=== PATIENT | female | born 1930 | race Caucasian/White ===

== ENCOUNTER 2017-04-29 18:19 | Emergency (ER) | payer OTHER, MEDICARE ==
[2017-04-29 18:31] VITALS: BP 127/69; PULSE 77; TEMP 98.8; BMI 21.2
--- NOTE | 2017-04-29 19:18 | PDOC ---
Attending Attestation - Resident Resident Name: Trevin Green - ED Attending Attestation I have performed the following: I have examined & evaluated the patient, The case was reviewed & discussed with the resident, I agree w/resident's findings & plan, Exceptions are as noted - HPI HPI: 04/29/17 19:17 Laceration to hand, on eloquis - Physicial Exam PE: 04/29/17 19:17 Bleeding Controlled - Medical Decision Making 04/29/17 19:[address] Green Assessment and Plan
[2017-04-29] MEDS ORDERED: DIPHTH,PERTUSS(ACELL),TET 0.5 ML DISP.SYRIN IM ONE (19:48)
--- NOTE | 2017-04-29 19:48 | PDOC ---
History of Present Illness - General Chief Complaint: Laceration Stated Complaint: INJURY Time Seen by Provider: 04/29/17 19:11 - History of Present Illness Initial Comments: 04/29/17 20:38 The patient is an 86 year old female on eloquis who presents for evaluation following a left hand laceration. The patient reports cutting with a paring knife earlier this evening and cutting her left hand. She states that because she is on eloquis, she could not stop the bleeding and called EMS to present to the ED for evaluation. Hemostasis has been obtained here in the ED. The patient denies any lightheadedness, dizziness, chest pain, SOB, abdominal pain, or changes with urination or bowel movements. Past History - Past Medical History Allergies/Adverse Reactions: Allergies Allergy/AdvReac Type Severity Reaction Status Date / Time warfarin Allergy Mild dizzy Verified 04/29/17 19:20 Home Medications: Ambulatory Orders Apixaban [Eliquis] 2.5 mg PO Q2D 04/29/17 Ascorbic Acid [Vitamin C] 500 mg PO DAILY 04/29/17 Calcium 250Mg/Vit-D 125 Units [Oscal 250 mg+D -] 1 combo PO DAILY 04/29/17 Glucosamine Sulfate Dipot Chlr [Glucosamine] 1,000 mg PO 04/29/17 Metoprolol Succinate [Toprol Xl -] 25 mg PO DAILY 04/29/17 Multivitamin/Iron/Folic Acid [Centrum Adults Tablet] 04/29/17 Prednisone 3 mg PO DAILY 04/29/17 Simvastatin 20 mg PO DAILY 04/29/17 Ubidecarenone [Co Q-10] 10 mg PO 04/29/17 Cardiac Disorders: Yes (afib) HTN: Yes Hypercholesterolemia: Yes Other medical history: arthritis - Suicide/Smoking/Psychosocial Hx Smoking History: Former smoker Have you smoked in the past 12 months: No Information on smoking cessation initiated: No Hx Alcohol Use: No Drug/Substance Use Hx: No Substance Use Type: None Review of Systems - Review of Systems Comments:: 04/29/17 21:04 Constitutional: No fevers, chills, fatigue, malaise HEENT: No Rhinorrhea, nasal congestion, visual changes Cardiovascular: No chest pain, syncope, palpitations, lightheadedness Respiratory: No Cough, SOB, Hemoptysis, Gastrointestinal: No Abdominal pain, Nausea, Vomiting, Constipation, Diarrhea, Melena Genitourinary: No Dysuria, Frequency, Urgency, Hesitancy, Hematuria, Flank pain Musculoskeletal: No Myalgia, arthralgia Skin: No rashes, itching, bruising, pallor Neurologic: No Headache, Dizziness, Numbness, Weakness, or Tingling *Physical Exam - Vital Signs Last Vital Signs Temp Pulse Resp BP Pulse Ox 98.8 F 77 20 127/69 99 04/29/17 18:23 04/29/17 18:23 04/29/17 18:23 04/29/17 18:23 04/29/17 18:23 - Physical Exam Comments: 04/29/17 21:05 General Appearance: Nourished. No Apparent Distress HEENT: EOMI, PRISCILA. Respiratory/Chest: Lungs Clear, Normal Breath Sounds. No Crackles, Rales, Rhonchi, Wheezing Cardiovascular: Regular Rhythm, Regular Rate. No Murmur, Gallops, Rubs Gastrointestinal/Abdominal: Normal Bowel Sounds, Soft. No Guarding, Rebound, Tenderness Musculoskeletal: No CVA Tenderness Extremity: 1cm abrasion to the left hand in between the 1st and 2nd digits. Normal range of motion. Sensation to light touch and temperature intact. Normal Capillary Refill Integumentary: Normal Color, Dry, Warm Neurologic: C Fully Oriented, Alert, Normal Mood/Affect, Normal Response, Motor Strength 5/5. Medical Decision Making - Medical Decision Making 04/29/17 21:07 The patient is an 86 year old female on eloquis who presents for evaluation following a left hand laceration. Physical exam of the patient demonstrates an abrasion rather than a laceration that does not require suturing. The patient' s skin is also very thin and would not tolerate steri-stripping. We will apply bacitracin and a non stick dressing. We will update the patient's tetanus status as well. She does not require imaging at this time given her physical exam. We are comfortable discharging the patient home with pcp follow up. We discussed the plan with the patient who voiced understanding and is agreeable with the plan. *DC/Admit/Observation/Transfer Diagnosis at time of Disposition: Abrasion - Discharge Dispostion Disposition: HOME Condition at time of disposition: Improved Admit: No - Referrals Referrals: Bolivar Pritchard [Primary Care Provider] - - Patient Instructions Printed Discharge Instructions: DI for Abrasion Additional Instructions: Please return to the ER if you experience concerning or worsening symptoms including fevers, chills, pus drainage from the wound. Please follow up with your primary care provider if you have continued symptoms.
== END 2017-04-29 20:38 | disposition home or self-care (01) ==
LOC: JER 18:19
PROC: 3E0234Z Introduction of Serum, Toxoid and Vaccine into Muscle, Percutaneous Approach (ICD-10-PCS; principal; 2017-04-29)
DX: S60.512A Abrasion of left hand, initial encounter (principal); W26.0XXA Contact with knife, initial encounter; Y93.G1 Activity, food preparation and clean up; Y92.018 Other place in single-family (private) house as the place of occurrence of the external cause; I48.91 Unspecified atrial fibrillation; Z79.01 Long term (current) use of anticoagulants; I10 Essential (primary) hypertension; E78.00 Pure hypercholesterolemia, unspecified; M12.9 Arthropathy, unspecified
CPT/HCPCS: 90715; 99281-25

== ENCOUNTER → 2018-10-06 | Emergency (ER) | payer OTHER, MEDICARE | LOC: JER 21:24 ==

== ENCOUNTER 2018-10-07 15:06 | Inpatient (IN) | payer OTHER, MEDICARE ==
--- NOTE | 2018-10-07 16:17 | PDOC ---
Attending Attestation - HPI HPI: 10/07/18 17:11 The patient is an 88 year old female with a significant past medical history of AFib (on 81mg aspirin), HTN, who presents to the emergency department for evaluation s/p fall this morning with increased swelling to her lower extremities, as well as, a right elbow bruise and an open right LE wound. The patient states she is unsure why she fell. The patient denies preceding symptoms. She reports 4 falls since '. The patient states she had the RLE wound during her ED visit yesterday, however, as per the EHR the patient left before being evaluated. The patient states the wound is bleeding today and "more open". She states she sometimes does not take the full dose of her Lasix. She states she stopped eliquis some time ago because it made her feel sick. The patient denies chest pain, shortness of breath, headache and dizziness. The patient denies fever, chills, nausea, vomit, diarrhea and constipation. The patient denies dysuria, frequency, urgency and hematuria. <Isabelle Soler - Last Filed: 10/07/18 17:11> - Physicial Exam PE: 10/07/18 17:49 ADULT PHYSICAL EXAM Constitutional: Awake, alert, poor historian. No acute distress. Head: Normocephalic. Atraumatic Eyes: PERRL. EOMI. Conjunctivae are not pale. ENT: Mucous membranes are moist and intact. Posterior pharynx without exudates or erythema. Uvula midline. Neck: Supple. Full ROM. No lymphadenopathy. Cardiovascular: (+) Irregular rate. (+) Irregular rhythm. S1, S2 regular. Distal pulses are 2+ and symmetric. Pulmonary/Chest: (+) Diminished at the bases bilaterally. No wheezing, rales or rhonchi. Abdominal: (+) Ecchymosis to the chest and entire abdomen. Soft and non- distended. There is no tenderness. No rebound, guarding or rigidity. No organomegaly. No palpable masses. Good bowel sounds. Back: No CVA tenderness. Musculoskeletal: No cyanosis. No clubbing. No calf tenderness. Radial/pedal pulses are intact and 2+ bilaterally. (+) Right elbow has a hematoma, but radial pulses intact, strength is intact, NT. (+) 3+ pitting edema, right greater than left. (+) Skin: (+) Extremities have multiple areas of ecchymosis. (+) 2.5 inch wound from the subcutaneous right calf to the right mid calf laterally with serous drainage. Neurological: Alert. Cranial nerves II-XII are grossly intact. Strength is grossly symmetric. No sensory deficits. Psychiatric: Good eye contact. Normal interaction, affect and behavior. <Tiana Aguillon - Last Filed: 10/07/18 17:49> - Resident Resident Name: Maggie Alvarenga - ED Attending Attestation I have performed the following: I have examined & evaluated the patient, The case was reviewed & discussed with the resident, I agree w/resident's findings & plan, Exceptions are as noted - Medical Decision Making 10/07/18 16:16 I, Dr. Alma Delia Brown, DO, attest that this document has been prepared under my direction and personally reviewed by me in its entirety. I further attest, that it accurately reflects all work, treatment, procedures and medical decision -making performed by me. 10/07/18 18:14 a/p: 88yo female with mulitple falls since -wound to RLE- since last night, will allow for secondary healing, no sutures given delay in presentation -no active bleeding, serous drainage from wound -local wound care -worsening LE swelling despite lasix -bruising to abd and chest from falls- some unknown bruising- concern for coagulopathy vs low h/h -R elbow hematoma- xray -fell today- unsure how, but denies LOC -will obtain head ct, c spine, xray elbow, cxr -will monitor and reassess -suspect pt will need obs for freq falls, LE swelling, serous drainage from the wound -tetanus UTD 10/07/18 18:54 hemoglobin 6.2 will need transfusion 10/07/18 18:54 elevated bnp, will give iv lasix pt will need obs 10/07/18 19:45 R pleural effusion on ultrasound no acute intracranial findings, incidental finding of a meningioma 10/07/18 19:53 case discussed with Gabrielle lubin [facility] who accepts pt to service <Alma Delia Brown - Last Filed: 10/07/18 19:54> *DC/Admit/Observation/Transfer - Discharge Dispostion Decision to Admit order: Yes <Alma Delia Brown - Last Filed: 10/07/18 19:54> Diagnosis at time of Disposition: Symptomatic anemia, Falls frequently, Ecchymosis, Leg wound, right, Anasarca, Pleural effusion - Discharge Dispostion Condition at time of disposition: Guarded Heart Score/ECG Review - ECG Intrepretation Comment:: 10/07/18 18:16 afib at 91, nl axis, no acute st/t wave findings <Alma Delia Brown - Last Filed: 10/07/18 19:54> Attestations - Attestations 10/07/18 17:16 Documentation prepared by Isabelle Soler, acting as medical information specialist for Alma Delia Brown DO, <Isabelle Soler - Last Filed: 10/07/18 17:11>
[2018-10-07 17:42] LABS: HEMATOCRIT 18.8 % (32.4-45.2); MCHC 33.1 g/dl (32.0-36.0); MEAN CELL VOLUME 126.3 fl (80-96); MEAN PLT VOLUME 6.9 fl (7.5-11.1); PLATELET COUNT 377 K/MM3 (134-434); RBC 1.49 M/mm3 (3.60-5.2); RDW 17.1 % (11.6-15.6); WHITE BLOOD COUNT 7.9 K/mm3 (4.0-10.0)
[2018-10-07 17:44] LABS: MCH 41.8 pg (25.7-33.7)
[2018-10-07 17:45] LABS: HEMOGLOBIN 6.2 GM/dL (10.7-15.3)
[2018-10-07 17:54] LABS: BASO % 0.4 % (0-2.0); EOS % 0.1 % (0-4.5); HEMATOCRIT 18.2 % (32.4-45.2); MCHC 34.5 g/dl (32.0-36.0); MEAN PLT VOLUME 7.2 fl (7.5-11.1); MONO % 8.1 % (3.8-10.2); NEUT % 87.4 % (42.8-82.8); PLATELET COUNT 372 K/MM3 (134-434); RBC 1.46 M/mm3 (3.60-5.2); RDW 16.7 % (11.6-15.6); WHITE BLOOD COUNT 7.6 K/mm3 (4.0-10.0)
--- NOTE | 2018-10-07 17:56 | PDOC ---
History of Present Illness - General Chief Complaint: Edema Stated Complaint: Injury Time Seen by Provider: 10/07/18 15:23 History Source: Patient - History of Present Illness Initial Comments: 10/07/18 17:48 patient is a 88 y/o female with a history of afib and HLD who presents for leg swelling. Patient is a poor historian. Reports her legs have always been swollen but have been having a lot more liquidy discharge recently. She has also had multiple falls within the past couple of months, the most recent being yesterday and is not sure how she fell. she landed on her right elbow and cut her vicente. Her legs were dripping with blood so she came to the ED last night but left before being seen. She has not been on an elliquis or xarelto " for weeks" and is only currently on baby aspirin. She does not know why her legs are swollen. She does take furosemide 40 mg daily. She states she takes her medication every day. Patient has no other complaints. Past History - Past Medical History Allergies/Adverse Reactions: Allergies Allergy/AdvReac Type Severity Reaction Status Date / Time warfarin Allergy Mild dizzy Verified 10/07/18 15:11 Home Medications: Ambulatory Orders Apixaban [Eliquis] 2.5 mg PO Q2D 04/29/17 Ascorbic Acid [Vitamin C] 500 mg PO DAILY 04/29/17 Calcium 250Mg/Vit-D 125 Units [Oscal 250 mg+D -] 1 combo PO DAILY 04/29/17 Glucosamine Sulfate Dipot Chlr [Glucosamine] 1,000 mg PO DAILY 04/29/17 Metoprolol Succinate [Toprol Xl -] 25 mg PO DAILY 04/29/17 Multivitamin/Iron/Folic Acid [Centrum Adults Tablet] 1 tab PO DAILY 04/29/17 Prednisone 2 mg PO DAILY 04/29/17 Simvastatin 20 mg PO DAILY 04/29/17 Ubidecarenone [Co Q-10] 10 mg PO DAILY 04/29/17 Furosemide [Lasix] 1 tab PO DAILY 11/02/17 Cardiac Disorders: Yes (afib) COPD: No HTN: Yes Hypercholesterolemia: Yes - Surgical History Appendectomy: Yes (1949) - Suicide/Smoking/Psychosocial Hx Smoking History: Never smoked Have you smoked in the past 12 months: No If you are a former smoker, when did you quit?: 1950 Hx Alcohol Use: No Drug/Substance Use Hx: No Substance Use Type: None Review of Systems - Review of Systems Able to Perform ROS?: No *Physical Exam - Vital Signs Last Vital Signs Temp Pulse Resp BP Pulse Ox 97.5 F L 85 18 103/59 L 100 10/07/18 15:10 10/07/18 15:10 10/07/18 15:10 10/07/18 15:10 10/07/18 15:10 - Physical Exam Comments: 10/07/18 17:53 GENERAL: Awake and alert, no acute distress HEART: irregularly irregular, 3/6 systolyic murmur at upper sternal border LUNGS: CTAL B/L ABD: multiple eccyomosis diffusely, no tenderness to palpation MSK: 4x4 cm hematoma at R elbow, multiple eccyomosis over arms EXTREMITIES: very edematous legs, R > L 5 x3 rectangular skrap over R vicente, R leg profusely excreting fluid SKIN: diffuse eccymosis ED Treatment Course - LABORATORY CBC & Chemistry Diagram: 10/07/18 17:33 10/07/18 17:14 - ADDITIONAL ORDERS Additional order review: 10/07/18 17:14 RBC 1.49 L MCV 126.3 H MCHC 33.1 RDW 17.1 H MPV 6.9 L - RADIOLOGY Radiology Studies Ordered: Category Date Time Status ELBOW-RIGHT [RAD] Stat Radiology 10/07/18 15:52 Ordered Medical Decision Making - Medical Decision Making 10/07/18 17:56 Hgb 6.2, type and screen and 2 unit PRBC ordered, f/u CMP f/u imaging Xray of elbow, Head CT, and abd CT for fall and bruising, [place] 300's will admit once labs and imaging resulted type and screen sent admitted patient to service *DC/Admit/Observation/Transfer Diagnosis at time of Disposition: Symptomatic anemia, Falls frequently, Ecchymosis, Leg wound, right, Anasarca, Pleural effusion - Discharge Dispostion Condition at time of disposition: Guarded - Referrals - Patient Instructions - Post Discharge Activity
[2018-10-07 17:57] LABS: HEMOGLOBIN 6.3 GM/dL (10.7-15.3); MCH 43.1 pg (25.7-33.7)
[2018-10-07 18:19] LABS: ALBUMIN 3.7 g/dl (3.4-5.0); ALK PHOS 158 U/L (45-117); ANION GAP 10 MMOL/L (8-16); BILIRUBIN,TOTAL 1.2 mg/dL (0.2-1); BLOOD UREA NITROGEN 17 mg/dL (7-18); CHLORIDE 100 mmol/L (98-107); CO2 26 mmol/L (21-32); CREATININE 0.5 mg/dL (0.55-1.3); GLUCOSE,RANDOM 81 mg/dL (74-106); N-TERMINAL BNP 3413.1 pg/ml (5-450); POTASSIUM 4.2 mmol/L (3.5-5.1); SGOT/AST 21 U/L (15-37); SGPT/ALT 17 U/L (13-61); SODIUM 136 mmol/L (136-145); TOT PROT 5.5 g/dl (6.4-8.2)
[2018-10-07] MEDS ORDERED: FUROSEMIDE 40 MG/4 ML INJECTABLE VIAL IVPUSH ONE (18:53)
[2018-10-07] MEDS ORDERED: FUROSEMIDE 40 MG/4 ML INJECTABLE VIAL ONE (19:35)
[2018-10-07 19:47] LABS: INR 1.18 (0.83-1.09)
[2018-10-07 19:50] LABS: ACTIVATED PTT 33.6 SECONDS (25.2-36.5)
[2018-10-07] MEDS: FUROSEMIDE 40 MG/4 ML INJECTABLE VIAL IVPUSH SCH (20:38)
--- NOTE | 2018-10-07 20:45 | HP ---
CHIEF COMPLAINT: recurrent falls since with right lower extremity open wound with bleeding yesterday PCP:Dr. Pritchard Natural Gas Technician: Dr. Kt Ceballos HISTORY OF PRESENT ILLNESS: Mrs. Pacheco is an 88 year old female who presents from home with history of atrial fibrillation(currently on baby aspirin, previously as recorded on eliquis ) and arthritis who presents to the emergency room after a recurrent fall she had this morning. She reports her initial fall was on when she slipped on ice and she injured her right lower extremity and she developed an open wound. She was referred to Dr. Perry of Wound Care for evaluation of her open wound. She reported she has been on oral lasix as recommended by her Natural Gas Technician for bilateral lower extremity swelling. She reports she has had 2 other falls over the past month but she denied loss of consciousness, dizziness , shortness of breath, orthopnea or chest pain. She reports yesterday she noted to have bleeding from her right lower extremity open wound and she went to the ER but she was not seen by a physician because she did not want to wait any longer. Today she presents after a recurrent fall when she was walking to her bedroom. She denied dizziness or loss of consciousness and she reported she was unable to get off the floor by herself. She reports right lower extremity open wound had no active bleeding but noted to have pinkish tinged drainage. Upon evaluation int he ER she was found to have significant anemia with a hemoglobin 6.3 and hematocrit 18.2,MCV 125 ,MPV 7.2 and RBC 1.46. She was ordered a blood transfusion of 2 Units PRBC's. She was found to have an elevated BNP of 3413. Bilateral lower extremities have signs of fluid overload. Venous ultrasound showed no evidence of deep vein thrombosis. Abdominal ultrasound showed a right pleural effusion and inferior vena cava and hepatic vein appear distended. She was administered one dosage of IV lasix 40 mg once and she is diuresing. CT scan of head showed no evidence of hemorrhage and she was found to have a 1.0 X 0.7 X 0.7cm meningioma. She is being admitted to telemetry for a further medical/cardiac further evaluation for symptomatic anemia and fluid overload. Recent Travel: denies PAST MEDICAL HISTORY: atrial fibrillation arthritis PAST SURGICAL HISTORY: appendectomy Social History: Smoking:denies Alcohol:denies Drugs: denies Lives at home and independent, operates a motor vehicle Family History:noncontributory Allergies warfarin Allergy (Mild, Verified 10/07/18 15:11) dizzy HOME MEDICATIONS: Home Medications Medication Instructions Recorded Apixaban [Eliquis] 2.5 mg PO Q2D 04/29/17 Ascorbic Acid [Vitamin C] 500 mg PO DAILY 04/29/17 Calcium 250Mg/Vit-D 125 Units 1 combo PO DAILY 04/29/17 [Oscal 250 mg+D -] Glucosamine Sulfate Dipot Chlr 1,000 mg PO DAILY 04/29/17 [Glucosamine] Metoprolol Succinate [Toprol Xl -] 25 mg PO DAILY 04/29/17 Multivitamin/Iron/Folic Acid 1 tab PO DAILY 04/29/17 [Centrum Adults Tablet] Prednisone 2 mg PO DAILY 04/29/17 Simvastatin 20 mg PO DAILY 04/29/17 Ubidecarenone [Co Q-10] 10 mg PO DAILY 04/29/17 Furosemide [Lasix] 1 tab PO DAILY 11/02/17 REVIEW OF SYSTEMS CONSTITUTIONAL: Absent: fever, chills, diaphoresis, generalized weakness, malaise, loss of appetite, weight change,frequent falls HEENT: Absent: rhinorrhea, nasal congestion, throat pain, throat swelling, difficulty swallowing, mouth swelling, ear pain, eye pain, visual changes CARDIOVASCULAR: Absent: chest pain, syncope, palpitations, irregular heart rate, lightheadedness , peripheral edema RESPIRATORY: Absent: cough, shortness of breath, dyspnea with exertion, orthopnea, wheezing, stridor, hemoptysis GASTROINTESTINAL: Absent: abdominal pain, abdominal distension, nausea, vomiting, diarrhea, constipation, melena, hematochezia GENITOURINARY: Absent: dysuria, frequency, urgency, hesitancy, hematuria, flank pain, genital pain MUSCULOSKELETAL: Absent: myalgia, arthralgia, joint swelling, back pain, neck pain SKIN: Absent: rash, itching, pallor HEMATOLOGIC/IMMUNOLOGIC: Absent: easy bleeding, easy bruising, lymphadenopathy, frequent infections, bleeding from open RLE wound and generalized ecchymosis ENDOCRINE: Absent: unexplained weight gain, unexplained weight loss, heat intolerance, cold intolerance NEUROLOGIC: Absent: headache, focal weakness or paresthesias, dizziness, unsteady gait, seizure, mental status changes, bladder or bowel incontinence PSYCHIATRIC: Absent: anxiety, depression, suicidal or homicidal ideation, hallucinations. PHYSICAL EXAMINATION Vital Signs - 24 hr 10/07/18 15:10 Temperature 97.5 F L Pulse Rate 85 Respiratory 18 Rate Blood Pressure 103/59 L O2 Sat by Pulse 100 Oximetry (%) GENERAL: awake, alert, and fully oriented HEAD: normal no bruising no bleeding EYES: pupils equal, round and reactive to light EARS, NOSE, THROAT: ears normal nares patent NECK: normal range of motion LUNGS: breath sounds equal, clear to auscultation bilaterally no wheezes and no crackles no use of accessory muscle use HEART: irregular rate and rhythm +murmur ABDOMEN: soft, nontender, not distended MUSCULOSKELETAL: limited range of motion to lower extremities no bony deformities or tenderness UPPER EXTREMITIES: 2+ pulses, warm +upper extremity mild edema poor skin turgor LOWER EXTREMITIES: 2+ pulses +lower extremity edema RLE open wound with no erythema NEUROLOGICAL:normal speech no neuro focal deficits answers questions appropriately with no confusion PSYCHIATRIC: cooperative and anxious good eye contact SKIN: warm poor turgor open lower extremity wound generalized ecchymosis Laboratory Results - last 24 hr 10/07/18 10/07/18 10/07/18 17:14 17:14 17:33 WBC 7.9 7.6 RBC 1.49 L 1.46 L Hgb 6.2 L* 6.3 L* Hct 18.8 L 18.2 L MCV 126.3 H 125.0 H MCH 41.8 H 43.1 H MCHC 33.1 34.5 RDW 17.1 H 16.7 H Plt Count 377 372 MPV 6.9 L 7.2 L Absolute Neuts (auto) 6.7 Neutrophils % 87.4 H Lymphocytes % 4.0 L Monocytes % 8.1 Eosinophils % 0.1 Basophils % 0.4 Nucleated RBC % 0 PT with INR INR PTT (Actin FS) Sodium 136 Potassium 4.2 Chloride 100 Carbon Dioxide 26 Anion Gap 10 BUN 17 Creatinine 0.5 L Creat Clearance w eGFR 116.17 Random Glucose 81 Calcium 8.0 L Total Bilirubin 1.2 H AST 21 ALT 17 Alkaline Phosphatase 158 H Troponin I 0.02 B-Natriuretic Peptide 3413.1 H Total Protein 5.5 L Albumin 3.7 Anti-A Titer Blood Type Antibody Screen Crossmatch 10/07/18 10/07/18 10/07/18 18:15 19:00 19:00 WBC RBC Hgb Hct MCV MCH MCHC RDW Plt Count MPV Absolute Neuts (auto) Neutrophils % Lymphocytes % Monocytes % Eosinophils % Basophils % Nucleated RBC % PT with INR 14.00 H INR 1.18 H PTT (Actin FS) 33.6 Sodium Potassium Chloride Carbon Dioxide Anion Gap BUN Creatinine Creat Clearance w eGFR Random Glucose Calcium Total Bilirubin AST ALT Alkaline Phosphatase Troponin I B-Natriuretic Peptide Total Protein Albumin Anti-A Titer Cancelled Blood Type Cancelled A POSITIVE Antibody Screen Cancelled Crossmatch 10/07/18 19:12 WBC RBC Hgb Hct MCV MCH MCHC RDW Plt Count MPV Absolute Neuts (auto) Neutrophils % Lymphocytes % Monocytes % Eosinophils % Basophils % Nucleated RBC % PT with INR INR PTT (Actin FS) Sodium Potassium Chloride Carbon Dioxide Anion Gap BUN Creatinine Creat Clearance w eGFR Random Glucose Calcium Total Bilirubin AST ALT Alkaline Phosphatase Troponin I B-Natriuretic Peptide Total Protein Albumin Anti-A Titer Blood Type Antibody Screen Crossmatch See Detail ASSESSMENT/PLAN: 88 year old female who presents from home with history of atrial fibrillation( currently on baby aspirin, previously on eliquis as recorded) and arthritis after a recurrent fall with no loss of consciousness. She denied shortness of breath, dizziness, chest pain or syncopy. She was found to have significant anemia with a hemoglobin 6.3 ,hematocrit 18.2,RBC 1.46, MCV 125 and MPV 7.2. #1 Fall in setting Anemia She is receiving 2 Units PRBC's.Repeat CBC post blood transfusion.Monitor for signs of acute congestive heart failure. Check iron ,ferritin, TIBC studies. Check stool guaic. Hold asa. Murmur present in this setting, will check echocardiogram to exclude in setting of recurrent falls(denies LOC). Hematology-Dr. Levy consulted, on oral prednisone for unclear reason. #2 Fluid Overload BNP 3413. Bilateral lower extremities with signs of fluid overload. Abdominal US showed a right pleural effusion, IVC and hepatic veins distended. She received one dosage of IV lasix 40 mg once and she is diuresing. Continue with IV lasix 40 mg twice daily with close monitoring of renal studies , strict I&O's, daily weights and electrolytes. Cardiology- Dr. Ceballos consulted. #3 Atrial Fibrillation Rate controlled. Continue with metoprolol succinate. Hold baby asa in setting of anemia. No chcf anticoagulation in setting of recurrent falls and at high risk for bleeding. Patient with signs of fluid overload and on IV lasix. #4 Right Lower Extremity Open Wound Continue with wound care with wet to dry dressing q6hr. Wound Care consulted-Dr. Perry. #5 Meningioma(New Finding) CT scan of head showed no infarct/hemorrhage, a meningioma is noted. Neurology consulted- Dr. Holly. FEN Avoid IV fluids as receiving IV diuretics. DVT Prophylaxsis Avoid antiplatelet/anticoagulation in setting of anemia. SCD's Visit type - Emergency Visit Emergency Visit: Yes ED Registration Date: 10/07/18 Care time: The patient presented to the Emergency Department on the above date and was hospitalized for further evaluation of their emergent condition. - New Patient This patient is new to me today: Yes Date on this admission: 10/08/18 - Critical Care Critical Care patient: No
[2018-10-07 21:25] LABS: ANISOCYTOSIS 2+
[2018-10-08 07:46] VITALS: BMI 21.2
--- NOTE | 2018-10-08 09:40 | CONSULT ---
Consultation: HEMATOLOGY CONSULTATION CONSULT REQUEST: We have been asked to medically evaluate this patient for Anemia HISTORY OF PRESENT ILLNESS: This is a pleasant 88 year old female with a past medical history of atrial fibrillation on aspirin and osteoarthritis who presented to the emergency room for recurrent falls and bilateral lower extremity swelling. Patient reports that her falls began on 08/26/18 when she slipped on ice and developed a wound on her right lower extremity. States that the fall was mechanical in nature and denied lightheadedness, dizziness, or loss of consciousness. A couple of days ago, patient fell again in her home and noted trickling of blood down her right leg as well as yellowish fluid oozing from both legs, prompting her to come to the hospital. Currently patient feels well and only complains of pain in her legs. Denies chest pain, shortness of breath, nausea, vomiting, diarrhea, fevers , chills. Patient denies ever being told she had anemia. Smoking: former, quit 30 years ago, smoked for 4 years reportedly 1 pack a week Alcohol: social Drug Use: never Heme/Onc History: Bruises easily, no spontaneous bleeds, no cancer Family history: mother with arthritis, father with heart problems -patient has no brothers or sisters, no children Social History: Never (fiance passed before they years ago), never had children. Patient lives in a single family home with stairs. She was able to ambulate independently in her home and take the stairs. Reports getting a friend or neighbor to help whenever she needed aid. States she now has someone helping her. 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 REVIEW OF SYSTEMS: CONSTITUTIONAL: Absent: fever, chills, diaphoresis, generalized weakness, malaise, loss of appetite, weight change HEENT: Absent: rhinorrhea, nasal congestion, throat pain, throat swelling, difficulty swallowing, mouth swelling, ear pain, eye pain, visual changes CARDIOVASCULAR: peripheral edema Absent: chest pain, syncope, palpitations, irregular heart rate, lightheadedness , RESPIRATORY: Absent: cough, shortness of breath, dyspnea with exertion, orthopnea, wheezing, stridor, hemoptysis GASTROINTESTINAL: Absent: abdominal pain, abdominal distension, nausea, vomiting, diarrhea, constipation, melena, hematochezia GENITOURINARY: Absent: dysuria, frequency, urgency, hesitancy, hematuria, flank pain, genital pain MUSCULOSKELETAL: arthralgia Absent: myalgia, joint swelling, back pain, neck pain SKIN: Absent: rash, itching, pallor HEMATOLOGIC/IMMUNOLOGIC: easy bruising Absent: easy bleeding, lymphadenopathy, frequent infections ENDOCRINE: Absent: unexplained weight gain, unexplained weight loss, heat intolerance, cold intolerance NEUROLOGIC: Absent: headache, focal weakness or paresthesias, dizziness, unsteady gait, seizure, mental status changes, bladder or bowel incontinence PSYCHIATRIC: Absent: anxiety, depression, suicidal or homicidal ideation, hallucinations. PHYSICAL EXAMINATION Vital Signs - 24 hr 10/07/18 10/07/18 10/07/18 15:10 21:20 21:35 Temperature 97.5 F L 97.9 F 97.8 F Pulse Rate 85 Pulse Rate [ 88 86 Left] Respiratory 18 18 18 Rate Blood Pressure 103/59 L Blood Pressure 94/42 L 97/50 L [Left Arm] O2 Sat by Pulse 100 100 98 Oximetry (%) 10/07/18 10/08/18 10/08/18 22:05 00:45 01:00 Temperature 98.7 F 98.0 F 98.5 F Pulse Rate 93 H 87 95 H Pulse Rate [ Left] Respiratory 18 18 18 Rate Blood Pressure 98/61 102/56 L 127/63 Blood Pressure [Left Arm] O2 Sat by Pulse 97 Oximetry (%) 10/08/18 10/08/18 10/08/18 02:50 05:16 06:55 Temperature 98.0 F 98.1 F 98.1 F Pulse Rate 84 86 89 Pulse Rate [ Left] Respiratory 18 20 20 Rate Blood Pressure 95/55 L 106/50 L 109/67 Blood Pressure [Left Arm] O2 Sat by Pulse Oximetry (%) 10/08/18 07:20 Temperature 98.0 F Pulse Rate 86 Pulse Rate [ Left] Respiratory 20 Rate Blood Pressure 100/57 L Blood Pressure [Left Arm] O2 Sat by Pulse Oximetry (%) GENERAL: A&Ox3, no acute distress HEAD: No trauma EYES: PERRLA, EOMI ENT: moist mucus membranes, NECK: No lymphadenopathy palpated and no JVD LUNGS: CTA, no wheezes or rhales noted BREAST: normal exam, no masses or irregularities noted HEART: RRR, systolic murmur noted in the 2nd R intercostal space ABDOMEN: soft, nontender, nondistended, bowel sounds present, ecchymotic region noted in the epigastric region MUSCULOSKELETAL: digits laterally deviated with pronounced joints UPPER EXTREMITIES: 2+ pulses, Large ecchymosis noted on R elbow LOWER EXTREMITIES: 2+ pulses, warm, well-perfused, 2+ peripheral edema noted NEUROLOGICAL: CNII-XII intact, no focal deficits PSYCHIATRIC: Cooperative. Good eye contact. Appropriate mood and affect. SKIN: Warm, dry, normal turgor Laboratory Results - last 24 hr 10/07/18 10/07/18 10/07/18 17:14 17:14 17:33 WBC 7.9 7.6 RBC 1.49 L 1.46 L Hgb 6.2 L* 6.3 L* Hct 18.8 L 18.2 L MCV 126.3 H 125.0 H MCH 41.8 H 43.1 H MCHC 33.1 34.5 RDW 17.1 H 16.7 H Plt Count 377 372 MPV 6.9 L 7.2 L Absolute Neuts (auto) 6.7 Neutrophils % 87.4 H Lymphocytes % 4.0 L Monocytes % 8.1 Eosinophils % 0.1 Basophils % 0.4 Nucleated RBC % 0 Anisocytosis 2+ PT with INR INR PTT (Actin FS) Sodium 136 Potassium 4.2 Chloride 100 Carbon Dioxide 26 Anion Gap 10 BUN 17 Creatinine 0.5 L Creat Clearance w eGFR 116.17 Random Glucose 81 Calcium 8.0 L Total Bilirubin 1.2 H AST 21 ALT 17 Alkaline Phosphatase 158 H Troponin I 0.02 B-Natriuretic Peptide 3413.1 H Total Protein 5.5 L Albumin 3.7 Anti-A Titer Blood Type Antibody Screen Crossmatch 10/07/18 10/07/18 10/07/18 18:15 19:00 19:00 WBC RBC Hgb Hct MCV MCH MCHC RDW Plt Count MPV Absolute Neuts (auto) Neutrophils % Lymphocytes % Monocytes % Eosinophils % Basophils % Nucleated RBC % Anisocytosis PT with INR 14.00 H INR 1.18 H PTT (Actin FS) 33.6 Sodium Potassium Chloride Carbon Dioxide Anion Gap BUN Creatinine Creat Clearance w eGFR Random Glucose Calcium Total Bilirubin AST ALT Alkaline Phosphatase Troponin I B-Natriuretic Peptide Total Protein Albumin Anti-A Titer Cancelled Blood Type Cancelled A POSITIVE Antibody Screen Cancelled Crossmatch 10/07/18 19:12 WBC RBC Hgb Hct MCV MCH MCHC RDW Plt Count MPV Absolute Neuts (auto) Neutrophils % Lymphocytes % Monocytes % Eosinophils % Basophils % Nucleated RBC % Anisocytosis PT with INR INR PTT (Actin FS) Sodium Potassium Chloride Carbon Dioxide Anion Gap BUN Creatinine Creat Clearance w eGFR Random Glucose Calcium Total Bilirubin AST ALT Alkaline Phosphatase Troponin I B-Natriuretic Peptide Total Protein Albumin Anti-A Titer Blood Type A POSITIVE Antibody Screen Negative Crossmatch See Detail Active Medications Generic Name Dose Route Start Last Admin Trade Name Christine PRN Reason Stop Dose Admin Atorvastatin Calcium 10 mg 10/08/18 22:00 Lipitor - PO HS ALEXA Furosemide 40 mg 10/07/18 20:30 10/07/18 20:38 Lasix Injection - IVPUSH Not Given BIDLASIX ALEXA Metoprolol Succinate 25 mg 10/08/18 10:00 Toprol Xl - PO DAILY ALEXA Multivitamins/Minerals/Vitamin C 1 tab 10/08/18 10:00 Tab-A-Vit - PO DAILY ALEXA Prednisone 2 mg 10/08/18 10:00 Deltasone - PO DAILY [facility] ASSESSMENT/PLAN: This is a pleasant 88 year old female with a past medical history of atrial fibrillation on aspirin and osteoarthritis who presented to the emergency room for recurrent falls and bilateral lower extremity swelling. We were consulted to evaluate macrocytic anemia. #Macrocytic Anemia: s/p 2U PRBCs, not on medications that cause macrocytosis. Macrocytosis could be due to megaloblastic cause such as B12/folate deficiency, reticulocytosis from hemolytic anemia or bleeding episode that she experienced from her leg, less likely from alcohol use or increased erythropoiesis -after 2U PRBCs, hgb improved from 6 to 9 -INR normal -patient on ASA -followup iron studies, reticulocytes, LDH, haptoglobin, B12/folate, TSH -if laboratory tests do not elucidate cause of anemia, would look at smear -continue to transfuse to a Hemoglobin goal of 7 -continue to monitor with daily H&H -will order MDS panel (FISH/Flow/cytology) #Meningioma: found incidentally on head CT (seen in 2.5% of patients >70yo), asymptomatic. Can monitor. #Falls: appear mechanical in nature Dispo: We will continue to follow the patient. Thank you for this consultative opportunity. Domingo Morales, PGY2 Will discuss with Dr. Spence Visit type - Emergency Visit Emergency Visit: No - New Patient This patient is new to me today: No - Critical Care Critical Care patient: No
[2018-10-08 09:44] LABS: HEMATOCRIT 25.9 % (32.4-45.2); HEMOGLOBIN 9.1 GM/dL (10.7-15.3); MCH 37.7 pg (25.7-33.7); MEAN CELL VOLUME 107.8 fl (80-96); PLATELET COUNT 340 K/MM3 (134-434); WHITE BLOOD COUNT 6.3 K/mm3 (4.0-10.0)
[2018-10-08] MEDS: FUROSEMIDE 40 MG/4 ML INJECTABLE VIAL IVPUSH SCH ×2 (10:07→18:36)
[2018-10-08] MEDS: MULTIVITAMINS (DAILY MVI) TABLET (FP) PO SCH (10:08)
--- NOTE | 2018-10-08 10:33 | EKG ---
Test Reason : Blood Pressure : / mmHG Vent. Rate : 091 BPM Atrial Rate : 097 BPM P-R Int : 000 ms QRS Dur : 098 ms QT Int : 376 ms P-R-T Axes : 000 073 -23 degrees QTc Int : 462 ms ATRIAL FIBRILLATION INCOMPLETE RIGHT BUNDLE BRANCH BLOCK NONSPECIFIC T WAVE ABNORMALITY ABNORMAL ECG NO PREVIOUS ECGS AVAILABLE Confirmed by GENE LIN MD ([id number]) on 10/08/2018 10:33:11 AM Referred By: Confirmed By:GENE LIN MD
[2018-10-08 10:48] LABS: INR 1.25 (0.83-1.09); PROTHROMBIN TIME (PATIENT) 14.8 SEC (9.7-13.0)
[2018-10-08] MEDS: predniSONE 1 MG TABLET (FP) PO SCH (10:50)
[2018-10-08 10:51] LABS: ANION GAP 6 MMOL/L (8-16); BLOOD UREA NITROGEN 17 mg/dL (7-18); CHLORIDE 100 mmol/L (98-107); CO2 29 mmol/L (21-32); CREATININE 0.6 mg/dL (0.55-1.3); GLUCOSE,RANDOM 140 mg/dL (74-106); LDH 249 U/L (84-246); POTASSIUM 3.5 mmol/L (3.5-5.1); SODIUM 135 mmol/L (136-145)
--- NOTE | 2018-10-08 11:25 | PN ---
Progress Note, Physician Chief Complaint: Feels improved no new complaints History of Present Illness: 88 year old female who presents from home with history of atrial fibrillation( currently on baby aspirin, previously as recorded on eliquis) and arthritis who presents to the emergency room after a fall due to generalized weakness , lab shows sever anemia with a hemoglobin 6.3 and hematocrit 18.2,MCV 125 ,MPV 7.2 and RBC 1.46. recived 2 unit RBC transfusion with appropriate increase no h/ O Bleeding , imaging shows no occult bleeding - Current Medication List Current Medications: Active Medications Atorvastatin Calcium (Lipitor -) 10 mg PO HS ALEXA Furosemide (Lasix Injection -) 40 mg IVPUSH BIDLASIX [facility] Last Admin: 10/08/18 10:07 Dose: 40 mg Metoprolol Succinate (Toprol Xl -) 25 mg PO DAILY [facility] Multivitamins/Minerals/Vitamin C (Tab-A-Vit -) 1 tab PO DAILY [facility] Last Admin: 10/08/18 10:08 Dose: 1 tab Prednisone (Deltasone -) 2 mg PO DAILY [facility] Last Admin: 10/08/18 10:50 Dose: 2 mg - Objective Vital Signs: Vital Signs Temperature 98 F 10/08/18 09:00 Pulse Rate 88 10/08/18 09:00 Respiratory Rate 20 10/08/18 09:00 Blood Pressure 92/54 L 10/08/18 09:00 O2 Sat by Pulse Oximetry (%) 97 10/08/18 09:00 Elderly F not in distress HEENT: MM moist, + anemia, PERRLA NECK: No JVd No Bruit CHEST: CTA B/L CVS: S1S2 R SM in AA ABD: No distention, non tender Bs + EXT: B/L LE swelling Rt LE wound [employer]: AOX3 non focal Labs: CBC, BMP 10/08/18 09:30 10/08/18 09:30 INR, PTT INR 1.25 (0.83-1.09) H 10/08/18 10:15 Problem List - Problems (1) Severe anemia Assessment/Plan: Sever anemia, with MCV 126 Hb 6.2 normal platelet and WBC, will add on Vit B12 , Thiamine, Methylmalonic acid, Reticount LDH, Ferritin and Iron panel, hematology consult, patient has last blood test 6 months ago never diagnosed with anemia, denies any melena, GERD symptoms, CT doesn't show any occult hemorrhage no recent EGD or Colonoscopy , will call PMD to get more information , rpt H/H after trasfusion Code(s): D64.9 - ANEMIA, UNSPECIFIED (2) Falls frequently Assessment/Plan: PT evaluation F/U Neuro recommendation, Code(s): R29.6 - REPEATED FALLS (3) Afib Assessment/Plan: Rate controlled evaluated by cardiology will resum B Blockers Hold ASA for sever anemia Code(s): I48.91 - UNSPECIFIED ATRIAL FIBRILLATION (4) HTN (hypertension) Assessment/Plan: Cont Home dose of B Blockers Code(s): I10 - ESSENTIAL (PRIMARY) HYPERTENSION (5) Wound of lower extremity Assessment/Plan: Will F/U Wound care consult no indication of abx Code(s): S81.809A - UNSPECIFIED OPEN WOUND, UNSPECIFIED LOWER LEG, INIT ENCNTR Qualifiers: Laterality: right (6) Lower extremity edema Assessment/Plan: Cont Lasix 40 mg BID Code(s): R60.0 - LOCALIZED EDEMA
--- NOTE | 2018-10-08 11:44 | ECHO ---
Name: KOLTON SELF Exam:Adult Echocardiogram Study Date: 10/08/2018 10:53 AM Age: 88 yrs Reason For Study: [place] Height: 62 in Weight: 112 lb BSA: 1.5 m2 MMode/2D Measurements & Calculations IVSd: 0.83 cm Ao root diam: 2.8 cm LVIDd: 5.0 cm LA dimension: 4.2 cm LVIDs: 3.4 cm LVPWd: 1.0 cm LVPWs: 1.2 cm EDV(Teich): 119.7 ml ESV(Teich): 47.5 ml LVOT diam: 1.8 cm LAV (MOD-bp): 113.0 ml RV S Brandon: 17.3 cm/sec Doppler Measurements & Calculations MVA(VTI): 2.2 cm2 Ao V2 max: 391.5 cm/sec MV V2 max: 143.1 cm/sec Ao max P.3 mmHg MV max P.2 mmHg Ao V2 mean: 251.4 cm/sec MV V2 mean: 89.9 cm/sec Ao mean P.8 mmHg MV mean P.0 mmHg Ao V2 VTI: 67.1 cm MV V2 VTI: 19.3 cm KOSTAS(I,D): 0.62 cm2 AI P1/2t: 436.7 msec KOSTAS(V,D): 0.57 cm2 AI max brandon: 379.7 cm/sec LV V1 max P.8 mmHg AI max P.8 mmHg LV V1 mean P.8 mmHg AI dec slope: 254.6 cm/sec2 LV V1 max: 84.2 cm/sec LV V1 mean: 62.1 cm/sec LV V1 VTI: 15.7 cm MR max brandon: 525.2 cm/sec SV(LVOT): 41.7 ml MR max P.4 mmHg TR max brandon: 269.3 cm/sec PA V2 max: 108.6 cm/sec TR max P.4 mmHg PA max P.7 mmHg Med Peak E' Brandon: 6.5 cm/sec Lat Peak E' Brandon: 10.2 cm/sec Left Ventricle Left ventricular systolic function is normal. Ejection Fraction = 55-60%. Right Ventricle The right ventricle is normal in size and function. Atria The left atrium is mildly dilated. The right atrium is mildly dilated. Mitral Valve The mitral valve is normal in structure and function. No significant mitral valve stenosis. There is moderate mitral regurgitation. Tricuspid Valve The tricuspid valve is normal in structure and function. There is mild tricuspid regurgitation. Right ventricular systolic pressure is elevated at 30-40mmHg. Aortic Valve There is moderate to severe aortic valve thickening. Moderate to severe valvular aortic stenosis. Mil d aortic regurgitation. Pulmonic Valve The pulmonic valve is not well seen, but is grossly normal. There is no pulmonic valvular stenosis. Great Vessels The aortic root is normal size. Pericardium/Pleura There is no pericardial effusion. Interpretation Summary Left ventricular systolic function is normal. Ejection Fraction = 55-60%. The right ventricle is normal in size and function. The left atrium is mildly dilated. The right atrium is mildly dilated. There is moderate mitral regurgitation. There is mild tricuspid regurgitation. Right ventricular systolic pressure is elevated at 30-40mmHg. Moderate to severe valvular aortic stenosis. Mild aortic regurgitation. There is no pericardial effusion. MD Montano *[place] 10/08/2018 11:44 AM
--- NOTE | 2018-10-08 11:44 | CON.CARD ---
Cardiology Consult (text) - Consultation Consultation Note: cc: fall hpi: 88 f hx afib, htn, hld, le edema here s/p fall. Pt with several falls over past 1-2 mos. Prior fall led to le wound that has still not healed, following with vascular. Yesterday slipped at home and fell. No prodrome sxs, no loc. No cp sob palps dizzy pnd orthopnea. Chronic le edema, worse lately. Sees dr kline for cardio. pmh: per hpi psh: appendectomy social: no tob fam: no premature cad ros: per hpi; no nvd cough headache gib dysuria; all others normal meds: Home Medications Medication Instructions Recorded Apixaban [Eliquis] 2.5 mg PO Q2D 04/29/17 Ascorbic Acid [Vitamin C] 500 mg PO DAILY 04/29/17 Calcium 250Mg/Vit-D 125 Units 1 combo PO DAILY 04/29/17 [Oscal 250 mg+D -] Glucosamine Sulfate Dipot Chlr 1,000 mg PO DAILY 04/29/17 [Glucosamine] Metoprolol Succinate [Toprol Xl -] 25 mg PO DAILY 04/29/17 Multivitamin/Iron/Folic Acid 1 tab PO DAILY 04/29/17 [Centrum Adults Tablet] Prednisone 2 mg PO DAILY 04/29/17 Simvastatin 20 mg PO DAILY 04/29/17 Ubidecarenone [Co Q-10] 10 mg PO DAILY 04/29/17 Furosemide [Lasix] 1 tab PO DAILY 11/02/17 pe: Vital Signs Period Temp Pulse Resp BP Sys/Jay Pulse Ox Last 24 Hr 97.5 F-98.7 F 84-95 18-20 92-127/42-67 97-100 nad no jvd irreg s1s2 no r/g, +as murmur cta bl nl eff aaox3 1+ le edema bl, no c/c abd nt nd pos bs no jaundice diaphoresis pos dp pt Laboratory Last Values WBC 6.3 K/mm3 (4.0-10.0) 10/08/18 09:30 RBC 2.40 M/mm3 (3.60-5.2) L 10/08/18 09:30 Hgb 9.1 GM/dL (10.7-15.3) L 10/08/18 09:30 Hct 25.9 % (32.4-45.2) L D 10/08/18 09:30 MCV 107.8 fl (80-96) H D 10/08/18 09:30 MCH 37.7 pg (25.7-33.7) H D 10/08/18 09:30 MCHC 35.0 g/dl (32.0-36.0) 10/08/18 09:30 RDW 28.0 % (11.6-15.6) H 10/08/18 09:30 Plt Count 340 K/MM3 (134-434) 10/08/18 09:30 MPV 7.0 fl (7.5-11.1) L 10/08/18 09:30 Absolute Neuts (auto) 6.7 K/mm3 (1.5-8.0) 10/07/18 17:33 Neutrophils % 87.4 % (42.8-82.8) H 10/07/18 17:33 Lymphocytes % 4.0 % (8-40) L 10/07/18 17:33 Monocytes % 8.1 % (3.8-10.2) 10/07/18 17:33 Eosinophils % 0.1 % (0-4.5) 10/07/18 17:33 Basophils % 0.4 % (0-2.0) 10/07/18 17:33 Nucleated RBC % 0 % (0-0) 10/07/18 17:33 Anisocytosis 2+ 10/07/18 17:33 PT with INR 14.80 SEC (9.7-13.0) H 10/08/18 10:15 INR 1.25 (0.83-1.09) H 10/08/18 10:15 PTT (Actin FS) 33.6 SECONDS (25.2-36.5) 10/07/18 18:15 Sodium 135 mmol/L (136-145) L 10/08/18 09:30 Potassium 3.5 mmol/L (3.5-5.1) 10/08/18 09:30 Chloride 100 mmol/L (98-107) 10/08/18 09:30 Carbon Dioxide 29 mmol/L (21-32) 10/08/18 09:30 Anion Gap 6 MMOL/L (8-16) L 10/08/18 09:30 BUN 17 mg/dL (7-18) 10/08/18 09:30 Creatinine 0.6 mg/dL (0.55-1.3) 10/08/18 09:30 Creat Clearance w eGFR 94.13 (>60) 10/08/18 09:30 Random Glucose 140 mg/dL (74-106) H 10/08/18 09:30 Calcium 8.0 mg/dL (8.5-10.1) L 10/08/18 09:30 Ferritin 385.9 ng/ml (8-388) 10/08/18 09:30 Total Bilirubin 1.2 mg/dL (0.2-1) H 10/07/18 17:14 AST 21 U/L (15-37) 10/07/18 17:14 ALT 17 U/L (13-61) 10/07/18 17:14 Alkaline Phosphatase 158 U/L (45-117) H 10/07/18 17:14 LD Total 249 U/L (84-246) H 10/08/18 09:30 Troponin I 0.02 ng/ml (0.00-0.05) 10/07/18 17:14 B-Natriuretic Peptide 3413.1 pg/ml (5-450) H 10/07/18 17:14 Total Protein 5.5 g/dl (6.4-8.2) L 10/07/18 17:14 Albumin 3.7 g/dl (3.4-5.0) 10/07/18 17:14 Vitamin B12 499 pg/ml (193-986) 10/08/18 09:30 Serum Folate 19 ng/mL (3.1-17.5) H 10/08/18 09:30 TSH 1.10 uIU/ml (0.358-3.74) 10/08/18 09:30 Anti-A Titer Cancelled 10/07/18 19:00 Blood Type A POSITIVE 10/07/18 19:12 Antibody Screen Negative 10/07/18 19:12 Crossmatch See Detail 10/07/18 19:12 cxr: clear lungs ecg: rate controlled afib, no ischemic changes, nl qtc tele: rate controlled afib a/p: 88 f hx afib, htn, hld, le edema here s/p fall. fall: -mechanical fall, no suggestion of cardiac etiology afib: -rate controlled on bb -not on ac 2/2 frequent falls -has been on asa but now held due to severe anemia here requiring prbcs htn: -cont bb hld: -cont statin anemia: -hgb 6s here, s/p prbcs -heme consulted -hold home asa
[2018-10-08] MEDS: metoPROLOL SUCCINATE 25 MG TAB.SR.24H (FP) PO SCH (12:00)
[2018-10-08 12:57] LABS: HEMATOCRIT 28.8 % (32.4-45.2); MCH 37.1 pg (25.7-33.7); MCHC 34.6 g/dl (32.0-36.0); MEAN CELL VOLUME 107.3 fl (80-96); MEAN PLT VOLUME 7.1 fl (7.5-11.1); PLATELET COUNT 378 K/MM3 (134-434); RBC 2.69 M/mm3 (3.60-5.2); RDW 28.1 % (11.6-15.6); RETICULOCYTES 1.19 % (0.5-1.5)
[2018-10-08 15:53] LABS: EPI CELLS 0.7 /HPF (0-5); URINE APPEARANCE CLEAR; URINE BACTERIA 586.5 /hpf (NEGATIVE); URINE BILIRUBIN NEGATIVE (NEGATIVE); URINE CASTS 2 /hpf (0-8); URINE COLOR YELLOW; URINE GLUCOSE (UA) NEGATIVE (NEGATIVE); URINE KETONE NEGATIVE (NEGATIVE); URINE LEUK ESTERASE 1+ (NEGATIVE); URINE NITRITE NEGATIVE (NEGATIVE); URINE PROTEIN NEGATIVE (NEGATIVE); URINE RBC 3 /hpf (0-4); URINE UROBILINOGEN 0.2 mg/dL (0.2-1.0); URINE WBC 4 /hpf (0-5)
--- NOTE | 2018-10-08 19:44 | CONSULT ---
Consult - text type - Consultation Consultation Note: 88 f hx afib, htn, hld, le edema here s/p fall. Prior fall led to le wound that has still not healed, following with vascular. Yesterday slipped at home and fell. Chronic le edema, worse lately. pmh: per hpi psh: appendectomy social: no tob meds: Home Medications Medication Instructions Recorded Apixaban [Eliquis] 2.5 mg PO Q2D 04/29/17 Ascorbic Acid [Vitamin C] 500 mg PO DAILY 04/29/17 Calcium 250Mg/Vit-D 125 Units 1 combo PO DAILY 04/29/17 [Oscal 250 mg+D -] Glucosamine Sulfate Dipot Chlr 1,000 mg PO DAILY 04/29/17 [Glucosamine] Metoprolol Succinate [Toprol Xl -] 25 mg PO DAILY 04/29/17 Multivitamin/Iron/Folic Acid 1 tab PO DAILY 04/29/17 [Centrum Adults Tablet] Prednisone 2 mg PO DAILY 04/29/17 Simvastatin 20 mg PO DAILY 04/29/17 Ubidecarenone [Co Q-10] 10 mg PO DAILY 04/29/17 Furosemide [Lasix] 1 tab PO DAILY 11/02/17 pe: afvss nad no jvd irreg s1s2 no r/g, +as murmur cta bl nl eff aaox3 1+ le edema bl, no c/c labs/meds reviewed A/P 88 y/o patient with HTN, HLD, AFib,lower extremity edema, here s/p fall Noted to have severe macrocytic anemia-- normal B12/TSH/folate Nl WBC/platelets Low haptoglobin/macrocytosis/anemia/elevated ALKP ? macrocytosis related to passive congestion of liver from CHF r/o cold agglutinins/Theresa but LDH only mildly elevated On lasix
[2018-10-08] MEDS: ATORVASTATIN CA 10 MG TABLET (FP) PO SCH (22:34)
[2018-10-09 04:13] LABS: SERUM IRON SATURATION > 93 % (15-55); TOTAL IRON BINDING CAPACITY < 253 ug/dL (250-450); UIBC < 17 ug/dL (118-369)
[2018-10-09] MEDS: FUROSEMIDE 40 MG/4 ML INJECTABLE VIAL IVPUSH SCH (06:34)
[2018-10-09 08:36] LABS: BASO % 0.6 % (0-2.0); EOS % 0.7 % (0-4.5); HEMATOCRIT 23.8 % (32.4-45.2); HEMOGLOBIN 8.6 GM/dL (10.7-15.3); LYMPH % 9.6 % (8-40); MCH 38.9 pg (25.7-33.7); MEAN CELL VOLUME 108.1 fl (80-96); MEAN PLT VOLUME 7.5 fl (7.5-11.1); NEUT % 78.1 % (42.8-82.8); PLATELET COUNT 337 K/MM3 (134-434); RDW 27.6 % (11.6-15.6); WHITE BLOOD COUNT 5.5 K/mm3 (4.0-10.0)
[2018-10-09 09:05] LABS: ANION GAP 7 MMOL/L (8-16); BLOOD UREA NITROGEN 18 mg/dL (7-18); CALCIUM 7.4 mg/dL (8.5-10.1); CHLORIDE 98 mmol/L (98-107); CO2 29 mmol/L (21-32); CREATININE 0.4 mg/dL (0.55-1.3); GLUCOSE,RANDOM 81 mg/dL (74-106); POTASSIUM 3.1 mmol/L (3.5-5.1); SODIUM 135 mmol/L (136-145)
[2018-10-09] MEDS ORDERED: FUROSEMIDE 40 MG TABLET (FP) PO SCH (10:00)
[2018-10-09] MEDS: MULTIVITAMINS (DAILY MVI) TABLET (FP) PO SCH (10:17)
[2018-10-09] MEDS: predniSONE 1 MG TABLET (FP) PO SCH (10:17)
[2018-10-09] MEDS: CALCIUM 250MG/VIT-D 125 UNITS 1 COMBO TABLET PO SCH (10:17)
[2018-10-09] MEDS: ASCORBIC ACID 500 MG TABLET (FP) PO SCH (10:17)
[2018-10-09] MEDS: metoPROLOL SUCCINATE 25 MG TAB.SR.24H (FP) PO SCH ×2 (10:17→14:41)
[2018-10-09] MEDS ORDERED: PT OWN MED DRAWER 7, Y5N ONE (11:03)
--- NOTE | 2018-10-09 11:25 | PN ---
Progress Note, Physician - Current Medication List Current Medications: Active Medications Ascorbic Acid (Vitamin C -) 500 mg PO DAILY [facility] Last Admin: 10/09/18 10:17 Dose: 500 mg Atorvastatin Calcium (Lipitor -) 10 mg PO HS [facility] Last Admin: 10/08/18 22:34 Dose: 10 mg Calcium/Vitamin D (Oscal 250 Mg+D -) 1 tab PO DAILY [facility] Last Admin: 10/09/18 10:17 Dose: 1 tab Furosemide (Lasix Injection -) 40 mg IVPUSH BIDLASIX [facility] Last Admin: 10/09/18 06:34 Dose: 40 mg Metoprolol Succinate (Toprol Xl -) 25 mg PO DAILY [facility] Last Admin: 10/09/18 10:17 Dose: Not Given Multivitamins/Minerals/Vitamin C (Tab-A-Vit -) 1 tab PO DAILY [facility] Last Admin: 10/09/18 10:17 Dose: 1 tab Prednisone (Deltasone -) 2 mg PO DAILY [facility] Last Admin: 10/09/18 10:17 Dose: 2 mg - Objective Vital Signs: Vital Signs Temperature 99.1 F 10/09/18 05:57 Pulse Rate 92 H 10/09/18 10:23 Respiratory Rate 18 10/09/18 10:23 Blood Pressure 88/61 L 10/09/18 10:23 O2 Sat by Pulse Oximetry (%) 97 10/08/18 21:00 Constitutional: Yes: Well Nourished, No Distress, Calm Eyes: Yes: WNL, Conjunctiva Clear, EOM Intact HENT: Yes: WNL, Atraumatic, Normocephalic Neck: Yes: WNL, Supple, Trachea Midline Cardiovascular: Yes: WNL, Pulse Irregular, S1, S2 Respiratory: Yes: WNL, Regular, CTA Bilaterally Gastrointestinal: Yes: WNL, Normal Bowel Sounds, Soft Musculoskeletal: Yes: WNL Extremities: Yes: WNL Edema: No Edema: LLE: 1+, RLE: 1+ Peripheral Pulses WNL: No Integumentary: Yes: WNL Wound/Incision: Yes: Clean/Dry Neurological: Yes: WNL, Alert, Oriented ...Motor Strength: WNL Psychiatric: Yes: WNL, Alert, Oriented Labs: CBC, BMP 10/09/18 06:15 10/09/18 06:15 INR, PTT INR 1.25 (0.83-1.09) H 10/08/18 10:15 Assessment/Plan Severe anemia Sever anemia, with MCV 126 Hb 6.2 normal platelet and WBC, will add on Vit B12 , Thiamine, Methylmalonic acid, Reticount LDH, Ferritin and Iron panel, hematology consult, patient has last blood test 6 months ago never diagnosed with anemia, denies any melena, GERD symptoms, CT doesn't show any occult hemorrhage no recent EGD or Colonoscopy , will call PMD to get more information , rpt H/H after trasfusion 9.08/11 Falls frequently PT evaluation F/U Neuro recommendation, Afib Rate controlled evaluated by cardiology will resum B Blockers Hold ASA for sever anemia patient is not on AC due to high frequency of falls HTN (hypertension) -Cont Home dose of B Blockers Wound of lower extremity Will F/U Wound care consult no indication of abx Lower extremity edema - Cont furosemide 40 mg daily
--- NOTE | 2018-10-09 12:14 | PN ---
Progress Note (short form) - Note Progress Note: Vascular Surgery Pt seen and examined. WEll known from wound care clinic. Right vicente wound. 3x3cm. Open with some slough. Start santyl to wound daily with saline moist dressing. Arben Perry DO
--- NOTE | 2018-10-09 13:06 | PN ---
Progress Note (short form) - Note Progress Note: s: no cp sob palps dizzy o: Vital Signs Period Temp Pulse Resp BP Sys/Jay Pulse Ox Last 24 Hr 98.2 F-99.1 F 85-99 18-20 88-114/49-94 97 nad no jvd irreg s1s2 no r/g, +as murmur cta bl nl eff aaox3 1+ le edema bl, no c/c abd nt nd pos bs no jaundice diaphoresis Current Medications Generic Name Dose Route Start Last Admin Trade Name Christine PRN Reason Stop Dose Admin Ascorbic Acid 500 mg 10/09/18 10:00 10/09/18 10:17 Vitamin C - PO 500 mg DAILY ALEXA Administration Atorvastatin Calcium 10 mg 10/08/18 22:00 10/08/18 22:34 Lipitor - PO 10 mg HS ALEXA Administration Calcium/Vitamin D 1 tab 10/09/18 10:00 10/09/18 10:17 Oscal 250 Mg+D - PO 1 tab DAILY ALEXA Administration Collagenase 1 applic 10/09/18 12:15 Santyl - TP DAILY ALEXA Protocol Furosemide 40 mg 10/10/18 10:00 Lasix - PO DAILY ALEXA Metoprolol Succinate 25 mg 10/08/18 10:00 10/09/18 10:17 Toprol Xl - PO Not Given DAILY ALEXA Multivitamins/Minerals/Vitamin C 1 tab 10/08/18 10:00 10/09/18 10:17 Tab-A-Vit - PO 1 tab DAILY ALEXA Administration Prednisone 2 mg 10/08/18 10:00 10/09/18 10:17 Deltasone - PO 2 mg DAILY ALEXA Administration CBC, BMP 10/09/18 06:15 10/09/18 06:15 cxr: clear lungs ecg: rate controlled afib, no ischemic changes, nl qtc tele: rate controlled afib echo 09/2018: nl lv/rv, paolo, mod mr, mild tr, mild ar, mod-sev as, rvsp 30-40 a/p: 88 f hx afib, htn, hld, le edema here s/p fall. fall: -mechanical fall, no suggestion of cardiac etiology afib: -rate controlled on bb -not on ac 2/2 frequent falls -has been on asa but now held due to severe anemia here requiring prbcs htn: -cont bb hld: -cont statin anemia: -hgb 6s here, s/p prbcs -heme consulted -hold home asa le edema: -stable, cont po lasix as: -outpt f/u
[2018-10-09] MEDS: COLLAGENASE CLOSTRIDIUM HIST. 30 GRAMS TUBE TP SCH (14:25)
[2018-10-09] MEDS: ATORVASTATIN CA 10 MG TABLET (FP) PO SCH (21:04)
[2018-10-10 07:10] LABS: SERUM IRON SATURATION 35 % (15-55); TOTAL IRON BINDING CAPACITY 195 ug/dL (250-450); UIBC 127 ug/dL (118-369)
--- NOTE | 2018-10-10 07:49 | PN ---
Progress Note, Physician - Current Medication List Current Medications: Active Medications Ascorbic Acid (Vitamin C -) 500 mg PO DAILY [facility] Last Admin: 10/09/18 10:17 Dose: 500 mg Atorvastatin Calcium (Lipitor -) 10 mg PO HS [facility] Last Admin: 10/09/18 21:04 Dose: 10 mg Calcium/Vitamin D (Oscal 250 Mg+D -) 1 tab PO DAILY [facility] Last Admin: 10/09/18 10:17 Dose: 1 tab Collagenase (Santyl -) 1 applic TP DAILY [facility]; Protocol Last Admin: 10/09/18 14:25 Dose: 1 applic Furosemide (Lasix -) 40 mg PO DAILY [facility] Metoprolol Succinate (Toprol Xl -) 25 mg PO DAILY [facility] Last Admin: 10/09/18 14:41 Dose: 25 mg Multivitamins/Minerals/Vitamin C (Tab-A-Vit -) 1 tab PO DAILY [facility] Last Admin: 10/09/18 10:17 Dose: 1 tab Prednisone (Deltasone -) 2 mg PO DAILY [facility] Last Admin: 10/09/18 10:17 Dose: 2 mg - Objective Vital Signs: Vital Signs Temperature 99.0 F 10/10/18 02:00 Pulse Rate 90 10/10/18 02:00 Respiratory Rate 18 10/10/18 02:00 Blood Pressure 105/79 10/10/18 02:00 O2 Sat by Pulse Oximetry (%) 97 10/09/18 20:32 Constitutional: Yes: Well Nourished, No Distress, Calm Eyes: Yes: WNL, Conjunctiva Clear, EOM Intact HENT: Yes: WNL, Atraumatic, Normocephalic Neck: Yes: Supple, Trachea Midline Cardiovascular: Yes: WNL, Regular Rate and Rhythm Respiratory: Yes: WNL, Regular, CTA Bilaterally Gastrointestinal: Yes: WNL, Normal Bowel Sounds, Soft Musculoskeletal: Yes: WNL Extremities: Yes: WNL Edema: No Integumentary: Yes: WNL Wound/Incision: Yes: Clean/Dry Neurological: Yes: WNL, Alert, Oriented Psychiatric: Yes: WNL, Alert, Oriented Labs: INR, PTT INR 1.25 (0.83-1.09) H 10/08/18 10:15 Assessment/Plan Severe anemia - stable H/H Sever anemia, with MCV 126 Hb 6.2 normal platelet and WBC, will add on Vit B12 , Thiamine, Methylmalonic acid, Reticount LDH, Ferritin and Iron panel, hematology consult, patient has last blood test 6 months ago never diagnosed with anemia, denies any melena, GERD symptoms, CT doesn't show any occult hemorrhage no recent EGD or Colonoscopy , will call PMD to get more information , rpt H/H after trasfusion .08/11 Falls frequently PT evaluation F/U Neuro recommendation, Afib Rate controlled evaluated by cardiology will resum B Blockers Hold ASA for sever anemia patient is not on AC due to high frequency of falls HTN (hypertension) -Cont Home dose of B Blockers Wound of lower extremity Will F/U Wound care consult no indication of abx Lower extremity edema - Cont furosemide 40 mg daily
[2018-10-10 07:51] LABS: BASO % 0.4 % (0-2.0); EOS % 0.6 % (0-4.5); HEMATOCRIT 24.1 % (32.4-45.2); HEMOGLOBIN 8.4 GM/dL (10.7-15.3); LYMPH % 10.5 % (8-40); MCH 38.1 pg (25.7-33.7); MCHC 34.8 g/dl (32.0-36.0); MEAN CELL VOLUME 109.4 fl (80-96); MEAN PLT VOLUME 7.4 fl (7.5-11.1); NEUT % 78.5 % (42.8-82.8); PLATELET COUNT 337 K/MM3 (134-434); RDW 26.9 % (11.6-15.6); WHITE BLOOD COUNT 6.1 K/mm3 (4.0-10.0)
[2018-10-10 08:35] LABS: ALK PHOS 132 U/L (45-117); ANION GAP 7 MMOL/L (8-16); BILIRUBIN,TOTAL 1.4 mg/dL (0.2-1); BLOOD UREA NITROGEN 19 mg/dL (7-18); CALCIUM 7.4 mg/dL (8.5-10.1); CHLORIDE 99 mmol/L (98-107); CO2 31 mmol/L (21-32); CREATININE 0.5 mg/dL (0.55-1.3); GLUCOSE,RANDOM 79 mg/dL (74-106); POTASSIUM 3.3 mmol/L (3.5-5.1); SGOT/AST 19 U/L (15-37); SGPT/ALT 16 U/L (13-61); SODIUM 137 mmol/L (136-145)
[2018-10-10] MEDS: CALCIUM 250MG/VIT-D 125 UNITS 1 COMBO TABLET PO SCH (10:21)
[2018-10-10] MEDS: metoPROLOL SUCCINATE 25 MG TAB.SR.24H (FP) PO SCH (10:21)
[2018-10-10] MEDS: ASCORBIC ACID 500 MG TABLET (FP) PO SCH (10:21)
[2018-10-10] MEDS: MULTIVITAMINS (DAILY MVI) TABLET (FP) PO SCH (10:21)
[2018-10-10] MEDS: FUROSEMIDE 40 MG TABLET (FP) PO SCH (10:21)
[2018-10-10] MEDS: predniSONE 1 MG TABLET (FP) PO SCH (10:21)
[2018-10-10] MEDS: COLLAGENASE CLOSTRIDIUM HIST. 30 GRAMS TUBE TP SCH (10:22)
--- NOTE | 2018-10-10 14:26 | PN ---
Progress Note (short form) - Note Progress Note: s: no cp sob palps dizzy o: Vital Signs Period Temp Pulse Resp BP Sys/Jay Pulse Ox Last 24 Hr 97.8 F-99.6 F 80-92 16-20 89-115/50-79 97-97 nad no jvd irreg s1s2 no r/g, +as murmur cta bl nl eff aaox3 1+ le edema bl, no c/c abd nt nd pos bs no jaundice diaphoresis Current Medications Ascorbic Acid (Vitamin C -) 500 mg PO DAILY [facility] Last Admin: 10/10/18 10:21 Dose: 500 mg Atorvastatin Calcium (Lipitor -) 10 mg PO HS [facility] Last Admin: 10/09/18 21:04 Dose: 10 mg Calcium/Vitamin D (Oscal 250 Mg+D -) 1 tab PO DAILY [facility] Last Admin: 10/10/18 10:21 Dose: 1 tab Collagenase (Santyl -) 1 applic TP DAILY [facility]; Protocol Last Admin: 10/10/18 10:22 Dose: 1 applic Furosemide (Lasix -) 40 mg PO DAILY [facility] Last Admin: 10/10/18 10:21 Dose: 40 mg Metoprolol Succinate (Toprol Xl -) 25 mg PO DAILY [facility] Last Admin: 10/10/18 10:21 Dose: 25 mg Multivitamins/Minerals/Vitamin C (Tab-A-Vit -) 1 tab PO DAILY [facility] Last Admin: 10/10/18 10:21 Dose: 1 tab Prednisone (Deltasone -) 2 mg PO DAILY [facility] Last Admin: 10/10/18 10:21 Dose: 2 mg cxr: clear lungs ecg: rate controlled afib, no ischemic changes, nl qtc tele: rate controlled afib echo 09/2018: nl lv/rv, paolo, mod mr, mild tr, mild ar, mod-sev as, rvsp 30-40 a/p: 88 f hx afib, htn, hld, le edema here s/p fall. fall: -mechanical fall, no suggestion of cardiac etiology - dc tele afib: -rate controlled on bb -not on ac 2/2 frequent falls -has been on asa but now held due to severe anemia here requiring prbcs htn: -cont bb hld: -cont statin anemia: -hgb 6s here, s/p prbcs -heme consulted -hold home asa le edema: -stable, cont po lasix as: -outpt f/u
[2018-10-10] MEDS: ATORVASTATIN CA 10 MG TABLET (FP) PO SCH (21:27)
[2018-10-11 06:44] LABS: BASO % 0.8 % (0-2.0); EOS % 1.6 % (0-4.5); HEMATOCRIT 25.2 % (32.4-45.2); HEMOGLOBIN 8.7 GM/dL (10.7-15.3); LYMPH % 14.8 % (8-40); MCH 38.3 pg (25.7-33.7); MCHC 34.7 g/dl (32.0-36.0); MEAN CELL VOLUME 110.4 fl (80-96); MEAN PLT VOLUME 7.4 fl (7.5-11.1); MONO % 11.3 % (3.8-10.2); NEUT % 71.5 % (42.8-82.8); PLATELET COUNT 336 K/MM3 (134-434); RBC 2.28 M/mm3 (3.60-5.2); RDW 25.9 % (11.6-15.6); WHITE BLOOD COUNT 5.9 K/mm3 (4.0-10.0)
[2018-10-11 07:20] LABS: ALK PHOS 137 U/L (45-117); ANION GAP 7 MMOL/L (8-16); BILIRUBIN,TOTAL 1.2 mg/dL (0.2-1); BLOOD UREA NITROGEN 17 mg/dL (7-18); CALCIUM 7.5 mg/dL (8.5-10.1); CHLORIDE 98 mmol/L (98-107); CO2 31 mmol/L (21-32); CREATININE 0.5 mg/dL (0.55-1.3); GLUCOSE,RANDOM 80 mg/dL (74-106); POTASSIUM 3.2 mmol/L (3.5-5.1); SGOT/AST 23 U/L (15-37); SGPT/ALT 24 U/L (13-61); SODIUM 136 mmol/L (136-145)
--- NOTE | 2018-10-11 08:52 | PN ---
Physical Exam: SUBJECTIVE: Patient seen and examined 24 HR EVENTS -pt has remained stable, no complaints. -H/H this AM 8.7/25.2 -pt noted with right knee swelling. OBJECTIVE: Vital Signs Period Temp Pulse Resp BP Sys/Jay Pulse Ox Last 24 Hr 97.7 F-99.0 F 76-86 18-20 96-108/44-58 96-97 GENERAL: The patient is awake, alert, and fully oriented, in no acute distress. HEAD: Normal with no signs of trauma. thinning hair EYES: PERRL, sclera anicteric, conjunctiva clear. ENT: Ears normal, nares patent, oropharynx clear without exudates, moist mucous membranes. NECK: Trachea midline, full range of motion, supple. no JVD LUNGS: Breath sounds equal, clear to auscultation bilaterally, no wheezes, no crackles, no accessory muscle use. HEART: irreg RR, + harsh holosytolic murmur across precordium ABDOMEN: Soft, nontender, nondistended, normoactive bowel sounds, no guarding, no rebound, no hepatosplenomegaly, no masses. EXTREMITIES: 2+ DP pulses, venous stasis changes RLE NEUROLOGICAL: Normal speech, gait not observed. Memory intact PSYCH: Normal mood, normal affect. SKIN: Warm, dry, normal turgor, right hip ecchymosis Laboratory Results - last 24 hr 10/07/18 10/10/18 10/10/18 19:12 05:30 05:30 WBC 6.1 RBC 2.20 L Hgb 8.4 L Hct 24.1 L MCV 109.4 H MCH 38.1 H MCHC 34.8 RDW 26.9 H Plt Count 337 MPV 7.4 L Absolute Neuts (auto) 4.8 Neutrophils % 78.5 Lymphocytes % 10.5 Monocytes % 10.0 Eosinophils % 0.6 Basophils % 0.4 Nucleated RBC % 0 Sodium Potassium Chloride Carbon Dioxide Anion Gap BUN Creatinine Creat Clearance w eGFR Random Glucose Calcium Total Bilirubin AST ALT Alkaline Phosphatase Total Protein Albumin Blood Type A POSITIVE Antibody Screen Negative Direct Antiglob Test Negative Crossmatch See Detail 10/11/18 10/11/18 06:30 06:30 WBC 5.9 RBC 2.28 L Hgb 8.7 L Hct 25.2 L MCV 110.4 H MCH 38.3 H MCHC 34.7 RDW 25.9 H Plt Count 336 MPV 7.4 L Absolute Neuts (auto) 4.2 Neutrophils % 71.5 Lymphocytes % 14.8 D Monocytes % 11.3 H Eosinophils % 1.6 D Basophils % 0.8 Nucleated RBC % 0 Sodium 136 Potassium 3.2 L Chloride 98 Carbon Dioxide 31 Anion Gap 7 L BUN 17 Creatinine 0.5 L Creat Clearance w eGFR 116.17 Random Glucose 80 Calcium 7.5 L Total Bilirubin 1.2 H AST 23 ALT 24 Alkaline Phosphatase 137 H Total Protein 5.0 L Albumin 3.0 L Blood Type Antibody Screen Direct Antiglob Test Crossmatch Active Medications Generic Name Dose Route Start Last Admin Trade Name Freq PRN Reason Stop Dose Admin Ascorbic Acid 500 mg 10/09/18 10:00 10/10/18 10:21 Vitamin C - PO 500 mg DAILY A[facility]XA Administration Atorvastatin Calcium 10 mg 10/08/18 22:00 10/10/18 21:27 Lipitor - PO 10 mg HS ALEXA Administration Calcium/Vitamin D 1 tab 10/09/18 10:00 10/10/18 10:21 Oscal 250 Mg+D - PO 1 tab DAILY [facility] Administration Collagenase 1 applic 10/09/18 12:15 10/10/18 10:22 Santyl - TP 1 applic DAILY [facility]XA Administration Protocol Furosemide 40 mg 10/10/18 10:00 10/10/18 10:21 Lasix - PO 40 mg DAILY [facility] Administration Metoprolol Succinate 25 mg 10/08/18 10:00 10/10/18 10:21 Toprol Xl - PO 25 mg DAILY [facility] Administration Multivitamins/Minerals/Vitamin C 1 tab 10/08/18 10:00 10/10/18 10:21 Tab-A-Vit - PO 1 tab DAILY [facility] Administration Potassium Chloride 40 meq 10/11/18 10:00 Potassium Chloride Oral Liquid PO 10/11/18 23:00 BID ALEXA Prednisone 2 mg 10/08/18 10:00 10/10/18 10:21 Deltasone - PO 2 mg DAILY [facility] Administration ASSESSMENT/PLAN: 88 year old female who presents from home with history of atrial fibrillation(currently on baby aspirin, previously as recorded on eliquis ) and arthritis who presents to the emergency room after a recurrent fall she had this morning. She reports her initial fall was on when she slipped on ice and she injured her right lower extremity and she developed an open wound. She was referred to Dr. Perry of Wound Care for evaluation of her open wound. In ED, pt has incidental finding of low H/H hemoglobin 6.3 and hematocrit 18.2. She is now s/p 2units PRBC. Frequent Falls -pt may need [employer]ER to assist with ADLs upon discharge -PT evaluation Meningioma -F/U Neuro recommendation, Afib -patient is not on AC due to high frequency of falls -lopressor 12.5 bid Moderate-Severe -pt closely followed by Cards and undergoes serial echo HTN (hypertension) -BP controlled with Metoprolol anemia -hold home asa -heme following Wound of lower extremity -no indication for abx Lower extremity edema -Cont furosemide 40 mg daily Right knee swelling -ortho consult placed Problem List - Problems (1) Swelling of right knee joint Code(s): M25.461 - EFFUSION, RIGHT KNEE (2) HTN (hypertension) Code(s): I10 - ESSENTIAL (PRIMARY) HYPERTENSION (3) Lower extremity edema Code(s): R60.0 - LOCALIZED EDEMA (4) Symptomatic anemia Code(s): D64.9 - ANEMIA, UNSPECIFIED Visit type - Emergency Visit Emergency Visit: Yes ED Registration Date: 10/07/18 Care time: The patient presented to the Emergency Department on the above date and was hospitalized for further evaluation of their emergent condition. - New Patient This patient is new to me today: Yes Date on this admission: 10/11/18 - Critical Care Critical Care patient: No - Discharge Referral Referred to [facility] No
[2018-10-11] MEDS ORDERED: PT OWN MED DRAWER 7, Y5N ONE (10:09)
[2018-10-11] MEDS: MULTIVITAMINS (DAILY MVI) TABLET (FP) PO SCH (10:33)
[2018-10-11] MEDS: CALCIUM 250MG/VIT-D 125 UNITS 1 COMBO TABLET PO SCH (10:33)
[2018-10-11] MEDS: metoPROLOL SUCCINATE 25 MG TAB.SR.24H (FP) PO SCH (10:33)
[2018-10-11] MEDS: ASCORBIC ACID 500 MG TABLET (FP) PO SCH (10:33)
[2018-10-11] MEDS: FUROSEMIDE 40 MG TABLET (FP) PO SCH (10:33)
[2018-10-11 10:34] LABS: ANISOCYTOSIS 2+; MACROCYTOSIS 2+; OVALOCYTE 1+; PLATELET ESTIMATE NORMAL
[2018-10-11] MEDS: POTASSIUM CHLORIDE ORAL LIQUID 20 MEQ/15 ML PO SCH ×2 (10:34→21:55)
[2018-10-11] MEDS: predniSONE 1 MG TABLET (FP) PO SCH (10:34)
[2018-10-11] MEDS: COLLAGENASE CLOSTRIDIUM HIST. 30 GRAMS TUBE TP SCH (10:34)
--- NOTE | 2018-10-11 10:41 | PN ---
Progress Note, Physician Chief Complaint: fall History of Present Illness: 4 recent falls: first was slipped on ice next 3 were when rising from a chair--felt like she was aware she either tripped or slipped on 2 of those 3 (occurred when began walking after standing up). most recent episode she walked into her bedroom and had no idea what she tripped on. NEVER HAD LOC. denies feeling LH/dizzy or off balance. no cp or sob, though limited functional status/activity level at home leg swelling stable of late no cigs - Current Medication List Current Medications: Active Medications Ascorbic Acid (Vitamin C -) 500 mg PO DAILY [facility] Last Admin: 10/11/18 10:33 Dose: 500 mg Atorvastatin Calcium (Lipitor -) 10 mg PO HS [facility] Last Admin: 10/10/18 21:27 Dose: 10 mg Calcium/Vitamin D (Oscal 250 Mg+D -) 1 tab PO DAILY [facility] Last Admin: 10/11/18 10:33 Dose: 1 tab Collagenase (Santyl -) 1 applic TP DAILY [facility]; Protocol Last Admin: 10/11/18 10:34 Dose: 1 applic Furosemide (Lasix -) 40 mg PO DAILY [facility] Last Admin: 10/11/18 10:33 Dose: 40 mg Metoprolol Succinate (Toprol Xl -) 25 mg PO DAILY [facility] Last Admin: 10/11/18 10:33 Dose: 25 mg Multivitamins/Minerals/Vitamin C (Tab-A-Vit -) 1 tab PO DAILY [facility] Last Admin: 10/11/18 10:33 Dose: 1 tab Potassium Chloride (Potassium Chloride Oral Liquid) 40 meq PO BID [facility] Stop: 10/11/18 23:00 Last Admin: 10/11/18 10:34 Dose: 40 meq Prednisone (Deltasone -) 2 mg PO DAILY [facility] Last Admin: 10/11/18 10:34 Dose: 2 mg - Objective Vital Signs: Vital Signs Temperature 98 F 10/11/18 09:00 Pulse Rate 76 10/11/18 09:00 Respiratory Rate 20 10/11/18 09:00 Blood Pressure 102/54 L 10/11/18 09:00 O2 Sat by Pulse Oximetry (%) 96 10/11/18 09:00 Constitutional: Yes: No Distress, Calm Eyes: No: Sclera Icterus HENT: No: Nasal Congestion Cardiovascular: Yes: Regular Rate and Rhythm, Murmur (hi pitched KATHERINE 3/6 LUSB. no S2 split heard), S1, S2, Other (PMI non diplaced). No: JVD, Gallop Respiratory: Yes: CTA Bilaterally. No: Accessory Muscle Use, Rales, Wheezes Gastrointestinal: Yes: Normal Bowel Sounds, Soft. No: Tenderness Musculoskeletal: Yes: Other (No kyphosis) Extremities: No: Cold, Cyanosis Edema: No (SCDs) Integumentary: No: Jaundice Neurological: Yes: Alert, Oriented (x3) Psychiatric: No: Agitated Labs: CBC, BMP 10/11/18 06:30 10/11/18 06:30 INR, PTT INR 1.25 (0.83-1.09) H 10/08/18 10:15 Assessment/Plan cxr: clear lungs ecg: rate controlled afib, no ischemic changes, nl qtc Echo 05/2018: nl LV/EF. nl RV. ++biatrial dilation. probably moderate : gradients 38/22, KOSTAS 0.9 (normal SV index = 38 cc/m2). mod MR/TR Echo 10/08/2018: nl lv/rv, paolo, mod mr, mild tr, mild ar, mod-sev as (peak/mean 61/30, KOSTAS 0.6), rvsp 30-40 tele: AF, good HRs a/p: 88 f hx afib, htn, hld, le edema here s/p fall. fall: -mechanical fall, no suggestion of cardiac etiology -? sudden orthostatic hypotension though no sx's suggestive, though she is equivocal on the history--check orthostatics here -if orthostatics are abnormal, it is possibly anemia precipitated this. very unlikely that causing limited cardiac output enough to cause orthostatic hypotension in absence of sx's or findings of CHF -dc tele afib: -rate controlled on bb -not on ac 2/2 frequent falls, and pt preference (mult trials of even half dose of NOACs caused multiple nonspecific s.e.s) -has been on asa but now held due to severe anemia here requiring prbcs chronic venous insufficiency, tricuspid insufficiency, acute on chronic HFpEF, mod-severe : -on PO lasix, no edema/volume--continue -has LE wound being followed by vascular - felt to be likely moderate on serial studies, last 05/2018 with preserved S2 split on exam confirmatory of absence of severe . -gradients here signif higher than 05/30 study--suspect may have worsened as no S2 split is presently appreciated on exam. ? gradients up due to anemia-- though hgb on the morning the test was preformed was 9, up from 6 the day before. -pt has expressed strong preferences to avoid invasive testing or procedures. -remains without sx's but at low activity level -will re-evaluate with echo at valve center after discharge--if severe present, may need to consider TAVR if her functional status precludes accurate assessment for related sx's -await completion of anemia w/u to r/o malignancy which may impinge on TAVR considerations htn: -bp soft at times--orthostatics to be checked -change toprol 25 qd to lopressor 12.5 bid hld: -cont home statin anemia: -hgb 6s here, s/p prbcs -has seen heme as outpatient--kayla consulted here, workup sent -holding home asa -H/H currently stable
--- NOTE | 2018-10-11 12:34 | PN ---
Physical Exam: SUBJECTIVE: Patient seen and examined at bedside. OBJECTIVE: Vital Signs Period Temp Pulse Resp BP Sys/Jay Pulse Ox Last 24 Hr 97.7 F-99.0 F 76-86 20-20 96-108/44-58 96-96 GENERAL: A&Ox3, no acute distress HEAD: No trauma EYES: PERRLA, EOMI ENT: moist mucus membranes, NECK: No lymphadenopathy palpated and no JVD LUNGS: CTA, no wheezes or rhales noted BREAST: normal exam, no masses or irregularities noted HEART: RRR, systolic murmur noted in the 2nd R intercostal space ABDOMEN: soft, nontender, nondistended, bowel sounds present, ecchymotic region noted in the epigastric region MUSCULOSKELETAL: digits laterally deviated with pronounced joints UPPER EXTREMITIES: 2+ pulses, Large ecchymosis noted on R elbow LOWER EXTREMITIES: 2+ pulses, warm, well-perfused, 2+ peripheral edema noted NEUROLOGICAL: CNII-XII intact, no focal deficits PSYCHIATRIC: Cooperative. Good eye contact. Appropriate mood and affect. SKIN: Warm, dry, normal turgor Laboratory Results - last 24 hr 10/07/18 10/11/18 10/11/18 19:12 06:30 06:30 WBC 5.9 RBC 2.28 L Hgb 8.7 L Hct 25.2 L MCV 110.4 H MCH 38.3 H MCHC 34.7 RDW 25.9 H Plt Count 336 MPV 7.4 L Absolute Neuts (auto) 4.2 Neutrophils % 71.5 Lymphocytes % 14.8 D Monocytes % 11.3 H Eosinophils % 1.6 D Basophils % 0.8 Nucleated RBC % 0 Hypochromia 0 Platelet Estimate Normal Polychromasia 0 Poikilocytosis 1+ Anisocytosis 2+ Microcytosis 1+ Macrocytosis 2+ Ovalocytes 1+ Schistocytes 1+ Sodium 136 Potassium 3.2 L Chloride 98 Carbon Dioxide 31 Anion Gap 7 L BUN 17 Creatinine 0.5 L Creat Clearance w eGFR 116.17 Random Glucose 80 Calcium 7.5 L Total Bilirubin 1.2 H AST 23 ALT 24 Alkaline Phosphatase 137 H Total Protein 5.0 L Albumin 3.0 L Blood Type A POSITIVE Antibody Screen Negative Crossmatch See Detail Active Medications Generic Name Dose Route Start Last Admin Trade Name Freq PRN Reason Stop Dose Admin Ascorbic Acid 500 mg 10/09/18 10:00 10/11/18 10:33 Vitamin C - PO 500 mg DAILY [facility]XA Administration Atorvastatin Calcium 10 mg 10/08/18 22:00 10/10/18 21:27 Lipitor - PO 10 mg HS [facility]XA Administration Calcium/Vitamin D 1 tab 10/09/18 10:00 10/11/18 10:33 Oscal 250 Mg+D - PO 1 tab DAILY [facility] Administration Collagenase 1 applic 10/09/18 12:15 10/11/18 10:34 Santyl - TP 1 applic DAILY [facility] Administration Protocol Furosemide 40 mg 10/10/18 10:00 10/11/18 10:33 Lasix - PO 40 mg DAILY [facility] Administration Metoprolol Succinate 25 mg 10/08/18 10:00 10/11/18 10:33 Toprol Xl - PO 25 mg DAILY [facility] Administration Multivitamins/Minerals/Vitamin C 1 tab 10/08/18 10:00 10/11/18 10:33 Tab-A-Vit - PO 1 tab DAILY [facility] Administration Potassium Chloride 40 meq 10/11/18 10:00 10/11/18 10:34 Potassium Chloride Oral Liquid PO 10/11/18 23:00 40 meq BID ALEXA Administration Prednisone 2 mg 10/08/18 10:00 10/11/18 10:34 Deltasone - PO 2 mg DAILY [facility]XA Administration Laboratory Last Values WBC 5.9 K/mm3 (4.0-10.0) 10/11/18 06:30 RBC 2.28 M/mm3 (3.60-5.2) L 10/11/18 06:30 Hgb 8.7 GM/dL (10.7-15.3) L 10/11/18 06:30 Hct 25.2 % (32.4-45.2) L 10/11/18 06:30 MCV 110.4 fl (80-96) H 10/11/18 06:30 MCH 38.3 pg (25.7-33.7) H 10/11/18 06:30 MCHC 34.7 g/dl (32.0-36.0) 10/11/18 06:30 RDW 25.9 % (11.6-15.6) H 10/11/18 06:30 Plt Count 336 K/MM3 (134-434) 10/11/18 06:30 MPV 7.4 fl (7.5-11.1) L 10/11/18 06:30 Absolute Neuts (auto) 4.2 K/mm3 (1.5-8.0) 10/11/18 06:30 Neutrophils % 71.5 % (42.8-82.8) 10/11/18 06:30 Lymphocytes % 14.8 % (8-40) D 10/11/18 06:30 Monocytes % 11.3 % (3.8-10.2) H 10/11/18 06:30 Eosinophils % 1.6 % (0-4.5) D 10/11/18 06:30 Basophils % 0.8 % (0-2.0) 10/11/18 06:30 Nucleated RBC % 0 % (0-0) 10/11/18 06:30 Hypochromia 0 10/11/18 06:30 Platelet Estimate Normal 10/11/18 06:30 Polychromasia 0 10/11/18 06:30 Poikilocytosis 1+ 10/11/18 06:30 Anisocytosis 2+ 10/11/18 06:30 Microcytosis 1+ 10/11/18 06:30 Macrocytosis 2+ 10/11/18 06:30 Ovalocytes 1+ 10/11/18 06:30 Schistocytes 1+ 10/11/18 06:30 Retic Count 1.19 % (0.5-1.5) 10/08/18 12:30 Haptoglobin < 10 mg/dL (34-200) L 10/08/18 09:30 PT with INR 14.80 SEC (9.7-13.0) H 10/08/18 10:15 INR 1.25 (0.83-1.09) H 10/08/18 10:15 PTT (Actin FS) 33.6 SECONDS (25.2-36.5) 10/07/18 18:15 Sodium 136 mmol/L (136-145) 10/11/18 06:30 Potassium 3.2 mmol/L (3.5-5.1) L 10/11/18 06:30 Chloride 98 mmol/L (98-107) 10/11/18 06:30 Carbon Dioxide 31 mmol/L (21-32) 10/11/18 06:30 Anion Gap 7 MMOL/L (8-16) L 10/11/18 06:30 BUN 17 mg/dL (7-18) 10/11/18 06:30 Creatinine 0.5 mg/dL (0.55-1.3) L 10/11/18 06:30 Creat Clearance w eGFR 116.17 (>60) 10/11/18 06:30 Random Glucose 80 mg/dL (74-106) 10/11/18 06:30 Calcium 7.5 mg/dL (8.5-10.1) L 10/11/18 06:30 Iron 68 ug/dL (27-139) 10/09/18 06:15 TIBC 195 ug/dL (250-450) L 10/09/18 06:15 Iron Saturation 35 % (15-55) 10/09/18 06:15 Ferritin 434.0 ng/ml (8-388) H 10/08/18 12:30 Total Bilirubin 1.2 mg/dL (0.2-1) H 10/11/18 06:30 AST 23 U/L (15-37) 10/11/18 06:30 ALT 24 U/L (13-61) 10/11/18 06:30 Alkaline Phosphatase 137 U/L (45-117) H 10/11/18 06:30 LD Total 249 U/L (84-246) H 10/08/18 09:30 Troponin I 0.02 ng/ml (0.00-0.05) 10/07/18 17:14 B-Natriuretic Peptide 3413.1 pg/ml (5-450) H 10/07/18 17:14 Total Protein 5.0 g/dl (6.4-8.2) L 10/11/18 06:30 Albumin 3.0 g/dl (3.4-5.0) L 10/11/18 06:30 Vitamin B12 499 pg/ml (193-986) 10/08/18 09:30 Serum Folate 19 ng/mL (3.1-17.5) H 10/08/18 09:30 TSH 1.10 uIU/ml (0.358-3.74) 10/08/18 09:30 Urine Color Yellow 10/08/18 12:00 Urine Appearance Clear 10/08/18 12:00 Urine pH 7.0 (5.0-8.0) 10/08/18 12:00 Ur Specific [place] 1.006 (1.010-1.035) L 10/08/18 12:00 Urine Protein Negative (NEGATIVE) 10/08/18 12:00 Urine Glucose (UA) Negative (NEGATIVE) 10/08/18 12:00 Urine Ketones Negative (NEGATIVE) 10/08/18 12:00 Urine Blood Negative (NEGATIVE) 10/08/18 12:00 Urine Nitrite Negative (NEGATIVE) 10/08/18 12:00 Urine Bilirubin Negative (NEGATIVE) 10/08/18 12:00 Urine Urobilinogen 0.2 mg/dL (0.2-1.0) 10/08/18 12:00 Ur Leukocyte Esterase 1+ (NEGATIVE) H 10/08/18 12:00 Urine WBC (Auto) 4 /hpf (0-5) 10/08/18 12:00 Urine RBC (Auto) 3 /hpf (0-4) 10/08/18 12:00 Urine Casts (Auto) 2 /hpf (0-8) 10/08/18 12:00 U Epithel Cells (Auto) 0.7 /HPF (0-5) 10/08/18 12:00 Urine Bacteria (Auto) 586.5 /hpf (NEGATIVE) 10/08/18 12:00 Stool Occult Blood Negative (NEGATIVE) 10/08/18 14:45 Anti-A Titer Cancelled 10/07/18 19:00 Blood Type A POSITIVE 10/07/18 19:12 Antibody Screen Negative 10/07/18 19:12 Direct Antiglob Test Negative (NEGATIVE) 10/10/18 05:30 Crossmatch See Detail 10/07/18 19:12 ASSESSMENT/PLAN: This is a pleasant 88 year old female with a past medical history of atrial fibrillation on aspirin and osteoarthritis who presented to the emergency room for recurrent falls and bilateral lower extremity swelling. We were consulted to evaluate macrocytic anemia. #Macrocytic Anemia: not on medications that cause macrocytosis. Macrocytosis could be due to megaloblastic cause such as B12/folate deficiency, reticulocytosis from hemolytic anemia or bleeding episode that she experienced from her leg, less likely from alcohol use or increased erythropoiesis -INR normal -patient on ASA -ferritin high, TIBC low, picture of anemia of chronic disease -transfuse to a Hemoglobin goal of 7 -continue to monitor with daily H&H -will order MDS panel (FISH/Flow/cytology) #Meningioma: found incidentally on head CT (seen in 2.5% of patients >70yo), asymptomatic. Can monitor. #Falls: appear mechanical in nature Dispo: We will continue to follow the patient. Thank you for this consultative opportunity. Domingo Morales, PGY2 Will discuss with Dr. Spence Visit type - Emergency Visit Emergency Visit: No - New Patient This patient is new to me today: No - Critical Care Critical Care patient: No
[2018-10-11] MEDS: ATORVASTATIN CA 10 MG TABLET (FP) PO SCH (21:55)
[2018-10-12 06:09] LABS: METHYLMALONIC ACID- 172 nmol/L (0-378)
[2018-10-12 06:57] LABS: HEMATOCRIT 24.7 % (32.4-45.2); HEMOGLOBIN 8.6 GM/dL (10.7-15.3); MCH 38.8 pg (25.7-33.7); MEAN PLT VOLUME 7.5 fl (7.5-11.1); PLATELET COUNT 335 K/MM3 (134-434); RBC 2.23 M/mm3 (3.60-5.2); RDW 25.4 % (11.6-15.6); WHITE BLOOD COUNT 5.6 K/mm3 (4.0-10.0)
[2018-10-12 07:32] LABS: ALBUMIN 2.9 g/dl (3.4-5.0); ALK PHOS 134 U/L (45-117); ANION GAP 5 MMOL/L (8-16); BILIRUBIN,TOTAL 1.1 mg/dL (0.2-1); BLOOD UREA NITROGEN 20 mg/dL (7-18); CALCIUM 7.9 mg/dL (8.5-10.1); CHLORIDE 99 mmol/L (98-107); CO2 30 mmol/L (21-32); CREATININE 0.5 mg/dL (0.55-1.3); GLUCOSE,RANDOM 83 mg/dL (74-106); MAGNESIUM 2.1 mg/dL (1.8-2.4); POTASSIUM 4.3 mmol/L (3.5-5.1); SGOT/AST 43 U/L (15-37); SGPT/ALT 50 U/L (13-61); SODIUM 134 mmol/L (136-145); TOT PROT 5.1 g/dl (6.4-8.2)
[2018-10-12] MEDS ORDERED: PT OWN MED DRAWER 7, Y5N ONE (09:09)
[2018-10-12] MEDS ORDERED: METOPROLOL TARTRATE 25 MG TABLET (FP) PO SCH (10:00)
[2018-10-12] MEDS: predniSONE 1 MG TABLET (FP) PO SCH (10:15)
[2018-10-12] MEDS: CALCIUM 250MG/VIT-D 125 UNITS 1 COMBO TABLET PO SCH (10:15)
[2018-10-12] MEDS: ASCORBIC ACID 500 MG TABLET (FP) PO SCH (10:16)
[2018-10-12] MEDS: COLLAGENASE CLOSTRIDIUM HIST. 30 GRAMS TUBE TP SCH (10:16)
[2018-10-12] MEDS: MULTIVITAMINS (DAILY MVI) TABLET (FP) PO SCH (10:16)
[2018-10-12] MEDS: FUROSEMIDE 40 MG TABLET (FP) PO SCH (10:16)
--- NOTE | 2018-10-12 10:28 | DS ---
Physical Examination Vital Signs: Vital Signs Temperature 97.9 F 10/12/18 06:00 Pulse Rate 85 10/12/18 06:00 Respiratory Rate 20 10/12/18 06:00 Blood Pressure 100/55 L 10/12/18 06:00 O2 Sat by Pulse Oximetry (%) 95 10/11/18 21:00 Constitutional: Yes: No Distress, Calm Eyes: Yes: Conjunctiva Clear HENT: Yes: Atraumatic, Normocephalic Labs: CBC, BMP 10/12/18 05:30 10/12/18 05:30 Discharge Summary Reason For Visit: SECONDARY ANEMIA Current Active Problems Afib (Acute) Anasarca (Acute) Ecchymosis (Acute) Falls frequently (Acute) HTN (hypertension) (Acute) Leg wound, right (Acute) Lower extremity edema (Acute) Pleural effusion (Acute) Severe anemia (Acute) Swelling of right knee joint (Acute) Symptomatic anemia (Acute) Wound of lower extremity (Acute) Condition: Guarded - Instructions - Home Medications Comprehensive Discharge Medication List: Ambulatory Orders Apixaban [Eliquis] 2.5 mg PO Q2D 04/29/17 Ascorbic Acid [Vitamin C] 500 mg PO DAILY 04/29/17 Calcium 250Mg/Vit-D 125 Units [Oscal 250 mg+D -] 1 combo PO DAILY 04/29/17 Glucosamine Sulfate Dipot Chlr [Glucosamine] 1,000 mg PO DAILY 04/29/17 Metoprolol Succinate [Toprol Xl -] 25 mg PO DAILY 04/29/17 Multivitamin/Iron/Folic Acid [Centrum Adults Tablet] 1 tab PO DAILY 04/29/17 Prednisone 2 mg PO DAILY 04/29/17 Simvastatin 20 mg PO DAILY 04/29/17 Ubidecarenone [Co Q-10] 10 mg PO DAILY 04/29/17 Furosemide [Lasix] 1 tab PO DAILY 11/02/17 - Discharge Referral Referred to [facility] No
--- NOTE | 2018-10-12 11:51 | PN ---
Progress Note (short form) - Note Progress Note: s: no chest pain, dizziness, palps. Current Medications Ascorbic Acid (Vitamin C -) 500 mg PO DAILY [facility] Last Admin: 10/12/18 10:16 Dose: 500 mg Atorvastatin Calcium (Lipitor -) 10 mg PO HS [facility] Last Admin: 10/11/18 21:55 Dose: 10 mg Calcium/Vitamin D (Oscal 250 Mg+D -) 1 tab PO DAILY [facility] Last Admin: 10/12/18 10:15 Dose: 1 tab Collagenase (Santyl -) 1 applic TP DAILY [facility]; Protocol Last Admin: 10/12/18 10:16 Dose: 1 applic Furosemide (Lasix -) 40 mg PO DAILY [facility] Last Admin: 10/12/18 10:16 Dose: 40 mg Metoprolol Tartrate (Lopressor -) 12.5 mg PO BID [facility] Last Admin: 10/12/18 10:15 Dose: 12.5 mg Multivitamins/Minerals/Vitamin C (Tab-A-Vit -) 1 tab PO DAILY [facility] Last Admin: 10/12/18 10:16 Dose: 1 tab Prednisone (Deltasone -) 2 mg PO DAILY [facility] Last Admin: 10/12/18 10:15 Dose: 2 mg - Objective Vital Signs Period Temp Pulse Resp BP Sys/Jay Pulse Ox Last 24 Hr 97.8 F-99.2 F 74-87 20-20 87-100/49-55 95 Constitutional: Yes: No Distress, Calm Eyes: No: Sclera Icterus HENT: No: Nasal Congestion Cardiovascular: Yes: Regular Rate and Rhythm, Murmur (hi pitched KATHERINE 3/6 LUSB. no S2 split heard), S1, S2, Other (PMI non diplaced). No: JVD, Gallop Respiratory: Yes: CTA Bilaterally. No: Accessory Muscle Use, Rales, Wheezes Gastrointestinal: Yes: Normal Bowel Sounds, Soft. No: Tenderness Musculoskeletal: Yes: Other (No kyphosis) Extremities: No: Cold, Cyanosis Edema: No (SCDs) Integumentary: No: Jaundice Neurological: Yes: Alert, Oriented (x3) Psychiatric: No: Agitated Assessment/Plan cxr: clear lungs ecg: rate controlled afib, no ischemic changes, nl qtc Echo 05/2018: nl LV/EF. nl RV. ++biatrial dilation. probably moderate : gradients 38/22, KOSTAS 0.9 (normal SV index = 38 cc/m2). mod MR/TR Echo 10/08/2018: nl lv/rv, paolo, mod mr, mild tr, mild ar, mod-sev as (peak/mean 61/30, KOSTAS 0.6), rvsp 30-40 tele: AF, good HRs a/p: 88 f hx afib, htn, hld, le edema here s/p fall. fall: -mechanical fall, no suggestion of cardiac etiology -? sudden orthostatic hypotension though no sx's suggestive, though she is equivocal on the history--check orthostatics here -if orthostatics are abnormal, it is possibly anemia precipitated this. very unlikely that causing limited cardiac output enough to cause orthostatic hypotension in absence of sx's or findings of CHF -dc tele - orthostatics pending - low BPs yesterday, may have been overdiuresed. denies dizzines. received lasix 40 mg IV x 4 doses through Thursday. hold PO lasix, encouraged PO fluids. afib: -rate controlled on bb -not on ac 2/2 frequent falls, and pt preference (mult trials of even half dose of NOACs caused multiple nonspecific s.e.s) -has been on asa but now held due to severe anemia here requiring prbcs chronic venous insufficiency, tricuspid insufficiency, acute on chronic HFpEF, mod-severe : -on PO lasix, no edema/volume--continue -has LE wound being followed by vascular - felt to be likely moderate on serial studies, last 05/2018 with preserved S2 split on exam confirmatory of absence of severe . -gradients here signif higher than 05/30 study--suspect may have worsened as no S2 split is presently appreciated on exam. ? gradients up due to anemia-- though hgb on the morning the test was preformed was 9, up from 6 the day before. -pt has expressed strong preferences to avoid invasive testing or procedures. -remains without sx's but at low activity level -will re-evaluate with echo at valve center after discharge--if severe present, may need to consider TAVR if her functional status precludes accurate assessment for related sx's -await completion of anemia w/u to r/o malignancy which may impinge on TAVR considerations - d/w Dr. Spence htn: -bp soft at times--orthostatics to be checked -change toprol 25 qd to lopressor 12.5 bid hld: -cont home statin anemia: -hgb 6s here, s/p prbcs -has seen heme as outpatient--kayla consulted here, workup sent -holding home asa -H/H currently stable
--- NOTE | 2018-10-12 13:34 | PN ---
Physical Exam: SUBJECTIVE: Patient seen and examined at bedside. Denies any acute complaints. OBJECTIVE: Vital Signs Period Temp Pulse Resp BP Sys/Jay Pulse Ox Last 24 Hr 97.8 F-99.2 F 74-87 20-20 87-100/49-55 95 GENERAL: A&Ox3, no acute distress HEAD: No trauma EYES: PERRLA, EOMI ENT: moist mucus membranes NECK: No lymphadenopathy palpated and no JVD LUNGS: CTA, no wheezes or rhales noted BREAST: normal exam, no masses or irregularities noted HEART: RRR, systolic murmur noted in the 2nd R intercostal space ABDOMEN: soft, nontender, nondistended, bowel sounds present, ecchymotic region noted in the epigastric region MUSCULOSKELETAL: digits laterally deviated with pronounced joints UPPER EXTREMITIES: 2+ pulses, Large ecchymosis noted on R elbow LOWER EXTREMITIES: 2+ pulses, warm, well-perfused, 2+ peripheral edema noted NEUROLOGICAL: CNII-XII intact, no focal deficits PSYCHIATRIC: Cooperative. Good eye contact. Appropriate mood and affect. SKIN: Warm, dry, normal turgor Laboratory Results - last 24 hr 10/08/18 10/10/18 10/12/18 09:30 05:30 05:30 WBC 5.6 RBC 2.23 L Hgb 8.6 L Hct 24.7 L MCV 111.0 H MCH 38.8 H MCHC 35.0 RDW 25.4 H Plt Count 335 MPV 7.5 Sodium Potassium Chloride Carbon Dioxide Anion Gap BUN Creatinine Creat Clearance w eGFR Random Glucose Calcium Magnesium Total Bilirubin AST ALT Alkaline Phosphatase Total Protein Albumin Methylmalonic Acid 172 Cold Agglutinins Negative 10/12/18 05:30 WBC RBC Hgb Hct MCV MCH MCHC RDW Plt Count MPV Sodium 134 L Potassium 4.3 Chloride 99 Carbon Dioxide 30 Anion Gap 5 L BUN 20 H Creatinine 0.5 L Creat Clearance w eGFR 116.17 Random Glucose 83 Calcium 7.9 L Magnesium 2.1 Total Bilirubin 1.1 H AST 43 H ALT 50 Alkaline Phosphatase 134 H Total Protein 5.1 L Albumin 2.9 L Methylmalonic Acid Cold Agglutinins Active Medications Generic Name Dose Route Start Last Admin Trade Name Freq PRN Reason Stop Dose Admin Ascorbic Acid 500 mg 10/09/18 10:00 10/12/18 10:16 Vitamin C - PO 500 mg DAILY ALEXA Administration Atorvastatin Calcium 10 mg 10/08/18 22:00 10/11/18 21:55 Lipitor - PO 10 mg HS ALEXA Administration Calcium/Vitamin D 1 tab 10/09/18 10:00 10/12/18 10:15 Oscal 250 Mg+D - PO 1 tab DAILY ALEXA Administration Collagenase 1 applic 10/09/18 12:15 10/12/18 10:16 Santyl - TP 1 applic DAILY ALEXA Administration Protocol Metoprolol Tartrate 12.5 mg 10/12/18 10:00 10/12/18 10:15 Lopressor - PO 12.5 mg BID ALEXA Administration Multivitamins/Minerals/Vitamin C 1 tab 10/08/18 10:00 10/12/18 10:16 Tab-A-Vit - PO 1 tab DAILY ALEXA Administration Prednisone 2 mg 10/08/18 10:00 10/12/18 10:15 Deltasone - PO 2 mg DAILY ALEXA Administration ASSESSMENT/PLAN: This is a pleasant 88 year old female with a past medical history of atrial fibrillation on aspirin and osteoarthritis who presented to the emergency room for recurrent falls and bilateral lower extremity swelling. We were consulted to evaluate macrocytic anemia. #Macrocytic Anemia: not on medications that cause macrocytosis. Macrocytosis could be due to megaloblastic cause such as B12/folate deficiency, reticulocytosis from hemolytic anemia or bleeding episode that she experienced from her leg, less likely from alcohol use or increased erythropoiesis -INR normal -patient on ASA -ferritin high, TIBC low, picture of anemia of chronic disease -transfuse to a Hemoglobin goal of 7 -continue to monitor with daily H&H -follow MDS panel (FISH/Flow/cytology) #Meningioma: found incidentally on head CT (seen in 2.5% of patients >70 yo), asymptomatic. Can monitor. #Falls: appear mechanical in nature Dispo: We will continue to follow the patient. Thank you for this consultative opportunity. Domingo Morales, PGY2 Will discuss with Dr. Levy Visit type - Emergency Visit Emergency Visit: No - New Patient This patient is new to me today: No - Critical Care Critical Care patient: No
--- NOTE | 2018-10-12 13:56 | DS ---
Physical Examination Vital Signs: Vital Signs Temperature 97.9 F 10/12/18 06:00 Pulse Rate 85 10/12/18 06:00 Respiratory Rate 20 10/12/18 06:00 Blood Pressure 100/55 L 10/12/18 06:00 O2 Sat by Pulse Oximetry (%) 95 10/11/18 21:00 Findings/Remarks: Patient must follow up with Cardiology: Dr. Ceballos Address: [facility] [place] [address] Heme-Onc: BEBE DE LEON MD Medical Oncology (Primary Specialty) [address] [facility] [address] [place] [address] Please perform outpatient consultation with GI Dr. Maggie Spencer Address: [address] [place] [address] Constitutional: Yes: No Distress, Calm Eyes: Yes: Conjunctiva Clear, PERRL HENT: Yes: Atraumatic, Normocephalic Neck: Yes: Supple Cardiovascular: Yes: Pulse Irregular, Murmur (harsh holosytolic murmur) Respiratory: Yes: Regular, CTA Bilaterally Gastrointestinal: Yes: Normal Bowel Sounds, Soft ...Rectal Exam: Yes: Deferred Musculoskeletal: Yes: WNL Extremities: Yes: WNL Edema: No Peripheral Pulses WNL: Yes Peripheral Pulses: Left Radial: 2+, Right Radial: 2+ Integumentary: Yes: Venous Stasis Changes Neurological: Yes: Alert, Unsteady Gait, Weakness Psychiatric: Yes: Alert, Oriented Labs: CBC, BMP 10/12/18 05:30 10/12/18 05:30 Discharge Summary Reason For Visit: SECONDARY ANEMIA Current Active Problems Afib (Acute) Anasarca (Acute) Ecchymosis (Acute) Falls frequently (Acute) HTN (hypertension) (Acute) Leg wound, right (Acute) Lower extremity edema (Acute) Pleural effusion (Acute) Severe anemia (Acute) Swelling of right knee joint (Acute) Symptomatic anemia (Acute) Wound of lower extremity (Acute) Procedures: Principal: X-ray Right elbow 10/07/2018. 2 limited views reveal no sign of a gross fracture. There is swelling. The study is quite limited. If symptoms persist, further imaging may be of help. Reported By: Domingo Wall MD. CXR 10/07/2018. Chest: Fall. Pain. Cough. Single AP view of the chest reveals a large heart, sclerotic unfolded aorta, scoliosis with degenerative changes, coarse lung findings and several right mid lung granulomata. The costophrenic angles are sharp and the soft tissues are intact. There are degenerative spine and shoulder changes. Correlation recommended. Reported By: Domingo Wall MD. CT C-spine 10/07/2018. Impression: No fracture is noted. There appears to be subcutaneous edema along the partially imaged right upper thoracic region posteriorly. Correlate clinically. HEAD CT 10/07/2018. Impression: No CT evidence of acute intracranial pathology. 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 Correlate with 2 month follow-up CT /MRI unless previous imaging studies are available from a different facility to document stability. Bilateral LE duplex 10/07/2018. Impression: No DVT is identified involving either leg. Please see above. Bilateral popliteal fossa cysts are noted containing internal debris. Reported By: Josr Min MD. Abd sono 10/07/2018. IMPRESSION: Right pleural effusion. The inferior vena cava and hepatic veins appears somewhat distended suggesting cardiac dysfunction. Follow-up evaluation as clinically indicated. No sonographic evidence of cholelithiasis or acute cholecystitis. There is no definite biliary tract dilatation. No obvious hepatic pathology is noted. There is no free intraperitoneal fluid within the upper abdomen. Reported By: Josr Min MD Hospital Course: 88 year old female who presents from home with history of atrial fibrillation( currently on baby aspirin, previously as recorded on eliquis) and arthritis who presents to the emergency room after a recurrent fall she had this morning. She reports her initial fall was on when she slipped on ice and she injured her right lower extremity and she developed an open wound. She was referred to Dr. Perry of Wound Care for evaluation of her open wound. She reported she has been on oral lasix as recommended by her Horse Groomer for bilateral lower extremity swelling. She reports she has had 2 other falls over the past month but she denied loss of consciousness, dizziness, shortness of breath, orthopnea or chest pain. She reports yesterday she noted to have bleeding from her right lower extremity open wound and she went to the ER but she was not seen by a physician because she did not want to wait any longer. Today she presents after a recurrent fall when she was walking to her bedroom. She denied dizziness or loss of consciousness and she reported she was unable to get off the floor by herself. She reports right lower extremity open wound had no active bleeding but noted to have pinkish tinged drainage. Upon evaluation int he ER she was found to have significant anemia with a hemoglobin 6.3 and hematocrit 18.2, MCV 125 ,MPV 7.2 and RBC 1.46. She was ordered a blood transfusion of 2 Units PRBC's. She was found to have an elevated BNP of 3413. Bilateral lower extremities have signs of fluid overload. Venous ultrasound showed no evidence of deep vein thrombosis. Abdominal ultrasound showed a right pleural effusion and inferior vena cava and hepatic vein appear distended. She was administered one dosage of IV lasix 40 mg once and she is diuresing. CT scan of head showed no evidence of hemorrhage and she was found to have a 1.0 X 0.7 X 0.7cm meningioma. She is being admitted to telemetry for a further medical/cardiac further evaluation for symptomatic anemia and fluid overload. hematology consulted. MDS panel (FISH/Flow/cytology) ordered. CT doesn't show any occult hemorrhage no recent EGD or Colonoscopy. Patient transfused 2units PRBC, with appropriate rise in H/H. Holding home dose of Aspirin. Toprol XL 25mg changed to lopressor 12.5mg BID to decrease risk of orthostasis. Routine echo demonstrates severe , she will f/u with outpt roller pneumatic. Condition: Improved - Instructions Diet, Activity, Other Instructions: Cardiac diet Referrals: Bebe De Leon MD [Staff Physician] - Kt Ceballos MD [Staff Physician] - Maggie Spencer DO [Staff Physician] - Disposition: RETIREMENT FACILITY - Home Medications Comprehensive Discharge Medication List: Ambulatory Orders Lopressor 12.5mg BID Ascorbic Acid [Vitamin C] 500 mg PO DAILY Calcium 250Mg/Vit-D 125 Units [Oscal 250 mg+D -] 1 combo PO DAILY Glucosamine Sulfate Dipot Chlr [Glucosamine] 1,000 mg PO DAILY Multivitamin/Iron/Folic Acid [Centrum Adults Tablet] 1 tab PO DAILY Prednisone 2 mg PO DAILY Simvastatin 20 mg PO DAILY Ubidecarenone [Co Q-10] 10 mg PO DAILY [facility]OP [facility]IQUIS discuss restarting aspirin with cytometry technologist This patient is new to me today: No Emergency Visit: Yes ED Registration Date: 10/07/18 Care time: The patient presented to the Emergency Department on the above date and was hospitalized for further evaluation of their emergent condition. Critical Care patient: No - Discharge Referral Referred to [facility] No
--- NOTE | 2018-10-12 14:58 | CONSULT ---
Consult - text type - Consultation Consultation Note: NEUROLOGY CONSULT APPRECIATED: Events reviewed and discussed with staff and CHAYO Vyas. Neighbor at bedside rosio notes that the patient "doesn't walk very much." This 88 yo RH F lives alone with assistance from neighbors. Ambulates independently with cane in the house. Pmhx includes HTN, HLD, Afib, CHF for which she is maintained on apixaban, metoprolol, prednisone, simvastatin, furosemide. Here due to recurrent falls x 1 year, now occurring more frequently with tendency to feel "propelled backwards" or upon standing without prodromal symptoms. On admission noted with H/H of 6.2/18.8 requiring [address] (reviewed): mod atrophy. Mild ventricular dilation. Small L parietal meningioma Neck CT: noted with C7-T1 grade II anterior spondylolithesis H/H 8.6/27.4 MCV 111.0 TIBC 195 Ferritin 434 TSH 1.10 M40=690 pg% UA WBC = 4 ODETTE: BP 80-100/40-50 with orthostatic changes. Cor irregularly irregular. No bruit. Neck supple Various bruising to arms and chest. R leg wrapped. In diaper. NEURO: Mentation/Speech: Ox [facility]. October " or " 2018. TRUMP. Cannot reverse. 1 out of 3 recall @ 3. CNII-CNXII: Slightly masked. EOM intact. Full carlton appreciated. Gag ok. + glabella, snout, grasps Motor: No drift. Intermittent jaw tremor. Rhythmic sustention tremor L> R. Min cogwheeling with reinforcement. Decreased KAT's. Reflexes nl. Plantars silent. Coordination: no FTN dystaxia Sensation: Decreased vibration in toes. Gait: Flexed, Knees buckling, retropulsive. Frozen. Impression:1. 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 Grade 2 C7-T1 anterior spondylolithesis- R/O cervical Myelopathy 3. 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 Peripheral Neuropathy (etiology uncertain) 5. Progressive gait dysfunction, likely multifactorial due to all of above. Suggest: Order MRI of brain (C-) and cervical spine (C-) Try donepezil 5 mg po qam Trial of L-dopa may improve gait, however limited by hypotension. Would reeval for L-Dopa after correction of anemia and D/C BP Meds. GI and Heme consults. PT for OOB for mobilization and with walker for gait training- should continue on out patient basis. Security Advisor eval and VNS referral if D/C'ed to home. Neuro f/u as out-patient for OMS and Parkinsonism, etc. Thank you very much, Chi Holly MD
[2018-10-12 16:20] VITALS: BP 97/56; PULSE 80; TEMP 98.6
[2018-10-13] MEDS ORDERED: DONEPEZIL HCL 5 MG TABLET (FP) PO SCH (22:00)
--- NOTE | 2018-10-15 16:46 | PATH ---
Surgical Pathology Report Patient Name: KOLTON SELF Med. Rec. #: [id number] /Age/Gender: 1930 (Age: 88) / F Account: [id number] Location: 4 W TELEMETRY U Taken: 10/08/2018 Received: 10/11/2018 Reported: 10/15/2018 Physicians: Bebe De Leon M.D. 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 The monocytic cells are 14% of total events. MYELODYSPLASIA FISH PANEL performed and interpreted at [place], [place] shows the following: INTERPRETATION: No evidence of deletion 5q or monosomy 5 is present. No evidence of deletion 7q or monosomy 7 is present. No evidence of trisomy 8 (+8) is present. No evidence of deletion 13q14.2 is present. No evidence of rearrangement of 11q23. No evidence of a deletion of the p53 (17p13) locus. No evidence of deletion 20q12 is present CYTOGENETIC KARYOTYPE ANALYSIS performed and interpreted at [facility] shows the following: RESULTS: TISSUE CULTURE FAILURE INTERPRETATION: This unstimulated peripheral blood specimen did not produce any analyzable metaphase cells and, therefore, chromosome analysis is not possible. A bone marrow aspirate, when clinically appropriate, is recommended. See [facility] reports ([id number], [id number] and [id number]) for additional details. Electronically Signed Maggie López M.D. Gross Description Received are 2 green top tubes of peripheral blood which are sent to [facility]. DL/10/11/2018 saudi/10/11/2018
== END 2018-10-12 16:46 | DRG 811 ==
LOC: JER 15:06 → JERBED 19:54 → J4W 21:52 → OBSVTOIN 23:25
PROVIDERS: ADMIT Internal Medicine; ATTEND Nurse Practitioner Family
PROC: 30233N1 Transfusion of Nonautologous Red Blood Cells into Peripheral Vein, Percutaneous Approach (ICD-10-PCS; principal; 2018-10-07)
DX: D53.9 Nutritional anemia, unspecified (principal); I50.33 Acute on chronic diastolic (congestive) heart failure; I11.0 Hypertensive heart disease with heart failure; I48.91 Unspecified atrial fibrillation; G20 Parkinson's disease; G62.9 Polyneuropathy, unspecified; M43.13 Spondylolisthesis, cervicothoracic region; R29.6 Repeated falls; S50.01XA Contusion of right elbow, initial encounter; S81.801A Unspecified open wound, right lower leg, initial encounter; W01.0XXA Fall on same level from slipping, tripping and stumbling without subsequent striking against object, initial encounter; Y93.89 Activity, other specified; Y92.018 Other place in single-family (private) house as the place of occurrence of the external cause; Y99.8 Other external cause status; E78.5 Hyperlipidemia, unspecified; Z87.891 Personal history of nicotine dependence; E87.70 Fluid overload, unspecified; D32.9 Benign neoplasm of meninges, unspecified; I35.0 Nonrheumatic aortic (valve) stenosis; I36.1 Nonrheumatic tricuspid (valve) insufficiency; I87.2 Venous insufficiency (chronic) (peripheral)
CPT/HCPCS: 36415; 36430; 36511; 70450-TC; 71046-TC-FY; 72125-TC; 73070-TC-RT-FY; 76700-TC; 80048; 80053; 81003; 82272; 82607; 82728; 82746; 83010; 83540; 83550; 83615; 83735; 83880; 83921; 84425; 84443; 84484; 85025; 85027; 85044; 85610; 85730; 86157; 86850; 86880; 86900; 86901; 86922; 88300-TC; 93005; 93010; 93306-TC; 93970-TC; 97116-GP; 97161-GP; 99281-25; 99285-25; G0378; P9038; P9058

== ENCOUNTER 2018-11-06 22:39 | Inpatient (IN) | payer OTHER, MEDICARE ==
--- NOTE | 2018-11-06 22:52 | PDOC ---
History of Present Illness - History of Present Illness Initial Comments: 11/06/18 22:51 88 yo F with h/o Anemia requiring transfusions, A-fib (on ASA), arthritis, BIBEMS with left thigh pain s/p fall. Patient arrives from [facility] with fall sustained this AM at approximately 5-7 AM following attempt to stand and walk down the [place]. States that she hit her left anterior thigh on a wooden bedpost when attempting to ambulate without ambulatory assistance or assistive device. Found on ground by nursing staff at 530 AM. On ground 5 minutes. Patient occasionally ambulates with cane and/or walker. Denies LOC, head/neck/back trauma. Patient states that she was evaluated this AM and told she had trochanteric fracture requiring surgical fixation. Now with severe right thigh pain, not improved with oral Tylenol. Patient with chronic BL LE edema, on lasix. Has been non ambulatory following fall today. Multiple falls this month x 3. Previous admission [facility] (10/11-10/12) for falls, anemia reuqiring 2 U PRBCs, and fluid/volume overload. Per Neurology Dr. Holly (10/29 ) patient recurrent falls likely multifactorial and 2/2 cerebellar dysfunction, Parkinsonism, peripheral neuropathy. Patient denies SMITH, vision change, palpitations, cough, wheezing, orthopena, PND , N/V, F,C, CP, SOB, urinary complaints, hematuria, BPR, abdominal pain, diarrhea, constipation, lightheadedness, weakness, sensory changes. PMHx: as noted above ROS: as noted Allergies: Warfarin PMD: Tono Everett <Kingston Urban - Last Filed: 11/07/18 02:01> <Janett Blackmon - Last Filed: 11/08/18 12:55> - General Chief Complaint: Injury Stated Complaint: FALL Time Seen by Provider: 11/06/18 22:50 Past History - Past Medical History Cardiac Disorders: Yes (afib) COPD: No HTN: Yes Hypercholesterolemia: Yes - Surgical History Appendectomy: Yes (1949) - Suicide/Smoking/Psychosocial Hx Smoking History: Never smoked Have you smoked in the past 12 months: No If you are a former smoker, when did you quit?: 1950 Hx Alcohol Use: No Drug/Substance Use Hx: No Substance Use Type: None <Kingston Urban - Last Filed: 11/07/18 02:01> <Janett Blackmon - Last Filed: 11/08/18 12:55> - Past Medical History Allergies/Adverse Reactions: Allergies Allergy/AdvReac Type Severity Reaction Status Date / Time warfarin Allergy Mild dizzy Verified 10/07/18 15:11 Home Medications: Ambulatory Orders Ascorbic Acid [Vitamin C] 500 mg PO DAILY 04/29/17 Calcium 250Mg/Vit-D 125 Units [Oscal 250 mg+D -] 1 combo PO DAILY 04/29/17 Glucosamine Sulfate Dipot Chlr [Glucosamine] 1,000 mg PO DAILY 04/29/17 Multivitamin/Iron/Folic Acid [Centrum Adults Tablet] 1 tab PO DAILY 04/29/17 Prednisone 2 mg PO DAILY 04/29/17 Simvastatin 20 mg PO DAILY 04/29/17 Metoprolol Tartrate [Lopressor -] 12.5 mg PO BID 30 Days #60 tablet 10/12/18 Cholecalciferol (Vitamin D3) [D3-50] 50,000 unit PO WEEKLY 11/07/18 Collagenase Clostridium Hist. [Santyl -] 1 applic TP PRN 11/07/18 Ferrous Sulfate 325 mg PO DAILY 11/07/18 Furosemide 40 mg PO DAILY 11/07/18 Review of Systems - Review of Systems Comments:: 11/06/18 22:51 GENERAL/CONSTITUTIONAL: No fever or chills. No weakness. HEAD, EYES, EARS, NOSE AND THROAT: No change in vision. No ear pain or discharge. No sore throat. CARDIOVASCULAR: No chest pain or shortness of breath RESPIRATORY: No cough, wheezing, or hemoptysis. GASTROINTESTINAL: No nausea, vomiting, diarrhea or constipation. GENITOURINARY: No dysuria, frequency, or change in urination. MUSCULOSKELETAL: +muscle swelling / pain. No neck or back pain. SKIN: No rash NEUROLOGIC: No headache, vertigo, loss of consciousness, or change in strength/ sensation. ENDOCRINE: No increased thirst. No abnormal weight change HEMATOLOGIC/LYMPHATIC: No anemia, easy bleeding, or history of blood clots. ALLERGIC/IMMUNOLOGIC: No hives or skin allergy. <Kingston Urban - Last Filed: 11/07/18 02:01> *Physical Exam - Physical Exam Comments: 11/06/18 22:52 GENERAL: Awake, alert, and fully oriented, in no acute distress HEAD: No signs of trauma, normocephalic, atraumatic EYES: PERRLA, EOMI, sclera anicteric, conjunctiva clear ENT: Auricles normal inspection, hearing grossly normal, nares patent, oropharynx clear without exudates. Moist mucosa NECK: Normal ROM, supple, no lymphadenopathy, JVD, or masses LUNGS: No distress, speaks full sentences, clear to auscultation bilaterally HEART: Regular rate and rhythm, normal S1 and S2, no murmurs, rubs or gallops, peripheral pulses normal and equal bilaterally. ABDOMEN: Soft, nontender, normoactive bowel sounds. No guarding, no rebound. No masses EXTREMITIES : 2+ BL LE edema, with chronic venous stasis discoloration. No clubbing or cyanosis. NEUROLOGICAL: Cranial nerves II through XII grossly intact. Normal speech, normal gait, no focal sensorimotor deficits SKIN: Ecchymosis to abdomen, BL UE. + RLE wound 3 x 1 cm, partial thickness letft anf right heel wounds. Warm, Dry, normal turgor, no rashes or lesions noted <Kingston Urban - Last Filed: 11/07/18 02:01> - Vital Signs Last Vital Signs Temp Pulse Resp BP Pulse Ox 98.1 F 85 20 115/58 L 95 11/08/18 06:00 11/08/18 06:00 11/08/18 06:00 11/08/18 06:00 11/07/18 21:00 <Janett Blackmon - Last Filed: 11/08/18 12:55> ED Treatment Course - LABORATORY CBC & Chemistry Diagram: 11/07/18 00:30 11/07/18 00:30 <Kingston Urban - Last Filed: 11/07/18 02:01> - LABORATORY CBC & Chemistry Diagram: 11/08/18 12:14 11/08/18 06:10 - ADDITIONAL ORDERS Additional order review: 11/07/18 00:30 RBC 1.74 L MCV 114.3 H MCHC 34.3 RDW 24.1 H MPV 7.6 Neutrophils % 76.3 Lymphocytes % 9.7 D Monocytes % 13.0 H Eosinophils % 0.5 Basophils % 0.5 - Medications Given in the ED: ED Medications Discontinued Medications Generic Name Dose Route Start Last Admin Trade Name Freq PRN Reason Stop Dose Admin Acetaminophen 650 mg 11/07/18 00:45 11/07/18 00:56 Tylenol - PO 11/07/18 00:46 650 mg ONCE ONE Administration Furosemide 40 mg 11/07/18 02:01 11/07/18 03:01 Lasix Injection - IVPUSH 11/07/18 02:02 40 mg ONCE ONE Administration Potassium Chloride/Dextrose/Sod Cl 10 meq in 1,000 mls @ 75 mls/hr 11/07/18 11 :15 11/07/18 22:45 D5-1/2ns+10 Meq Kcl - IV 75 mls/hr ASDIR ALEXA Administration Morphine Sulfate 1 mg 11/07/18 02:22 11/07/18 03:22 Morphine Injection - IVPUSH 11/07/18 02:23 1 mg ONCE ONE Administration Potassium Chloride 40 meq 11/07/18 11:13 11/07/18 13:08 Potassium Chloride Oral Liquid PO 11/07/18 11:14 40 meq ONCE ONE Administration <Janett Blackmon - Last Filed: 11/08/18 12:55> Medical Decision Making - Medical Decision Making 11/06/18 23:10 88 yo F with h/o COPD, Dementia, recurrent falls, A-fib (on ASA), arthritis, BIBEMS with right thigh pain from [facility] with fall sustained this AM at approximately 6-7 AM. Vitals wnl, AF, A&Ox3, GCS 15. Denies head trauma/LOC, neck or back pain. No evidence closed head injury, C-spine neg Nexus, neg evidence basilar skull fracture. Nursing Report Crystal Mendoza of acute left femoral intertrochanteric angulated fracture, with varus angulation (Dr Kingston Baum). Patient with 2+ pitting edema, venous stasis skin change. Will assess for fluid/volume overload, VBI/TIA, cardiac dysarrythmias, hypoglycemia, electrolyte abnml, metabolic and toxic derangements, acid-base disturbances, infection. ED Course: 11/07/18 01:04 Laboratory Tests 11/07/18 00:30 WBC 6.4 Hgb 6.8 L* Hct 19.8 L D Plt Count 396 Will transfuse 2 U PRBC Will diurese lasix 40 mg between units of blood 11/07/18 01:17 Laboratory Tests 11/07/18 11/07/18 00:30 00:30 BUN 21 H Creatinine 0.5 L B-Natriuretic Peptide Cancelled 11/07/18 01:17 BNP: 1944.5 11/07/18 01:19 Plan to admit fall, anemia requiring transfusions, fluid/volume overload. <Kingston Urban - Last Filed: 11/07/18 02:01> *DC/Admit/Observation/Transfer - Discharge Dispostion Decision to Admit order: Yes <Kingston Urban - Last Filed: 11/07/18 02:01> - Discharge Dispostion Decision to Admit order: Yes <Janett Blackmon - Last Filed: 11/08/18 12:55> Diagnosis at time of Disposition: Anemia requiring transfusions, Fracture of left hip Fall Qualifiers: Encounter type: initial encounter Qualified Code(s): W19.XXXA - Unspecified fall, initial encounter Fluid overload Qualifiers: Hypervolemia type: other Qualified Code(s): E87.79 - Other fluid overload - Discharge Dispostion Condition at time of disposition: Stable
[2018-11-07] MEDS ORDERED: ACETAMINOPHEN 325 MG TABLET (FP) PO ONE (00:45)
--- NOTE | 2018-11-07 00:45 | PDOC ---
Documentation entered by Berenice Lee SCRIBE, acting as scribe for Janett Blackmon MD. Janett Blackmon MD: This documentation has been prepared by the scribe, Berenice Lee SCRIBE, under my direction and personally reviewed by me in its entirety. I confirm that the documentation accurately reflects all work, treatment, procedures, and medical decision making performed by me. Attending Attestation - Resident Resident Name: Kingston Urban - ED Attending Attestation I have performed the following: I have examined & evaluated the patient, The case was reviewed & discussed with the resident, I agree w/resident's findings & plan - HPI HPI: 11/07/18 00:44 Ms. Pacheco is a 88 year old female with past medical history significant for Anemia (requiring transfusion), Afib (on ASA), Arthritis, chronic lower extremity swelling presents to the emergency department via EMS s/p a fall with left hip and thigh pain, +left IT hip fx. The patient reports around 5:30 am today, she was ambulating without assistance when she suffered a fall. The patient reports she was down for approximately 5 minutes before she was assisted up. The patient reports she had an X-ray done, which was significant for Trochanteric fracture requiring surgical fixation. The patient presents with left anterior thigh pain. Denies numbness or tingling. Allergies: Warfarin PMD: Tono Chintaluri - Physicial Exam PE: 11/07/18 00:44 Agree with the resident's HPI and PE as documented in the electronic medical record. NAD, well appearing, PERRL, EOMI, nl conjunctiva, anicteric; neck supple. lungs clear, irregularly irregular, +holosystolic murmur, abdomen soft nontender.. + bilateral peripheral edema. pale color for ethnicity, WWP. +b/l venous stasis and skin discoloration, worse on RLE. +left hip/upper thigh TTP, ROM limited due to pain. LLE shortened and ext rotated. Ecchymosis to abdomen - appears old, BL UE. + RLE wound 3 x 1 cm, partial thickness left ant right heel wounds. 11/08/18 12:56 - Medical Decision Making 11/07/18 00:45 hpi as documented VS reviewed wnl. NVI mild pain, but otherwise comfortable given tylenol for analgesia basic labs, preop, txs. EKG, repeat Xray, for hip fx, operative management, anemia noted, Hb 6.5, transfuse 2 units, given lasix in between due to leg edema /reduce chance of TACO/fluid overload. ortho cs with change control coordinator team, will see AM. 11/07/18 02:19 11/07/18 02:20
[2018-11-07 00:50] LABS: BASO % 0.5 % (0-2.0); EOS % 0.5 % (0-4.5); HEMATOCRIT 19.8 % (32.4-45.2); LYMPH % 9.7 % (8-40); MCH 39.2 pg (25.7-33.7); MCHC 34.3 g/dl (32.0-36.0); MEAN CELL VOLUME 114.3 fl (80-96); MEAN PLT VOLUME 7.6 fl (7.5-11.1); NEUT % 76.3 % (42.8-82.8); PLATELET COUNT 396 K/MM3 (134-434); RBC 1.74 M/mm3 (3.60-5.2); RDW 24.1 % (11.6-15.6); WHITE BLOOD COUNT 6.4 K/mm3 (4.0-10.0)
[2018-11-07] MEDS ORDERED: ACETAMINOPHEN 325 MG TABLET (FP) ONE (00:57)
[2018-11-07 01:00] LABS: HEMOGLOBIN 6.8 GM/dL (10.7-15.3)
[2018-11-07 01:05] LABS: INR 1.21 (0.83-1.09); PROTHROMBIN TIME (PATIENT) 14.3 SEC (9.7-13.0)
[2018-11-07 01:14] LABS: ALBUMIN 3.2 g/dl (3.4-5.0); ALK PHOS 125 U/L (45-117); ANION GAP 6 MMOL/L (8-16); BILIRUBIN,TOTAL 0.8 mg/dL (0.2-1); BLOOD UREA NITROGEN 21 mg/dL (7-18); CALCIUM 8.3 mg/dL (8.5-10.1); CHLORIDE 104 mmol/L (98-107); CO2 28 mmol/L (21-32); CREATININE 0.5 mg/dL (0.55-1.3); GLUCOSE,RANDOM 104 mg/dL (74-106); N-TERMINAL BNP 1994.5 pg/ml (5-450); POTASSIUM 3.9 mmol/L (3.5-5.1); SGOT/AST 17 U/L (15-37); SGPT/ALT 20 U/L (13-61); SODIUM 138 mmol/L (136-145); TOT PROT 5.4 g/dl (6.4-8.2)
[2018-11-07] MEDS ORDERED: FUROSEMIDE 40 MG/4 ML INJECTABLE VIAL IVPUSH ONE (02:01)
[2018-11-07] MEDS ORDERED: morphine CARPU-JECT 2 MG/1 ML DISP.SYRIN IVPUSH ONE (02:22)
[2018-11-07 03:09] LABS: ANISOCYTOSIS 2+; MACROCYTOSIS 2+; PLATELET ESTIMATE INCREASED
[2018-11-07] MEDS ORDERED: morphine SULFATE 4 MG/ML VIAL ONE (03:17)
[2018-11-07] MEDS ORDERED: FUROSEMIDE 40 MG/4 ML INJECTABLE VIAL ONE (03:18)
--- NOTE | 2018-11-07 04:13 | PN ---
Teaching Attending Note Name of Resident: Vitaliy Anguiano ATTENDING PHYSICIAN STATEMENT I saw and evaluated the patient. I reviewed the resident's note and discussed the case with the resident. I agree with the resident's findings and plan as documented. SUBJECTIVE: OBJECTIVE: ASSESSMENT AND PLAN: fall with fracture of the hip -Orthopedic surgery consult (Dr. Valle) -Follow Lactic acid -Follow CPK -NPO -PT/ INR, PTT, type and cross ordered. -Pain control with Ofirmev 1000mg IV Q6H PRN -Bedrest until orthopedic surgery evaluation -Fall precautions Acute blood loss anemia -Likely secondary to hip fracture. -Hb 6.8/ Hct 19.8 (baseline hemoglobin between 8 -9). -Transfuse 2 units PRBC -Follow CBC 1 hour after PRBC transfusion complete -Follow stool for occult blood Afib -Restart Metoprolol 12.5mg PO BID for rate control. -No longer on anticoaglation due to history of recurrent falls. -Aspirin 81mg PO daily was stopped upon last admission due to bleeding. -Consider reinstating once PRBC transfusions repleted
--- NOTE | 2018-11-07 04:25 | PDOC ---
*Physical Exam - Vital Signs Last Vital Signs Temp Pulse Resp BP Pulse Ox 98.9 F 105 H 18 106/65 95 11/07/18 03:44 11/07/18 03:44 11/06/18 22:39 11/07/18 03:44 11/07/18 03:44 ED Treatment Course - LABORATORY CBC & Chemistry Diagram: 11/07/18 21:48 11/07/18 07:20 - ADDITIONAL ORDERS Additional order review: Laboratory Results 11/07/18 11/07/18 11/07/18 04:00 00:30 00:30 PT with INR 14.30 H INR 1.21 H PTT (Actin FS) Sodium 138 Potassium 3.9 Chloride 104 Carbon Dioxide 28 Anion Gap 6 L BUN 21 H Creatinine 0.5 L Creat Clearance w eGFR 116.17 Random Glucose 104 Calcium 8.3 L Total Bilirubin 0.8 AST 17 ALT 20 Alkaline Phosphatase 125 H Creatine Kinase 28 Troponin I < 0.02 B-Natriuretic Peptide 1994.5 H Total Protein 5.4 L Albumin 3.2 L Crossmatch See Detail 11/07/18 11/07/18 00:30 00:30 PT with INR INR PTT (Actin FS) 32.0 Sodium Potassium Chloride Carbon Dioxide Anion Gap BUN Creatinine Creat Clearance w eGFR Random Glucose Calcium Total Bilirubin AST ALT Alkaline Phosphatase Creatine Kinase Cancelled Troponin I Cancelled B-Natriuretic Peptide Cancelled Total Protein Albumin Crossmatch 11/07/18 00:30 RBC 1.74 L MCV 114.3 H MCHC 34.3 RDW 24.1 H MPV 7.6 Neutrophils % 76.3 Lymphocytes % 9.7 D Monocytes % 13.0 H Eosinophils % 0.5 Basophils % 0.5 - Medications Given in the ED: ED Medications Discontinued Medications Generic Name Dose Route Start Last Admin Trade Name Freq PRN Reason Stop Dose Admin Acetaminophen 650 mg 11/07/18 00:45 11/07/18 00:56 Tylenol - PO 11/07/18 00:46 650 mg ONCE ONE Administration Furosemide 40 mg 11/07/18 02:01 11/07/18 03:01 Lasix Injection - IVPUSH 11/07/18 02:02 40 mg ONCE ONE Administration Morphine Sulfate 1 mg 11/07/18 02:22 11/07/18 03:22 Morphine Injection - IVPUSH 11/07/18 02:23 1 mg ONCE ONE Administration *DC/Admit/Observation/Transfer Diagnosis at time of Disposition: Anemia requiring transfusions Fall Qualifiers: Encounter type: initial encounter Qualified Code(s): W19.XXXA - Unspecified fall, initial encounter Fluid overload Qualifiers: Hypervolemia type: other Qualified Code(s): E87.79 - Other fluid overload - Discharge Dispostion Condition at time of disposition: Stable - Referrals - Patient Instructions - Post Discharge Activity
--- NOTE | 2018-11-07 04:41 | HP ---
CHIEF COMPLAINT: Slip and fall PCP: HISTORY OF PRESENT ILLNESS: Patient is an 88 year old female with a past medical history of frequent falls, atrial fibrillation (previously on aspirin) and osteoarthritis presents after an unwitnessed fall. Patient states the she was walking out of her bathroom, when she slipped and fell. Patient denies prodromal symptoms of lightheadedness , dizziness, shortness of breath, chest pain, palpitations, abdominal pain, nausea prior to fall. Patient denies loss of consciousness. She endorses hurting her left hip against the backboard of her bed. She denies tongue biting , shaking, bowel or bladder incontinence. She was on the floor for approx. 5 minutes before she was helped off the floor. She currently endorses left sided hip pain, with difficulty moving the left lower extremity. Denies subjective fevers, chills. 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 Family History: Mother: arthritis Father: unknown heart problems Allergies warfarin Allergy (Mild, Verified 10/07/18 15:11) dizzy HOME MEDICATIONS: Home Medications Medication Instructions Recorded Ascorbic Acid [Vitamin C] 500 mg PO DAILY 04/29/17 Calcium 250Mg/Vit-D 125 Units 1 combo PO DAILY 04/29/17 [Oscal 250 mg+D -] Glucosamine Sulfate Dipot Chlr 1,000 mg PO DAILY 04/29/17 [Glucosamine] Multivitamin/Iron/Folic Acid 1 tab PO DAILY 04/29/17 [Centrum Adults Tablet] Prednisone 2 mg PO DAILY 04/29/17 Simvastatin 20 mg PO DAILY 04/29/17 Ubidecarenone [Co Q-10] 10 mg PO DAILY 04/29/17 Collagenase Clostridium Hist. 1 applic TP DAILY 10 Days #1 tube 10/12/18 [Santyl -] Metoprolol Tartrate [Lopressor -] 12.5 mg PO BID 30 Days #60 tablet 10/12/18 REVIEW OF SYSTEMS CONSTITUTIONAL: Absent: fever, chills, diaphoresis, generalized weakness, malaise, loss of appetite, weight change HEENT: Absent: rhinorrhea, nasal congestion, throat pain, throat swelling, difficulty swallowing, mouth swelling, ear pain, eye pain, visual changes CARDIOVASCULAR: Absent: chest pain, syncope, palpitations, irregular heart rate, lightheadedness , peripheral edema RESPIRATORY: Absent: cough, shortness of breath, dyspnea with exertion, orthopnea, wheezing, stridor, hemoptysis GASTROINTESTINAL: Absent: abdominal pain, abdominal distension, nausea, vomiting, diarrhea, constipation, melena, hematochezia GENITOURINARY: Absent: dysuria, frequency, urgency, hesitancy, hematuria, flank pain, genital pain MUSCULOSKELETAL: Admits: pain at left hip, and left elbow SKIN: Absent: rash, itching, pallor HEMATOLOGIC/IMMUNOLOGIC: Absent: easy bleeding, easy bruising, lymphadenopathy, frequent infections ENDOCRINE: Absent: unexplained weight gain, unexplained weight loss, heat intolerance, cold intolerance NEUROLOGIC: Absent: headache, focal weakness or paresthesias, dizziness, unsteady gait, seizure, mental status changes, bladder or bowel incontinence PSYCHIATRIC: Absent: anxiety, depression, suicidal or homicidal ideation, hallucinations. PHYSICAL EXAMINATION Vital Signs - 24 hr 11/06/18 11/07/18 22:39 03:44 Temperature 98.1 F 98.9 F Pulse Rate 89 Pulse Rate [ 105 H Right Radial] Respiratory 18 Rate Blood Pressure 116/84 Blood Pressure 106/65 [Left Arm] O2 Sat by Pulse 96 95 Oximetry (%) GENERAL: The patient is awake, alert, and oriented, in no acute distress. HEAD: Normocephalic, atraumatic. EYES: PERRL, extraocular movements intact, sclera anicteric, conjunctiva clear. ENT: Oropharynx clear, without erythema or exudates. Moist mucous membranes. NECK: Trachea midline, full range of motion. Supple without lymphadenopathy. LUNGS: Breath sounds equal, clear to auscultation bilaterally, no wheezes, no crackles. No accessory muscle use. HEART: Regular rate and rhythm, S1, S2 with holosystolic murmur auscultated loudest at apex. ABDOMEN: Soft, nondistended, nontender to light and deep palpation x4 quadrants , no rebound tenderness, no guarding. Normoactive bowel sounds x4 quadrants. no hepatosplenomegaly, no masses. MUSCULOSKELETAL: Tenderness to palpation at left hip, and left elbow. EXTREMITIES: 2+ radial, dorsalis pedis pulses bilaterally. Warm, well-perfused. Bilateral non-pitting lower extremity edema bilaterally, with chronic venous stasis changes. NEUROLOGICAL: Cranial nerves II through XII grossly intact. Normal speech. Patient freely moves bilateral upper and right lower extremities. Left lower extremity movement limited by significant pain. Sensation intact bilateral upper and lower extremities. PSYCH: Normal mood, normal affect upon my encounter. SKIN: Warm, dry. Laboratory Results - last 24 hr 11/07/18 11/07/18 11/07/18 00:30 00:30 00:30 WBC 6.4 RBC 1.74 L Hgb 6.8 L* Hct 19.8 L D MCV 114.3 H MCH 39.2 H MCHC 34.3 RDW 24.1 H Plt Count 396 MPV 7.6 Absolute Neuts (auto) 4.9 Neutrophils % 76.3 Lymphocytes % 9.7 D Monocytes % 13.0 H Eosinophils % 0.5 Basophils % 0.5 Nucleated RBC % 0 Hypochromia 1+ Platelet Estimate Increased Polychromasia 0 Poikilocytosis 1+ Anisocytosis 2+ Microcytosis 1+ Macrocytosis 2+ PT with INR INR PTT (Actin FS) 32.0 Sodium Potassium Chloride Carbon Dioxide Anion Gap BUN Creatinine Creat Clearance w eGFR Random Glucose Calcium Total Bilirubin AST ALT Alkaline Phosphatase Creatine Kinase Cancelled Troponin I Cancelled B-Natriuretic Peptide Cancelled Total Protein Albumin Crossmatch 11/07/18 11/07/18 11/07/18 00:30 00:30 04:00 WBC RBC Hgb Hct MCV MCH MCHC RDW Plt Count MPV Absolute Neuts (auto) Neutrophils % Lymphocytes % Monocytes % Eosinophils % Basophils % Nucleated RBC % Hypochromia Platelet Estimate Polychromasia Poikilocytosis Anisocytosis Microcytosis Macrocytosis PT with INR 14.30 H INR 1.21 H PTT (Actin FS) Sodium 138 Potassium 3.9 Chloride 104 Carbon Dioxide 28 Anion Gap 6 L BUN 21 H Creatinine 0.5 L Creat Clearance w eGFR 116.17 Random Glucose 104 Calcium 8.3 L Total Bilirubin 0.8 AST 17 ALT 20 Alkaline Phosphatase 125 H Creatine Kinase 28 Troponin I < 0.02 B-Natriuretic Peptide 1994.5 H Total Protein 5.4 L Albumin 3.2 L Crossmatch See Detail ASSESSMENT/PLAN: Patient is an 88 year old female with a past medical history of frequent falls, atrial fibrillation on aspirin and osteoarthritis presents after an unwitnessed fall. Unwitnessed fall -Likely mechanical fall -Radiograph of left hip shows intratrochanteric fracture upon my read. -Follow official reading of left hip, right hip, left forearm, elbow, right femur, left femur radiographs. -Orthopedic surgery consult (Dr. Valle) -STAT EKG, troponins -Follow Lactic acid -Follow CPK -NPO -PT/ INR, PTT, type and cross ordered. -Pain control with Ofirmev 1000mg IV Q6H PRN -Bedrest until orthopedic surgery evaluation -Fall precautions Acute blood loss anemia -Likely secondary to hip fracture. -Hb 6.8/ Hct 19.8 (baseline hemoglobin between 8 -9). -Transfuse 2 units PRBC -Follow CBC 1 hour after PRBC transfusion complete -Follow stool for occult blood Afib -Restart Metoprolol 12.5mg PO BID for rate control. -No longer on anticoaglation due to history of recurrent falls. -Aspirin 81mg PO daily was stopped upon last admission due to bleeding. -Consider reinstating once PRBC transfusions repleted. FEN -Patient currently receiving 2 units PRBC -Follow CMP -NPO pending orthopedic surgery evaluation Prophylaxis -Chemical anticoagulation held pending orthopedic surgery evaluation Disposition -Admit to medical-surgical floor Visit type - Emergency Visit Emergency Visit: Yes ED Registration Date: 11/07/18 Care time: The patient presented to the Emergency Department on the above date and was hospitalized for further evaluation of their emergent condition. - New Patient This patient is new to me today: Yes Date on this admission: 11/07/18 - Critical Care Critical Care patient: No
[2018-11-07] MEDS ORDERED: ACETAMINOPHEN 1000 MG/100 ML VIAL (NON FORMULARY) IVPB PRN (05:34)
[2018-11-07 08:10] LABS: HEMATOCRIT 19.6 % (32.4-45.2); MCHC 35.4 g/dl (32.0-36.0); MEAN CELL VOLUME 113.5 fl (80-96); MEAN PLT VOLUME 7.5 fl (7.5-11.1); PLATELET COUNT 361 K/MM3 (134-434); RBC 1.73 M/mm3 (3.60-5.2); RDW 23.3 % (11.6-15.6); WHITE BLOOD COUNT 5.6 K/mm3 (4.0-10.0)
[2018-11-07 08:16] LABS: INR 1.16 (0.83-1.09); MCH 40.2 pg (25.7-33.7); PROTHROMBIN TIME (PATIENT) 13.7 SEC (9.7-13.0)
[2018-11-07 08:17] LABS: HEMOGLOBIN 6.9 GM/dL (10.7-15.3)
[2018-11-07 08:19] LABS: ACTIVATED PTT 27.4 SECONDS (25.2-36.5)
[2018-11-07 08:33] LABS: ALBUMIN 3.3 g/dl (3.4-5.0); ALK PHOS 127 U/L (45-117); ANION GAP 7 MMOL/L (8-16); BILIRUBIN,TOTAL 1.2 mg/dL (0.2-1); BLOOD UREA NITROGEN 16 mg/dL (7-18); CALCIUM 8.1 mg/dL (8.5-10.1); CHLORIDE 100 mmol/L (98-107); CO2 30 mmol/L (21-32); CREATININE 0.4 mg/dL (0.55-1.3); GLUCOSE,RANDOM 93 mg/dL (74-106); MAGNESIUM 1.9 mg/dL (1.8-2.4); PHOSPHOROUS 3.5 mg/dL (2.5-4.9); POTASSIUM 3.1 mmol/L (3.5-5.1); SGOT/AST 16 U/L (15-37); SGPT/ALT 20 U/L (13-61); SODIUM 138 mmol/L (136-145); TOT PROT 5.6 g/dl (6.4-8.2)
--- NOTE | 2018-11-07 10:06 | HOSP ---
Subjective - Review of Symptoms Subjective: c/o hip and wrist pain but improves with pain medications. recalls slipping on floor when falling but does not know why she slipped. denies Cp, SOB, fever, chills, N/V/C/D, no CP when doing light activity around the house. no complication with anesthesia in the past follow with Dr Ceballos for her heart but has not seen him in awhile Current Medications Generic Name Dose Route Start Last Admin Trade Name Freq PRN Reason Stop Dose Admin Acetaminophen 1,000 mg 11/07/18 05:34 Ofirmev Injection - IVPB Q6H PRN PAIN LEVEL 6-10 Metoprolol Tartrate 12.5 mg 11/07/18 10:00 Lopressor - PO BID ALEXA Last Vital Signs Temp Pulse Resp BP Pulse Ox 98.9 F 105 H 18 106/65 95 11/07/18 03:44 11/07/18 03:44 11/06/18 22:39 11/07/18 03:44 11/07/18 03:44 General NAD, frail, elderly woman CV S1 s2 RRR +murmur lungs CTA B/L no wheezing/rales/rhonchi Abdomen soft NT/ND Extremities L wrist is not swollen, has good extension/flexion, pulse intact LLE shortened and internally rotated. 1+ pitting edema CBCD WBC 5.6 K/mm3 (4.0-10.0) 11/07/18 07:20 RBC 1.73 M/mm3 (3.60-5.2) L 11/07/18 07:20 Hgb 6.9 GM/dL (10.7-15.3) L* 11/07/18 07:20 Hct 19.6 % (32.4-45.2) L 11/07/18 07:20 MCV 113.5 fl (80-96) H 11/07/18 07:20 MCHC 35.4 g/dl (32.0-36.0) 11/07/18 07:20 RDW 23.3 % (11.6-15.6) H 11/07/18 07:20 Plt Count 361 K/MM3 (134-434) 11/07/18 07:20 MPV 7.5 fl (7.5-11.1) 11/07/18 07:20 CMP Sodium 138 mmol/L (136-145) 11/07/18 07:20 Potassium 3.1 mmol/L (3.5-5.1) L 11/07/18 07:20 Chloride 100 mmol/L (98-107) 11/07/18 07:20 Carbon Dioxide 30 mmol/L (21-32) 11/07/18 07:20 Anion Gap 7 MMOL/L (8-16) L 11/07/18 07:20 BUN 16 mg/dL (7-18) 11/07/18 07:20 Creatinine 0.4 mg/dL (0.55-1.3) L 11/07/18 07:20 Creat Clearance w eGFR 150.29 (>60) 11/07/18 07:20 Calcium 8.1 mg/dL (8.5-10.1) L 11/07/18 07:20 Total Bilirubin 1.2 mg/dL (0.2-1) H 11/07/18 07:20 AST 16 U/L (15-37) 11/07/18 07:20 ALT 20 U/L (13-61) 11/07/18 07:20 Alkaline Phosphatase 127 U/L (45-117) H 11/07/18 07:20 Total Protein 5.6 g/dl (6.4-8.2) L 11/07/18 07:20 Albumin 3.3 g/dl (3.4-5.0) L 11/07/18 07:20 Assessment and Plan 88yo F with PMH frequent falls, , afib not on anticoag due to frequent falls and OA presented to the Er after a mechanical fall and found to have L hip fracture and questionable L distal ulnar fracture 1. L hip fracture- due to mechanical fall although has risk factors that fall could have been potentiated by (, afib, anemia, etc) NPO, IVF and pain control. will consult cardio for clearance as pt has not see them in awhile for optimization. ortho consulted 2. questionable L distal ulnar fracture- on clinical exam does not appear displaced. will get dedicated XR. may need splinting 3. afib- not on anticoag due to falls. cont with rate control. 4. Asymptomatic anemia- no signs of bleeding. does not report any bleeding. has hx of GI bleeding. will transfuse 2 units PRBC. check post-transfusion cbc 5. hypokalemia- Kcl po 6. HTN- currently normotensive. would hold oral agents 7. DVT ppx- hold pharmacologic as likelihood for surgery 8. will likely require MARV on discharge Physical Examination Vital Signs: Vital Signs Temperature 98.9 F 11/07/18 03:44 Pulse Rate 105 H 11/07/18 03:44 Respiratory Rate 18 11/06/18 22:39 Blood Pressure 106/65 11/07/18 03:44 O2 Sat by Pulse Oximetry (%) 95 11/07/18 03:44 Labs: CBC, BMP 11/07/18 07:20 11/07/18 07:20
[2018-11-07] MEDS ORDERED: POTASSIUM CHLORIDE ORAL LIQUID 20 MEQ/15 ML PO ONE (11:13)
[2018-11-07] MEDS ORDERED: POTASSIUM CHLORIDE TABS 20 MEQ TABLET.ER (FP) PO ONE (12:58)
[2018-11-07] MEDS: METOPROLOL TARTRATE 25 MG TABLET (FP) PO SCH ×2 (13:08→22:42)
--- NOTE | 2018-11-07 15:21 | EKG ---
Test Reason : Blood Pressure : / mmHG Vent. Rate : 082 BPM Atrial Rate : 326 BPM P-R Int : 000 ms QRS Dur : 108 ms QT Int : 392 ms P-R-T Axes : 000 077 -48 degrees QTc Int : 457 ms ATRIAL FIBRILLATION INCOMPLETE RIGHT BUNDLE BRANCH BLOCK NONSPECIFIC ST ABNORMALITY ABNORMAL ECG WHEN COMPARED WITH ECG OF 07-NOV-2018 01:49, T WAVE INVERSION LESS EVIDENT IN ANTERIOR LEADS Confirmed by MARIE BERGER, HALEY ([id number]) on 11/07/2018 3:20:45 PM Referred By: Paulette VÁSQUEZ Confirmed By:HALEY SALAZAR MD
--- NOTE | 2018-11-07 15:25 | EKG ---
Test Reason : Blood Pressure : / mmHG Vent. Rate : 106 BPM Atrial Rate : 102 BPM P-R Int : 000 ms QRS Dur : 104 ms QT Int : 350 ms P-R-T Axes : 000 050 -40 degrees QTc Int : 464 ms POOR DATA QUALITY, INTERPRETATION MAY BE ADVERSELY AFFECTED ATRIAL FIBRILLATION WITH RAPID VENTRICULAR RESPONSE INCOMPLETE RIGHT BUNDLE BRANCH BLOCK ABNORMAL ECG WHEN COMPARED WITH ECG OF 07-OCT-2018 21:32, T WAVE INVERSION MORE EVIDENT IN ANTERIOR LEADS Confirmed by HALEY SALAZAR MD ([id number]) on 11/07/2018 3:24:57 PM Referred By: Confirmed By:HALEY SALAZAR MD
[2018-11-07 16:11] VITALS: BMI 18.6
--- NOTE | 2018-11-07 18:39 | PN ---
Progress Note (short form) - Note Progress Note: Will see patient in AM tomorrow and plan for surgery tomorrow afternoon. Consult call was not received until this evening despite computer entry at 5am. NPO past midnight. Will monitor HCT, may require additional PRBC.
[2018-11-07 22:10] LABS: HEMATOCRIT 27.9 % (32.4-45.2); MCH 36.5 pg (25.7-33.7); MEAN CELL VOLUME 101.4 fl (80-96); MEAN PLT VOLUME 7.5 fl (7.5-11.1); PLATELET COUNT 394 K/MM3 (134-434); RBC 2.75 M/mm3 (3.60-5.2); WHITE BLOOD COUNT 8.5 K/mm3 (4.0-10.0)
[2018-11-07] MEDS: D5-1/2NS+10 MEQ KCL - 10 MEQ/1,000 ML INFUS.BAG IV SCH (22:45)
--- NOTE | 2018-11-08 07:29 | PN ---
Progress Note (short form) - Note Progress Note: This is an 88 yo female with a PMHx of frequent falls, afib (previously on aspirin) and osteoarthritis who presented to hospital after an unwitnessed fall. She states she slipped while exiting the bathroom at the rehabilitation home. Patient is lying comfortably in bed. Complains of left hip pain but notes better after pain medication. Denies any other complaints. Last Vital Signs Temp Pulse Resp BP Pulse Ox 98.1 F 85 20 115/58 L 95 11/08/18 06:00 11/08/18 06:00 11/08/18 06:00 11/08/18 06:00 11/07/18 21:00 PE: LLE Left leg is shortened and externally rotated Tenderness throughout left hip Calves soft, NT B/L NVI B/L Abnormal Lab Results 11/07/18 11/07/18 11/07/18 04:00 07:20 07:20 RBC 1.73 L Hgb 6.9 L* Hct 19.6 L MCV 113.5 H MCH 40.2 H RDW 23.3 H PT with INR 13.70 H INR 1.16 H Potassium Anion Gap Creatinine Calcium Total Bilirubin Alkaline Phosphatase Total Protein Albumin Crossmatch See Detail 11/07/18 11/07/18 07:20 21:48 RBC 2.75 L Hgb 10.0 L Hct 27.9 L D MCV 101.4 H MCH 36.5 H RDW 25.0 H PT with INR INR Potassium 3.1 L Anion Gap 7 L Creatinine 0.4 L Calcium 8.1 L Total Bilirubin 1.2 H Alkaline Phosphatase 127 H Total Protein 5.6 L Albumin 3.3 L Crossmatch A: Left hip fracture P: Plan for left hip IM nail placement today Keep NPO Received 2 units PRBC yesterday with increased hbg from 6.9 to 10 DVT prophylaxis Pain control Remain non-weight bearing
[2018-11-08 07:35] LABS: HEMATOCRIT 25.6 % (32.4-45.2); HEMOGLOBIN 9.1 GM/dL (10.7-15.3); MCH 36.6 pg (25.7-33.7); MCHC 35.7 g/dl (32.0-36.0); MEAN CELL VOLUME 102.5 fl (80-96); MEAN PLT VOLUME 7.9 fl (7.5-11.1); PLATELET COUNT 362 K/MM3 (134-434); RDW 25.3 % (11.6-15.6); WHITE BLOOD COUNT 7.3 K/mm3 (4.0-10.0)
[2018-11-08 07:55] LABS: ANION GAP 4 MMOL/L (8-16); BLOOD UREA NITROGEN 15 mg/dL (7-18); CALCIUM 8.1 mg/dL (8.5-10.1); CHLORIDE 105 mmol/L (98-107); CO2 30 mmol/L (21-32); CREATININE 0.4 mg/dL (0.55-1.3); GLUCOSE,RANDOM 110 mg/dL (74-106); MAGNESIUM 1.9 mg/dL (1.8-2.4); POTASSIUM 4.1 mmol/L (3.5-5.1); SODIUM 139 mmol/L (136-145)
--- NOTE | 2018-11-08 08:27 | PN ---
Physical Exam: SUBJECTIVE: Patient seen and examined at bedside this morning. She endorses diminishing pain in her left hip. Patient does not endorse any new, acute complaints. She denies subjective fevers, chills, shortness of breath, chest pain, palpitations, abdominal pain, nausea, vomiting. OBJECTIVE: Vital Signs Period Temp Pulse Resp BP Sys/Jay Pulse Ox Last 24 Hr 97.9 F-98.1 F 84-103 18-20 87-115/57-61 95 GENERAL: The patient is awake, alert, and oriented, in no acute distress. HEAD: Normocephalic, atraumatic. EYES: PERRL, extraocular movements intact, sclera anicteric, conjunctiva clear. ENT: Oropharynx clear, without erythema or exudates. Moist mucous membranes. NECK: Trachea midline, full range of motion. Supple without lymphadenopathy. LUNGS: Breath sounds equal, clear to auscultation bilaterally, no wheezes, no crackles. No accessory muscle use. HEART: Regular rate and rhythm, S1, S2 with holosystolic murmur auscultated loudest at apex. ABDOMEN: Soft, nondistended, nontender to light and deep palpation x4 quadrants , no rebound tenderness, no guarding. Normoactive bowel sounds x4 quadrants. no hepatosplenomegaly, no masses. MUSCULOSKELETAL: Tenderness to palpation at left hip, and left elbow. EXTREMITIES: 2+ radial, dorsalis pedis pulses bilaterally. Warm, well-perfused. Bilateral non-pitting lower extremity edema bilaterally, with chronic venous stasis changes. NEUROLOGICAL: Cranial nerves II through XII grossly intact. Normal speech. Patient freely moves bilateral upper and right lower extremities. Left lower extremity movement limited by significant pain. Sensation intact bilateral upper and lower extremities. PSYCH: Normal mood, normal affect upon my encounter. SKIN: Warm, dry. Laboratory Results - last 24 hr 11/07/18 11/07/18 11/07/18 04:00 07:20 07:20 WBC RBC Hgb Hct MCV MCH MCHC RDW Plt Count MPV Sodium 138 Potassium 3.1 L Chloride 100 Carbon Dioxide 30 Anion Gap 7 L BUN 16 Creatinine 0.4 L Creat Clearance w eGFR 150.29 POC Glucometer Random Glucose 93 Lactic Acid 1.7 Calcium 8.1 L Phosphorus 3.5 Magnesium 1.9 Total Bilirubin 1.2 H AST 16 ALT 20 Alkaline Phosphatase 127 H Creatine Kinase 28 Troponin I < 0.02 Total Protein 5.6 L Albumin 3.3 L Blood Type A POSITIVE Antibody Screen Negative Crossmatch See Detail 11/07/18 11/07/18 11/08/18 18:29 21:48 00:51 WBC 8.5 RBC 2.75 L Hgb 10.0 L Hct 27.9 L D MCV 101.4 H MCH 36.5 H MCHC 36.0 RDW 25.0 H Plt Count 394 MPV 7.5 Sodium Potassium Chloride Carbon Dioxide Anion Gap BUN Creatinine Creat Clearance w eGFR POC Glucometer 92 110 Random Glucose Lactic Acid Calcium Phosphorus Magnesium Total Bilirubin AST ALT Alkaline Phosphatase Creatine Kinase Troponin I Total Protein Albumin Blood Type Antibody Screen Crossmatch 11/08/18 11/08/18 11/08/18 06:10 06:10 07:05 WBC 7.3 RBC 2.50 L Hgb 9.1 L Hct 25.6 L MCV 102.5 H MCH 36.6 H MCHC 35.7 RDW 25.3 H Plt Count 362 MPV 7.9 Sodium 139 Potassium 4.1 Chloride 105 Carbon Dioxide 30 Anion Gap 4 L BUN 15 Creatinine 0.4 L Creat Clearance w eGFR 150.29 POC Glucometer 111 Random Glucose 110 H Lactic Acid Calcium 8.1 L Phosphorus Magnesium 1.9 Total Bilirubin AST ALT Alkaline Phosphatase Creatine Kinase Troponin I Total Protein Albumin Blood Type Antibody Screen Crossmatch Active Medications Generic Name Dose Route Start Last Admin Trade Name Freq PRN Reason Stop Dose Admin Acetaminophen 1,000 mg 11/07/18 05:34 Ofirmev Injection - IVPB Q6H PRN PAIN LEVEL 6-10 Potassium Chloride/Dextrose/Sod Cl 10 meq in 1,000 mls @ 75 mls/hr 11/07/18 11 :15 11/07/18 22:45 D5-1/2ns+10 Meq Kcl - IV 75 mls/hr ASDIR ALEXA Administration Metoprolol Tartrate 12.5 mg 11/07/18 10:00 11/07/18 22:42 Lopressor - PO 12.5 mg BID ALEXA Administration ASSESSMENT/PLAN: Patient is an 88 year old female with a past medical history of frequent falls, atrial fibrillation on aspirin and osteoarthritis presents after an unwitnessed fall. Unwitnessed fall -Likely mechanical fall -Radiograph of left hip confirms intratrochanteric fracture, with old superior , and inferior pubic ramus fractures. -Radiograph left elbow shows questionable distal ulnar impaction fracture. -Follow left wrist radiograph -Cardiology consult (Dr. Ceballos) appreciated. Patient is high risk for orthopedic procedure. [facility] -Orthopedic surgery consult (Dr. Valle) appreciated. -Bedrest -Pain control with Ofirmev 1000mg IV Q6H PRN -Fall precautions Acute blood loss anemia -Likely secondary to hip fracture. -Patient is s/p 2 units PRBC, with appropriate Hb response -Follow stool for occult blood Afib -Restart Metoprolol 12.5mg PO BID for rate control. -No longer on anticoaglation due to history of recurrent falls. -Aspirin 81mg PO daily was stopped upon last admission due to bleeding. -Consider reinstating once PRBC transfusions repleted. FEN -IV D5 1/2 NS + 10mew KCL at 75mL/ hour -Follow CMP -NPO Prophylaxis -Chemical anticoagulation held pending orthopedic surgery evaluation Disposition -Continue care medical-surgical floor
--- NOTE | 2018-11-08 09:00 | CON.CARD ---
Consult Consult Specialty:: cardio - History of Present Illness Chief Complaint: fall, hip frx History of Present Illness: 88 F here with fall. recently here with mult falls (mechanical), anemia. at that time echo showed moderate-severe currently states her leg suddenly gave out vs she suddenly lost her balance and fell. describes recall throughout, hitting floor and no LOC. denies new neuro deficits. has had no cp or sob at that time or otherwise leg swelling much better vs baseline no palpitations PMH: afib not on AC diast CHF anemia - Alcohol/Substance Use Hx Alcohol Use: No - Smoking History Smoking history: Never smoked Have you smoked in the past 12 months: No If you are a former smoker, when did you quit?: 1950 Home Medications - Allergies Allergies/Adverse Reactions: Allergies Allergy/AdvReac Type Severity Reaction Status Date / Time warfarin Allergy Mild dizzy Verified 10/07/18 15:11 - Home Medications Home Medications: Ambulatory Orders Ascorbic Acid [Vitamin C] 500 mg PO DAILY 04/29/17 Calcium 250Mg/Vit-D 125 Units [Oscal 250 mg+D -] 1 combo PO DAILY 04/29/17 Glucosamine Sulfate Dipot Chlr [Glucosamine] 1,000 mg PO DAILY 04/29/17 Multivitamin/Iron/Folic Acid [Centrum Adults Tablet] 1 tab PO DAILY 04/29/17 Prednisone 2 mg PO DAILY 04/29/17 Simvastatin 20 mg PO DAILY 04/29/17 Metoprolol Tartrate [Lopressor -] 12.5 mg PO BID 30 Days #60 tablet 10/12/18 Cholecalciferol (Vitamin D3) [D3-50] 50,000 unit PO WEEKLY 11/07/18 Collagenase Clostridium Hist. [Santyl -] 1 applic TP PRN 11/07/18 Ferrous Sulfate 325 mg PO DAILY 11/07/18 Furosemide 40 mg PO DAILY 11/07/18 Review of Systems - Review of Systems Constitutional: denies: Chills, Fever Eyes: denies: Eye Pain HENT: denies: Nasal Congestion Neck: denies: Stiffness Cardiovascular: denies: Palpitations Respiratory: denies: Orthopnea, PND Gastrointestinal: denies: Diarrhea, Rectal Bleeding Genitourinary: denies: Burning, Hematuria Musculoskeletal: denies: Muscle Pain Integumentary: denies: Rash Neurological: denies: Numbness, Seizure, Syncope Endocrine: denies: Excessive Sweating Hematology/Lymphatic: denies: Excessive Bleeding Vital Signs: Vital Signs Temperature 98.1 F 11/08/18 06:00 Pulse Rate 85 11/08/18 06:00 Respiratory Rate 20 11/08/18 06:00 Blood Pressure 115/58 L 11/08/18 06:00 O2 Sat by Pulse Oximetry (%) 95 11/07/18 21:00 Constitutional: Yes: Well Nourished, No Distress Eyes: No: Sclera Icterus HENT: No: Nasal Congestion Neck: No: Decreased ROM Respiratory: Yes: CTA Bilaterally. No: Accessory Muscle Use, Rales, Wheezes Gastrointestinal: Yes: Normal Bowel Sounds. No: Distention, Hepatomegaly, Palpable Mass, Tenderness Cardiovascular: Yes: Regular Rate and Rhythm JVD: Yes Carotid Bruit: No PMI: Non-Displaced Heart Sounds: Yes: S1, S2. No: Gallop Murmur: Yes: Systolic Murmur (3/6 early peak KATHERINE LUSB, + preserved S2 split). No: Diastolic Murmur Musculoskeletal: Yes: Other (No kyphosis) Extremities: No: Cool, Cyanosis Edema: No Peripheral Pulses: 2+ Left Carotid, 2+ Right Carotid, 2+ Left Doralis Pedis, 2+ Right Dorsalis Pedis Integumentary: No: Jaundice Neurological: Yes: Alert, Oriented (x3) Psychiatric: No: Agitated - Other Data Labs, Other Data: CBC, BMP 11/08/18 06:10 11/08/18 06:10 INR, PTT INR 1.16 (0.83-1.09) H 11/07/18 07:20 Laboratory Tests 10/07/18 11/07/18 11/07/18 17:14 00:30 00:30 WBC 6.4 Hgb 6.8 L* Plt Count 396 Sodium Potassium Carbon Dioxide BUN Creatinine Troponin I < 0.02 B-Natriuretic Peptide 3413.1 H 1994.5 H 11/07/18 11/08/18 11/08/18 07:20 06:10 06:10 WBC Hgb 9.1 L Plt Count Sodium 139 Potassium 4.1 Carbon Dioxide 30 BUN 15 Creatinine 0.4 L Troponin I < 0.02 B-Natriuretic Peptide Assessment/Plan Echo 05/2018: nl LV/EF. nl RV. ++biatrial dilation. probably moderate : gradients 38/22, KOSTAS 0.9 (normal SV index = 38 cc/m2). mod MR/TR Echo 10/08/2018: nl lv/rv, paolo, mod mr, mild tr, mild ar, mod-sev as (peak/mean 61/30, KOSTAS 0.6), rvsp 30-40 CXR: clear lungs/pleura ECG x2: afib, inc RBBB, nonsp ST-Ts slightly more pronounced vs 09/28 prior a/p: 88 f hx afib, htn, hld, le edema here s/p fall. fall, L hip frx, preop CV eval -mult recent mechanical falls, no suggestion of cardiac etiology--sec to marked LE deconditioning -orthostatic VSs not completed last admit (couldn't stand?) -now with L hip frx, for planned surgical repair -Revised CV Risk Index = 1, very poor functional status. [id number] aortic stenosis present, equivocal clinical findings with preserved S2 split and moderate range gradients but KOSTAS 0.6 (with reasonable LVOT diameter and AV/ LVOT doppler VTIs on my review of images)--presence of severe cannot be excluded here, which further increases her operative risk for cardiac events. pt is at high risk for CV complications of general anesthesia or vasodilating anesthetic which may drop her systemic arterial pressure--hypotension with poor cardiac output, myocardial ischemia, severe/refractory CHF. d/w'd dr pino, hospitalist--will transfer to tertiary center for surgery where urgent BAV possible if the above cascade occurs postop. afib: -rate controlled on bb. changed toprol 25 qd to lopressor 12.5 bid 10/29 admit for soft bp's -bp's again soft here, 80s syst at times. cont same bb, observe -not on ac 2/2 frequent falls, and pt preference (mult trials of even half dose of NOACs caused multiple nonspecific s.e.s) -ASA held last admit due to severe anemia here requiring prbcs -anemia w/u was not completed during last admit. -again with hgb down to 6 here, requiring prbc's -hold aspirin given very questionable cardioembolic prevention benefits and hi risk of bleeding chronic venous insufficiency, tricuspid insufficiency, acute on chronic HFpEF, severe : - in moderate range on serial studies, last 05/2018 with preserved S2 split on exam confirmatory of absence of severe . 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 -gradients here signif higher than 05/30 study--suspect may have worsened as no S2 split is presently appreciated on exam (hgb was 9 at time of study, hence gradients not likely signif elevated due to anemia) -pt has expressed strong preferences to avoid invasive testing or procedures. -remains without sx's but at very low activity level due to poor functional status -TAVR w/u at tertiary center has been on hold while await completion of anemia w /u to r/o malignancy which may impinge on TAVR considerations, and while pt was recovering in rehab (poor functional status also impinges on TAVR risk) -her is currently asymptomatic (see above discussion) though functional status is very low -currently well compensated with baseline JVD but no edema or sob--cont home po lasix (40 qd) HPL: -cont home statin anemia: -hgb 6s here, s/p prbcs -has seen outside heme as outpatient--kayla consulted last admit, workup was pending to be completed as outpt -holding home asa -again low, requiring PRBCs. per hospitalist +/- heme
[2018-11-08] MEDS ORDERED: FUROSEMIDE 40 MG TABLET (FP) PO SCH (10:15)
--- NOTE | 2018-11-08 12:30 | PN ---
Teaching Attending Note Name of Resident: Vitaliy Anguiano ATTENDING PHYSICIAN STATEMENT I saw and evaluated the patient. I reviewed the resident's note and discussed the case with the resident. I agree with the resident's findings and plan as documented. SUBJECTIVE:asymptomatic. denies CP, SOB, fever, chills,N/V/C/D, no pain in wrist or hip OBJECTIVE: Last Vital Signs Temp Pulse Resp BP Pulse Ox 98.1 F 85 20 115/58 L 95 11/08/18 06:00 11/08/18 06:00 11/08/18 06:00 11/08/18 06:00 11/07/18 21:00 General NAD CV S1 S2 RRR +murmur Lungs CTA B/l no wheezing/rales/rhonchi ASSESSMENT AND PLAN: 88yo F with PMH frequent falls, , afib not on anticoag due to frequent falls and OA presented to the Er after a mechanical fall and found to have L hip fracture and questionable L distal ulnar fracture 1. L hip fracture- due to mechanical fall although has risk factors that fall could have been potentiated by (, afib, anemia, etc). discussed with Dr Ceballos and pt is high risk for surgery and unclear if able to tolerate anesthesia due to mod-severe . pt would benefit from procedure being done at [facility]. will place call out to [facility] who has specialist orthopedics who do high risk procedure in these cases. will feed patient. cont with pain control. 2. questionable L distal ulnar fracture- on clinical exam does not appear displaced. will get dedicated XR. may need splinting 3. afib- not on anticoag due to falls. cont with rate control. 4. Asymptomatic anemia- s/p 2 units PRBC with appropriate response. will repeat CBC later today. was suppose to f/u with heme as outpatient. will hold off on consulting them as she will likely be transferred out. 5. hypokalemia- resolved 6. HTN- currently normotensive. 7. - mod-severe. will need close monitoring imani-operatively. f/u cardio for possible TAVR if candidate 8. DVT ppx- hold pharmacologic as likelihood for surgery 9. will likely require transfer to [facility] for orthopedic surgery as pt is high risk
[2018-11-08 12:39] LABS: HEMATOCRIT 27.7 % (32.4-45.2); MCH 37.4 pg (25.7-33.7); MEAN CELL VOLUME 103.8 fl (80-96); MEAN PLT VOLUME 7.7 fl (7.5-11.1); PLATELET COUNT 367 K/MM3 (134-434); RBC 2.67 M/mm3 (3.60-5.2); RDW 25.7 % (11.6-15.6); WHITE BLOOD COUNT 7.5 K/mm3 (4.0-10.0)
--- NOTE | 2018-11-08 14:48 | DS ---
Physical Exam: SUBJECTIVE: Patient seen and examined at bedside this morning. She endorses pain in her left hip controlled with acetaminophen. Patient does not endorse any new, acute complaints. She denies subjective fevers, chills, shortness of breath, chest pain, palpitations, abdominal pain, nausea, vomiting. OBJECTIVE: Vital Signs Period Temp Pulse Resp BP Sys/Jay Pulse Ox Last 24 Hr 97.9 F-98.3 F 84-103 18-20 87-115/57-61 95 PHYSICAL EXAM GENERAL: The patient is awake, alert, and oriented, in no acute distress. HEAD: Normocephalic, atraumatic. EYES: PERRL, extraocular movements intact, sclera anicteric, conjunctiva clear. ENT: Oropharynx clear, without erythema or exudates. Moist mucous membranes. NECK: Trachea midline, full range of motion. Supple without lymphadenopathy. LUNGS: Breath sounds equal, clear to auscultation bilaterally, no wheezes, no crackles. No accessory muscle use. HEART: Regular rate and rhythm, S1, S2 with holosystolic murmur auscultated loudest at apex. ABDOMEN: Soft, nondistended, nontender to light and deep palpation x4 quadrants , no rebound tenderness, no guarding. Normoactive bowel sounds x4 quadrants. no hepatosplenomegaly, no masses. MUSCULOSKELETAL: Tenderness to palpation at left hip, and left elbow. EXTREMITIES: 2+ radial, dorsalis pedis pulses bilaterally. Warm, well-perfused. Bilateral non-pitting lower extremity edema bilaterally, with chronic venous stasis changes. NEUROLOGICAL: Cranial nerves II through XII grossly intact. Normal speech. Patient freely moves bilateral upper and right lower extremities. Left lower extremity movement limited by significant pain. Sensation intact bilateral upper and lower extremities. PSYCH: Normal mood, normal affect upon my encounter. SKIN: Warm, dry. LABS Laboratory Results - last 24 hr 11/07/18 11/07/18 11/07/18 04:00 18:29 21:48 WBC 8.5 RBC 2.75 L Hgb 10.0 L Hct 27.9 L D MCV 101.4 H MCH 36.5 H MCHC 36.0 RDW 25.0 H Plt Count 394 MPV 7.5 Sodium Potassium Chloride Carbon Dioxide Anion Gap BUN Creatinine Creat Clearance w eGFR POC Glucometer 92 Random Glucose Calcium Magnesium Blood Type A POSITIVE Antibody Screen Negative Crossmatch See Detail 11/08/18 11/08/18 11/08/18 00:51 06:10 06:10 WBC 7.3 RBC 2.50 L Hgb 9.1 L Hct 25.6 L MCV 102.5 H MCH 36.6 H MCHC 35.7 RDW 25.3 H Plt Count 362 MPV 7.9 Sodium 139 Potassium 4.1 Chloride 105 Carbon Dioxide 30 Anion Gap 4 L BUN 15 Creatinine 0.4 L Creat Clearance w eGFR 150.29 POC Glucometer 110 Random Glucose 110 H Calcium 8.1 L Magnesium 1.9 Blood Type Antibody Screen Crossmatch 11/08/18 11/08/18 07:05 12:14 WBC 7.5 RBC 2.67 L Hgb 10.0 L Hct 27.7 L MCV 103.8 H MCH 37.4 H MCHC 36.0 RDW 25.7 H Plt Count 367 MPV 7.7 Sodium Potassium Chloride Carbon Dioxide Anion Gap BUN Creatinine Creat Clearance w eGFR POC Glucometer 111 Random Glucose Calcium Magnesium Blood Type Antibody Screen Crossmatch HOSPITAL COURSE: Date of Admission:11/07/18 Date of Discharge: 11/08/18 Patient is an 88 year old female with a past medical history of frequent falls, atrial fibrillation on aspirin and osteoarthritis presents after an unwitnessed fall. -Radiograph of left hip confirmed intratrochanteric fracture, with old superior, and inferior pubic ramus fractures. Patient was evaluated by orthopedic surgeon, and finish off operator who discussed patient as high risk for cardiovascular complications. Given patient's cardiac history there was concern of anesthetic vasodilatation leading to acute decompensation of systemic arterial pressures intra-operatively. Cardiology recommended transfer to tertiary care center with capacities for balloon aortic valvuloplasty if necessary. Patient was transferred to [facility] for higher level of care. Minutes to complete discharge: 35 Discharge Summary Reason For Visit: TRANSFUSION-DEPENDENT ANEMIA/FALL/HYPERVOLEMIA Current Active Problems Anemia requiring transfusions (Acute) Fall (Acute) Fluid overload (Acute) Fracture of left hip (Acute) Intertrochanteric fracture of left femur (Acute) Condition: Stable - Instructions Diet, Activity, Other Instructions: You were admitted to hospital after a fall. Your xrays showed a fracture of your left hip. You were evaluated by the orthopedic surgeon, and finish off operator. Given your cardiac history, you are being transferred to [facility] for higher level of care. Continue your home medications as directed. Follow the medication, and follow up recommendations of the physicians at [facility]. Follow up with your primary care physician within two- three days of hospital discharge. Return to the nearest Emergency Department if you experience worsening symptoms , subjective fevers, chills, shortness of breath, chest pain, palpitations, abdominal pain, nausea, vomiting, falls, loss of consciousness, any trauma. Disposition: TRANSFER ACUTE CARE/OTHER HOSP - Home Medications Comprehensive Discharge Medication List: Ambulatory Orders Ascorbic Acid [Vitamin C] 500 mg PO DAILY 04/29/17 Calcium 250Mg/Vit-D 125 Units [Oscal 250 mg+D -] 1 combo PO DAILY 04/29/17 Glucosamine Sulfate Dipot Chlr [Glucosamine] 1,000 mg PO DAILY 04/29/17 Multivitamin/Iron/Folic Acid [Centrum Adults Tablet] 1 tab PO DAILY 04/29/17 Prednisone 2 mg PO DAILY 04/29/17 Simvastatin 20 mg PO DAILY 04/29/17 Metoprolol Tartrate [Lopressor -] 12.5 mg PO BID 30 Days #60 tablet 10/12/18 Cholecalciferol (Vitamin D3) [D3-50] 50,000 unit PO WEEKLY 11/07/18 Collagenase Clostridium Hist. [Santyl -] 1 applic TP PRN 11/07/18 Ferrous Sulfate 325 mg PO DAILY 11/07/18 Furosemide 40 mg PO DAILY 11/07/18 This patient is new to me today: No Emergency Visit: Yes ED Registration Date: 11/07/18 Care time: The patient presented to the Emergency Department on the above date and was hospitalized for further evaluation of their emergent condition. Critical Care patient: No - Discharge Referral Referred to [facility] Med P.C.: No
[2018-11-08] MEDS ORDERED: ACETAMINOPHEN 325 MG TABLET (FP) PO PRN (14:53)
[2018-11-08] MEDS: METOPROLOL TARTRATE 25 MG TABLET (FP) PO SCH ×2 (15:11→21:17)
[2018-11-08] MEDS: D5-1/2NS+10 MEQ KCL - 10 MEQ/1,000 ML INFUS.BAG IV SCH (18:42)
[2018-11-08 23:14] VITALS: BP 100/54; PULSE 87; TEMP 98.6
== END 2018-11-08 22:30 | disposition short-term general hospital (02) | DRG 535 ==
LOC: JER 22:39 → JERBED 11-07 01:21 → J8W 11-07 15:27
PROVIDERS: ADMIT Internal Medicine; ATTEND Internal Medicine
PROC: 30233N1 Transfusion of Nonautologous Red Blood Cells into Peripheral Vein, Percutaneous Approach (ICD-10-PCS; principal; 2018-11-07)
DX: S72.142A Displaced intertrochanteric fracture of left femur, initial encounter for closed fracture (principal); I50.33 Acute on chronic diastolic (congestive) heart failure; D62 Acute posthemorrhagic anemia; I48.91 Unspecified atrial fibrillation; E87.6 Hypokalemia; I45.10 Unspecified right bundle-branch block; I35.0 Nonrheumatic aortic (valve) stenosis; I87.2 Venous insufficiency (chronic) (peripheral); W18.30XA Fall on same level, unspecified, initial encounter; Y93.89 Activity, other specified; Y92.89 Other specified places as the place of occurrence of the external cause; Y99.8 Other external cause status; I36.1 Nonrheumatic tricuspid (valve) insufficiency
CPT/HCPCS: 36415; 36430; 36511; 71045-TC-FY; 73070-TC-LT-FY; 73090-TC-LT-FY; 73110-TC-LT-FY; 73523-TC-FY; 73552-TC-LT-FY; 73552-TC-RT-FY; 80048; 80053; 82550; 82962; 83605; 83735; 83880; 84100; 84484; 85025; 85027; 85610; 85730; 86850; 86900; 86901; 86922; 87086; 87186; 93005; 93010; 93970-TC; 99285-25; P9038; P9058

== ENCOUNTER 2019-04-11 09:37 | Inpatient (IN) | payer OTHER, MEDICARE ==
[2019-04-11] MEDS ORDERED: ACETAMINOPHEN 1000 MG/100 ML VIAL (NON FORMULARY) IVPB ONE (11:06)
--- NOTE | 2019-04-11 11:21 | PDOC ---
Attending Attestation - Resident Resident Name: AramJanki - ED Attending Attestation I have performed the following: I have examined & evaluated the patient, The case was reviewed & discussed with the resident, I agree w/resident's findings & plan, Exceptions are as noted - HPI HPI: 04/11/19 12:40 88 years old past medical history significant for A. fib osteoarthritis chronic anemia requiring transfusions presents to the emergency department with shortness of breaths weakness and a mechanical - Physicial Exam PE: 04/11/19 12:47 Vitals: Triage Vital signs reviewed General Appearance: pale Head: Atraumatic, Chest Wall: Nontender Cardiac: Regular rate and rhythym, no murmurs, no rubs, no gallops, Lungs: Clear to auscultation bilateral, good air movement bilaterally, Abdomen: Soft, non distended, normal bowel sounds, non tender to palpation Extremities: Full range of motion to all extremities, no cyanosis, clubbing, or edema Skin: Warm and dry, no rashes or lesions, no rash, no petechiae Neuro: AOX3; Cranial Nerves 2-12 grossly intact, Strength intact to all extremities, Sensation intact to all extremities Psych: normal mood, normal affect - Medical Decision Making 04/11/19 17:57 88 years old labs notable for anemia chest x-ray and labs also notable for CHF differential diagnosis includes high-output failure secondary to anemia versus CHF exacerbation. Patient is hemodynamically stable We'll gently diuresis and transfuse for anemia we'll admit to medicine for admission. Inpatient admission required given patient's anemia fall and weakness. Patient was significantly weak and unable to get up from floor. Also clinically significant signs or symptoms that are requiring treatment such as heart failure.
[2019-04-11] MEDS ORDERED: ACETAMINOPHEN INJECTION 100 ML IVPB ONE (11:55)
[2019-04-11 12:23] LABS: BASO % 0.4 % (0-2.0); EOS % 0.2 % (0-4.5); HEMATOCRIT 21.2 % (32.4-45.2); HEMOGLOBIN 7.4 GM/dL (10.7-15.3); LYMPH % 8.3 % (8-40); MCHC 35.1 g/dl (32.0-36.0); MEAN CELL VOLUME 121.5 fl (80-96); MEAN PLT VOLUME 7.5 fl (7.5-11.1); MONO % 7.5 % (3.8-10.2); NEUT % 83.6 % (42.8-82.8); PLATELET COUNT 419 K/MM3 (134-434); RBC 1.74 M/mm3 (3.60-5.2); RDW 15.6 % (11.6-15.6); WHITE BLOOD COUNT 6.6 K/mm3 (4.0-10.0)
[2019-04-11 12:34] LABS: MCH 42.6 pg (25.7-33.7)
[2019-04-11 12:36] LABS: VENOUS PC02 40.2 mmHg (38-52); VENOUS PH 7.45 (7.31-7.41)
[2019-04-11 12:37] LABS: INR 1.23 (0.83-1.09); PROTHROMBIN TIME (PATIENT) 14.6 SEC (9.7-13.0)
[2019-04-11 12:39] LABS: ACTIVATED PTT 32.7 SECONDS (25.2-36.5)
[2019-04-11 12:40] LABS: VENOUS PO2 < 49 mmHg (28-48)
[2019-04-11 12:57] LABS: ALBUMIN 3.6 g/dl (3.4-5.0); ALK PHOS 86 U/L (45-117); ANION GAP 3 MMOL/L (8-16); BILIRUBIN,TOTAL 1.1 mg/dL (0.2-1); BLOOD UREA NITROGEN 17.8 mg/dL (7-18); CALCIUM 8.4 mg/dL (8.5-10.1); CHLORIDE 105 mmol/L (98-107); CO2 28 mmol/L (21-32); CREATININE 0.4 mg/dL (0.55-1.3); GLUCOSE,RANDOM 95 mg/dL (74-106); MAGNESIUM 2.2 mg/dL (1.8-2.4); N-TERMINAL BNP 5464.6 pg/ml (5-450); POTASSIUM 4.5 mmol/L (3.5-5.1); SGOT/AST 19 U/L (15-37); SGPT/ALT 18 U/L (13-61); SODIUM 136 mmol/L (136-145); TOT PROT 6.3 g/dl (6.4-8.2)
[2019-04-11 13:00] LABS: EPI CELLS 0.6 /HPF (0-5/HPF); HYALINE CASTS 22 /lpf (0-8); URINE APPEARANCE CLOUDY; URINE BACTERIA 6112.1 /hpf (NEGATIVE); URINE BILIRUBIN NEGATIVE (NEGATIVE); URINE COLOR YELLOW; URINE GLUCOSE (UA) NEGATIVE (NEGATIVE); URINE KETONE NEGATIVE (NEGATIVE); URINE LEUK ESTERASE 1+ (NEGATIVE); URINE NITRITE POSITIVE (NEGATIVE); URINE PROTEIN 1+ (NEGATIVE); URINE RBC 1 /hpf (0-4); URINE WBC 32 /hpf (0-5)
[2019-04-11] MEDS ORDERED: CEFTRIAXONE 1,000 MG in DEXTROSE 5%-WATER - 50 ML IVPB ONE (13:09)
[2019-04-11] MEDS ORDERED: FUROSEMIDE 40 MG/4 ML INJECTABLE VIAL IVPUSH ONE ×2 (13:13→20:29)
[2019-04-11] MEDS ORDERED: CEFTRIAXONE 1 GM/50 ML BAG ONE (13:29)
[2019-04-11] MEDS ORDERED: FUROSEMIDE 40 MG/4 ML INJECTABLE VIAL ONE (13:30)
--- NOTE | 2019-04-11 13:43 | PDOC ---
History of Present Illness - General Chief Complaint: Injury Stated Complaint: FALL Time Seen by Provider: 04/11/19 10:27 History Source: Patient Exam Limitations: No Limitations - History of Present Illness Initial Comments: Pt is an 88 yo F, with PMH of anemia (requiring transfusion), frequent falls, Afib (on ASA), HLD, L hip fracture, and edema (on lasix), who is presenting from home via EMS after a fall. Pt states over the past few days she has felt weak and hasn't wanted to get out of bed x3 days, and noticed that she was wheezing and breathing harder than normal this morning. PT states today she fell from standing after "my left leg gave out". Pt fell to her L side but did not hit her head or have LOC. Pts caretakers found her shortly after falling. Pt should be using a walker around the home, but was not using it today. Pt complains on presentation only of pain over her L lower leg. Pt denies any recent fevers/chills, headache, vision changes, syncope, chest pain, palpitations, SOB, nausea/vomiting, abdominal pain, urinary symptoms, diarrhea/ constipation, or leg swelling from baseline. Echo with preserved EF done 09/2018 Allergies: NKDA PCP: Dr. Gloria Cards: Dr. Ceballos Heme: Dr. Farooq Social: Pt denies any cigarette, alcohol, or drug use. Pt denies any recent travel or sick contacts. Surgical: L hip replacement/faisal? Family: no relevant history. 04/11/19 13:43 04/11/19 13:55 04/11/19 14:18 04/11/19 14:22 Past History - Travel Traveled outside of the country in the last 30 days: No Close contact w/someone who was outside of country & ill: No - Past Medical History Allergies/Adverse Reactions: Allergies Allergy/AdvReac Type Severity Reaction Status Date / Time warfarin Allergy Mild dizzy Verified 04/11/19 10:11 Home Medications: Ambulatory Orders Ascorbic Acid [Vitamin C] 500 mg PO DAILY 04/29/17 Calcium 250Mg/Vit-D 125 Units [Oscal 250 mg+D -] 1 combo PO DAILY 04/29/17 Glucosamine Sulfate Dipot Chlr [Glucosamine] 1,000 mg PO DAILY 04/29/17 Multivitamin/Iron/Folic Acid [Centrum Adults Tablet] 1 tab PO DAILY 04/29/17 Prednisone 2 mg PO DAILY 04/29/17 Simvastatin 20 mg PO DAILY 04/29/17 Metoprolol Tartrate [Lopressor -] 12.5 mg PO BID 30 Days #60 tablet 10/12/18 Cholecalciferol (Vitamin D3) [D3-50] 50,000 unit PO WEEKLY 11/07/18 Collagenase Clostridium Hist. [Santyl -] 1 applic TP PRN 11/07/18 Ferrous Sulfate 325 mg PO DAILY 11/07/18 Furosemide 40 mg PO DAILY 11/07/18 Acetaminophen 325 mg PO Q8H 11/08/18 Cardiac Disorders: Yes (afib) COPD: No HTN: Yes Hypercholesterolemia: Yes - Surgical History Appendectomy: Yes (1949) - Immunization History Immunization Up to Date: Yes - Psycho Social/Smoking Cessation Hx Smoking History: Never smoked Have you smoked in the past 12 months: No If you are a former smoker, when did you quit?: 1949 Information on smoking cessation initiated: No Hx Alcohol Use: No Drug/Substance Use Hx: No Substance Use Type: None Review of Systems - Review of Systems Able to Perform ROS?: Yes Is the patient limited Syriac proficient: No Constitutional: Yes: Malaise, Weakness, Weight Stable. No: Chills, Diaphoresis , Fever, Loss of Appetite HEENTM: No: Recent change in vision, Nose Congestion, Throat Pain, Throat Swelling, Difficulty Swallowing Respiratory: Yes: Shortness of Breath, SOB with Exertion, SOB at Rest, Wheezing. No: Cough, Orthopnea, Productive cough, Hemoptysis Cardiac (ROS): No: Chest Pain, Edema, Irregular Heart Rate, Lightheadedness, Palpitations, Syncope, Chest Tightness ABD/GI: No: Constipated, Diarrhea, Nausea, Poor Appetite, Poor Fluid Intake, Vomiting : No: Burning, Dysuria, Frequency, Hematuria, Pain, Urgency Musculoskeletal: No: Back Pain, Joint Pain, Muscle Pain, Muscle Weakness Integumentary: Yes: Bruising. No: Rash Neurological: Yes: Unsteady Gait. No: Headache, Numbness, Paresthesia, Seizure , Weakness, Dizziness Psychiatric: No: Sleep Pattern Change, Change in Appetite Endocrine: No: Increased Urine, Change in Weight Hematologic/Lymphatic: Yes: Anemia, Easy Bruising. No: Blood Clots, Easy Bleeding All Other Systems: Reviewed and Negative *Physical Exam - Vital Signs Last Vital Signs Temp Pulse Resp BP Pulse Ox 98.3 F 96 H 20 160/90 91 L 04/11/19 11:39 04/11/19 11:39 04/11/19 10:09 04/11/19 11:39 04/11/19 10:09 - Physical Exam Comments: Afib (HR in 90s), pt afebrile. Pt in NAD, lying comfortably in the bed. Thin body habitus. Pt alert and oriented x3. rail car repairer generally intact, muscular strength and sensation intact. Cerebellar exam WNL. No midline spinal tenderness, step-offs, or crepitus. Head normocephalic, atraumatic. Eyes PERRLA, EOMI. Oropharynx without erythema or exudates, no LAD b/l. No nasal congestion. Hearing intact. Clear heart sounds, S1/S2, no JVD, or heart murmur. Mild b/l pedal edema with pitting to ankles. Coarse lung sounds, with b/l expiratory wheezing. Increased WOB at rest. No abdominal or CVA tenderness to palpation, no rebound, no guarding. Abdomen soft, non-distended, and with normoactive bowel sounds. Diffuse ecchymosis on forearms in different stages of healing. Skin otherwise without jaundice or rash. 04/11/19 14:23 ED Treatment Course - LABORATORY CBC & Chemistry Diagram: 04/11/19 11:48 04/11/19 11:48 - ADDITIONAL ORDERS Additional order review: Laboratory Results 04/11/19 04/11/19 04/11/19 12: 12:14 11:48 PT with INR 14.60 H INR 1.23 H PTT (Actin FS) 32.7 VBG pH 7.45 H POC VBG pCO2 40.2 POC VBG pO2 < 49 H VBG HCO3 27.6 VBG O2 Sat (Carlin) 49.1 L VBG Base Excess 3.9 H Sodium Potassium Chloride Carbon Dioxide Anion Gap BUN Creatinine Est GFR (CKD-EPI)AfAm Est GFR (CKD-EPI)NonAf Random Glucose Calcium Magnesium Total Bilirubin AST ALT Alkaline Phosphatase Creatine Kinase Troponin I B-Natriuretic Peptide Total Protein Albumin Urine Color Yellow Urine Appearance Cloudy Urine pH 6.0 Ur Specific Malakoff 1.023 Urine Protein 1+ H Urine Glucose (UA) Negative Urine Ketones Negative Urine Blood Negative Urine Nitrite Positive H Urine Bilirubin Negative Urine Urobilinogen 1.0 Ur Leukocyte Esterase 1+ H Urine WBC (Auto) 32 Urine RBC (Auto) 1 Urine Casts (Auto) 22 U Epithel Cells (Auto) 0.6 Urine Bacteria (Auto) 6112.1 04/11/19 11:48 PT with INR INR PTT (Actin FS) VBG pH POC VBG pCO2 POC VBG pO2 VBG HCO3 VBG O2 Sat (Carlin) VBG Base Excess Sodium 136 Potassium 4.5 Chloride 105 Carbon Dioxide 28 Anion Gap 3 L BUN 17.8 Creatinine 0.4 L Est GFR (CKD-EPI)AfAm 107.03 Est GFR (CKD-EPI)NonAf 92.34 Random Glucose 95 Calcium 8.4 L Magnesium 2.2 Total Bilirubin 1.1 H AST 19 ALT 18 Alkaline Phosphatase 86 Creatine Kinase 57 Troponin I < 0.02 B-Natriuretic Peptide 5464.6 H Total Protein 6.3 L Albumin 3.6 Urine Color Urine Appearance Urine pH Ur Specific Malakoff Urine Protein Urine Glucose (UA) Urine Ketones Urine Blood Urine Nitrite Urine Bilirubin Urine Urobilinogen Ur Leukocyte Esterase Urine WBC (Auto) Urine RBC (Auto) Urine Casts (Auto) U Epithel Cells (Auto) Urine Bacteria (Auto) 04/11/19 11:48 RBC 1.74 L MCV 121.5 H MCHC 35.1 RDW 15.6 D MPV 7.5 Neutrophils % 83.6 H Lymphocytes % 8.3 Monocytes % 7.5 Eosinophils % 0.2 Basophils % 0.4 - RADIOLOGY Radiology Studies Ordered: Category Date Time Status CERVICAL SPINE CT W/O CONTR [CT] Stat CT Scan 04/11/19 11:[address] WITHOUT CONTRAST [CT] Stat CT Scan 04/11/19 11:03 Taken KNEE 2 POS-LEFT [RAD] Stat Radiology 04/11/19 11:05 Completed LEG TIB/FIB-LEFT [RAD] Stat Radiology 04/11/19 11:05 Completed - Medications Given in the ED: ED Medications Discontinued Medications Generic Name Dose Route Start Last Admin Trade Name Freq PRN Reason Stop Dose Admin Acetaminophen 1,000 mg 04/11/19 11:06 04/11/19 12:16 Ofirmev Injection - IVPB 04/11/19 11:07 1,000 mg ONCE ONE Administration Medical Decision Making - Medical Decision Making Pt was seen at bedside, also will be seen by attending Dr. Dowd. Pt presenting with complaints of generalized weakness, anemia with frequent transfusions, and a fall today. Diffuse wheezing with coarse breath sounds, b/l pedal edema. Will evaluate for recurrent anemia vs acute HF/high-output HF vs electrolyte abnormalities vs infection (UTI, pneumonia) vs injuries from the fall (head bleed, extremity fractures). Provided 1 g IV ofirmev for improvement of discomfort. Will continue to reassess pt and monitor for symptomatic improvement. ECG: Afib (HR 99, QRS 90, QTc 464). No significant ST segment changes. No changes from prior ECG. 04/11/19 14:17 04/11/19 14:25 CBC: H/H 01/30 CMP WNL Elevated BNP and chest x-ray with diffuse infiltrates -- likely heart failure 2/ 2 anemia UA shows evidence of UTI, sent urine culture -- provided 1 g ceftriaxone Due to concerns of HF and symptomatic anemia, will provide 40 mg IV lasix and will consent for blood transfusion. Pt will be admitted to hospitalist team for IV blood transfusion, PT due to non- ambulatory status and frequent falls, cardiac w/u, and IV antibiotics for UTI. PT accepted to hospitalist team (Dr. Campbell). 04/11/19 14:27 Discharge - Discharge Information Problems reviewed: Yes Clinical Impression/Diagnosis: Anemia requiring transfusions, Falls frequently, Symptomatic anemia Fluid overload Qualifiers: Hypervolemia type: unspecified Qualified Code(s): E87.70 - Fluid overload, unspecified Condition: Stable - Admission Yes - Follow up/Referral - Patient Discharge Instructions - Post Discharge Activity
--- NOTE | 2019-04-11 14:52 | HP ---
CHIEF COMPLAINT: fall PCP: Faizan HISTORY OF PRESENT ILLNESS: Patient is a 88 y/o female with a history of anemia, afib, and osteoarthritis who presents for fall. Around 8 am this morning patient got up from bed and was walking to the bathroom. Patient reports she took about 20 steps before something happened and she found her way to the ground. Patient denies feelign dizzy and denies tripping. She reports she slid down and landed on her butt, she did not lose consciousness and did not hit her head. Per patients family she has recently been bed bound for the last week. Patient saw a hemeatologist a few weeks ago as she has been having anemia for the past few months. Patient also follows up with Dr Ceballos as her cardiologsits. Patient takes her lasix but only takes her 20 mg dose rather then the prescribed 40. Patient has no other complaints. Notes her legs have been more swollen recnetly. Denies headache, chest pain, nausea, vomiting, dark or tarry stools, dysuria or hematuria. ER course was notable for: (1) ceftriaxone (2) (3) Recent Travel: denies PAST MEDICAL HISTORY: anemia, afib, and OA PAST SURGICAL HISTORY: L hip fracture, appendectomy Social History: Smoking: denies Alcohol: denies Drugs: denies Allergies warfarin Allergy (Mild, Verified 04/11/19 10:11) dizzy HOME MEDICATIONS: Home Medications Medication Instructions Recorded Ascorbic Acid [Vitamin C] 500 mg PO DAILY 04/29/17 Calcium 250Mg/Vit-D 125 Units 1 combo PO DAILY 04/29/17 [Oscal 250 mg+D -] Glucosamine Sulfate Dipot Chlr 1,000 mg PO DAILY 04/29/17 [Glucosamine] Multivitamin/Iron/Folic Acid 1 tab PO DAILY 04/29/17 [Centrum Adults Tablet] Prednisone 2 mg PO DAILY 04/29/17 Simvastatin 20 mg PO DAILY 04/29/17 Metoprolol Tartrate [Lopressor -] 12.5 mg PO BID 30 Days #60 tablet 10/12/18 Cholecalciferol (Vitamin D3) 50,000 unit PO WEEKLY 11/07/18 [D3-50] Collagenase Clostridium Hist. 1 applic TP PRN 11/07/18 [Santyl -] Ferrous Sulfate 325 mg PO DAILY 11/07/18 Furosemide 40 mg PO DAILY 04/28/19 Acetaminophen 325 mg PO Q8H 11/08/18 REVIEW OF SYSTEMS CONSTITUTIONAL: Absent: fever, chills, diaphoresis, generalized weakness, malaise, loss of appetite, weight change HEENT: Absent: rhinorrhea, nasal congestion, throat pain, throat swelling, difficulty swallowing, mouth swelling, ear pain, eye pain, visual changes CARDIOVASCULAR: Absent: chest pain, syncope, palpitations, irregular heart rate, lightheadedness , peripheral edema RESPIRATORY: Absent: cough, shortness of breath, dyspnea with exertion, orthopnea, wheezing, stridor, hemoptysis GASTROINTESTINAL: Absent: abdominal pain, abdominal distension, nausea, vomiting, diarrhea, constipation, melena, hematochezia GENITOURINARY: Absent: dysuria, frequency, urgency, hesitancy, hematuria, flank pain, genital pain MUSCULOSKELETAL: Absent: myalgia, arthralgia, joint swelling, back pain, neck pain SKIN: Absent: rash, itching, pallor HEMATOLOGIC/IMMUNOLOGIC: Absent: easy bleeding, easy bruising, lymphadenopathy, frequent infections ENDOCRINE: Absent: unexplained weight gain, unexplained weight loss, heat intolerance, cold intolerance NEUROLOGIC: Absent: headache, focal weakness or paresthesias, dizziness, unsteady gait, seizure, mental status changes, bladder or bowel incontinence PSYCHIATRIC: Absent: anxiety, depression, suicidal or homicidal ideation, hallucinations. PHYSICAL EXAMINATION Vital Signs - 24 hr 04/11/19 04/11/19 04/11/19 10:09 11:39 13:58 Temperature 98.0 F 98.3 F Pulse Rate 97 H Pulse Rate [ 96 H 98 H Left] Respiratory 20 20 Rate Blood Pressure 125/81 Blood Pressure 160/90 175/67 H [Left] O2 Sat by Pulse 91 L 92 L Oximetry (%) GENERAL: Awake, alert, and fully oriented, in no acute distress. HEAD: Normal with no signs of trauma. EYES: Pupils equal, round and reactive to light, extraocular movements intact, EARS, NOSE, THROAT: Moist mucous membranes. LUNGS: Breath sounds equal, clear to auscultation bilaterally.Expiratory wheezing noted HEART: irregularly irregular, 4/6 systolic murmur at upper sternal border ABDOMEN: Soft, nontender, not distended, normoactive bowel sounds, no guarding, no rebound, no masses Rectal: sphincter tone in tact, no hemrrohids noted, stool felt in vault, light stool color on glove LOWER EXTREMITIES: 2+ pulses, warm, well-perfused. No calf tenderness.. 2+ pitting edema, 4/5 strength RLE, 3/5 strength LLE MSK: no tenderness in B/L knees or hips PSYCHIATRIC: Cooperative. Good eye contact. Appropriate mood and affect. SKIN: multiple ecchymoses over upper extremities CBC, BMP 04/11/19 11:48 04/11/19 11:48 ASSESSMENT/PLAN: Patient is a 88 y/o female with a history of anemia, afib, and osteoarthritis who presents for fall. 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 Gutierres ) , thinks patient would benifit from PRBC - chronic hemolysis from vs bone marrow pathology, outpatient labs show normal VB12, folate, and iron, normal LDH, normal monoclonal band and SPEP, moderate suspicion for MM, could f/u with a kappa/lambda ration - 1 unit PRBC ordered - f/u stool occult blood - hold medical AC #afib - patient follows with Dr. Ceballos - controlled off rate controlling medication #HFpEF, Severe Aortic stenosis - as seen on ECHO 10/08/18, EF 55% - lasix 40 IV given in ED, will continue with lasix 40 IV daily - daily weights, monitor I & O - ? of TAVR procedure in future after w/o for anemia has been completed #UTI - continue Ceftriaxone - f/u Urine CX #wheezing - no dx f lung pathology, may be 2/2 to CHF exacerbation - continue duoneb QID #DVT ppx - hold AC, SCD's FEN - regular diet Dispo: monitor on med surg Visit type - Emergency Visit Emergency Visit: Yes ED Registration Date: 04/11/19 Care time: The patient presented to the Emergency Department on the above date and was hospitalized for further evaluation of their emergent condition. - New Patient This patient is new to me today: Yes Date on this admission: 04/11/19 - Critical Care Critical Care patient: No ATTENDING PHYSICIAN STATEMENT I saw and evaluated the patient. I reviewed the resident's note and discussed the case with the resident. I agree with the resident's findings and plan as documented. SUBJECTIVE: OBJECTIVE: ASSESSMENT AND PLAN:
[2019-04-11 15:14] LABS: ANISOCYTOSIS 1+; MACROCYTOSIS 1+; PLATELET ESTIMATE NORMAL
--- NOTE | 2019-04-11 15:31 | PN ---
Teaching Attending Note Name of Resident: Maggie Alvarenga ATTENDING PHYSICIAN STATEMENT I saw and evaluated the patient. I reviewed the resident's note and discussed the case with the resident. I agree with the resident's findings and plan as documented. SUBJECTIVE: Patient is a 88 y/o female with a history of anemia, afib, and osteoarthritis who presents for fall. denies any dizziness,or lightheadedness. OBJECTIVE: Vital Signs Temperature 98.3 F 04/11/19 11:39 Pulse Rate 98 H 04/11/19 13:58 Respiratory Rate 20 04/11/19 13:58 Blood Pressure 175/67 H 04/11/19 13:58 O2 Sat by Pulse Oximetry (%) 92 L 04/11/19 13:58 GENERAL: The patient is awake, alert, and fully oriented, in no acute distress. HEAD: Normal with no signs of trauma. EYES: PERRL, extraocular movements intact, sclera anicteric, conjunctiva clear. ENT: Ears normal, oropharynx clear without exudates, moist mucous membranes. NECK: Trachea midline, full range of motion, supple. LUNGS:decreased Breath sounds bl,Expiratory wheezing noted, no crackles, no accessory muscle use. HEART: irregularly irregular, 4/6 systolic murmur at upper sternal border ABDOMEN: Soft, nontender, nondistended, normoactive bowel sounds, no guarding, no rebound, no hepatosplenomegaly, no masses. EXTREMITIES: 2+ pulses, warm, well-perfused, no edema. NEUROLOGICAL: Cranial nerves II through XII grossly intact. Normal speech, gait not observed. PSYCH: Normal mood, normal affect. SKIN: Warm, dry, normal turgor, no rashes or lesions noted CBCD WBC 6.6 K/mm3 (4.0-10.0) 04/11/19 11:48 RBC 1.74 M/mm3 (3.60-5.2) L 04/11/19 11:48 Hgb 7.4 GM/dL (10.7-15.3) L 04/11/19 11:48 Hct 21.2 % (32.4-45.2) L D 04/11/19 11:48 MCV 121.5 fl (80-96) H 04/11/19 11:48 MCHC 35.1 g/dl (32.0-36.0) 04/11/19 11:48 RDW 15.6 % (11.6-15.6) D 04/11/19 11:48 Plt Count 419 K/MM3 (134-434) 04/11/19 11:48 MPV 7.5 fl (7.5-11.1) 04/11/19 11:48 CMP Sodium 136 mmol/L (136-145) 04/11/19 11:48 Potassium 4.5 mmol/L (3.5-5.1) 04/11/19 11:48 Chloride 105 mmol/L (98-107) 04/11/19 11:48 Carbon Dioxide 28 mmol/L (21-32) 04/11/19 11:48 Anion Gap 3 MMOL/L (8-16) L 04/11/19 11:48 BUN 17.8 mg/dL (7-18) 04/11/19 11:48 Creatinine 0.4 mg/dL (0.55-1.3) L 04/11/19 11:48 Random Glucose 95 mg/dL (74-106) 04/11/19 11:48 Calcium 8.4 mg/dL (8.5-10.1) L 04/11/19 11:48 Total Bilirubin 1.1 mg/dL (0.2-1) H 04/11/19 11:48 AST 19 U/L (15-37) 04/11/19 11:48 ALT 18 U/L (13-61) 04/11/19 11:48 Alkaline Phosphatase 86 U/L (45-117) 04/11/19 11:48 Total Protein 6.3 g/dl (6.4-8.2) L 04/11/19 11:48 Albumin 3.6 g/dl (3.4-5.0) 04/11/19 11:48 CARDIAC ENZYMES Creatine Kinase 57 U/L (26-192) 04/11/19 11:48 Troponin I < 0.02 ng/ml (0.00-0.05) 04/11/19 11:48 Home Medications Medication Instructions Recorded Ascorbic Acid [Vitamin C] 500 mg PO DAILY 04/29/17 Calcium 250Mg/Vit-D 125 Units 1 combo PO DAILY 04/29/17 [Oscal 250 mg+D -] Glucosamine Sulfate Dipot Chlr 1,000 mg PO DAILY 04/29/17 [Glucosamine] Multivitamin/Iron/Folic Acid 1 tab PO DAILY 04/29/17 [Centrum Adults Tablet] Prednisone 2 mg PO DAILY 04/29/17 Simvastatin 20 mg PO DAILY 04/29/17 Metoprolol Tartrate [Lopressor -] 12.5 mg PO BID 30 Days #60 tablet 10/12/18 Cholecalciferol (Vitamin D3) 50,000 unit PO WEEKLY 11/07/18 [D3-50] Collagenase Clostridium Hist. 1 applic TP PRN 11/07/18 [Santyl -] Ferrous Sulfate 325 mg PO DAILY 11/07/18 Furosemide 40 mg PO DAILY 11/07/18 Acetaminophen 325 mg PO Q8H 11/08/18 Current Medications Generic Name Dose Route Start Last Admin Trade Name Freq PRN Reason Stop Dose Admin Acetaminophen 650 mg 04/11/19 15:37 Tylenol - PO Q4H PRN PAIN OR FEVER Albuterol/Ipratropium 1 amp 04/11/19 16:00 04/11/19 17:55 Duoneb - NEB Not Given RQID [facility] Furosemide 40 mg 04/12/19 10:00 Lasix - PO DAILY [facility] Ceftriaxone Sodium 1 gm/ 50 mls @ 200 mls/hr 04/12/19 10:00 Dextrose IVPB DAILY [facility] Protocol Echo 05/2018: nl LV/EF. nl RV. ++biatrial dilation. probably moderate : gradients 38/22, KOSTAS 0.9 (normal SV index = 38 cc/m2). mod MR/TR Echo 10/08/2018: nl lv/rv, paolo, mod mr, mild tr, mild ar, mod-sev as (peak/mean 61/30, KOSTAS 0.6), rvsp 30-40 CXR: clear lungs/pleura Head CT and Cspine without any fractures , on head CT L posterior parafalcine meningioma stable from last CT ASSESSMENT AND PLAN: Patient is a 88 y/o female with a history of anemia, afib, and osteoarthritis who presents for fall. #s/p fall possible due to anemia /UTI #UTI: continue Ceftriaxone, follow cx #Elevated BP: On lasix, monitor since is normotensive #Anemia: 1 unit PRBC ordered for transfusion, unknown source, spoke with patients Hemetologist Dr. Gutierres ), possible due to bone marrow pathology, w/u as an outpatient #afib with rate controlled , [facility] #HFpEF, Severe Aortic stenosis: ECHO 10/08/18, EF 55%, lasix 40 IV given in ED, will continue with lasix 40 IV daily, daily weights, monitor I & O #DVT ppx: hold AC, SCD's Dispo: monitor on med surg f/u Physical Therapy
--- NOTE | 2019-04-11 16:23 | CON.CARD ---
Cardiology Consult (text) - Consultation Consultation Note: Consult Specialty:: cardio - History of Present Illness Chief Complaint: fall History of Present Illness: 88 F here with fall. Has had multiple admissions for mechanical falls, also history of anemia. Stood up today to make a phone call, hasn't been very active in the last week for feeling tired. She isn't sure if she tripped on something but she felt herself falling, no dizziness, lightheadedness, loss of consciousness. Per her caregiver she has stable dyspnea on exertion but in last few days has been making a wheezing sound, also had edema the last few days when she was sitting up or walking, but this weekend she was bedbound for the last 2-3 days and hasn't noticed leg swelling. Sees Dr. Ceballos for cardio, has been on lasix 20 mg daily at home for leg swelling (had been on higher doses but reduced due to urinating constantly). PMH: afib not on AC diast CHF anemia - Alcohol/Substance Use Hx Alcohol Use: No - Smoking History Smoking history: Never smoked Have you smoked in the past 12 months: No If you are a former smoker, when did you quit?: 1950 Home Medications - Allergies Allergies/Adverse Reactions: Allergies Allergy/AdvReac Type Severity Reaction Status Date / Time warfarin Allergy Mild dizzy Verified 04/11/19 10:11 Home Medications Medication Instructions Recorded Multivitamin/Iron/Folic Acid 1 tab PO DAILY 04/29/17 [Centrum Adults Tablet] Furosemide 40 mg PO DAILY 11/07/18 Review of Systems - Review of Systems Constitutional: denies: Chills, Fever Eyes: denies: Eye Pain HENT: denies: Nasal Congestion Neck: denies: Stiffness Cardiovascular: denies: Palpitations Respiratory: denies: Orthopnea, PND Gastrointestinal: denies: Diarrhea, Rectal Bleeding Genitourinary: denies: Burning, Hematuria Musculoskeletal: denies: Muscle Pain Integumentary: denies: Rash Neurological: denies: Numbness, Seizure, Syncope Endocrine: denies: Excessive Sweating Hematology/Lymphatic: denies: Excessive Bleeding Vital Signs Period Temp Pulse Resp BP Sys/Jay Pulse Ox Last 24 Hr 98.0 F-98.3 F 96-98 20-20 125-175/67-90 91-92 Constitutional: Yes: Well Nourished, No Distress Eyes: No: Sclera Icterus HENT: No: Nasal Congestion Neck: No: Decreased ROM Respiratory: Yes: CTA Bilaterally. +diffuse rhonchi, wheezes Gastrointestinal: Yes: Normal Bowel Sounds. No: Distention, Hepatomegaly, Palpable Mass, Tenderness Cardiovascular: Yes: Regular Rate and Rhythm JVD: Yes Carotid Bruit: No PMI: Non-Displaced Heart Sounds: Yes: S1, S2. No: Gallop Murmur: Yes: Systolic Murmur (3/6 early peak KATHERINE LUSB, + preserved S2 split). No: Diastolic Murmur Musculoskeletal: Yes: Other (No kyphosis) Extremities: No: Cool, Cyanosis Edema: No Integumentary: No: Jaundice Neurological: Yes: Alert, Oriented (x3) Psychiatric: No: Agitated Laboratory Last Values WBC 6.6 K/mm3 (4.0-10.0) 04/11/19 11:48 RBC 1.74 M/mm3 (3.60-5.2) L 04/11/19 11:48 Hgb 7.4 GM/dL (10.7-15.3) L 04/11/19 11:48 Hct 21.2 % (32.4-45.2) L D 04/11/19 11:48 MCV 121.5 fl (80-96) H 04/11/19 11:48 MCH 42.6 pg (25.7-33.7) H D 04/11/19 11:48 MCHC 35.1 g/dl (32.0-36.0) 04/11/19 11:48 RDW 15.6 % (11.6-15.6) D 04/11/19 11:48 Plt Count 419 K/MM3 (134-434) 04/11/19 11:48 MPV 7.5 fl (7.5-11.1) 04/11/19 11:48 Absolute Neuts (auto) 5.5 K/mm3 (1.5-8.0) 04/11/19 11:48 Neutrophils % 83.6 % (42.8-82.8) H 04/11/19 11:48 Lymphocytes % 8.3 % (8-40) 04/11/19 11:48 Monocytes % 7.5 % (3.8-10.2) 04/11/19 11:48 Eosinophils % 0.2 % (0-4.5) 04/11/19 11:48 Basophils % 0.4 % (0-2.0) 04/11/19 11:48 Nucleated RBC % 0 % (0-0) 04/11/19 11:48 Hypochromia 0 04/11/19 11:48 Platelet Estimate Normal 04/11/19 11:48 Polychromasia 1+ 04/11/19 11:48 Poikilocytosis 1+ 04/11/19 11:48 Anisocytosis 1+ 04/11/19 11:48 Microcytosis 0 04/11/19 11:48 Macrocytosis 1+ 04/11/19 11:48 PT with INR 14.60 SEC (9.7-13.0) H 04/11/19 11:48 INR 1.23 (0.83-1.09) H 04/11/19 11:48 PTT (Actin FS) 32.7 SECONDS (25.2-36.5) 04/11/19 11:48 VBG pH 7.45 (7.31-7.41) H 04/11/19 12:19 POC VBG pCO2 40.2 mmHg (38-52) 04/11/19 12:19 POC VBG pO2 < 49 mmHg (28-48) H 04/11/19 12:19 VBG HCO3 27.6 mmol/L (23-29) 04/11/19 12:19 VBG O2 Sat (Carlin) 49.1 % (70-80) L 04/11/19 12:19 VBG Base Excess 3.9 meq/l (-2-2) H 04/11/19 12:19 Sodium 136 mmol/L (136-145) 04/11/19 11:48 Potassium 4.5 mmol/L (3.5-5.1) 04/11/19 11:48 Chloride 105 mmol/L (98-107) 04/11/19 11:48 Carbon Dioxide 28 mmol/L (21-32) 04/11/19 11:48 Anion Gap 3 MMOL/L (8-16) L 04/11/19 11:48 BUN 17.8 mg/dL (7-18) 04/11/19 11:48 Creatinine 0.4 mg/dL (0.55-1.3) L 04/11/19 11:48 Est GFR (CKD-EPI)AfAm 107.03 04/11/19 11:48 Est GFR (CKD-EPI)NonAf 92.34 04/11/19 11:48 Random Glucose 95 mg/dL (74-106) 04/11/19 11:48 Calcium 8.4 mg/dL (8.5-10.1) L 04/11/19 11:48 Magnesium 2.2 mg/dL (1.8-2.4) 04/11/19 11:48 Total Bilirubin 1.1 mg/dL (0.2-1) H 04/11/19 11:48 AST 19 U/L (15-37) 04/11/19 11:48 ALT 18 U/L (13-61) 04/11/19 11:48 Alkaline Phosphatase 86 U/L (45-117) 04/11/19 11:48 Creatine Kinase 57 U/L (26-192) 04/11/19 11:48 Troponin I < 0.02 ng/ml (0.00-0.05) 04/11/19 11:48 B-Natriuretic Peptide 5464.6 pg/ml (5-450) H 04/11/19 11:48 Total Protein 6.3 g/dl (6.4-8.2) L 04/11/19 11:48 Albumin 3.6 g/dl (3.4-5.0) 04/11/19 11:48 Urine Color Yellow 04/11/19 12:14 Urine Appearance Cloudy 04/11/19 12:14 Urine pH 6.0 (5.0-8.0) 04/11/19 12:14 Ur Specific [place] 1.023 (1.010-1.035) 04/11/19 12:14 Urine Protein 1+ (NEGATIVE) H 04/11/19 12:14 Urine Glucose (UA) Negative (NEGATIVE) 04/11/19 12:14 Urine Ketones Negative (NEGATIVE) 04/11/19 12:14 Urine Blood Negative (NEGATIVE) 04/11/19 12:14 Urine Nitrite Positive (NEGATIVE) H 04/11/19 12:14 Urine Bilirubin Negative (NEGATIVE) 04/11/19 12:14 Urine Urobilinogen 1.0 mg/dL (0.2-1.0) 04/11/19 12:14 Ur Leukocyte Esterase 1+ (NEGATIVE) H 04/11/19 12:14 Urine WBC (Auto) 32 /hpf (0-5) 04/11/19 12:14 Urine RBC (Auto) 1 /hpf (0-4) 04/11/19 12:14 Urine Casts (Auto) 22 /lpf (0-8) 04/11/19 12:14 U Epithel Cells (Auto) 0.6 /HPF (0-5/HPF) 04/11/19 12:14 Urine Bacteria (Auto) 6112.1 /hpf (NEGATIVE) 04/11/19 12:14 Stool Occult Blood Negative (NEGATIVE) 04/11/19 15:16 Blood Type A POSITIVE 04/11/19 14:43 Antibody Screen Negative 04/11/19 14:43 Crossmatch See Detail 04/11/19 14:43 Assessment/Plan Echo 05/2018: nl LV/EF. nl RV. ++biatrial dilation. probably moderate : gradients 38/22, KOSTAS 0.9 (normal SV index = 38 cc/m2). mod MR/TR Echo 10/08/2018: nl lv/rv, paolo, mod mr, mild tr, mild ar, mod-sev as (peak/mean 61/30, KOSTAS 0.6), rvsp 30-40 CXR: clear lungs/pleura a/p: 88 f hx afib, htn, hld, le edema here s/p fall. fall, L hip frx, preop CV eval -mult recent mechanical falls, no suggestion of cardiac etiology, likely 2/2 lower ext weakness and pain UTI - manage per primary anemia - Hgb 7.4 here, has been seeing Dr. Farooq grinder needle tip as outpatient - transfuse PRBC per primary acute on chronic diastolic HF, severe - in moderate range on serial studies, last 05/2018 with preserved S2 split on exam confirmatory of absence of severe . 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 Ceballos, deferring workup for TAVR - was on lasix 20 mg PO daily at home, could not tolerate higher dose due to frequent urination - has JVD at baseline however recent history of edith lower ext edema, dyspnea and wheezing on exam with BNP elevated from prior agree with IV lasix, continue for now - monitor daily weights, Cr, lytes afib: -bb stopped for low BP - no AC or aspirin due to frequent falls, anemia HPL: -cont home statin
[2019-04-11 17:16] VITALS: BMI 22.2
[2019-04-11] MEDS: ALBUTEROL SO4 2.5/IPRATROPIUM 0.5 INH SOL 3 ML VIAL.NEB. NEB SCH ×2 (17:55→22:30)
[2019-04-12] LABS: HEMATOCRIT 25.6 % (32.4-45.2); HEMOGLOBIN 8.9 GM/dL (10.7-15.3); MCHC 34.7 g/dl (32.0-36.0); MEAN PLT VOLUME 7.3 fl (7.5-11.1); PLATELET COUNT 409 K/MM3 (134-434); RBC 2.21 M/mm3 (3.60-5.2); RDW 20.1 % (11.6-15.6); WHITE BLOOD COUNT 5.3 K/mm3 (4.0-10.0)
[2019-04-12 00:02] LABS: MCH 40.3 pg (25.7-33.7)
[2019-04-12 06:30] LABS: BASO % 0.8 % (0-2.0); EOS % 3.2 % (0-4.5); HEMATOCRIT 24.5 % (32.4-45.2); HEMOGLOBIN 8.7 GM/dL (10.7-15.3); LYMPH % 19.8 % (8-40); MCHC 35.6 g/dl (32.0-36.0); MEAN CELL VOLUME 114.8 fl (80-96); MEAN PLT VOLUME 7.3 fl (7.5-11.1); MONO % 11.6 % (3.8-10.2); NEUT % 64.6 % (42.8-82.8); PLATELET COUNT 419 K/MM3 (134-434); RBC 2.14 M/mm3 (3.60-5.2); WHITE BLOOD COUNT 4.9 K/mm3 (4.0-10.0)
[2019-04-12 06:36] LABS: MCH 40.9 pg (25.7-33.7)
[2019-04-12 06:59] LABS: ALBUMIN 3.4 g/dl (3.4-5.0); ALK PHOS 81 U/L (45-117); ANION GAP 7 MMOL/L (8-16); BILIRUBIN,TOTAL 1.4 mg/dL (0.2-1); BLOOD UREA NITROGEN 20.5 mg/dL (7-18); CALCIUM 8.3 mg/dL (8.5-10.1); CHLORIDE 102 mmol/L (98-107); CO2 30 mmol/L (21-32); CREATININE 0.5 mg/dL (0.55-1.3); GLUCOSE,RANDOM 88 mg/dL (74-106); MAGNESIUM 2.1 mg/dL (1.8-2.4); PHOSPHOROUS 3.4 mg/dL (2.5-4.9); POTASSIUM 3.8 mmol/L (3.5-5.1); SGOT/AST 13 U/L (15-37); SGPT/ALT 15 U/L (13-61); SODIUM 139 mmol/L (136-145)
[2019-04-12] MEDS: ALBUTEROL SO4 2.5/IPRATROPIUM 0.5 INH SOL 3 ML VIAL.NEB. NEB SCH ×4 (08:00→19:50)
[2019-04-12] MEDS ORDERED: cefTRIAXone SODIUM 1 GM VIAL ONE (09:34)
[2019-04-12] MEDS ORDERED: DEXTROSE 5%-WATER - 50 ML IVPB ONE (09:34)
[2019-04-12] MEDS: CEFTRIAXONE 1 GM in DEXTROSE 5%-WATER - 50 ML IVPB SCH (09:47)
[2019-04-12] MEDS ORDERED: FUROSEMIDE 40 MG TABLET (FP) PO SCH (10:00)
--- NOTE | 2019-04-12 10:13 | EKG ---
Test Reason : Blood Pressure : / mmHG Vent. Rate : 099 BPM Atrial Rate : 072 BPM P-R Int : 000 ms QRS Dur : 090 ms QT Int : 362 ms P-R-T Axes : 000 043 -08 degrees QTc Int : 464 ms ATRIAL FIBRILLATION RSR' OR QR PATTERN IN V1 SUGGESTS RIGHT VENTRICULAR CONDUCTION DELAY NONSPECIFIC ST ABNORMALITY ABNORMAL ECG WHEN COMPARED WITH ECG OF 07-NOV-2018 09:27, NO SIGNIFICANT CHANGE WAS FOUND Confirmed by Suresh Bautista MD ([id number]) on 04/12/2019 10:13:03 AM Referred By: Confirmed By:Suresh Bautista MD
[2019-04-12] MEDS ORDERED: FUROSEMIDE 20 MG TABLET (FP) PO SCH (12:03)
--- NOTE | 2019-04-12 12:04 | PN ---
Progress Note (short form) - Note Progress Note: s: no chest pain, palps, dizziness, dyspnea Current Medications Acetaminophen (Tylenol -) 650 mg PO Q4H PRN PRN Reason: PAIN OR FEVER Albuterol/Ipratropium (Duoneb -) 1 amp NEB RQID [facility] Last Admin: 04/12/19 08:00 Dose: 1 amp Furosemide (Lasix -) 40 mg PO DAILY [facility] Last Admin: 04/12/19 11:23 Dose: 40 mg Ceftriaxone Sodium 1 gm/ (Dextrose) 50 mls @ 200 mls/hr IVPB DAILY [facility]; Protocol Last Admin: 04/12/19 09:47 Dose: 200 mls/hr Vital Signs Period Temp Pulse Resp BP Sys/Jay Pulse Ox Last 24 Hr 97.5 F-98.3 F 94-106 19-20 109-175/57-87 92-98 Constitutional: Yes: Well Nourished, No Distress Eyes: No: Sclera Icterus HENT: No: Nasal Congestion Neck: No: Decreased ROM Respiratory: Yes: CTA Bilaterally. +diffuse rhonchi, wheezes Gastrointestinal: Yes: Normal Bowel Sounds. No: Distention, Hepatomegaly, Palpable Mass, Tenderness Cardiovascular: Yes: Regular Rate and Rhythm JVD: Yes Carotid Bruit: No PMI: Non-Displaced Heart Sounds: Yes: S1, S2. No: Gallop Murmur: Yes: Systolic Murmur (3/6 early peak KATHERINE LUSB, + preserved S2 split). No: Diastolic Murmur Musculoskeletal: Yes: Other (No kyphosis) Extremities: No: Cool, Cyanosis Edema: No Integumentary: No: Jaundice Neurological: Yes: Alert, Oriented (x3) Psychiatric: No: Agitated Assessment/Plan Echo 05/2018: nl LV/EF. nl RV. ++biatrial dilation. probably moderate : gradients 38/22, KOSTAS 0.9 (normal SV index = 38 cc/m2). mod MR/TR Echo 10/08/2018: nl lv/rv, paolo, mod mr, mild tr, mild ar, mod-sev as (peak/mean 61/30, KOSTAS 0.6), rvsp 30-40 CXR: clear lungs/pleura a/p: 88 f hx afib, htn, hld, le edema here s/p fall. fall, L hip frx, preop CV eval -mult recent mechanical falls, no suggestion of cardiac etiology, likely 2/2 lower ext weakness and pain UTI - manage per primary anemia - Hgb 7.4 here, has been seeing Dr. Farooq manufacturing sr engineer as outpatient - transfuse PRBC per primary chronic diastolic HF, severe - in moderate range on serial studies, last 05/2018 with preserved S2 split on exam confirmatory of absence of severe . 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 Ceballos, deferring workup for TAVR - was on lasix 20 mg PO daily at home, could not tolerate higher dose due to frequent urination - has JVD at baseline however recent history of edith lower ext edema, dyspnea and wheezing on exam - improved after IV lasix yesterday - cont home lasix 20 mg PO daily afib: -bb stopped for low BP - no AC or aspirin due to frequent falls, anemia HPL: -cont home statin
--- NOTE | 2019-04-12 14:21 | PN ---
Teaching Attending Note Name of Resident: Beulah Prater ATTENDING PHYSICIAN STATEMENT I saw and evaluated the patient. I reviewed the resident's note and discussed the case with the resident. I agree with the resident's findings and plan as documented. SUBJECTIVE: No fever or chills. No SMITH. has pain in L hip preventing L leg movements. reports urinary incontinence x 2 days ,since she was sstarted on IV lasix, resolved now SOB is better OBJECTIVE: NAD, awake, alert, pleasant . MMM. No facial droop CV: RRR, + JVD. 3/6 Sm at RUSb with radiation to carrotid Lungs: crackles and wheezes b/l Abd: soft, NT, ND , NL BS Ext : 2 + edema on both LE , no erythema,no tenderness Neuro of LE: L hip flexion 2/5, L knee flexion /extension , ankle dorsiflexion and plantar flexion 5/5 R hip flexion 3-4/5, knee flexion n/extension , ankle dorsiflexion and plantar flexion 5/5. Reflexes 2+ knee jerk b/l . nl sensation in LE bilaterally MS: TTp in L lateral hip ASSESSMENT AND PLAN: 88 y/o lady with h/o A fib , not on Ac, h/o recent L hip Fx, Mod--severe , chronic diastolic heart failure,recurrent falls and OA, who presented with a fall. 1- Mechanical fall: L hip tenderness laterally on exam. proximal weakness is due to pain in hips and knees - will get Xray of the hip, if needed we will get CT. - check B 12. - check CPK ( on statin, has muscle weakness ) 2- UTI: urine cx reviewed. - cont ceftriaxone fro now 3- Acute diastolic heart failure exacerbation: - appreciate card help, switched to po lasix today 4- chronic macrocytic anemia : being followed by heme as out pt . Might have Bone marrow pathology - s/p RBC transfusion here - check B 12 - cont f/u as out p t 5- Mod- severe : f/u as out pt 6- H/o A fib: not on any AC or asa due to falls - not on BB due to hypotension 7- DVT PX : heaprin SQ will likely need SNF
--- NOTE | 2019-04-12 15:13 | PN ---
Physical Exam: SUBJECTIVE: Patient seen and examined. pt feels better in terms of her shortness of breath. However, Pt feel some pain in the hip. OBJECTIVE: Vital Signs Period Temp Pulse Resp BP Sys/Jay Pulse Ox Last 24 Hr 97.5 F-99.4 F 94-106 19-20 109-130/57-87 96-98 GENERAL: The patient is awake, alert, and fully oriented, in mild distress. HEAD: Normal with no signs of trauma. EYES: PERRL, extraocular movements intact, sclera anicteric, conjunctiva clear. No ptosis. ENT: oropharynx clear without exudates, moist mucous membranes. LUNGS: Breath sounds equal, clear to auscultation bilaterally, no wheezes, no crackles, no accessory muscle use. HEART: Regular rate and rhythm, S1, S2 with 3+ mumur ABDOMEN: Soft, nontender, nondistended, normoactive bowel sounds, no guarding, no rebound, no hepatosplenomegaly, no masses. EXTREMITIES: 2+ pulses, warm, well-perfused, no edema. L hip tenderness PSYCH: Normal mood, normal affect. SKIN: Warm, dry, normal turgor, echymosis noted on both arms Laboratory Results - last 24 hr 04/11/19 04/11/19 04/11/19 11:48 14:43 15:16 WBC RBC Hgb Hct MCV MCH MCHC RDW Plt Count MPV Absolute Neuts (auto) Neutrophils % Lymphocytes % Monocytes % Eosinophils % Basophils % Nucleated RBC % Hypochromia 0 Platelet Estimate Normal Polychromasia 1+ Poikilocytosis 1+ Anisocytosis 1+ Microcytosis 0 Macrocytosis 1+ Sodium Potassium Chloride Carbon Dioxide Anion Gap BUN Creatinine Est GFR (CKD-EPI)AfAm Est GFR (CKD-EPI)NonAf Random Glucose Calcium Phosphorus Magnesium Total Bilirubin AST ALT Alkaline Phosphatase CK-MB (CK-2) Total Protein Albumin Vitamin B12 Serum Folate Stool Occult Blood Negative Blood Type A POSITIVE Antibody Screen Negative Crossmatch See Detail 04/11/19 04/12/19 04/12/19 23:30 06:12 06:12 WBC 5.3 4.9 RBC 2.21 L 2.14 L Hgb 8.9 L 8.7 L Hct 25.6 L D 24.5 L MCV 116.0 H 114.8 H MCH 40.3 H 40.9 H MCHC 34.7 35.6 RDW 20.1 H 20.0 H Plt Count 409 419 MPV 7.3 L 7.3 L Absolute Neuts (auto) 3.2 Neutrophils % 64.6 D Lymphocytes % 19.8 D Monocytes % 11.6 H Eosinophils % 3.2 D Basophils % 0.8 Nucleated RBC % 0 Hypochromia Platelet Estimate Polychromasia Poikilocytosis Anisocytosis Microcytosis Macrocytosis Sodium 139 Potassium 3.8 Chloride 102 Carbon Dioxide 30 Anion Gap 7 L BUN 20.5 H Creatinine 0.5 L Est GFR (CKD-EPI)AfAm 99.45 Est GFR (CKD-EPI)NonAf 85.81 Random Glucose 88 Calcium 8.3 L Phosphorus 3.4 Magnesium 2.1 Total Bilirubin 1.4 H AST 13 L ALT 15 Alkaline Phosphatase 81 CK-MB (CK-2) < 1.0 Total Protein 6.0 L Albumin 3.4 Vitamin B12 755 Serum Folate 23 H Stool Occult Blood Blood Type Antibody Screen Crossmatch Active Medications Generic Name Dose Route Start Last Admin Trade Name Freq PRN Reason Stop Dose Admin Acetaminophen 650 mg 04/11/19 15:37 Tylenol - PO Q4H PRN PAIN OR FEVER Albuterol/Ipratropium 1 amp 04/11/19 16:00 04/12/19 12:00 Duoneb - NEB Not Given RQID [facility] Furosemide 20 mg 04/12/19 12:03 Lasix - PO DAILY [facility] Heparin Sodium (Porcine) 5,000 unit 04/12/19 22:00 Heparin - SQ TID [facility] Ceftriaxone Sodium 1 gm/ 50 mls @ 200 mls/hr 04/12/19 10:00 04/12/19 09:47 Dextrose IVPB 200 mls/hr DAILY [facility] Administration Protocol ASSESSMENT/PLAN: 88 y/o lady with h/o A fib , not on Ac, h/o recent L hip Fx, Mod--severe , chronic diastolic heart failure,recurrent falls and OA, who presented with a fall. Mechanical fall: L hip tenderness laterally on exam. Xray of the hip showed possible acute fracture CT pelvis w/o contrast ordered to r/o fracture check CPK ( on statin, has muscle weakness ) UTI urine cx showed lactose fermenting bacilli (2 organisms) pending speciation and sensitivity cont ceftriaxone fro now Acute diastolic heart failure exacerbation: appreciate card help, switched to po lasix today chronic macrocytic anemia being followed by heme as out pt . Might have Bone marrow pathology s/p RBC transfusion here B 12 and folate levels ordered cont f/u as out p t Mod- severe : f/u as out pt H/o A fib not on any AC or asa due to falls not on BB due to hypotension DVT PX heaprin SQ Visit type - Emergency Visit Emergency Visit: Yes ED Registration Date: 04/11/19 Care time: The patient presented to the Emergency Department on the above date and was hospitalized for further evaluation of their emergent condition. - New Patient This patient is new to me today: Yes Date on this admission: 04/12/19 - Critical Care Critical Care patient: No - Discharge Referral Referred to [facility] No ATTENDING PHYSICIAN STATEMENT I saw and evaluated the patient. I reviewed the resident's note and discussed the case with the resident. I agree with the resident's findings and plan as documented. SUBJECTIVE: OBJECTIVE: ASSESSMENT AND PLAN:
[2019-04-12] MEDS: CALCIUM 500MG/VIT-D 200 UNITS COMBO TABLET (FP) PO SCH (17:49)
[2019-04-12] MEDS: ACETAMINOPHEN 325 MG TABLET (FP) PO PRN (21:16)
[2019-04-12] MEDS: HEPARIN NA (PORCINE) 5,000 UNITS/ML 1ML VIAL SQ SCH (21:16)
[2019-04-13] MEDS ORDERED: PT OWN MED DRAWER 7, Y5N ONE ×3 (05:31→19:26)
[2019-04-13] MEDS: HEPARIN NA (PORCINE) 5,000 UNITS/ML 1ML VIAL SQ SCH ×2 (05:34→15:20)
[2019-04-13 07:04] LABS: BASO % 0.8 % (0-2.0); EOS % 3.3 % (0-4.5); HEMATOCRIT 24.7 % (32.4-45.2); HEMOGLOBIN 8.5 GM/dL (10.7-15.3); LYMPH % 18.2 % (8-40); MCH 39.9 pg (25.7-33.7); MCHC 34.4 g/dl (32.0-36.0); MEAN CELL VOLUME 115.9 fl (80-96); MEAN PLT VOLUME 7.6 fl (7.5-11.1); MONO % 12.3 % (3.8-10.2); NEUT % 65.4 % (42.8-82.8); PLATELET COUNT 402 K/MM3 (134-434); RBC 2.13 M/mm3 (3.60-5.2); RDW 19.9 % (11.6-15.6)
[2019-04-13] MEDS: ALBUTEROL SO4 2.5/IPRATROPIUM 0.5 INH SOL 3 ML VIAL.NEB. NEB SCH ×4 (07:45→21:00)
[2019-04-13 07:56] LABS: BLOOD UREA NITROGEN 20.8 mg/dL (7-18); CALCIUM 8.2 mg/dL (8.5-10.1); CREATININE 0.5 mg/dL (0.55-1.3); POTASSIUM 3.5 mmol/L (3.5-5.1)
[2019-04-13] MEDS ORDERED: cefTRIAXone SODIUM 1 GM VIAL ONE (09:22)
[2019-04-13] MEDS ORDERED: DEXTROSE 5%-WATER - 50 ML IVPB ONE (09:22)
[2019-04-13 09:38] LABS: BILIRUBIN,TOTAL 0.9 mg/dL (0.2-1)
[2019-04-13] MEDS ORDERED: CHOLECALCIFEROL (VIT D3) 400 UNIT (10 MCG) TABLET PO SCH (10:00)
[2019-04-13] MEDS: CALCIUM 500MG/VIT-D 200 UNITS COMBO TABLET (FP) PO SCH (10:00)
[2019-04-13] MEDS: CEFTRIAXONE 1 GM in DEXTROSE 5%-WATER - 50 ML IVPB SCH (10:00)
--- NOTE | 2019-04-13 11:35 | PN ---
Progress Note (short form) - Note Progress Note: s: no chest pain, palps, dizziness, dyspnea Current Medications Acetaminophen (Tylenol -) 650 mg PO Q4H PRN PRN Reason: PAIN OR FEVER Last Admin: 04/12/19 21:16 Dose: 650 mg Albuterol/Ipratropium (Duoneb -) 1 amp NEB RQID [facility] Last Admin: 04/13/19 11:28 Dose: 1 amp Calcium Carbonate/Cholecalciferol (Os-Jose Daniel 500+D -) 1 tab PO DAILY [facility] Last Admin: 04/13/19 10:00 Dose: 1 tab Cholecalciferol (Vitamin D3 -) 400 unit PO DAILY [facility] Last Admin: 04/13/19 10:05 Dose: 400 unit Furosemide (Lasix -) 20 mg PO DAILY [facility] Last Admin: 04/13/19 10:00 Dose: 20 mg Heparin Sodium (Porcine) (Heparin -) 5,000 unit SQ TID [facility] Last Admin: 04/13/19 05:34 Dose: 5,000 unit Ceftriaxone Sodium 1 gm/ (Dextrose) 50 mls @ 200 mls/hr IVPB DAILY [facility]; Protocol Last Admin: 04/13/19 10:00 Dose: 200 mls/hr Vital Signs Period Temp Pulse Resp BP Sys/Jay Pulse Ox Last 24 Hr 97.5 F-99.4 F 85-117 18-20 103-138/55-79 96-96 Constitutional: Yes: Well Nourished, No Distress Eyes: No: Sclera Icterus HENT: No: Nasal Congestion Neck: No: Decreased ROM Respiratory: Yes: +bibasilar rales Gastrointestinal: Yes: Normal Bowel Sounds. No: Distention, Hepatomegaly, Palpable Mass, Tenderness Cardiovascular: Yes: Regular Rate and Rhythm JVD: Yes Carotid Bruit: No PMI: Non-Displaced Heart Sounds: Yes: S1, S2. No: Gallop Murmur: Yes: Systolic Murmur (3/6 early peak KATHERINE LUSB, + preserved S2 split). No: Diastolic Murmur Musculoskeletal: Yes: Other (No kyphosis) Extremities: No: Cool, Cyanosis Edema: No Integumentary: No: Jaundice Neurological: Yes: Alert, Oriented (x3) Psychiatric: No: Agitated Assessment/Plan Echo 05/2018: nl LV/EF. nl RV. ++biatrial dilation. probably moderate : gradients 38/22, KOSTAS 0.9 (normal SV index = 38 cc/m2). mod MR/TR Echo 10/08/2018: nl lv/rv, paolo, mod mr, mild tr, mild ar, mod-sev as (peak/mean 61/30, KOSTAS 0.6), rvsp 30-40 CXR: clear lungs/pleura a/p: 88 f hx afib, htn, hld, le edema here s/p fall. fall, L hip frx, preop CV eval -mult recent mechanical falls, no suggestion of cardiac etiology, likely 2/2 lower ext weakness and pain UTI - manage per primary anemia - Hgb 7.4 here, has been seeing Dr. Farooq narcotics agent as outpatient - transfuse PRBC per primary chronic diastolic HF, severe - in moderate range on serial studies, last 05/2018 with preserved S2 split on exam confirmatory of absence of severe . hence her chronic HFpEF (right > left) syndrome was unrelated to ao stenosis (LV diastolic dysfunction vs severe TR), severe on echo at [facility] 02/2019 -pt has expressed strong preferences to avoid invasive testing or procedures per Dr. Ceballos, deferring workup for TAVR - was on lasix 20 mg PO daily at home, could not tolerate higher dose due to frequent urination - has JVD at baseline however recent history of edith lower ext edema, dyspnea and wheezing on exam - improved after IV lasix initially, now inc rales on exam , weight up - restart IV lasix, monitor Cr, lytes, daily weights afib: -bb stopped for low BP - no AC or aspirin due to frequent falls, anemia HPL: -cont home statin
[2019-04-13] MEDS ORDERED: FUROSEMIDE 40 MG/4 ML INJECTABLE VIAL IVPUSH SCH (14:00)
--- NOTE | 2019-04-13 15:02 | PN ---
Physical Exam: SUBJECTIVE: Patient seen and examined. Pt continues to endorse some hip tenderness OBJECTIVE: Vital Signs Period Temp Pulse Resp BP Sys/Jay Pulse Ox Last 24 Hr 97.5 F-99.2 F 85-117 18-20 103-138/55-79 96-96 GENERAL: The patient is awake, alert, and fully oriented, in mild distress. HEAD: Normal with no signs of trauma. EYES: PERRL, extraocular movements intact, sclera anicteric, conjunctiva clear. No ptosis. ENT: oropharynx clear without exudates, moist mucous membranes. LUNGS: Breath sounds equal, clear to auscultation bilaterally, increased crackles, no accessory muscle use. HEART: Regular rate and rhythm, S1, S2 with 3+ mumur ABDOMEN: Soft, nontender, nondistended, normoactive bowel sounds, no guarding, no rebound, no hepatosplenomegaly, no masses. EXTREMITIES: 2+ pulses, warm, well-perfused, no edema. L hip tenderness PSYCH: Normal mood, normal affect. SKIN: Warm, dry, normal turgor, echymosis noted on both arms Laboratory Results - last 24 hr 04/13/19 04/13/19 04/13/19 06:25 06:25 06:25 WBC 4.0 RBC 2.13 L Hgb 8.5 L Hct 24.7 L MCV 115.9 H MCH 39.9 H MCHC 34.4 RDW 19.9 H Plt Count 402 MPV 7.6 Absolute Neuts (auto) 2.6 Neutrophils % 65.4 Lymphocytes % 18.2 Monocytes % 12.3 H Eosinophils % 3.3 Basophils % 0.8 Nucleated RBC % 0 Sodium 140 Potassium 3.5 Chloride 102 Carbon Dioxide 33 H Anion Gap 5 L BUN 20.8 H Creatinine 0.5 L Est GFR (CKD-EPI)AfAm 99.45 Est GFR (CKD-EPI)NonAf 85.81 Random Glucose 87 Calcium 8.2 L Total Bilirubin 0.9 Creatine Kinase 18 L Vitamin B12 772 Serum Folate 25 H Active Medications Generic Name Dose Route Start Last Admin Trade Name Freq PRN Reason Stop Dose Admin Acetaminophen 650 mg 04/11/19 15:37 04/12/19 21:16 Tylenol - PO 650 mg Q4H PRN Administration PAIN OR FEVER Albuterol/Ipratropium 1 amp 04/11/19 16:00 04/13/19 11:28 Duoneb - NEB 1 amp RQID [facility] Administration Calcium Carbonate/Cholecalciferol 1 tab 04/12/19 16:45 04/13/19 10:00 Os-Jose Daniel 500+D - PO 1 tab DAILY [facility] Administration Cholecalciferol 400 unit 04/13/19 10:00 04/13/19 10:05 Vitamin D3 - PO 400 unit DAILY [facility] Administration Furosemide 40 mg 04/13/19 14:00 Lasix Injection - IVPUSH DAILY [facility] Heparin Sodium (Porcine) 5,000 unit 04/12/19 22:00 04/13/19 05:34 Heparin - SQ 5,000 unit TID [facility] Administration Ceftriaxone Sodium 1 gm/ 50 mls @ 200 mls/hr 04/12/19 10:00 04/13/19 10:00 Dextrose IVPB 200 mls/hr DAILY [facility] Administration Protocol ASSESSMENT/PLAN: 88 y/o lady with h/o A fib , not on Ac, h/o recent L hip Fx, Mod--severe , chronic diastolic heart failure,recurrent falls and OA, who presented with a fall. Mechanical fall: L hip tenderness laterally on exam. Xray of the hip showed possible acute fracture CT pelvis w/o contrast showed several non displaced fracture lines along femoral neck and anterior aspect of the left femoral head. Subcutaneous edema. Non displaced fracture along sacral alae subacute. Diffuse osteoporosis. Possible total hip replacement; due to high grade . attempting [facility] transfer. CPK 18 UTI urine cx showed E coli pansensitive cont ceftriaxone for now Acute diastolic heart failure exacerbation: Per Cardio, IV lasix resumed due to increased rales on PE HLD restarted statin since CK levels are unremarkable chronic macrocytic anemia being followed by heme as out pt . Might have Bone marrow pathology s/p RBC transfusion here B 12 and folate levels unremarkable cont f/u as out pt Mod- severe : f/u as out pt H/o A fib not on any AC or asa due to falls not on BB due to hypotension DVT PX heaprin SQ Visit type - Emergency Visit Emergency Visit: Yes ED Registration Date: 04/11/19 Care time: The patient presented to the Emergency Department on the above date and was hospitalized for further evaluation of their emergent condition. - New Patient This patient is new to me today: No - Critical Care Critical Care patient: No - Discharge Referral Referred to [facility] No ATTENDING PHYSICIAN STATEMENT I saw and evaluated the patient. I reviewed the resident's note and discussed the case with the resident. I agree with the resident's findings and plan as documented. SUBJECTIVE: OBJECTIVE: ASSESSMENT AND PLAN:
--- NOTE | 2019-04-13 15:15 | PN ---
Teaching Attending Note Name of Resident: Chi Artis ATTENDING PHYSICIAN STATEMENT I saw and evaluated the patient. I reviewed the resident's note and discussed the case with the resident. I agree with the resident's findings and plan as documented. SUBJECTIVE: no fever or chills. No SMITH . feels tired. pain in L hip OBJECTIVE: NAD, awake, alert, pleasant . MMM. No facial droop CV: RRR, + JVD. 3/6 Sm at [facility] with radiation to carrotid Lungs: crackles and wheezes b/l Abd: soft, NT, ND , NL BS Ext : 1 + edema on both LE , no erythema,no tenderness MS: TTp in L lateral hip ASSESSMENT AND PLAN: 88 y/o lady with h/o A fib , not on Ac, h/o recent L hip Fx, Mod--severe , chronic diastolic heart failure,recurrent falls and OA, who presented with a fall. 1- Mechanical fall: CT reviewed new Fractures and faisal penetrating through the femoral head. - ortho consult - d/W surgical PA, will probably need a total hip replacement, but high risk for sx . will try to contact [facility] to arrange fro transfer 2- UTI: urine cx reviewed. final sensitivity in - switch to keflex 3- Acute diastolic heart failure exacerbation: - due to signs of volume overload, will give IV lasix today 4- chronic macrocytic anemia : being followed by heme as out pt . Might have Bone marrow pathology - s/p RBC transfusion here - cont f/u as out p t 5- Mod- severe : f/u as out pt . 6- H/o A fib: not on any AC or asa due to falls. - not on BB due to hypotension 7- DVT PX : heaprin SQ will try to call [facility] and discuss with ortho
--- NOTE | 2019-04-13 15:34 | PN ---
Progress Note (short form) - Note Progress Note: Orthopedic team 88Y f admitted for periprosthetic L hip fracture. Pt was seen at [facility] for her previous hip injury but was deemed to medically unstable to be treated at a community facility necessitating transfer. She underwent surgery at [facility] and has been followed there since then. During this visit, patient admitted with periprosthetic hip fracture. Patient requires complex revision surgery best performed at [facility]. Recommend transfer in a timely fashion for further management.
[2019-04-13] MEDS: ACETAMINOPHEN 325 MG TABLET (FP) PO PRN (21:14)
[2019-04-13 21:55] VITALS: BP 115/52; PULSE 92; TEMP 98.3
[2019-04-13] MEDS ORDERED: ATORVASTATIN CA 10 MG TABLET (FP) PO SCH (22:00)
== END 2019-04-13 22:32 | disposition short-term general hospital (02) | DRG 559 ==
LOC: JER 09:37 → JERBED 13:06 → J7W 16:52
PROVIDERS: ADMIT Internal Medicine; ATTEND Internal Medicine
DX: M97.02XA Periprosthetic fracture around internal prosthetic left hip joint, initial encounter (principal); S72.092A Other fracture of head and neck of left femur, initial encounter for closed fracture; I50.33 Acute on chronic diastolic (congestive) heart failure; N39.0 Urinary tract infection, site not specified; I48.91 Unspecified atrial fibrillation; E78.5 Hyperlipidemia, unspecified; E87.70 Fluid overload, unspecified; D32.9 Benign neoplasm of meninges, unspecified; I35.0 Nonrheumatic aortic (valve) stenosis; D53.9 Nutritional anemia, unspecified; W19.XXXA Unspecified fall, initial encounter; Z96.642 Presence of left artificial hip joint
CPT/HCPCS: 36415; 36430; 70450-TC; 71045-TC-FY; 72125-TC; 72192-TC; 73523-TC-FY; 73560-TC-LT-FY; 73590-TC-LT-FY; 80048; 80053; 81003; 82247; 82272; 82550; 82553; 82607; 82746; 82803; 83735; 83880; 84100; 84484; 85025; 85027; 85610; 85730; 86850; 86900; 86901; 86922; 87086; 87186; 93005; 93010; 94640; 97116-GP; 97162-GP; 99283-25; J0131; J1644; P9038; P9058

== ENCOUNTER 2019-04-26 14:26 | Inpatient (IN) | payer OTHER, MEDICARE ==
--- NOTE | 2019-04-26 16:46 | PDOC ---
History of Present Illness - General Chief Complaint: Blood Transfusion Stated Complaint: Abnormal Lab Results (Outside) Time Seen by Provider: 04/26/19 16:46 Past History - Past Medical History Allergies/Adverse Reactions: Allergies Allergy/AdvReac Type Severity Reaction Status Date / Time warfarin Allergy Mild dizzy Verified 04/11/19 10:11 Home Medications: Ambulatory Orders Multivitamin/Iron/Folic Acid [Centrum Adults Tablet] 1 tab PO DAILY 04/29/17 Furosemide 40 mg PO DAILY 11/07/18 Metoprolol Succinate 25 mg PO DAILY 04/12/19 Omeprazole 40 mg PO DAILY 04/12/19 Simvastatin 20 mg PO HS 04/12/19 predniSONE [Deltasone -] 3 mg PO DAILY 04/12/19 Acetaminophen 650 mg PO BID 04/26/19 Ferrous Sulfate 325 mg PO BID 04/26/19 Lanolin [Lantiseptic] 113 gm TP QSHIFT 04/26/19 Oxycodone HCl 5 mg PO Q4H PRN 04/26/19 Pantoprazole Sodium 40 mg PO DAILY 04/26/19 Anemia: Yes Asthma: No Cancer: No Cardiac Disorders: Yes (afib) CVA: No COPD: No CHF: No Dementia: No Diabetes: No GI Disorders: No Disorders: No HTN: No Hypercholesterolemia: Yes Liver Disease: No Seizures: No Thyroid Disease: No - Surgical History Abdominal Surgery: No Appendectomy: Yes (1949) Cardiac Surgery: No Cholecystectomy: No Lung Surgery: No Neurologic Surgery: No Orthopedic Surgery: Yes (lft partial hip replacement October 2018) - Immunization History Immunization Up to Date: Yes - Psycho Social/Smoking Cessation Hx Smoking History: Never smoked Have you smoked in the past 12 months: No If you are a former smoker, when did you quit?: 1949 Information on smoking cessation initiated: No Hx Alcohol Use: No Drug/Substance Use Hx: No Substance Use Type: None *Physical Exam - Vital Signs Last Vital Signs Temp Pulse Resp BP Pulse Ox 100.1 F H 81 18 93/57 L 95 04/26/19 15:08 04/26/19 15:08 04/26/19 15:08 04/26/19 15:08 04/26/19 15:08 ED Treatment Course - LABORATORY CBC & Chemistry Diagram: 04/26/19 23:52 04/27/19 07:38 Medical Decision Making - Medical Decision Making HPI: 88 yo F with PMH of anemia requiring transfusions, Afib (on ASA), arthritis [facility]. Patient is unsure why she has anemia. Denies chest pain or shortness of breath, but reports weakness/ lightheadedness for the past two weeks. Has been transfused multiple times. Was recently admitted to this hospital for fall and left hip fracture and was ultimately transferred to [place]. Was discharged to [facility] for rehab. No fevers or chills. ROS: Constitutional: no fever, no chills HEENT: no throat pain, no dysphagia Cardiovascular: no chest pain, no palpitations Respiratory: no cough, no shortness of breath Gastrointestinal: no abdominal pain, no nausea Genitourinary: no dysuria, no hematuria Musculoskeletal: no myalgia, no arthralgia Skin: no rash, no itching Neurologic: no headache, +weakness PE: General: Awake, alert, and fully oriented, in no acute distress Head: No signs of trauma Eyes: EOMI, sclera anicteric ENT: Moist mucus membranes Neck: Normal ROM, supple Lungs: Faint crackles at the bases Cardio: Irregular rhythm, S1 and S2 present Abdomen: Soft, nontender. No guarding, no rebound, no masses Extremities: Normal range of motion, Distal pulses present SKIN: Warm, Dry, normal turgor Neurologic: Cranial nerves II through XII grossly intact. Normal speech Rectal: The perianal skin is with mild erythema but no skin breakdown. No external hemorrhoids, fissures, skin tags, warts, or discharge. Sphincter tone normal. There are no masses palpated on digital exam. ED Course/MDM: DDX including but not limited to anemia, GI bleed, ACS, PNA, CHF Temp 100.1; will obtain UA/Ucx Labs, EKG, CXR CBC WBC 4.4 K/mm3 (4.0-10.0) 04/26/19 17:45 RBC 1.87 M/mm3 (3.60-5.2) L 04/26/19 17:45 Hgb 6.5 GM/dL (10.7-15.3) L* 04/26/19 17:45 Hct 19.4 % (32.4-45.2) L D 04/26/19 17:45 MCV 103.4 fl (80-96) H 04/26/19 17:45 MCH 34.6 pg (25.7-33.7) H D 04/26/19 17:45 MCHC 33.4 g/dl (32.0-36.0) 04/26/19 17:45 RDW 21.9 % (11.6-15.6) H 04/26/19 17:45 Plt Count 434 K/MM3 (134-434) 04/26/19 17:45 MPV 7.4 fl (7.5-11.1) L 04/26/19 17:45 Absolute Neuts (auto) 2.7 K/mm3 (1.5-8.0) 04/26/19 17:45 Neutrophils % 62.0 % (42.8-82.8) 04/26/19 17:45 Lymphocytes % 24.8 % (8-40) D 04/26/19 17:45 Monocytes % 9.6 % (3.8-10.2) 04/26/19 17:45 Eosinophils % 2.4 % (0-4.5) 04/26/19 17:45 Basophils % 1.2 % (0-2.0) 04/26/19 17:45 Nucleated RBC % 0 % (0-0) 04/26/19 17:45 Hgb low at 6.5 No leukocytosis Patient signed consent for blood 04/26/19 18:32 CMP Sodium 138 mmol/L (136-145) 04/26/19 17:34 Potassium 3.7 mmol/L (3.5-5.1) 04/26/19 17:34 Chloride 101 mmol/L (98-107) 04/26/19 17:34 Carbon Dioxide 30 mmol/L (21-32) 04/26/19 17:34 Anion Gap 7 MMOL/L (8-16) L 04/26/19 17:34 BUN 19.7 mg/dL (7-18) H 04/26/19 17:34 Creatinine 0.4 mg/dL (0.55-1.3) L 04/26/19 17:34 Est GFR (CKD-EPI)AfAm 107.03 04/26/19 17:34 Est GFR (CKD-EPI)NonAf 92.34 04/26/19 17:34 Random Glucose 89 mg/dL (74-106) 04/26/19 17:34 Calcium 8.0 mg/dL (8.5-10.1) L 04/26/19 17:34 Total Bilirubin 0.8 mg/dL (0.2-1) 04/26/19 17:34 AST 18 U/L (15-37) 04/26/19 17:34 ALT 16 U/L (13-61) 04/26/19 17:34 Alkaline Phosphatase 99 U/L (45-117) 04/26/19 17:34 Creatine Kinase 21 U/L (26-192) L 04/26/19 17:34 Troponin I < 0.02 ng/ml (0.00-0.05) 04/26/19 17:34 Total Protein 5.2 g/dl (6.4-8.2) L 04/26/19 17:34 Albumin 2.8 g/dl (3.4-5.0) L 04/26/19 17:34 Electrolytes unremarkable Tpn undetectable EKG: rate 73, Qtc 453, Afib, incomplete RBBB also seen on previous EKG on CXR as read by radiology: "A single AP view of the chest has been submitted. There is a large heart, unfolded aorta and congestive changes. An early infiltrate at the bases cannot be excluded. The angles are sharp. The soft tissues are intact. There are degenerative changes in the spine and shoulders along with possible old trauma involving the AC joints. If symptoms persist, further imaging with CT may be of help. " Plan for admission MB sent 04/26/19 18:55 Patient signed out to Dr. De Leon and night team Discharge - Discharge Information Problems reviewed: Yes Clinical Impression/Diagnosis: Anemia requiring transfusions Condition: Guarded - Admission Yes - Follow up/Referral - Patient Discharge Instructions - Post Discharge Activity
[2019-04-26 18:13] LABS: BASO % 1.2 % (0-2.0); EOS % 2.4 % (0-4.5); HEMATOCRIT 19.4 % (32.4-45.2); LYMPH % 24.8 % (8-40); MCH 34.6 pg (25.7-33.7); MCHC 33.4 g/dl (32.0-36.0); MEAN CELL VOLUME 103.4 fl (80-96); MEAN PLT VOLUME 7.4 fl (7.5-11.1); MONO % 9.6 % (3.8-10.2); PLATELET COUNT 434 K/MM3 (134-434); RBC 1.87 M/mm3 (3.60-5.2); RDW 21.9 % (11.6-15.6); WHITE BLOOD COUNT 4.4 K/mm3 (4.0-10.0)
[2019-04-26 18:15] LABS: HEMOGLOBIN 6.5 GM/dL (10.7-15.3)
--- NOTE | 2019-04-26 18:18 | PDOC ---
Attending Attestation - Resident Resident Name: Brit Narayan - ED Attending Attestation I have performed the following: I have examined & evaluated the patient, The case was reviewed & discussed with the resident, I agree w/resident's findings & plan, Exceptions are as noted - HPI HPI: 04/26/19 18:17 88yo F hx anemia, af on asa, chf, hip fracture s/p THR 1.5 weeks ago presents to the ED with low H/H. Feels general weakness, denies SOB, CP, dizziness Denies dark stools Denies fevers, chills, visual sxs, focal weakness, abd pain, N/V/D, urinary sxs , LE edema. Denies trauma - Physicial Exam PE: 04/26/19 18:56 agree with resident exam - Medical Decision Making 04/26/19 18:56 88yo F with hx transfusion dependent anemia presents to the ED with outpt low H/ H associated with generalized weakness Rectal temp 100.1, BP 93/57. H/H today is 6.5/19.4, will transfuse 1 unit Hypotension could be 2/2 to anemia vs infection. Lungs are clear, pt has no cough or hypoxia to suggest PNA. Will check UA Anticipate admission Heart Score/ECG Review #1 04/26/19 18:58 Twelve-lead EKG was performed and reviewed by me. Atrial fibrillation, rate 73. Normal axis. No ST elevations.
[2019-04-26 18:28] LABS: INR 1.24 (0.83-1.09); PROTHROMBIN TIME (PATIENT) 14.7 SEC (9.7-13.0)
[2019-04-26 18:31] LABS: ACTIVATED PTT 32.2 SECONDS (25.2-36.5)
[2019-04-26 18:49] LABS: ALBUMIN 2.8 g/dl (3.4-5.0); ALK PHOS 99 U/L (45-117); ANION GAP 7 MMOL/L (8-16); BILIRUBIN,TOTAL 0.8 mg/dL (0.2-1); BLOOD UREA NITROGEN 19.7 mg/dL (7-18); CHLORIDE 101 mmol/L (98-107); CO2 30 mmol/L (21-32); CREATININE 0.4 mg/dL (0.55-1.3); GLUCOSE,RANDOM 89 mg/dL (74-106); POTASSIUM 3.7 mmol/L (3.5-5.1); SGOT/AST 18 U/L (15-37); SGPT/ALT 16 U/L (13-61); SODIUM 138 mmol/L (136-145); TOT PROT 5.2 g/dl (6.4-8.2)
--- NOTE | 2019-04-26 19:25 | PN ---
Teaching Attending Note Name of Resident: Rachid Vernon ATTENDING PHYSICIAN STATEMENT I saw and evaluated the patient. I reviewed the resident's note and discussed the case with the resident. I agree with the resident's findings and plan as documented. SUBJECTIVE: Patient is an 88 year old woman with PMH of Anemia requiring transfusions, Afib (on ASA), Recent left hip replacement and Arthritis presenting from [place] for evaluation of low hemoglobin. Patient is unsure why she has anemia. Denies chest pain or shortness of breath, but reports weakness/lightheadedness for the past two weeks. Has been transfused multiple times - recently last month. Unclear if he had anemia workup. Was recently admitted to this hospital for fall and left hip fracture and was ultimately transferred to [place]. Was discharged to [facility] for rehab. No fevers, chills, headache, abdominal pain, dysuria, frequency, diarrhea or constipation. ?Daily wine drinker. Nonsmoker and denies illicit drug use. OBJECTIVE: Alert Vital Signs Period Temp Pulse Resp BP Sys/Jay Pulse Ox Last 24 Hr 100.1 F 74-81 18-18 93-99/56-57 95-97 HEENT: No Jaundice, eye redness or discharge, PERRLA, EOMI. Normocephalic, atraumatic. External ears are normal and hearing is grossly intact. No nasal discharge. Neck: Supple, nontender. No palpable adenopathy or thyromegaly. No JVD Chest: Good effort. Clear to auscultation and percussion. Heart: Irregularly irregular. No S3, rub or murmur Abdomen: Not distended, soft, nontender and no HSM. No rebound or guarding. Normal bowel sounds. Ext: Peripheral pulses intact. No leg edema. Skin: Warm and dry. No petechiae, rash or ecchymosis. Neuro: Alert. Oriented x3. CN 2-12 grossly intact. Sensation grossly intact in all four extremities and DTR are symmetric. Psych: Appropriate mood and affect. Good insight. Home Medications Medication Instructions Recorded Multivitamin/Iron/Folic Acid 1 tab PO DAILY 04/29/17 [Centrum Adults Tablet] Furosemide 40 mg PO DAILY 11/07/18 Metoprolol Succinate 25 mg PO DAILY 04/12/19 Omeprazole 40 mg PO DAILY 04/12/19 Simvastatin 20 mg PO HS 04/12/19 predniSONE [Deltasone -] 3 mg PO DAILY 04/12/19 Abnormal Lab Results 04/26/19 04/26/19 04/26/19 17:34 17:45 17:45 RBC 1.87 L Hgb 6.5 L* Hct 19.4 L D MCV 103.4 H MCH 34.6 H D RDW 21.9 H MPV 7.4 L PT with INR 14.70 H INR 1.24 H Anion Gap 7 L BUN 19.7 H Creatinine 0.4 L Calcium 8.0 L Creatine Kinase 21 L Total Protein 5.2 L Albumin 2.8 L Crossmatch 04/26/19 17:45 RBC Hgb Hct MCV MCH RDW MPV PT with INR INR Anion Gap BUN Creatinine Calcium Creatine Kinase Total Protein Albumin Crossmatch See Detail ASSESSMENT AND PLAN: 1. Severe anemia with macrocytosis - Etiology of anemia is unclear. Macrocytosis may be due to acute effects of alcohol. On going evaluation by hematology to rule out myelodysplastic syndrome. Recent Vitamin B12 and folate levels were normal. Will do basic anemia work up including serial stool guaiacs , reticulocyte count and iron studies. Consult Hematology. EKG shows Afib with rate of 73, IRBBB and no significant ST-T wave changes. CXR shows cardiomegaly, hilar prominence, congestive changes and possible bibasilar infiltrates. Patient has a low grade fever and normal WBC but since she is going to be transfused PRBC, we will first exclude an infection. Get UA and stat chest CT, repeat rectal temperature and WBC. Will continue comprehensive care for all of patients comorbid conditions inlcuding ASA for Afib. 2. Hypoalbuminemia - Possibly due to combined effects of malnutrition and inflammation associated with comorbid chronic conditions. Will ensure adequate dietary protein intake and also consult splicing supervisor. 3. DVT prophylaxis - Lovenox 40 mg SQ q 24 hours. 4. Advance directives - Full code
[2019-04-26 19:50] LABS: ANISOCYTOSIS 2+; MACROCYTOSIS 1+; OVALOCYTE 1+; PLATELET ESTIMATE NORMAL
--- NOTE | 2019-04-26 20:54 | HP ---
CHIEF COMPLAINT: PCP: Dr. Gloria Cardiology - Dr. Ceballos Hematology - Dr. Farooq HISTORY OF PRESENT ILLNESS: 88 y/o/f with PMhx of anemia, OA, a fib, frequent falls sent here [facility] for low hemoglobin. Patient was recently transferred to [facility] for Left hip replacement and was discharged to [facility] one week ago for rehab. She has been receiving PT while there but today was not feeling fell. States she felt lightheaded, shaky, weak. She had routine lab work done which revealed a low hemoglobin of 6.8 and patient was sent to the ER. While at [facility] she had three transfusions and has had transfusions previously as well. She denies any chest pain, SOB, dizziness, cough, fever, dysuria, hematuria, constipation, numbness or tingling. ER course was notable for: (1) Hgb of 6.5, one unit PRB ordered Recent Travel: none PAST MEDICAL HISTORY: anemia, OA, a fib, frequent falls PAST SURGICAL HISTORY: Appendectomy, Left hip total replacement Social History: Smoking: quit smoking 30 years ago Alcohol: 1-2 glasses of wine with dinner Drugs: denies Family Hx: arthritis on her mother's side and heart disease on her father's side Allergies warfarin Allergy (Mild, Verified 04/11/19 10:11) dizzy HOME MEDICATIONS: Home Medications Medication Instructions Recorded Multivitamin/Iron/Folic Acid 1 tab PO DAILY 04/29/17 [Centrum Adults Tablet] Furosemide 40 mg PO DAILY 11/07/18 Metoprolol Succinate 25 mg PO DAILY 04/12/19 Omeprazole 40 mg PO DAILY 04/12/19 Simvastatin 20 mg PO HS 04/12/19 predniSONE [Deltasone -] 3 mg PO DAILY 04/12/19 REVIEW OF SYSTEMS Constitutional: weak, shaky. denies fever, chills HEENT: denies neck pain, blurry vision Cardio: lightheaded. denies palpitations, chest pain Resp: denies wheezing, SOB GI: denies abd pain, nausea, vomiting, diarrhea, constipation : denies dysuria, hematuria MSK: lower back pain. denies joint pain, neck pain SKIN: denies rashes Neuro: denies loss of consciousness, headache, dizziness, numbness PHYSICAL EXAMINATION Vital Signs - 24 hr 04/26/19 04/26/19 15:08 18:56 Temperature 100.1 F H Pulse Rate 81 Pulse Rate [ 74 Radial] Respiratory 18 18 Rate Blood Pressure 93/57 L Blood Pressure 99/56 L [Left Arm] O2 Sat by Pulse 95 97 Oximetry (%) GENERAL: Awake, alert, and fully oriented, in no acute distress. HEAD: NC/AT EYES: PERRL, EOMI EARS, NOSE, THROAT: Dry mucous membranes. Ears normal, nares patent, oropharynx clear without exudates. NECK: Normal range of motion, supple without lymphadenopathy, JVD, or masses. LUNGS: Breath sounds equal, clear to auscultation bilaterally. No wheezes, and no crackles. No accessory muscle use. HEART: Regular rate and rhythm, normal S1 and S2 without murmur, rub or gallop. ABDOMEN: Soft, nontender, not distended, normoactive bowel sounds, no guarding, no rebound, no masses. No hepatomegaly or splenomegaly. MUSCULOSKELETAL: mild tenderness to palpation over coccyx. Normal range of motion at all joints. No bony deformities. No CVA tenderness. UPPER EXTREMITIES: 2+ pulses, warm, well-perfused. No cyanosis. No clubbing. No peripheral edema. LOWER EXTREMITIES: 1+ non pitting edema of the legs bilaterally. 2+ pulses, warm , well-perfused. No calf tenderness NEUROLOGICAL: Cranial nerves II-XII intact. Normal speech. 5/5 strength upper and lower extremities PSYCHIATRIC: Cooperative. Good eye contact. Appropriate mood and affect. SKIN: diffuse ecchymosis on both forearms. clean, dry, dressing in place over left hip without surrounding erythema or signs of infection. No sacral ulcers or signs of skin breakdown noted on the back. Warm, dry, normal turgor, no rashes or lesions noted, normal capillary refill. Laboratory Results - last 24 hr 04/26/19 04/26/19 04/26/19 17:34 17:45 17:45 WBC 4.4 RBC 1.87 L Hgb 6.5 L* Hct 19.4 L D MCV 103.4 H MCH 34.6 H D MCHC 33.4 RDW 21.9 H Plt Count 434 MPV 7.4 L Absolute Neuts (auto) 2.7 Neutrophils % 62.0 Lymphocytes % 24.8 D Monocytes % 9.6 Eosinophils % 2.4 Basophils % 1.2 Nucleated RBC % 0 Hypochromia 0 Platelet Estimate Normal Platelet Comment Present Polychromasia 1+ Poikilocytosis 1+ Anisocytosis 2+ Microcytosis 1+ Macrocytosis 1+ Ovalocytes 1+ PT with INR 14.70 H INR 1.24 H PTT (Actin FS) 32.2 Sodium 138 Potassium 3.7 Chloride 101 Carbon Dioxide 30 Anion Gap 7 L BUN 19.7 H Creatinine 0.4 L Est GFR (CKD-EPI)AfAm 107.03 Est GFR (CKD-EPI)NonAf 92.34 Random Glucose 89 Calcium 8.0 L Total Bilirubin 0.8 AST 18 ALT 16 Alkaline Phosphatase 99 Creatine Kinase 21 L Troponin I < 0.02 Total Protein 5.2 L Albumin 2.8 L Stool Occult Blood Blood Type Antibody Screen Crossmatch 04/26/19 04/26/19 17:45 17:45 WBC RBC Hgb Hct MCV MCH MCHC RDW Plt Count MPV Absolute Neuts (auto) Neutrophils % Lymphocytes % Monocytes % Eosinophils % Basophils % Nucleated RBC % Hypochromia Platelet Estimate Platelet Comment Polychromasia Poikilocytosis Anisocytosis Microcytosis Macrocytosis Ovalocytes PT with INR INR PTT (Actin FS) Sodium Potassium Chloride Carbon Dioxide Anion Gap BUN Creatinine Est GFR (CKD-EPI)AfAm Est GFR (CKD-EPI)NonAf Random Glucose Calcium Total Bilirubin AST ALT Alkaline Phosphatase Creatine Kinase Troponin I Total Protein Albumin Stool Occult Blood Negative Blood Type A POSITIVE Antibody Screen Negative Crossmatch See Detail Imaging: CXR - congestive changes, early infiltrate at the bases with sharp angles Chest CT - Small R, trace L pleural effusion with compressive atelectasis. Tiny calcified granulomas in right lower lung EKG: A fib at 73 bpm. incomplete RBBB (present in previous EKGs). no acute ischemic changes noted. ASSESSMENT/PLAN: 88 y/o/f with PMhx of anemia, OA, a fib, frequent falls sent here from [facility] for low hemoglobin. Patient with recent total left hip replacement at [facility]. 1)Macrocytic anemia - b12, folate have been normal in the past -Patient seen by Dr. Horton in the past, has outpatient follow up with Dr. Farooq for hematology -Consider bone marrow biopsy to rule out myelodysplastic syndrome. -1 unit PRBC given, Hgb at 8.3 now. -trend Hgb/Hct. Transfuse as needed -Iron studies show low but within normal limits Iron, decreased TIBC, increased ferritin levels. transferrin pending -Stool occult negative -Continue Lasix for diuresis. 2)Hyperthermia - patient with rectal temp of 100.1, without elevated white count , rule out infectious causes -UA negative for UTI -Chest CT to rule out pneumonia -Patient afebrile now, monitor temp -monitor white count 3)Prophylaxis -SCDs -holding anticoagulation due to anemia 4)FEN -regular diet -1 unit PRBC given -will reconsider fluid needs after transfusion 5)Dispo -Admitted to med/surg Visit type - Emergency Visit Emergency Visit: Yes ED Registration Date: 04/26/19 Care time: The patient presented to the Emergency Department on the above date and was hospitalized for further evaluation of their emergent condition. - New Patient This patient is new to me today: Yes Date on this admission: 04/27/19 - Critical Care Critical Care patient: No ATTENDING PHYSICIAN STATEMENT I saw and evaluated the patient. I reviewed the resident's note and discussed the case with the resident. I agree with the resident's findings and plan as documented. SUBJECTIVE: OBJECTIVE: ASSESSMENT AND PLAN:
[2019-04-26] MEDS ORDERED: FUROSEMIDE 40 MG/4 ML INJECTABLE VIAL IVPUSH ONE (21:59)
[2019-04-26] MEDS ORDERED: oxyCODONE HCL 5 MG TABLET PO PRN (22:12)
[2019-04-26] MEDS ORDERED: FUROSEMIDE 40 MG/4 ML INJECTABLE VIAL ONE (22:16)
[2019-04-26 23:53] LABS: PH,URINE 7.5 (5.0-8.0); URINE APPEARANCE CLEAR; URINE BILIRUBIN NEGATIVE (NEGATIVE); URINE COLOR YELLOW; URINE GLUCOSE (UA) NEGATIVE (NEGATIVE); URINE KETONE NEGATIVE (NEGATIVE); URINE LEUK ESTERASE NEGATIVE (NEGATIVE); URINE NITRITE NEGATIVE (NEGATIVE); URINE PROTEIN NEGATIVE (NEGATIVE)
[2019-04-27 00:09] LABS: HEMATOCRIT 24.8 % (32.4-45.2); HEMOGLOBIN 8.3 GM/dL (10.7-15.3); MCH 33.6 pg (25.7-33.7); MCHC 33.4 g/dl (32.0-36.0); MEAN CELL VOLUME 100.7 fl (80-96); MEAN PLT VOLUME 7.7 fl (7.5-11.1); PLATELET COUNT 473 K/MM3 (134-434); RBC 2.46 M/mm3 (3.60-5.2); RDW 21.7 % (11.6-15.6); WHITE BLOOD COUNT 6.4 K/mm3 (4.0-10.0)
[2019-04-27 08:25] LABS: BLOOD UREA NITROGEN 16.7 mg/dL (7-18); CALCIUM 8.3 mg/dL (8.5-10.1); CREATININE 0.4 mg/dL (0.55-1.3); POTASSIUM 3.6 mmol/L (3.5-5.1)
[2019-04-27] MEDS: PANTOPRAZOLE 40 MG TABLET (FP) PO SCH (09:18)
[2019-04-27] MEDS: FERROUS SO4 325 MG TABLET (FP) PO SCH ×2 (09:18→21:40)
[2019-04-27] MEDS ORDERED: metoPROLOL SUCCINATE 25 MG TAB.SR.24H (FP) PO SCH (10:00)
[2019-04-27] MEDS ORDERED: FUROSEMIDE 40 MG TABLET (FP) PO SCH (10:00)
--- NOTE | 2019-04-27 11:02 | EKG ---
Test Reason : Blood Pressure : / mmHG Vent. Rate : 073 BPM Atrial Rate : 071 BPM P-R Int : 000 ms QRS Dur : 098 ms QT Int : 412 ms P-R-T Axes : 000 067 -01 degrees QTc Int : 453 ms ATRIAL FIBRILLATION INCOMPLETE RIGHT BUNDLE BRANCH BLOCK NONSPECIFIC ST ABNORMALITY ABNORMAL QRS-T ANGLE, CONSIDER PRIMARY T WAVE ABNORMALITY ABNORMAL ECG WHEN COMPARED WITH ECG OF 11-APR-2019 11:27, NO SIGNIFICANT CHANGE WAS FOUND Confirmed by ELBA BUNN MD ([id number]) on 04/27/2019 11:02:37 AM Referred By: Confirmed By:ELBA BUNN MD
--- NOTE | 2019-04-27 11:42 | CONSULT ---
Consult Consult Specialty:: Hematology and oncology Referred by:: Dr. Anguiano Reason for Consultation:: Macrocytic anemia - History of Present Illness Chief Complaint: generalized weakness, low Hb History of Present Illness: The patient is an 88 yo f w/ PMH anemia, OA, afib who comes into the ER from [facility] for generalized weakness, "shakiness" and a low Hb found on routine lab work. In the ER, the patient was found to have a macrocytic anemia to 6.5 and was admitted for further workup. She is s/p 1u PRBC. Hematology was consulted for assistance with further workup. On interview, the patient states that she feels better today after the blood. No other complaints. No events overnight. Patient states that she had been anemic in the past, but had not required a blood transfusion until recently. The patient was recently admitted to [facility] s/p fall with a hip fracture. During this admission, the patient states that she received 3 blood transfusions during this admission to "top up her blood" prior to surgery. Prior to this, the patient does not recall being transfused. The patient follows with Dr. Ceballos as an outpatient for her afib, who referred to to a neck band setter by the name of Dr. Farooq ([phone]) because her "blood counts keep dropping". Per the patient, Dr. Beltran did "some tests" and gave her an iron supplement. She was scheduled to follow up with her tomorrow. Patient has never had a colonoscopy to her knowledge. Patient has had a mammogram in the past, but does not recall the results of it. Patient denies any family history of anemia, blood disorders or cancer. - History Source History Provided By: Patient, Friend Limitations to Obtaining History: No Limitations - Past Medical History Cardio/Vascular: Yes: AFIB Heme/Onc: Yes: Anemia Musculoskeletal: Yes: Osteoarthritis - Alcohol/Substance Use Hx Alcohol Use: No - Smoking History Smoking history: Never smoked Have you smoked in the past 12 months: No If you are a former smoker, when did you quit?: 1950 Home Medications - Allergies Allergies/Adverse Reactions: Allergies Allergy/AdvReac Type Severity Reaction Status Date / Time warfarin Allergy Mild dizzy Verified 04/11/19 10:11 - Home Medications Home Medications: Ambulatory Orders Multivitamin/Iron/Folic Acid [Centrum Adults Tablet] 1 tab PO DAILY 04/29/17 Furosemide 40 mg PO DAILY 11/07/18 Metoprolol Succinate 25 mg PO DAILY 04/12/19 Omeprazole 40 mg PO DAILY 04/12/19 Simvastatin 20 mg PO HS 04/12/19 predniSONE [Deltasone -] 3 mg PO DAILY 04/12/19 Acetaminophen 650 mg PO BID 04/26/19 Ferrous Sulfate 325 mg PO BID 04/26/19 Lanolin [Lantiseptic] 113 gm TP QSHIFT 04/26/19 Oxycodone HCl 5 mg PO Q4H PRN 04/26/19 Pantoprazole Sodium 40 mg PO DAILY 04/26/19 Review of Systems - Review of Systems Constitutional: reports: Lethargy, Weakness Physical Exam Vital Signs: Vital Signs Temperature 98.1 F 04/27/19 09:05 Pulse Rate 90 04/27/19 09:17 Respiratory Rate 20 04/27/19 09:17 Blood Pressure 91/46 L 04/27/19 09:17 O2 Sat by Pulse Oximetry (%) 96 04/27/19 10:15 Constitutional: Yes: No Distress, Calm, Thin Eyes: Yes: Conjunctiva Clear, EOM Intact Cardiovascular: Yes: Pulse Irregular, Murmur (systolic murmur best heard in the mitral region), S1, S2. No: JVD, Gallop, Rub Respiratory: Yes: CTA Bilaterally Gastrointestinal: Yes: Normal Bowel Sounds, Soft Edema: No Neurological: Yes: Alert, Oriented, Cran Nerves II-XII Intact Psychiatric: Yes: Alert, Oriented Labs: CBC, BMP 04/26/19 23:52 04/27/19 07:38 Assessment/Plan Laboratory Tests 04/13/19 04/13/19 04/26/19 06:25 06:25 17:45 Iron 56 TIBC 215 L Iron Saturation 26 Unsaturated IBC 159 L Ferritin 734.6 H Vitamin B12 772 Serum Folate 25 H The patient is an 88 yo f w/ PMH anemia, OA, afib who comes into the ER from [facility] for generalized weakness, "shakiness" and a low Hb found on routine lab work. #Macrocytic Anemia Possibly 2/2 anemia of chronic inflammation, r/o MDS, other hematologic cause -Iron studies show normal iron saturation with a high ferritin, indicative of AOCI -B12 from 04/20 WNL -Will add on TSH -Liver ultrasound r/o passive congestion -Will send flow cytometry/FISH -suggest obtaining records from Dr. Farooq/ [facility] regarding existing anemia workup. -
--- NOTE | 2019-04-27 19:00 | PN ---
Teaching Attending Note Name of Resident: Chi Artis ATTENDING PHYSICIAN STATEMENT I saw and evaluated the patient. I reviewed the resident's note and discussed the case with the resident. I agree with the resident's findings and plan as documented. SUBJECTIVE: no fever or chills. No pain OBJECTIVE: NAD, awake, alert, pleasant. MMM. No facial droop CV: RRR, + JVD. 3/6 SM at RUSB with radiation to carotid Lungs:CTAB Abd: soft, NT, ND , NL BS Ext: no edema ASSESSMENT AND PLAN: 88 y/o lady with h/o A fib , not on Ac, h/o recent L hip Fx with hip replacement ,P Afib, Mod-severe , chronic diastolic heart failure,recurrent falls and OA, who presented fr [facility] fro anemia 1- Acute on chronic macrocytic anemia. 2- recent L hip replacement 3- Mod-severe 4- chronic Diastolic heart failure 5- h/o A fib ,not on AC due to falls , not even on asa 6- H/o hypotension Plan: - need to r/o MDS or other BM pathology as a cause for this anemia. B12 and folate were nl last admission - check TSH - heme consult - monitor after transfusion - hold home lasix due to hypotension . will reassess in am
--- NOTE | 2019-04-27 20:34 | PN ---
Teaching Attending Note Name of Resident: Bebe De Leon ATTENDING PHYSICIAN STATEMENT I saw and evaluated the patient. I reviewed the resident's note and discussed the case with the resident. I agree with the resident's findings and plan as documented. ASSESSMENT AND PLAN: The patient is an 88 yo f w/ PMH anemia, OA, afib who comes into the ER from [facility] for generalized weakness, "shakiness" and a low Hb found on routine lab work. In the ER, the patient was found to have a macrocytic anemia to 6.5 and was admitted for further workup. She is s/p 1u PRBC. . The patient was recently admitted to [facility] s/p fall with a hip fracture when she was transfused s/p transfusion with good response macrocytic anemia -- ? passive congestionof liver from CHF ? MDS U/S liver, s/o passive congestion [id number]. TSH needs to f/u with hematology prominent CBD -- follow up MRI/MRCP NEeds to f/u with Dr. Farooq as outpatient
[2019-04-27] MEDS: ATORVASTATIN CA 10 MG TABLET (FP) PO SCH (21:40)
--- NOTE | 2019-04-27 23:39 | PN ---
Physical Exam: SUBJECTIVE: Patient seen and examined at the bedside, there were no acute events overnight. HgB stabilized >8 after 1unit pRBCs. OBJECTIVE: Vital Signs Period Temp Pulse Resp BP Sys/Jay Pulse Ox Last 24 Hr 97.9 F-98.4 F 78-90 17-20 91-121/43-64 95-96 GENERAL: The patient is awake, alert, and fully oriented, in no distress. HEAD: Normal with no signs of trauma. EYES: PERRL, extraocular movements intact, sclera anicteric, conjunctiva clear. No ptosis. ENT: oropharynx clear without exudates, moist mucous membranes. LUNGS: Breath sounds equal, clear to auscultation bilaterally, no accessory muscle use. HEART: Regular rate and rhythm, S1, S2 with 3+ mumur ABDOMEN: Soft, nontender, nondistended, normoactive bowel sounds, no guarding, no rebound, no hepatosplenomegaly, no masses. EXTREMITIES: 2+ pulses, warm, well-perfused, no edema. L hip tenderness. Diffuse ecchymosis on both forearms. clean, dry, dressing in place over left hip without surrounding erythema or signs of infection. NEUROLOGICAL: Cranial nerves II-XII intact. Normal speech. 5/5 strength upper and lower extremities PSYCH: Normal mood, normal affect. SKIN: Warm, dry, normal turgor, echymosis noted on both arms Laboratory Results - last 24 hr 04/26/19 04/26/19 04/27/19 23:40 23:52 07:38 WBC 6.4 RBC 2.46 L Hgb 8.3 L Hct 24.8 L D MCV 100.7 H MCH 33.6 MCHC 33.4 RDW 21.7 H Plt Count 473 H MPV 7.7 Sodium 141 Potassium 3.6 Chloride 102 Carbon Dioxide 33 H Anion Gap 7 L BUN 16.7 Creatinine 0.4 L Est GFR (CKD-EPI)AfAm 107.03 Est GFR (CKD-EPI)NonAf 92.34 Random Glucose 85 Calcium 8.3 L TSH 1.91 Urine Color Yellow Urine Appearance Clear Urine pH 7.5 D Ur Specific [place] 1.007 L Urine Protein Negative Urine Glucose (UA) Negative Urine Ketones Negative Urine Blood Negative Urine Nitrite Negative Urine Bilirubin Negative Urine Urobilinogen 1.0 Ur Leukocyte Esterase Negative Active Medications Generic Name Dose Route Start Last Admin Trade Name Freq PRN Reason Stop Dose Admin Atorvastatin Calcium 10 mg 04/27/19 22:00 04/27/19 21:40 Lipitor - PO 10 mg HS ALEXA Administration Ferrous Sulfate 325 mg 04/27/19 10:00 04/27/19 21:40 Feosol - PO 325 mg BID ALEXA Administration Oxycodone HCl 5 mg 04/26/19 22:12 Roxicodone - PO Q4H PRN PAIN LEVEL 6-10 Pantoprazole Sodium 40 mg 04/27/19 10:00 04/27/19 09:18 Protonix - PO 40 mg DAILY ALEXA Administration Imaging: CXR - congestive changes, early infiltrate at the bases with sharp angles Chest CT - Small R, trace L pleural effusion with compressive atelectasis. Tiny calcified granulomas in right lower lung EKG: A fib at 73 bpm. incomplete RBBB (present in previous EKGs). no acute ischemic changes noted. ASSESSMENT/PLAN: 88 y/o/f with PMhx of anemia, OA, a fib, frequent falls sent here from [facility] for low hemoglobin. Patient with recent total left hip replacement at [facility]. 1)Macrocytic anemia - b12, folate have been normal in the past -Patient seen by Dr. Horton in the past, has outpatient follow up with Dr. Farooq for hematology -Consider bone marrow biopsy to rule out myelodysplastic syndrome. -1 unit PRBC given, Hgb at 8.3 now. -trend Hgb/Hct. Transfuse as needed - check TSH - heme consult, appreciate recommendations - holding home lasix due to hypotension, will reassess in morning. 2)Hyperthermia - patient with rectal temp of 100.1, without elevated white count , rule out infectious causes -UA negative for UTI, f/u ucx -Patient afebrile now, monitor temp -monitor white count 3)Prophylaxis -SCDs -holding anticoagulation due to anemia 4)FEN -regular diet -1 unit PRBC given -will reconsider fluid needs after transfusion 5)Dispo -Admitted to med/surg Visit type - Emergency Visit Emergency Visit: Yes ED Registration Date: 04/26/19 Care time: The patient presented to the Emergency Department on the above date and was hospitalized for further evaluation of their emergent condition. - New Patient This patient is new to me today: Yes Date on this admission: 04/28/19 - Critical Care Critical Care patient: No - Discharge Referral Referred to [facility] No ATTENDING PHYSICIAN STATEMENT I saw and evaluated the patient. I reviewed the resident's note and discussed the case with the resident. I agree with the resident's findings and plan as documented. SUBJECTIVE: OBJECTIVE: ASSESSMENT AND PLAN:
[2019-04-28] MEDS: PANTOPRAZOLE 40 MG TABLET (FP) PO SCH (09:24)
[2019-04-28] MEDS: FERROUS SO4 325 MG TABLET (FP) PO SCH ×2 (09:24→21:14)
[2019-04-28 09:46] LABS: BASO % 0.8 % (0-2.0); EOS % 2.6 % (0-4.5); HEMATOCRIT 25.8 % (32.4-45.2); HEMOGLOBIN 8.8 GM/dL (10.7-15.3); LYMPH % 19.9 % (8-40); MCH 34.3 pg (25.7-33.7); MCHC 34.3 g/dl (32.0-36.0); MEAN PLT VOLUME 7.7 fl (7.5-11.1); MONO % 8.3 % (3.8-10.2); NEUT % 68.4 % (42.8-82.8); PLATELET COUNT 482 K/MM3 (134-434); RBC 2.58 M/mm3 (3.60-5.2); RDW 22.8 % (11.6-15.6); WHITE BLOOD COUNT 5.3 K/mm3 (4.0-10.0)
[2019-04-28 10:40] LABS: ALBUMIN 3.1 g/dl (3.4-5.0); CALCIUM 8.3 mg/dL (8.5-10.1); CREATININE 0.5 mg/dL (0.55-1.3); MAGNESIUM 1.9 mg/dL (1.8-2.4); PHOSPHOROUS 3.1 mg/dL (2.5-4.9); POTASSIUM 3.7 mmol/L (3.5-5.1); TOT PROT 5.7 g/dl (6.4-8.2)
[2019-04-28] MEDS ORDERED: DEXTROSE 5%-WATER - 50 ML IVPB ONE (14:06)
[2019-04-28] MEDS ORDERED: cefTRIAXone SODIUM 1 GM VIAL ONE (14:06)
[2019-04-28] MEDS: CEFTRIAXONE 1 GM in DEXTROSE 5%-WATER - 50 ML IVPB SCH (14:14)
[2019-04-28] MEDS: FUROSEMIDE 40 MG TABLET (FP) PO SCH (16:09)
[2019-04-28 16:21] VITALS: BMI 21.4
[2019-04-28] MEDS ORDERED: ACETAMINOPHEN 325 MG TABLET (FP) PO PRN (16:23)
--- NOTE | 2019-04-28 17:15 | PN ---
Teaching Attending Note Name of Resident: Cristiana Bowman ATTENDING PHYSICIAN STATEMENT I saw and evaluated the patient. I reviewed the resident's note and discussed the case with the resident. I agree with the resident's findings and plan as documented. SUBJECTIVE: No fever or chills. no pain. no OSB . OBJECTIVE: NAD, awake, alert, pleasant. MMM. No facial droop CV: RRR, + JVD. 3/6 SM at RUSB with radiation to carotid Lungs:CTAB Abd: soft, NT, ND , NL BS Ext: no edema . L lateral hip with a dressing over sx site ASSESSMENT AND PLAN: 88 y/o lady with h/o A fib , not on Ac, h/o recent L hip Fx with hip replacement ,P Afib, Mod-severe , chronic diastolic heart failure,recurrent falls and OA, who presented fr om [facility] fro anemia 1- Acute on chronic macrocytic anemia. 2- recent L hip replacement 3- Mod-severe 4- chronic Diastolic heart failure 5- h/o A fib ,not on AC due to falls , not even on asa 6- H/o hypotension 7- fever on admission 8- prominant pancreatic duct Plan: - due to fever or admission and urine cx growing group D strep, will start CTX. follow sensitivity. will not treat the G-R ( low colony ) - case was d/w her ortho at [facility]. dressing to be removed today. [place] to be removed as well - case was d/w withortho, she is to be evaluated and surjit to eb removed - need to r/o MDS or other BM pathology as a cause for this anemia. f/u with her lab nurse - will have her get MRI of pancreas with IV pina as out pt . no active or acute issues now - resume home lasix Dispo : depends on u cx . hopefully tomorrow can return
--- NOTE | 2019-04-28 19:44 | PN ---
Physical Exam: SUBJECTIVE: Patient seen and examined at the bedside, there were no acute events overnight. OBJECTIVE: Vital Signs Period Temp Pulse Resp BP Sys/Jay Pulse Ox Last 24 Hr 97.4 F-98.4 F 67-84 18-24 92-113/42-62 GENERAL: The patient is awake, alert, and fully oriented, in no distress. HEAD: Normal with no signs of trauma. EYES: PERRL, extraocular movements intact, sclera anicteric, conjunctiva clear. No ptosis. ENT: oropharynx clear without exudates, moist mucous membranes. LUNGS: Breath sounds equal, clear to auscultation bilaterally, no accessory muscle use. HEART: Regular rate and rhythm, S1, S2 with 3+ mumur ABDOMEN: Soft, nontender, nondistended, normoactive bowel sounds, no guarding, no rebound, no hepatosplenomegaly, no masses. EXTREMITIES: 2+ pulses, warm, well-perfused, no edema. L hip tenderness. Diffuse ecchymosis on both forearms. dressing taken down, incision site c/d/i without erythema and exudates. [place] in plce NEUROLOGICAL: Cranial nerves II-XII intact. Normal speech. 5/5 strength upper and lower extremities PSYCH: Normal mood, normal affect. SKIN: Warm, dry, normal turgor, echymosis noted on both arms Laboratory Results - last 24 hr 04/26/19 04/27/19 04/28/19 17:45 07:38 09:00 WBC 5.3 RBC 2.58 L Hgb 8.8 L Hct 25.8 L MCV 100.0 H MCH 34.3 H MCHC 34.3 RDW 22.8 H Plt Count 482 H MPV 7.7 Absolute Neuts (auto) 3.6 Neutrophils % 68.4 Lymphocytes % 19.9 Monocytes % 8.3 Eosinophils % 2.6 Basophils % 0.8 Nucleated RBC % 0 Haptoglobin 25 L Sodium Potassium Chloride Carbon Dioxide Anion Gap BUN Creatinine Est GFR (CKD-EPI)AfAm Est GFR (CKD-EPI)NonAf Random Glucose Calcium Phosphorus Magnesium Total Bilirubin AST ALT Alkaline Phosphatase Total Protein Albumin Vitamin B12 TSH 1.91 04/28/19 09:00 WBC RBC Hgb Hct MCV MCH MCHC RDW Plt Count MPV Absolute Neuts (auto) Neutrophils % Lymphocytes % Monocytes % Eosinophils % Basophils % Nucleated RBC % Haptoglobin Sodium 139 Potassium 3.7 Chloride 101 Carbon Dioxide 31 Anion Gap 7 L BUN 16.0 Creatinine 0.5 L Est GFR (CKD-EPI)AfAm 99.45 Est GFR (CKD-EPI)NonAf 85.81 Random Glucose 112 H Calcium 8.3 L Phosphorus 3.1 Magnesium 1.9 Total Bilirubin 1.0 AST 21 ALT 19 Alkaline Phosphatase 113 Total Protein 5.7 L Albumin 3.1 L Vitamin B12 916 TSH Active Medications Generic Name Dose Route Start Last Admin Trade Name Freq PRN Reason Stop Dose Admin Acetaminophen 650 mg 04/28/19 16:23 04/28/19 17:31 Tylenol - PO 650 mg Q6H PRN Administration Fever Or Pain 1-5 Atorvastatin Calcium 10 mg 04/27/19 22:00 04/27/19 21:40 Lipitor - PO 10 mg HS ALEXA Administration Ferrous Sulfate 325 mg 04/27/19 10:00 04/28/19 09:24 Feosol - PO 325 mg BID ALEXA Administration Furosemide 40 mg 04/28/19 15:30 04/28/19 16:09 Lasix - PO 40 mg DAILY ALEXA Administration Ceftriaxone Sodium 1 gm/ 50 mls @ 200 mls/hr 04/28/19 13:00 04/28/19 14:14 Dextrose IVPB 200 mls/hr DAILY ALEXA Administration Protocol Oxycodone HCl 5 mg 04/26/19 22:12 Roxicodone - PO Q4H PRN PAIN LEVEL 6-10 Pantoprazole Sodium 40 mg 04/27/19 10:00 04/28/19 09:24 Protonix - PO 40 mg DAILY ALEXA Administration Imaging: CXR - congestive changes, early infiltrate at the bases with sharp angles Chest CT - Small R, trace L pleural effusion with compressive atelectasis. Tiny calcified granulomas in right lower lung EKG: A fib at 73 bpm. incomplete RBBB (present in previous EKGs). no acute ischemic changes noted. ASSESSMENT/PLAN: 88 y/o/f with PMhx of anemia, OA, a fib, frequent falls sent here from [facility] for low hemoglobin. Patient with recent total left hip replacement at [facility]. 1)Macrocytic anemia - b12, folate have been normal in the past -Patient seen by Dr. Horton in the past, has outpatient follow up with Dr. Farooq for hematology -Consider bone marrow biopsy to rule out myelodysplastic syndrome. -1 unit PRBC given, Hgb at 8.3 now. -trend Hgb/Hct. Transfuse as needed - check TSH - heme consult, appreciate recommendations - resume home lasix 2)Hyperthermia - patient with rectal temp of 100.1, without elevated white count , rule out infectious causes -UA negative - urine cx growing group D strep, will start CTX. F/U sensitivity. -Patient afebrile now, monitor temp -monitor white count 3) S/P L total hip arthoplasty - case was d/w her orthopedic surgeon Dr. Mcneil at [facility], per his instructions I took down dressing and inspected surgical site which was c/d/i without erythema or exudate. Staple line still in place. Consult placed to ortho , discussed with Dr. Valle, appreciate recommendations. - Guillaume to be removed prior to discharge - PT consult 4)Prophylaxis -SCDs -holding anticoagulation due to anemia 5)FEN -regular diet -1 unit PRBC given -will reconsider fluid needs after transfusion 6)Dispo -pending urine culture, hopefully can return to long term in next 1-2 days. Visit type - Emergency Visit Emergency Visit: Yes ED Registration Date: 04/26/19 Care time: The patient presented to the Emergency Department on the above date and was hospitalized for further evaluation of their emergent condition. - New Patient This patient is new to me today: No - Critical Care Critical Care patient: No - Discharge Referral Referred to [facility] Med P.C.: No ATTENDING PHYSICIAN STATEMENT I saw and evaluated the patient. I reviewed the resident's note and discussed the case with the resident. I agree with the resident's findings and plan as documented. SUBJECTIVE: OBJECTIVE: ASSESSMENT AND PLAN:
[2019-04-28] MEDS: ATORVASTATIN CA 10 MG TABLET (FP) PO SCH (21:14)
[2019-04-29 08:20] LABS: BASO % 1.3 % (0-2.0); EOS % 5.2 % (0-4.5); HEMATOCRIT 23.4 % (32.4-45.2); HEMOGLOBIN 8.1 GM/dL (10.7-15.3); MCH 34.8 pg (25.7-33.7); MCHC 34.7 g/dl (32.0-36.0); MEAN CELL VOLUME 100.2 fl (80-96); MEAN PLT VOLUME 7.4 fl (7.5-11.1); MONO % 9.7 % (3.8-10.2); NEUT % 69.8 % (42.8-82.8); PLATELET COUNT 417 K/MM3 (134-434); RBC 2.33 M/mm3 (3.60-5.2); RDW 21.7 % (11.6-15.6); WHITE BLOOD COUNT 3.9 K/mm3 (4.0-10.0)
[2019-04-29 08:53] LABS: ALBUMIN 2.8 g/dl (3.4-5.0); BILIRUBIN,TOTAL 0.8 mg/dL (0.2-1); BLOOD UREA NITROGEN 11.9 mg/dL (7-18); CALCIUM 8.1 mg/dL (8.5-10.1); CREATININE 0.5 mg/dL (0.55-1.3); POTASSIUM 3.7 mmol/L (3.5-5.1); TOT PROT 5.3 g/dl (6.4-8.2)
[2019-04-29] MEDS ORDERED: cefTRIAXone SODIUM 1 GM VIAL ONE (09:02)
[2019-04-29] MEDS ORDERED: DEXTROSE 5%-WATER - 50 ML IVPB ONE (09:02)
[2019-04-29] MEDS: FERROUS SO4 325 MG TABLET (FP) PO SCH (10:27)
[2019-04-29] MEDS: CEFTRIAXONE 1 GM in DEXTROSE 5%-WATER - 50 ML IVPB SCH (10:29)
[2019-04-29] MEDS: PANTOPRAZOLE 40 MG TABLET (FP) PO SCH (10:29)
[2019-04-29] MEDS: FUROSEMIDE 40 MG TABLET (FP) PO SCH (14:52)
--- NOTE | 2019-04-29 14:54 | PN ---
Teaching Attending Note Name of Resident: Cristiana Bowman ATTENDING PHYSICIAN STATEMENT I saw and evaluated the patient. I reviewed the resident's note and discussed the case with the resident. I agree with the resident's findings and plan as documented. SUBJECTIVE: No fever or chills. No SMITH . no dysuria , no Hip pain. feels better OBJECTIVE: NAD, awake, alert, pleasant. MMM. No facial droop CV: RRR, + JVD. 3/6 SM at RUSB with radiation to carotid Lungs: CTAB Abd: soft, NT, ND , NL BS Ext: 1+ edema on legs L > R . L lateral hip with a surgical wound with surjit , no erythema. mild edema ASSESSMENT AND PLAN: 88 y/o lady with h/o A fib , not on Ac, h/o recent L hip Fx with hip replacement ,P Afib, Mod-severe , chronic diastolic heart failure,recurrent falls and OA, who presented fr om [facility] fro anemia 1- Acute on chronic macrocytic anemia. 2- Recent L hip replacement 3- Mod-severe 4- Chronic Diastolic heart failure 5- h/o A fib ,not on AC due to falls , not even on asa 6- H/o hypotension 7- fever on admission . 8- prominant pancreatic duct 9- Positive urine cx with no urinary sx Plan: - urine final urine cx with VRE. case was d/w Dr. Pratt.In absence of urinary sx and resolution of the fever with no abx , will not treat as UA was clean . will dc Abx - ortho was contacted this am again. surjit to be removed today - need to r/o MDS or other BM pathology as a cause for this anemia. f/u with her military technology specialist . Flow cytometry and FISH pending and needs to be followed - will have her get MRI of pancreas with IV pina as out pt . no active or acute issues now - cont home lasix Dispo :will dc back to her rehab if possible later today
--- NOTE | 2019-04-29 15:11 | PN ---
Progress Note (short form) - Note Progress Note: ID consult dictated imp/reccd asked to evaluate for UTI 88 yo female admitted with anemia 04/26 s/p recent hip surgery early April at [facility]-04/15 isolated temp 100.1 on admit no further fevers no dysuria ua is negative urine culture 2 organisms- vre and gnr asymptomatic bacteriuria- no need to treat urine culture will require contact isolation for the VRE anemia-per hematology s/p left hip fracture and surgery d/w hospitalist Problem List - Problems (1) Asymptomatic bacteriuria Code(s): R82.71 - BACTERIURIA (2) Anemia requiring transfusions Code(s): D64.9 - ANEMIA, UNSPECIFIED (3) Fracture of left hip Code(s): S72.002A - FRACTURE OF UNSP PART OF NECK OF LEFT FEMUR, INIT
[2019-04-29 15:28] VITALS: BP 120/69; PULSE 88; TEMP 98
--- NOTE | 2019-04-29 17:26 | DS ---
Physical Exam: SUBJECTIVE: Patient seen and examined at the bedside, there were no acute events overnight. Patient seen by orthopedic surgery today to have guillaume out. OBJECTIVE: Vital Signs Period Temp Pulse Resp BP Sys/Jay Pulse Ox Last 24 Hr 97.4 F-98.0 F 67-88 18-20 96-123/52-69 96-96 PHYSICAL EXAM GENERAL: The patient is awake, alert, and fully oriented, in no distress. HEAD: Normal with no signs of trauma. EYES: PERRL, extraocular movements intact, sclera anicteric, conjunctiva clear. No ptosis. ENT: oropharynx clear without exudates, moist mucous membranes. LUNGS: Breath sounds equal, clear to auscultation bilaterally, no accessory muscle use. HEART: Regular rate and rhythm, S1, S2 with 3+ mumur ABDOMEN: Soft, nontender, nondistended, normoactive bowel sounds, no guarding, no rebound, no hepatosplenomegaly, no masses. EXTREMITIES: 2+ pulses, warm, well-perfused, no edema. L hip tenderness. Diffuse ecchymosis on both forearms. dressing taken down, incision site c/d/i without erythema and exudates. [place] in plce NEUROLOGICAL: Cranial nerves II-XII intact. Normal speech. 5/5 strength upper and lower extremities PSYCH: Normal mood, normal affect. SKIN: Warm, dry, normal turgor, echymosis noted on both arms LABS Laboratory Results - last 24 hr 04/29/19 04/29/19 07:30 07:30 WBC 3.9 L RBC 2.33 L Hgb 8.1 L Hct 23.4 L MCV 100.2 H MCH 34.8 H MCHC 34.7 RDW 21.7 H Plt Count 417 MPV 7.4 L Absolute Neuts (auto) 2.7 Neutrophils % 69.8 Lymphocytes % 14.0 D Monocytes % 9.7 Eosinophils % 5.2 H D Basophils % 1.3 Nucleated RBC % 0 Sodium 139 Potassium 3.7 Chloride 102 Carbon Dioxide 33 H Anion Gap 5 L BUN 11.9 Creatinine 0.5 L Est GFR (CKD-EPI)AfAm 99.45 Est GFR (CKD-EPI)NonAf 85.81 Random Glucose 82 Calcium 8.1 L Total Bilirubin 0.8 AST 19 ALT 19 Alkaline Phosphatase 113 Total Protein 5.3 L Albumin 2.8 L Imaging: CXR - congestive changes, early infiltrate at the bases with sharp angles Chest CT - Small R, trace L pleural effusion with compressive atelectasis. Tiny calcified granulomas in right lower lung EKG: A fib at 73 bpm. incomplete RBBB (present in previous EKGs). no acute ischemic changes noted. HOSPITAL COURSE: Date of Admission:04/26/19 88 y/o/f with PMhx of anemia, OA, a fib, frequent falls sent here from [facility] center for low hemoglobin. Patient with recent total left hip replacement at [facility]. Patient transfused 1 unit pRBCs and hemoglobin stabilized ~8 for the remainder of her stay. The patient was recently hospitalized here after a fall and her labs at that time showed she had macrocytic anemia with normal B12 and Folate. The patient was seen by Dr. Horton and will need to follow up with Dr. Farooq, her admitting interviewer, for further work up of her macrocytic anemia and may possibly require a bone marrow biopsy in the future to rule out myelodysplastic syndrome. On admission the patient was also mildly febrile so a UA and Ucx were obtained. The UA was negative but the Ucx grew VRE EC Faecium. She was seen by ID and because she was asymptomatic we decided it was not necessary to treat with antibiotics at this time. She was also seen by orthopedic surgery while she was here to check on her surgical site and remove her guillaume. The patient was stabilized and [facility] Date of Discharge: 04/29/19 Minutes to complete discharge: 40 Discharge Summary Problems reviewed: Yes Reason For Visit: TRANSFUSION DEPENDENT ANEMIA Condition: Improved - Instructions Diet, Activity, Other Instructions: You were in the hospital because you had low blood pressure and you had low hemoglobin counts. While in the hospital you received 1 unit of red blood cells and your hemoglobin returned to an acceptable level and remained stable for the rest of your hospital stay. You also had some imaging done which showed some congestive changes and granulomas in your lungs, you will need to continue follow up with your primary care doctor to address these issues. We are not entirely sure why you keep having anemia. Your B12 and folate levels were normal. You will need to follow up with your admitting interviewer Dr. Farooq to do additional tests to find the reason for your anemia. While in the hospital we also took a urine culture which grew bacteria. An infectious disease doctor saw you and determined that because you do not have symptoms it was ok to not give antibiotics at this time. We also had our orthopedic surgeon see you because you missed your appointment with Dr. Mcneil since you came to the hospital. Our surgeon removed your guillaume but you should still have a follow up appointment with Dr. Mcneil to make sure your hip is healing well. Please continue taking all of your home medications as prescribed. Please follow up with the following doctors within 1 week of discharge from the hospital: - Dr. Farooq, your admitting interviewer to continue further tests and studies to figure out the cause of your anemia - Dr. Mcneil, your surgeon to make sure your hip is healing appropriately - Dr. Gloria, your [facility] doctor to follow up on your imaging and lab work If you experience dizziness, lightheadedness, falls, chest pains, or shortness of breath please return to the Emergency Department immediately flow cytometry and FISh studies need to be followed by your admitting interviewer. results are pending at this time Referrals: Sukhwinder Cooper [Other] Elaine Farooq MD [Staff Physician] - 1 Week Maggie Gloria MD [Non Staff, Medical] - 1 Week Disposition: [facility] - Home Medications Comprehensive Discharge Medication List: Ambulatory Orders Multivitamin/Iron/Folic Acid [Centrum Adults Tablet] 1 tab PO DAILY 04/29/17 Furosemide 40 mg PO DAILY 11/07/18 Metoprolol Succinate 25 mg PO DAILY 04/12/19 Simvastatin 20 mg PO HS 04/12/19 Acetaminophen 650 mg PO BID 04/26/19 Ferrous Sulfate 325 mg PO BID 04/26/19 Lanolin [Lantiseptic] 113 gm TP QSHIFT 04/26/19 Oxycodone HCl 5 mg PO Q4H PRN 04/26/19 Pantoprazole Sodium 40 mg PO DAILY 04/26/19 This patient is new to me today: No Emergency Visit: No Critical Care patient: No - Discharge Referral Referred to [facility] Med P.C.: No ATTENDING PHYSICIAN STATEMENT I saw and evaluated the patient. I reviewed the resident's note and discussed the case with the resident. I agree with the resident's findings and plan as documented. SUBJECTIVE: OBJECTIVE: ASSESSMENT AND PLAN:
--- NOTE | 2019-04-29 19:09 | CONS ---
DATE OF CONSULTATION: INFECTIOUS DISEASE CONSULTATION DATE OF DICTATION: 04/29/2019 REFERRING PHYSICIAN: Hospitalist Service CONSULTING PHYSICIAN: Cristopher Saldana M.D. HISTORY OF PRESENT ILLNESS: This is an 88-year-old female who is status post recent fall with left hip surgery. She was originally admitted to [facility] and transferred to [facility] for her hip surgery. She is now admitted from the rehabilitation facility for anemia. She has been seen by hematology, and she has gotten transfusions, doing well. I am asked to see her for a positive urine culture. She has no dysuria. She has no symptoms, no frequency. She has no fevers. On admission, she had a temperature of 100.1. Her urine culture is growing both VRE and gram-negative rods. She otherwise feels well and is hoping to go back to her rehabilitation. PAST MEDICAL HISTORY: Notable for atrial fibrillation. She has a history of hip fracture, and she had surgery April [address] [facility]. She has aortic stenosis, she has a history of anemia. She has a history of diastolic heart failure. She has had recurrent falls, in fact she reports her original surgery was about 6 months earlier when she fell and fractured the hips. It was the 2nd fracture on the same hip. She has a history of appendectomy as well. There is no history of cigarette, alcohol, or substance use; prior to the fall and hip fracture she was living at home. She is allergic to WARFARIN, and her medications at home include ferrous sulfate, simvastatin, pantoprazole, oxycodone, metoprolol, furosemide. REVIEW OF SYSTEMS: She has no cough . She has no fever. She has no nausea, vomiting, diarrhea, or dysuria . She has no abdominal pain. Her white count on admission was 4.4 with hemoglobin of 6.5. She now has a white count of 3.9 with a hemoglobin of 8.1, platelets of 417. Her BUN and creatinine are 11 and 0.5. Liver function tests are normal. Urinalysis is negative. No leukocytes or nitrates. Urine blood cultures are negative, and urine culture has 80,000 VRE and 10,000 gram negative rods. Chest x-ray was done, and she has a large heart with some congestion. IMPRESSION: 1. In summary, this was a very pleasant 88-year-old woman. I am asked to evaluate for urinary tract infection. Suspect this is more consistent with a symptomatic bacteruria. No need to treat the urine culture, but she will require isolation for the vancomycin-resistant Enterobacteriaceae. I discussed these findings with her and her friend who is in the room. 2. Anemia, management per hematology. 3. Status post left hip surgery, hip fracture. Case was discussed with the hospitalist. Please call back if needed. CRISTOPHER SALDANA M.D. [id number]
--- NOTE | 2019-04-30 11:32 | PN ---
Progress Note (short form) - Note Progress Note: Called for L hip wound inspection, removal of surjit. Pt seen in bed. Comfortable. Notes pain with hip ROM. No numbness or tingling. No pain elsewhere. PE AFVSS LLE wounds CDI stapes removed calves soft nt 5/5 ehl fhl ta g s 2+ dp pulse sensation intact to LT A/p L hip neno s/p failed IM nail wound healing well, surjit removed no further need for dressing pt to follow up with operating surgeon ortho stable for dc
--- NOTE | 2019-05-02 16:18 | PATH ---
Surgical Pathology Report Patient Name: KOLTON SELF [facility]. Rec. #: [id number] /Age/Gender: 1930 (Age: 88) / F Account: [id number] Location: [address] [place] [address] Taken: 04/27/2019 Received: 04/28/2019 Reported: 05/02/2019 Physicians: Bebe De Leon M.D. Specimen(s) Received PERIPHERAL BLOOD 3 TUBES Clinical History Anemia Final Diagnosis COMPREHENSIVE FLOW CYTOMETRY performed and interpreted at [facility], [place], [place] ([id number]) INTERPRETATION: NO ATYPICAL FLOW CYTOMETRIC FINDINGS SEEN FISH PANEL performed and interpreted at [facility] in [place], [place] ([id number]) shows the following. INTERPRETATION: MYELODYSPLASIA FISH PANEL No evidence of deletion 5q or monosomy 5 is present. No evidence of deletion 13q14.2 is present. No evidence of a rearrangement of 11q23. No evidence of a deletion of the p53 (17p13) locus. No evidence of deletion 20q12 is present. MYELOPROLIFERATIVE DISORDER FISH PANEL No BCR/ABL1 t(9;22) translocation is detected. No evidence of deletion 7q or monosomy 7 is present. No evidence of trisomy 8 (+8) is present. Comments: Prior FISH study ([id number]) performed in 2019 was negative for the MDS FISH Panel. See [facility] report for details. Electronically Signed Maggie López M.D.
== END 2019-04-29 19:41 | DRG 812 ==
LOC: JER 14:26 → JERBED 18:53 → J5S 04-27 01:50
PROVIDERS: ADMIT Internal Medicine; ATTEND Internal Medicine
PROC: 30233N0 Transfusion of Autologous Red Blood Cells into Peripheral Vein, Percutaneous Approach (ICD-10-PCS; principal; 2019-04-26)
DX: D53.9 Nutritional anemia, unspecified (principal); I50.32 Chronic diastolic (congestive) heart failure; E46 Unspecified protein-calorie malnutrition; J98.11 Atelectasis; I48.91 Unspecified atrial fibrillation; E88.09 Other disorders of plasma-protein metabolism, not elsewhere classified; I51.7 Cardiomegaly; R50.9 Fever, unspecified; I35.0 Nonrheumatic aortic (valve) stenosis
CPT/HCPCS: 36415; 36430; 36511; 71045-TC-FY; 71250-TC; 76705-TC; 80048; 80053; 81003; 82272; 82550; 82607; 82728; 82747; 83010; 83540; 83550; 83615; 83735; 84100; 84443; 84466; 84484; 85014; 85025; 85027; 85044; 85610; 85730; 86850; 86900; 86901; 86922; 87040; 87077; 87086; 87186; 88300-TC; 93005; 93010; 93970-TC; 97116-GP; 97162-GP; 99284-25; P9038; P9058

== ENCOUNTER 2019-06-01 16:42 | Emergency (ER) | payer OTHER, MEDICARE ==
[2019-06-01 17:06] VITALS: BMI 18.6
--- NOTE | 2019-06-01 17:14 | PDOC ---
History of Present Illness - General Chief Complaint: Blood Transfusion Stated Complaint: LOW HEMOGLOBIN Time Seen by Provider: 06/01/19 17:13 Past History - Past Medical History Allergies/Adverse Reactions: Allergies Allergy/AdvReac Type Severity Reaction Status Date / Time warfarin Allergy Mild dizzy Verified 04/11/19 10:11 Home Medications: Ambulatory Orders Multivitamin/Iron/Folic Acid [Centrum Adults Tablet] 1 tab PO DAILY 04/29/17 Furosemide 40 mg PO DAILY 11/07/18 Metoprolol Succinate 25 mg PO DAILY 04/12/19 Simvastatin 20 mg PO HS 04/12/19 Acetaminophen 650 mg PO BID 04/26/19 Ferrous Sulfate 325 mg PO BID 04/26/19 Lanolin [Lantiseptic] 113 gm TP QSHIFT 04/26/19 Oxycodone HCl 5 mg PO Q4H PRN 04/26/19 Pantoprazole Sodium 40 mg PO DAILY 04/26/19 Anemia: Yes Asthma: No Cancer: No Cardiac Disorders: Yes (afib) CVA: No COPD: No CHF: No Dementia: No Diabetes: No GI Disorders: No Disorders: No HTN: No Hypercholesterolemia: Yes Liver Disease: No Seizures: No Thyroid Disease: No - Surgical History Abdominal Surgery: No Appendectomy: Yes (1949) Cardiac Surgery: No Cholecystectomy: No Lung Surgery: No Neurologic Surgery: No Orthopedic Surgery: Yes (lft partial hip replacement October 2018) - Immunization History Immunization Up to Date: Yes - Psycho Social/Smoking Cessation Hx Smoking History: Never smoked Have you smoked in the past 12 months: No If you are a former smoker, when did you quit?: 1949 Hx Alcohol Use: No Drug/Substance Use Hx: No Substance Use Type: None *Physical Exam - Vital Signs Last Vital Signs Temp Pulse Resp BP Pulse Ox 97.5 F L 70 16 110/50 L 98 06/01/19 17:05 06/01/19 17:05 06/01/19 17:05 06/01/19 17:05 06/01/19 17:05 ED Treatment Course - LABORATORY CBC & Chemistry Diagram: 06/01/19 17:40 06/01/19 17:40 Medical Decision Making - Medical Decision Making 06/01/19 18:20 HPI: 88yo F hx Afib (on ASA), anemia of unknown source requiring multiple blood transfusions (last transfusion here 04/26/19-04/29/19), frequent falls, and OA sent by [facility] (Dr Salas) for Hb 7.0 (taken 05/25/19) and generalized weakness this AM, resolved. Pt states she feels fine and Rehab center just sent her for her low Hb to see if she needs a transfusion. Pt states she chronically feels a little lightheaded every AM, and did today as well per usual, resolved. Endorses NBNB diarrhea x2 today. Last saw [facility] doctor 3 weeks ago, cause of anemia still unknown, no bone marrow biopsy done yet (told not necessary at this point). Pt is currently at [facility] to help with walking s/p hip fx months ago. Walks with walker. 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 Denies fever, chills, fatigue, headache, vertigo, numbness/tingling, weakness, vision changes, shortness of breath, cough, chest pain, palpitations, leg swelling, abdominal pain, blood in stool, diarrhea, constipation, nausea, vomiting, dysuria, hematuria, confusion, fall, head injury. PCP - [facility] ROS: Constitutional: Positive for lightheadedness. Negative for chills, fever, fatigue, diaphoresis. HENT: Negative for sore throat, rhinorrhea, congestion. Eyes: Negative for visual disturbance. Respiratory: Negative for shortness of breath, cough, and wheezing. Cardiovascular: Negative for chest pain, palpitations, and leg swelling. Gastrointestinal: Positive for diarrhea. Negative for abdominal pain, blood in stool, constipation, nausea, and vomiting. Genitourinary: Negative for dysuria, flank pain, and hematuria. Musculoskeletal: Negative for myalgias, back pain, and neck pain. Skin: Negative for rash. Neurological: Negative for light-headedness, dizziness, vertigo, syncope, weakness, numbness and headaches. Psychiatric/Behavioral: Negative for behavioral problems and confusion. PE: Gen: Alert, NAD, comfortable-appearing. HEENT: PERRL, EOMI, MMM, NCAT. Slight conjunctival pallor. Sclera are non- icteric. Oropharynx is clear. CV: Regular rate and rhythm. Systolic ejection murmur present. No rubs, or gallops. PULM: No resp distress. CTAB, no wheezes, rales, or rhonchi. ABD: soft, NT/ND, no rebound tenderness or guarding, no CVA tenderness. : Rectal exam performed. No brigette blood, fissures, skin flaps, or hemorrhoids seen. No masses or hemorrhoids felt. No pain with digital insertion. Guiac test negative. BACK: No TTP of c/t/l-spine. No step-offs or deformities. MSK: No bony deformities. 2+ pulses in all extremities. NEURO: AAOx3. PERRL. Cranial nerves II-XII intact. Normal speech. 5/5 strength upper and lower extremities. Sensation to light touch intact in all extremities. EXTREMITIES: 1+ nonpitting edema of b/l legs to shins. No cyanosis. No clubbing. No calf tenderness. PSYCH: Normal mood and thought pattern. SKIN: Warm and dry. Normal capillary refill. Diffuse ecchymosis to b/l arms. No jaundice. MDM: 88yo F hx Afib (on ASA), anemia of unknown source requiring multiple blood transfusions (last transfusion of 1 unit here 04/26/19-04/29/19, initial Hb 6.5 , discharge Hb 8.1), frequent falls, and OA sent by [facility] for Hb 7.0 ( taken 05/25/19) and generalized weakness this AM, resolved, with endorsement of NBNB diarrhea x2 today. Hemodynamically stable, afebrile, neurologically intact, no active bleeding seen , slight conjunctival pallor, benign rectal exam. Ddx: anemia, metabolic derangement; low concern for ACS/NM, CHF exacerbation, infection -Spoke with [facility]. Said Hb drawn today was 6.4. -CBC,CMP,Coags,T&S,Cardiac profile,BNP -EKG -CXR -Dispo: pending w/u EKG reviewed: Atrial fibrillation, vent. rate 77bpm, IRBBB, normal axis, no significant changes compared to 04/26/19 CXR reviewed: no acute pathology 06/01/19 19:50 Labs reviewed. Hb 7.7. No concerning findings. FOBT negative. Called [facility] and informed of Hb and plan to d/c home - agree with plan. Pt states she feels fine now, denies any sx including fatigue/weakness, CP, SOB , rectal or nose bleeding, lightheadedness, clinically safe for d/c. Will d/c back to [facility] w/PCP f/u. Return precautions given. Pt understands all dc instructions and all questions were answered. Transport arranged - ETA 2029. 06/01/19 20:19 Transport here for pt. Discharge - Discharge Information Problems reviewed: Yes Clinical Impression/Diagnosis: Low hemoglobin Condition: Good Disposition: HALFWAY FACILITY - Admission No - Follow up/Referral - Patient Discharge Instructions Patient Printed Discharge Instructions: Anemia: How Food and Vitamins Can Help Additional Instructions: You have been seen in the Emergency Department for your low hemoglobin level ( anemia) from [facility]. Here your level is higher and you are feeling good. Your EKG, chest X-ray, and labs show no signs concerning for an emergent condition at this time. Follow-up with your primary care doctor within 1 week. Return to the ED immediately if you experience bleeding (for instance from your nose or in your stool), chest pain, difficulty breathing, dizziness, or any other new or worsening symptom. - Post Discharge Activity
[2019-06-01 18:15] LABS: BASO % 0.8 % (0-2.0); EOS % 1.5 % (0-4.5); HEMOGLOBIN 7.7 GM/dL (10.7-15.3); LYMPH % 23.8 % (8-40); MCH 36.8 pg (25.7-33.7); MCHC 33.5 g/dl (32.0-36.0); MEAN CELL VOLUME 109.9 fl (80-96); MEAN PLT VOLUME 7.3 fl (7.5-11.1); MONO % 9.8 % (3.8-10.2); NEUT % 64.1 % (42.8-82.8); PLATELET COUNT 420 K/MM3 (134-434); RBC 2.09 M/mm3 (3.60-5.2); RDW 26.4 % (11.6-15.6); WHITE BLOOD COUNT 4.7 K/mm3 (4.0-10.0)
[2019-06-01 18:27] LABS: INR 1.17 (0.83-1.09); PROTHROMBIN TIME (PATIENT) 13.8 SEC (9.7-13.0)
--- NOTE | 2019-06-01 18:31 | PDOC ---
Documentation entered by Rochelle Wild SCRIBE, acting as scribe for Alma Delia Brown DO. Alma Delia Brown, DO: This documentation has been prepared by the Torri batista Xhesika, SCRIBE, under my direction and personally reviewed by me in its entirety. I confirm that the documentation accurately reflects all work, treatment, procedures, and medical decision making performed by me. Attending Attestation - Resident Resident Name: Brit Sena - ED Attending Attestation I have performed the following: I have examined & evaluated the patient, The case was reviewed & discussed with the resident, I agree w/resident's findings & plan, Exceptions are as noted - HPI HPI: 06/01/19 17:51 The patient is a 88 year old female with a significant PMH of anemia (requiring transfusion), frequent falls, Afib (on ASA), HLD, and arthritis who presents to the emergency department [facility] from [facility] for low hemoglobin and blood transfusion. Patients hemoglobin last Thursday was 7.9. Patient endorses associated weakness and multiple episodes of diarrhea. family at bedside notes the patient endorses chronic epistaxis. Patient was admitted here at [facility] 1 month ago for similar complaints that required transfusion. The patient denies chest pain, shortness of breath, headache. Denies fever, chills, cough, nausea, vomiting, and constipation. Denies dysuria, frequency, urgency and hematuria. Allergies: Warfarin Past surgical history: L partial hip replacement October 2018, appendectomy PCP: Dr. Gloria Cards: Dr. Ceballos Heme: Dr. Farooq - Physicial Exam PE: 06/01/19 18:32 GENERAL: Awake, alert, and fully oriented, in no acute distress HEAD: No signs of trauma EYES: PERRLA, EOMI, sclera anicteric, conjunctiva clear ENT: Auricles normal inspection, hearing grossly normal, nares patent, oropharynx clear without exudates. Moist mucosa LUNGS: Breath sounds equal, clear to auscultation bilaterally. No wheezes, and no crackles HEART: Regular rate and rhythm, normal S1 and S2, no murmurs, rubs or gallops ABDOMEN: Soft, nontender, normoactive bowel sounds. No guarding, no rebound. No masses EXTREMITIES: Normal range of motion, no edema. No clubbing or cyanosis. No cords, erythema, or tenderness NEUROLOGICAL: Cranial nerves II through XII grossly intact. Normal speech SKIN: + bruising to b/l arms due to blood work. Warm, Dry, normal turgor. - Medical Decision Making 06/01/19 18:19 I, Dr. Alma Delia Brown, DO, attest that this document has been prepared under my direction and personally reviewed by me in its entirety. I further attest, that it accurately reflects all work, treatment, procedures and medical decision -making performed by me. 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
[2019-06-01 18:33] LABS: MAGNESIUM 2.1 mg/dL (1.8-2.4); PHOSPHOROUS 3.9 mg/dL (2.5-4.9)
[2019-06-01 18:34] LABS: ALBUMIN 3.7 g/dl (3.4-5.0); ALK PHOS 149 U/L (45-117); ANION GAP 4 MMOL/L (8-16); BILIRUBIN,TOTAL 0.7 mg/dL (0.2-1); BLOOD UREA NITROGEN 20.1 mg/dL (7-18); CALCIUM 8.6 mg/dL (8.5-10.1); CHLORIDE 102 mmol/L (98-107); CO2 29 mmol/L (21-32); CREATININE 0.4 mg/dL (0.55-1.3); GLUCOSE,RANDOM 83 mg/dL (74-106); POTASSIUM 4.5 mmol/L (3.5-5.1); SGOT/AST 19 U/L (15-37); SGPT/ALT 28 U/L (13-61); SODIUM 135 mmol/L (136-145); TOT PROT 6.2 g/dl (6.4-8.2)
[2019-06-01 19:12] LABS: ANISOCYTOSIS 2+; MACROCYTOSIS 2+; PLATELET ESTIMATE NORMAL
[2019-06-01 19:26] LABS: N-TERMINAL BNP 1850.4 pg/ml (5-450)
[2019-06-01 20:26] VITALS: BP 112/66; PULSE 98; TEMP 97.9
--- NOTE | 2019-06-02 12:39 | EKG ---
Test Reason : Blood Pressure : / mmHG Vent. Rate : 077 BPM Atrial Rate : 170 BPM P-R Int : 000 ms QRS Dur : 096 ms QT Int : 406 ms P-R-T Axes : 000 063 -02 degrees QTc Int : 459 ms ATRIAL FIBRILLATION INCOMPLETE RIGHT BUNDLE BRANCH BLOCK NONSPECIFIC ST ABNORMALITY ABNORMAL QRS-T ANGLE, CONSIDER PRIMARY T WAVE ABNORMALITY ABNORMAL ECG WHEN COMPARED WITH ECG OF 26-APR-2019 17:49, NO SIGNIFICANT CHANGE WAS FOUND Confirmed by CORNELIO VACA MD ([id number]) on 06/02/2019 12:38:52 PM Referred By: Confirmed By:CORNELIO VACA MD
== END 2019-06-01 20:24 ==
LOC: JER 16:42
DX: D64.9 Anemia, unspecified (principal); Z88.8 Allergy status to other drugs, medicaments and biological substances; I48.91 Unspecified atrial fibrillation; Z79.82 Long term (current) use of aspirin; Z91.81 History of falling; M19.90 Unspecified osteoarthritis, unspecified site
CPT/HCPCS: 36415; 71045-TC-FY; 80053; 82272; 82550; 83735; 83880; 84100; 84484; 85025; 85610; 85730; 86850; 86900; 86901; 93005; 93010; 99283-25

== ENCOUNTER 2019-06-17 14:30 | Observation (INO) | payer OTHER, MEDICARE ==
[2019-06-17 15:43] VITALS: BMI 20.5
--- NOTE | 2019-06-17 15:50 | PDOC ---
Attending Attestation - Resident Resident Name: José Miguel Otto - ED Attending Attestation I have performed the following: I have examined & evaluated the patient, The case was reviewed & discussed with the resident, I agree w/resident's findings & plan, Exceptions are as noted - HPI HPI: 06/17/19 15:50 Ms Pacheco is an 88yo F hx Afib (on ASA), anemia of unknown source requiring multiple blood transfusions, frequent falls, and recurrent admissions for transfusions. Pt was noted to have a low hemoglobin at her rehab (Hgb 6.6) Pt sent to the ER She denies chest pain, shortness of breath, dizziness (pt aid states that she does have dizziness in the mornings) PCP - [facility] 06/17/19 15:51 06/17/19 15:52 06/17/19 16:03 - Physicial Exam PE: 06/17/19 15:50 Gen: Alert, NAD, comfortable, very well appearing. HEENT: PERRL, EOMI, MMM, NCAT. Slight conjunctival pallor. CV: Regular rate and rhythm. Systolic ejection murmur present. No rubs, or gallops. PULM: No resp distress. CTAB, no wheezes, rales, or rhonchi. ABD: soft, NT/ND, no rebound tenderness or guarding BACK: No TTP of c/t/l-spine. No step-offs or deformities. MSK: No bony deformities. 2+ pulses in all extremities. NEURO: AAOx3. PERRL. Cranial nerves II-XII intact. Normal speech. 5/5 strength upper and lower extremities. Sensation to light touch intact in all extremities. EXTREMITIES: 1+ nonpitting edema of b/l legs to shins. SKIN: Warm and dry. Normal capillary refill. Diffuse ecchymosis to b/l arms. No jaundice. 06/17/19 16:07 - Medical Decision Making 06/17/19 15:53 88-year-old female with a history of recurrent episodes of anemia requiring transfusion sent to the ER for anemia We will do: Labs EKG Possibly transfuse Reassess EKG: Atrial fibrillation, rate of 77 bpm, axis is normal, intervals are normal, no ST elevation or depression, right bundle branch block, T wave inversion noted in lead III, a VF Labs pending Will admit
[2019-06-17 16:54] LABS: INR 1.1 (0.83-1.09)
[2019-06-17 16:55] LABS: ALBUMIN 3.6 g/dl (3.4-5.0); BILIRUBIN,TOTAL 0.8 mg/dL (0.2-1); BLOOD UREA NITROGEN 19.5 mg/dL (7-18); CALCIUM 8.5 mg/dL (8.5-10.1); CREATININE 0.4 mg/dL (0.55-1.3); POTASSIUM 4.3 mmol/L (3.5-5.1); TOT PROT 6.1 g/dl (6.4-8.2)
[2019-06-17 16:56] LABS: ACTIVATED PTT 31.6 SECONDS (25.2-36.5)
[2019-06-17 17:17] LABS: EOS % 1.7 % (0-4.5); LYMPH % 26.1 % (8-40); MCH 38.8 pg (25.7-33.7); MCHC 33.5 g/dl (32.0-36.0); MEAN CELL VOLUME 115.8 fl (80-96); MEAN PLT VOLUME 7.7 fl (7.5-11.1); MONO % 10.2 % (3.8-10.2); PLATELET COUNT 394 K/MM3 (134-434); RBC 1.81 M/mm3 (3.60-5.2); RDW 25.8 % (11.6-15.6); RETICULOCYTES 1.96 % (0.5-1.5); WHITE BLOOD COUNT 3.3 K/mm3 (4.0-10.0)
--- NOTE | 2019-06-17 17:20 | PDOC ---
History of Present Illness - General Stated Complaint: ABNORMAL LABS Time Seen by Provider: 06/17/19 15:23 History Source: Patient Exam Limitations: No Limitations - History of Present Illness Initial Comments: 06/17/19 17:20 88 yo female pmh Afib (on ASA), anemia of unknown source requiring multiple blood transfusions, frequent falls presents to the ED from [place] with reported Hbg of 6.4. Pt denies any symptoms including lightheadedness, dizziness, weakness, CP, SOB. Pt Primary Hem/Onc is Dr. Gutierres, however, she has been followed by Dr. Spence on her last admission. Past History - Past Medical History Allergies/Adverse Reactions: Allergies Allergy/AdvReac Type Severity Reaction Status Date / Time warfarin Allergy Mild dizzy Verified 06/17/19 15:41 Home Medications: Ambulatory Orders Multivitamin/Iron/Folic Acid [Centrum Adults Tablet] 1 tab PO DAILY 04/29/17 Furosemide 40 mg PO DAILY 11/07/18 Metoprolol Succinate 25 mg PO DAILY 04/12/19 Simvastatin 20 mg PO HS 04/12/19 Acetaminophen 650 mg PO BID 04/26/19 Ferrous Sulfate 325 mg PO BID 04/26/19 Lanolin [Lantiseptic] 113 gm TP QSHIFT 04/26/19 Oxycodone HCl 5 mg PO Q4H PRN 04/26/19 Pantoprazole Sodium 40 mg PO DAILY 04/26/19 Anemia: Yes Asthma: No Cancer: No Cardiac Disorders: Yes (afib) CVA: No COPD: No CHF: No Dementia: No Diabetes: No GI Disorders: No Disorders: No HTN: No Hypercholesterolemia: Yes Liver Disease: No Seizures: No Thyroid Disease: No - Surgical History Abdominal Surgery: No Appendectomy: Yes (1949) Cardiac Surgery: No Cholecystectomy: No Lung Surgery: No Neurologic Surgery: No Orthopedic Surgery: Yes (lft partial hip replacement October 2018) - Immunization History Immunization Up to Date: Yes - Psycho Social/Smoking Cessation Hx Smoking History: Never smoked Have you smoked in the past 12 months: No If you are a former smoker, when did you quit?: 1949 Information on smoking cessation initiated: No Hx Alcohol Use: No Drug/Substance Use Hx: No Substance Use Type: None Review of Systems - Review of Systems Constitutional: No: Chills, Fever HEENTM: No: Blurred Vision, Double Vision Respiratory: No: Shortness of Breath Cardiac (ROS): No: Chest Pain ABD/GI: No: Constipated, Diarrhea, Nausea, Vomiting : No: Burning, Dysuria, Frequency, Flank Pain Musculoskeletal: No: Back Pain Neurological: No: Weakness, Unsteady Gait, Dizziness *Physical Exam - Vital Signs Last Vital Signs Temp Pulse Resp BP Pulse Ox 97.3 F L 78 16 121/67 98 06/17/19 14:30 06/17/19 14:30 06/17/19 14:30 06/17/19 14:30 06/17/19 15:43 - Physical Exam General Appearance: Yes: Nourished, Appropriately Dressed. No: Apparent Distress HEENT: positive: EOMI, Pale Conjunctivae Neck: positive: Supple. negative: Carotid bruit Respiratory/Chest: positive: Lungs Clear, Normal Breath Sounds. negative: Respiratory Distress, Accessory Muscle Use, Rapid RR, Crackles, Rales, Rhonchi, Stridor, Wheezing Cardiovascular: positive: Regular Rhythm, Regular Rate, S1, S2. negative: Edema , JVD, Murmur Vascular Pulses: Dorsalis-Pedis (R): 4+, Doralis-Pedis (L): 4+ Gastrointestinal/Abdominal: positive: Flat, Soft. negative: Pulsatile Mass, Protuberent, Distended, Guarding, Rebound, Tenderness Musculoskeletal: negative: CVA Tenderness Extremity: positive: Normal Capillary Refill, Normal Inspection, Normal Range of Motion Integumentary: positive: Normal Color, Dry, Warm Neurologic: positive: Fully Oriented, Alert, Normal Mood/Affect, Normal Response ED Treatment Course - LABORATORY CBC & Chemistry Diagram: 06/17/19 16:05 06/17/19 15:45 - ADDITIONAL ORDERS Additional order review: Laboratory Results 06/17/19 06/17/19 06/17/19 15:45 15:45 15:45 PT with INR 13.00 INR 1.10 H PTT (Actin FS) 31.6 Sodium 138 Potassium 4.3 Chloride 104 Carbon Dioxide 28 Anion Gap 6 L BUN 19.5 H Creatinine 0.4 L Est GFR (CKD-EPI)AfAm 107.03 Est GFR (CKD-EPI)NonAf 92.34 Random Glucose 76 Calcium 8.5 Total Bilirubin 0.8 AST 13 L ALT 26 Alkaline Phosphatase 94 Total Protein 6.1 L Albumin 3.6 Blood Type A POSITIVE Antibody Screen Negative Medical Decision Making - Medical Decision Making 06/17/19 18:13 88 yo female pmh Afib (on ASA), anemia of unknown source requiring multiple blood transfusions, frequent falls presents to the ED from [place] with reported Hbg of 6.4. Pt denies any symptoms including lightheadedness, dizziness, weakness, CP, SOB. Pt Primary Hem/Onc is Dr. Gutierres, however, she has been followed by Dr. Spence on her last admission. vitals WNL Pt has asymptomatic anemia. Discussed case with Dr. Gutierres, states pt can be transfused and DC to home with F /U appointment on 06/30 Pt accepted for admission Discharge - Discharge Information Problems reviewed: Yes Clinical Impression/Diagnosis: Anemia Condition: Stable - Admission Yes - Follow up/Referral Referrals: Maggie Gloria MD [Primary Care Provider] - - Patient Discharge Instructions - Post Discharge Activity
[2019-06-17 18:32] LABS: ANISOCYTOSIS 2+; TEAR DROP CELLS 1+
[2019-06-17 18:33] LABS: OVALOCYTE 1+
--- NOTE | 2019-06-17 19:15 | PN ---
Teaching Attending Note Name of Resident: Alyx Reynolds ATTENDING PHYSICIAN STATEMENT I saw and evaluated the patient. I reviewed the resident's note and discussed the case with the resident. I agree with the resident's findings and plan as documented. SUBJECTIVE: Patient is an 88 year old woman with a PMH of Afib (on ASA), HLD, Arthritis, Partial left hip replacement, Anemia of unknown cause requiring multiple blood transfusions, and Frequent falls who was sent to the ER from the [place] with reported Hemoglobin of 6.4 g/dL. Patient denies lightheadedness, dizziness, weakness, chest pain, SOB, abdominal pain, nausea, vomiting, dysuria, hematochezia or hemoptysis. Her Primary Hem/Onc is Dr. Gutierres, however, she has been followed by Dr. Spence on her last admission. Denies tobacco, alcohol or illicit drug use. No recent travel or sick contacts. OBJECTIVE: Alert Vital Signs Period Temp Pulse Resp BP Sys/Jay Pulse Ox Last 24 Hr 97.3 F 78 16 121/67 98-100 HEENT: No Jaundice, eye redness or discharge, PERRLA, EOMI. Normocephalic, atraumatic. External ears are normal and hearing is grossly intact. No nasal discharge. Neck: Supple, nontender. No palpable adenopathy or thyromegaly. No JVD Chest: Good effort. Clear to auscultation and percussion. Heart: Regular. No S3 or rub; 3/6 KATHERINE. Abdomen: Not distended, soft, nontender and no HSM. No rebound or guarding. Normal bowel sounds. Ext: Peripheral pulses intact. No leg edema. Calf tenderness. Skin: Warm and dry. No petechiae, rash or ecchymosis. Neuro: Alert. Oriented x3. CN 2-12 grossly intact. Sensation grossly intact in all four extremities and DTR are symmetric. Psych: Appropriate mood and affect. Good insight. Home Medications Medication Instructions Recorded Multivitamin/Iron/Folic Acid 1 tab PO DAILY 04/29/17 [Centrum Adults Tablet] Furosemide 40 mg PO DAILY 11/07/18 Metoprolol Succinate 25 mg PO DAILY 04/12/19 Simvastatin 20 mg PO HS 04/12/19 Acetaminophen 650 mg PO BID 04/26/19 Ferrous Sulfate 325 mg PO BID 04/26/19 Lanolin [Lantiseptic] 113 gm TP QSHIFT 04/26/19 Oxycodone HCl 5 mg PO Q4H PRN 04/26/19 Pantoprazole Sodium 40 mg PO DAILY 04/26/19 Abnormal Lab Results 06/17/19 06/17/19 06/17/19 15:45 15:45 15:45 WBC RBC Hgb Hct MCV MCH RDW Retic Count INR 1.10 H Anion Gap 6 L BUN 19.5 H Creatinine 0.4 L AST 13 L Total Protein 6.1 L Crossmatch See Detail 06/17/19 16:05 WBC 3.3 L RBC 1.81 L Hgb 7.0 L Hct 21.0 L MCV 115.8 H MCH 38.8 H RDW 25.8 H Retic Count 1.96 H D INR Anion Gap BUN Creatinine AST Total Protein Crossmatch ASSESSMENT AND PLAN: 1. Severe anemia with macrocytosis - CXR shows cardiomegaly, increased perihilar markings and calcified aortic knob. Vitamin B12 and folate levels from 04/28/19 were normal. No evidence of iron deficiency on recent tests. Unclear if she ever had a colonoscopy or BM biopsy. EKG shows Afib with rate of 77, IRBBB and old T wave inversion in inferior and anterior leads. Being transfused PRBC. Will get doppler scan of calves. Consult Hematolgy. Will continue comprehensive care for all of patients comorbid conditions including Aspirin and Metoprolol for Afib. 2. DVT prophylaxis - Lovenox 40 mg SQ q 24 hours. 3. Advance directives - Full code
--- NOTE | 2019-06-17 20:48 | HP ---
CHIEF COMPLAINT:Low blood count PCP: Dr Gloria Cardio: Dr Ceballos Logger: Dr Farooq HISTORY OF PRESENT ILLNESS: Pt is an 88 yo F with PMHx of Afib, macrocytic anemia, recurrent transfusions, OA, s/p total L hip replacement presenting from [facility] with Hgb 6.6. Pt reports occasional epistaxis, quantified differently betwen pt and her aide- per pt a few weeks ago and scanty, per aide a few days ago and heavy. Pt and aide report epistaxis is controlled conservatively by pinching the nose. Epistaxis reported to have started over the past 6 months, occurring usually after meals. Per aide, pt picks her nose prior to onset of the bleed with a possible intranasal irritant or trigger/ irritant. No hematuria, no melena, no hematochezia, no nausea or vomiting, no bleeding from any other orifice. Pt denies chest pain, or SOB. Pt reports being able to ambulate with a walker, denies SOB on exertion. Pt has been admitted and received prior transfusions for "unexplained macrocytic anemia", last admission from 05/27-05/30 she got one unit of PRB. Pt was seen in past by Dr Spence but follows outpt Logger Dr Farooq. Per ED, they spoke with Dr Farooq and she recommended for pt to be transfused with 2 units of PRBC and to follow up with her as an outpt. ER course was notable for: (1) H/H-7/0/21.0, WBC-3.3, plt-394, MCV-115.8, retic-1.96, INR-1.10, PT/INR-13.0 , PTT (2) CXR- no official read, but noted increased left opacity blunting cardiophrenic angles, similar to prior CXR, (3)EKG-Afib, VR-77, Nl axis, normal intervals, QTC-445, Twave inversion V1-3, Lead 3, T wave flattening leads 2,, Recent Travel: PAST MEDICAL HISTORY: As above PAST SURGICAL HISTORY: Appendectomy in 50s Social History: Smoking: Quit Alcohol: Drugs: Allergies warfarin Allergy (Mild, Verified 06/17/19 15:41) dizzy HOME MEDICATIONS: Home Medications Medication Instructions Recorded Multivitamin/Iron/Folic Acid 1 tab PO DAILY 04/29/17 [Centrum Adults Tablet] Furosemide 40 mg PO DAILY 11/07/18 Metoprolol Succinate 25 mg PO DAILY 04/12/19 Simvastatin 20 mg PO HS 04/12/19 Acetaminophen 650 mg PO BID 04/26/19 Ferrous Sulfate 325 mg PO BID 04/26/19 Lanolin [Lantiseptic] 113 gm TP QSHIFT 04/26/19 Oxycodone HCl 5 mg PO Q4H PRN 04/26/19 Pantoprazole Sodium 40 mg PO DAILY 04/26/19 REVIEW OF SYSTEMS denies PHYSICAL EXAMINATION Vital Signs - 24 hr 06/17/19 06/17/19 06/17/19 14:30 15:43 19:45 Temperature 97.3 F L 97.8 F Pulse Rate 78 Pulse Rate [ 78 Left] Respiratory 16 16 Rate Blood Pressure 121/67 Blood Pressure 97/54 L [Left Arm] O2 Sat by Pulse 100 98 97 Oximetry (%) 06/17/19 20:00 Temperature 97.6 F Pulse Rate Pulse Rate [ 80 Left] Respiratory 16 Rate Blood Pressure Blood Pressure 98/46 L [Left Arm] O2 Sat by Pulse 97 Oximetry (%) GENERAL: Awake, alert, and fully oriented, in no acute distress. HEAD: Normal with no signs of trauma. EYES: Pupils equal, round and reactive to light, extraocular movements intact, sclera anicteric, conjunctiva clear. EARS, NOSE, THROAT: Ears normal, nares patent, oropharynx clear without exudates. Moist mucous membranes. LUNGS: Breath sounds equal, clear to auscultation bilaterally. No wheezes, and no crackles. HEART: Regular rate and rhythm, normal S1 and S2, 3/6 systolic murmur LSB and mitral area, ABDOMEN: Soft, nontender, not distended, normoactive bowel sounds, no guarding, no rebound, no masses. MUSCULOSKELETAL: Normal range of motion at all joints. No bony deformities or tenderness. No CVA tenderness. LOWER EXTREMITIES: 1+ pulses, cool distant area, b/l calf tenderness. No pitting edema. NEUROLOGICAL: Cranial nerves II-XII intact. Normal speech. Gait not observed. LE weakness 4/5 Laboratory Results - last 24 hr 06/17/19 06/17/19 06/17/19 15:45 15:45 15:45 WBC RBC Hgb Hct MCV MCH MCHC RDW Plt Count MPV Absolute Neuts (auto) Neutrophils % Lymphocytes % Monocytes % Eosinophils % Basophils % Nucleated RBC % Hypochromia Poikilocytosis Anisocytosis Tear Drop Cells Ovalocytes Retic Count PT with INR 13.00 INR 1.10 H PTT (Actin FS) 31.6 Sodium 138 Potassium 4.3 Chloride 104 Carbon Dioxide 28 Anion Gap 6 L BUN 19.5 H Creatinine 0.4 L Est GFR (CKD-EPI)AfAm 107.03 Est GFR (CKD-EPI)NonAf 92.34 Random Glucose 76 Calcium 8.5 Total Bilirubin 0.8 AST 13 L ALT 26 Alkaline Phosphatase 94 Total Protein 6.1 L Albumin 3.6 Blood Type A POSITIVE Antibody Screen Negative Crossmatch See Detail 06/17/19 16:05 WBC 3.3 L RBC 1.81 L Hgb 7.0 L Hct 21.0 L MCV 115.8 H MCH 38.8 H MCHC 33.5 RDW 25.8 H Plt Count 394 MPV 7.7 Absolute Neuts (auto) 2.0 Neutrophils % 61.0 Lymphocytes % 26.1 Monocytes % 10.2 Eosinophils % 1.7 Basophils % 1.0 Nucleated RBC % 0 Hypochromia 1+ Poikilocytosis 1+ Anisocytosis 2+ Tear Drop Cells 1+ Ovalocytes 1+ Retic Count 1.96 H D PT with INR INR PTT (Actin FS) Sodium Potassium Chloride Carbon Dioxide Anion Gap BUN Creatinine Est GFR (CKD-EPI)AfAm Est GFR (CKD-EPI)NonAf Random Glucose Calcium Total Bilirubin AST ALT Alkaline Phosphatase Total Protein Albumin Blood Type Antibody Screen Crossmatch Ambulatory Orders Multivitamin/Iron/Folic Acid [Centrum Adults Tablet] 1 tab PO DAILY 04/29/17 Furosemide 40 mg PO DAILY 11/07/18 Metoprolol Succinate 25 mg PO DAILY 04/12/19 Simvastatin 20 mg PO HS 04/12/19 Acetaminophen 650 mg PO BID 04/26/19 Ferrous Sulfate 325 mg PO BID 04/26/19 Lanolin [Lantiseptic] 113 gm TP QSHIFT 04/26/19 Oxycodone HCl 5 mg PO Q4H PRN 04/26/19 Pantoprazole Sodium 40 mg PO DAILY 04/26/19 ASSESSMENT/PLAN: Pt is an 88 yo F with PMHx of Afib, macrocytic anemia, recurrent transfusions, OA, s/p total L hip replacement presenting from [facility] with Hgb 6.6. macrocytic anemia Acute on chronic Pt follows outpt personal banker Repeated transfusions Could be in setting of myeloprof disorder Per personal banker, should receive transfusion, for outpt follow up Transfusion goal above 8g Pt on ferrous sulphate, iron studies will be inacurrate B/l calf pain R/O dvt With liited mobility Wells-1, moderate risk, will do duplex Afib Rate controlled Cont metoprolol /MR/TR Transfusion goal above 8 recurrent transfusions, No active bleed noted Stool occult pending OA, Hx of recurrent falls s/p total L hip replacement PH Not SOB, cont to monitor HLD Simvastatin cont Leucopenia Could be in setting of anemia with BM process follows personal banker as an outpT Hold chemical ppx in setting of bleed Fall precaution Obs Visit type - Emergency Visit Emergency Visit: Yes ED Registration Date: 06/17/19 Care time: The patient presented to the Emergency Department on the above date and was hospitalized for further evaluation of their emergent condition. - New Patient This patient is new to me today: Yes Date on this admission: 06/17/19 - Critical Care Critical Care patient: No ATTENDING PHYSICIAN STATEMENT I saw and evaluated the patient. I reviewed the resident's note and discussed the case with the resident. I agree with the resident's findings and plan as documented. SUBJECTIVE: OBJECTIVE: ASSESSMENT AND PLAN:
[2019-06-18 08:13] LABS: BASO % 0.7 % (0-2.0); EOS % 1.7 % (0-4.5); HEMATOCRIT 28.6 % (32.4-45.2); LYMPH % 16.8 % (8-40); MCHC 35.1 g/dl (32.0-36.0); MEAN CELL VOLUME 102.6 fl (80-96); MEAN PLT VOLUME 7.2 fl (7.5-11.1); MONO % 10.6 % (3.8-10.2); NEUT % 70.2 % (42.8-82.8); PLATELET COUNT 378 K/MM3 (134-434); RBC 2.79 M/mm3 (3.60-5.2); RDW 28.1 % (11.6-15.6); WHITE BLOOD COUNT 4.4 K/mm3 (4.0-10.0)
[2019-06-18 08:33] LABS: ALBUMIN 3.5 g/dl (3.4-5.0); BILIRUBIN,TOTAL 1.6 mg/dL (0.2-1); BLOOD UREA NITROGEN 19.3 mg/dL (7-18); CALCIUM 8.7 mg/dL (8.5-10.1); CREATININE 0.4 mg/dL (0.55-1.3); MAGNESIUM 2.1 mg/dL (1.8-2.4); PHOSPHOROUS 3.7 mg/dL (2.5-4.9); POTASSIUM 4.3 mmol/L (3.5-5.1); TOT PROT 5.8 g/dl (6.4-8.2)
--- NOTE | 2019-06-18 10:37 | PN ---
Progress Note (short form) - Note Progress Note: Vital Signs Temperature 98.2 F 06/18/19 09:50 Pulse Rate 71 06/18/19 09:50 Respiratory Rate 17 06/18/19 09:50 Blood Pressure 113/67 06/18/19 09:50 O2 Sat by Pulse Oximetry (%) 98 06/18/19 02:44 GENERAL: The patient is awake, alert, and fully oriented, in no acute distress. HEAD: Normal with no signs of trauma. EYES: PERRL, extraocular movements intact, sclera anicteric, conjunctiva clear. ENT: Ears normal, oropharynx clear without exudates, moist mucous membranes. NECK: Trachea midline, full range of motion, supple. LUNGS: Breath sounds equal, clear to auscultation bilaterally, no wheezes, no crackles, no accessory muscle use. HEART: Regular rate and rhythm, S1, S2 without murmur, rub or gallop. ABDOMEN: Soft, nontender, nondistended, normoactive bowel sounds, no guarding, no rebound, no hepatosplenomegaly, no masses. EXTREMITIES: 2+ pulses, warm, well-perfused, no edema. NEUROLOGICAL: Cranial nerves II through XII grossly intact. Normal speech, gait not observed. PSYCH: Normal mood, normal affect. SKIN: Warm, dry, normal turgor, no rashes or lesions noted CBCD WBC 4.4 K/mm3 (4.0-10.0) 06/18/19 07:24 RBC 2.79 M/mm3 (3.60-5.2) L 06/18/19 07:24 Hgb 10.0 GM/dL (10.7-15.3) L 06/18/19 07:24 Hct 28.6 % (32.4-45.2) L D 06/18/19 07:24 MCV 102.6 fl (80-96) H 06/18/19 07:24 MCHC 35.1 g/dl (32.0-36.0) 06/18/19 07:24 RDW 28.1 % (11.6-15.6) H 06/18/19 07:24 Plt Count 378 K/MM3 (134-434) 06/18/19 07:24 MPV 7.2 fl (7.5-11.1) L 06/18/19 07:24 CMP Sodium 141 mmol/L (136-145) 06/18/19 07:24 Potassium 4.3 mmol/L (3.5-5.1) 06/18/19 07:24 Chloride 107 mmol/L (98-107) 06/18/19 07:24 Carbon Dioxide 27 mmol/L (21-32) 06/18/19 07:24 Anion Gap 7 MMOL/L (8-16) L 06/18/19 07:24 BUN 19.3 mg/dL (7-18) H 06/18/19 07:24 Creatinine 0.4 mg/dL (0.55-1.3) L 06/18/19 07:24 Random Glucose 80 mg/dL (74-106) 06/18/19 07:24 Calcium 8.7 mg/dL (8.5-10.1) 06/18/19 07:24 Total Bilirubin 1.6 mg/dL (0.2-1) H 06/18/19 07:24 AST 13 U/L (15-37) L 06/18/19 07:24 ALT 23 U/L (13-61) 06/18/19 07:24 Alkaline Phosphatase 91 U/L (45-117) 06/18/19 07:24 Total Protein 5.8 g/dl (6.4-8.2) L 06/18/19 07:24 Albumin 3.5 g/dl (3.4-5.0) 06/18/19 07:24 Home Medications Medication Instructions Recorded Multivitamin/Iron/Folic Acid 1 tab PO DAILY 04/29/17 [Centrum Adults Tablet] Furosemide 40 mg PO DAILY 11/07/18 Metoprolol Succinate 25 mg PO BID 04/12/19 Acetaminophen 650 mg PO BID 04/26/19 Oxycodone HCl 5 mg PO Q4H PRN 04/26/19 Pantoprazole Sodium 40 mg PO DAILY 04/26/19 Pt is an 88 yo F with PMHx of Afib, macrocytic anemia, recurrent transfusions, OA, s/p total L hip replacement presenting from [facility] with Hgb 6.6. macrocytic anemia Acute on chronic Pt follows outpt lidar technician Repeated transfusions Could be in setting of myeloprof disorder Per lidar technician, should receive transfusion, for outpt follow up Transfusion goal above 8g Pt on ferrous sulphate, iron studies will be inacurrate B/l calf pain R/O dvt With liited mobility Wells-1, moderate risk, will do duplex Afib Rate controlled Cont metoprolol /MR/TR Transfusion goal above 8 recurrent transfusions, No active bleed noted Stool occult pending OA, Hx of recurrent falls s/p total L hip replacement PH Not SOB, cont to monitor HLD Simvastatin cont
--- NOTE | 2019-06-18 15:50 | DS ---
Physical Exam: SUBJECTIVE: Patient seen and examined Patient is feeling well no new complains, wants to return. OBJECTIVE: Vital Signs Temperature 97.7 F 06/18/19 13:52 Pulse Rate 72 06/18/19 13:52 Respiratory Rate 18 06/18/19 13:52 Blood Pressure 119/62 06/18/19 13:52 O2 Sat by Pulse Oximetry (%) 98 06/18/19 09:50 PHYSICAL EXAM GENERAL: The patient is awake, alert, and fully oriented, in no acute distress. HEAD: Normal with no signs of trauma. EYES: PERRL, extraocular movements intact, sclera anicteric, conjunctiva clear. ENT: Ears normal, oropharynx clear without exudates, moist mucous membranes. NECK: Trachea midline, full range of motion, supple. LUNGS: Breath sounds equal, clear to auscultation bilaterally, no wheezes, no crackles, no accessory muscle use. HEART: Regular rate and rhythm, S1, S2 without murmur, rub or gallop. ABDOMEN: Soft, NT,ND, normoactive bowel sounds, no guarding, no rebound, no hepatosplenomegaly, no masses. EXTREMITIES: 2+ pulses, warm, well-perfused, no edema. NEUROLOGICAL: Cranial nerves II through XII grossly intact. Normal speech, gait not observed. PSYCH: Normal mood, normal affect. SKIN: Warm, dry, normal turgor, no rashes or lesions noted. LABS CBCD WBC 4.4 K/mm3 (4.0-10.0) 06/18/19 07:24 RBC 2.79 M/mm3 (3.60-5.2) L 06/18/19 07:24 Hgb 10.0 GM/dL (10.7-15.3) L 06/18/19 07:24 Hct 28.6 % (32.4-45.2) L D 06/18/19 07:24 MCV 102.6 fl (80-96) H 06/18/19 07:24 MCHC 35.1 g/dl (32.0-36.0) 06/18/19 07:24 RDW 28.1 % (11.6-15.6) H 06/18/19 07:24 Plt Count 378 K/MM3 (134-434) 06/18/19 07:24 MPV 7.2 fl (7.5-11.1) L 06/18/19 07:24 CMP Sodium 141 mmol/L (136-145) 06/18/19 07:24 Potassium 4.3 mmol/L (3.5-5.1) 06/18/19 07:24 Chloride 107 mmol/L (98-107) 06/18/19 07:24 Carbon Dioxide 27 mmol/L (21-32) 06/18/19 07:24 Anion Gap 7 MMOL/L (8-16) L 06/18/19 07:24 BUN 19.3 mg/dL (7-18) H 06/18/19 07:24 Creatinine 0.4 mg/dL (0.55-1.3) L 06/18/19 07:24 Random Glucose 80 mg/dL (74-106) 06/18/19 07:24 Calcium 8.7 mg/dL (8.5-10.1) 06/18/19 07:24 Total Bilirubin 1.6 mg/dL (0.2-1) H 06/18/19 07:24 AST 13 U/L (15-37) L 06/18/19 07:24 ALT 23 U/L (13-61) 06/18/19 07:24 Alkaline Phosphatase 91 U/L (45-117) 06/18/19 07:24 Total Protein 5.8 g/dl (6.4-8.2) L 06/18/19 07:24 Albumin 3.5 g/dl (3.4-5.0) 06/18/19 07:24 Home Medications Medication Instructions Recorded Multivitamin/Iron/Folic Acid 1 tab PO DAILY 04/29/17 [Centrum Adults Tablet] Furosemide 40 mg PO DAILY 11/07/18 Metoprolol Succinate 25 mg PO BID 04/12/19 Acetaminophen 650 mg PO BID 04/26/19 Oxycodone HCl 5 mg PO Q4H PRN 04/26/19 Pantoprazole Sodium 40 mg PO DAILY 04/26/19 HOSPITAL COURSE: Date of Admission:06/17/19 Date of Discharge: 06/18/19 Patient is an 88yo Female with PMHx of Afib, macrocytic anemia, recurrent transfusions, OA, s/p total L hip replacement presenting from [facility] with Hgb 6.6. # Acute macrocytic anemia , s/p transfusion of 2 units, hgb is 10 at this time, will send her back. patient needs a follow up visit with her caisson worker , has an appointment on the of this month. stool occult is negative # B/l calf pain r/o dvt; Duplex is done and was read negative for DVT. reported popliteal cyst 4x3x1.3cm right popliteal fossa cyst #Afib rate controlled , continue home meds. #OA hx of recurrent falls, s/p total L hip replacement #HLD continue simvastatin discharge patient back to rehab. Minutes to complete discharge: 35 Discharge Summary Problems reviewed: Yes Reason For Visit: ANEMIA Current Active Problems Anemia (Acute) Condition: Stable - Instructions Diet, Activity, Other Instructions: You were placed on observation for blood transfusion. you are stable at this time, you need to follow up with for further work up of your hemoglobin. please follow up with your primary care doctor. Referrals: Elaine Farooq MD [Staff Physician] - 06/27/19 Maggie Gloria MD [Primary Care Provider] - Disposition: SNF FACILITY - Home Medications Comprehensive Discharge Medication List: Ambulatory Orders Multivitamin/Iron/Folic Acid [Centrum Adults Tablet] 1 tab PO DAILY 04/29/17 Furosemide 40 mg PO DAILY 11/07/18 Metoprolol Succinate 25 mg PO BID 04/12/19 Acetaminophen 650 mg PO BID 04/26/19 Oxycodone HCl 5 mg PO Q4H PRN 04/26/19 Pantoprazole Sodium 40 mg PO DAILY 04/26/19 This patient is new to me today: Yes Date on this admission: 06/18/19 Emergency Visit: Yes ED Registration Date: 06/17/19 Care time: The patient presented to the Emergency Department on the above date and was hospitalized for further evaluation of their emergent condition. Critical Care patient: No - Discharge Referral Referred to [facility] Med P.C[facility] No
[2019-06-18 17:37] VITALS: BP 117/59; PULSE 68; TEMP 97.9
--- NOTE | 2019-06-18 23:19 | EKG ---
Test Reason : Blood Pressure : / mmHG Vent. Rate : 077 BPM Atrial Rate : 068 BPM P-R Int : 000 ms QRS Dur : 096 ms QT Int : 394 ms P-R-T Axes : 000 044 -20 degrees QTc Int : 445 ms ATRIAL FIBRILLATION LOW VOLTAGE QRS INCOMPLETE RIGHT BUNDLE BRANCH BLOCK ABNORMAL ECG WHEN COMPARED WITH ECG OF 01-JUN-2019 18:14, NO SIGNIFICANT CHANGE WAS FOUND Confirmed by SEGUNDO MENDEZ MD ([id number]) on 06/18/2019 11:18:39 PM Referred By: Confirmed By:SEGUNDO MENDEZ MD
== END 2019-06-18 18:35 ==
LOC: JER 14:30 → JERBED 19:01 → J7W 06-18 00:10
PROVIDERS: ADMIT Internal Medicine; ATTEND Internal Medicine
PROC: 30233N1 Transfusion of Nonautologous Red Blood Cells into Peripheral Vein, Percutaneous Approach (ICD-10-PCS; principal; 2019-06-17)
DX: D53.9 Nutritional anemia, unspecified (principal); M71.21 Synovial cyst of popliteal space [Baker], right knee; I48.91 Unspecified atrial fibrillation; Z79.82 Long term (current) use of aspirin; M19.90 Unspecified osteoarthritis, unspecified site; E78.5 Hyperlipidemia, unspecified; R29.6 Repeated falls; Z96.642 Presence of left artificial hip joint
CPT/HCPCS: 36415; 36430; 36511; 71045-TC-FY; 80053; 83735; 84100; 85025; 85044; 85610; 85730; 86850; 86900; 86901; 86922; 93005; 93010; 93970-TC; 99285-25; G0378; P9038; P9058

== ENCOUNTER 2019-07-29 12:21 | Observation (INO) | payer OTHER, MEDICARE ==
[2019-07-29 12:46] VITALS: BMI 22.3
--- NOTE | 2019-07-29 12:56 | PDOC ---
History of Present Illness - General Stated Complaint: Blood Transfusion History Source: Patient Exam Limitations: No Limitations - History of Present Illness Initial Comments: 07/29/19 16:19 88 yo F with a hx of atrial fibrillation (not on AC), macrocytic anemia, recent transfusion (Jun 2019), OA, and total left hip replacement presents to the emergency department with weakness and with recent hgb within the last 24 hours as 7.4. Per the patient, her design eng, Dr. Farooq, wants the patient to receive a blood transfusion. per the patient, she denies current symptoms. Past History - Past Medical History Allergies/Adverse Reactions: Allergies Allergy/AdvReac Type Severity Reaction Status Date / Time warfarin Allergy Mild dizzy Verified 07/29/19 12:47 Home Medications: Ambulatory Orders Multivitamin/Iron/Folic Acid [Centrum Adults Tablet] 1 tab PO DAILY 04/29/17 Furosemide 40 mg PO DAILY 11/07/18 Metoprolol Succinate 25 mg PO BID 04/12/19 Acetaminophen 650 mg PO BID 04/26/19 Oxycodone HCl 5 mg PO Q4H PRN 04/26/19 Pantoprazole Sodium 40 mg PO DAILY 04/26/19 Gabapentin 100 mg PO BID 07/29/19 Acetaminophen [Tylenol .Regular Strength -] 650 mg PO Q6H PRN tablet 07/30/19 Ferrous Sulfate [Feosol] 325 mg PO BID ud 07/30/19 Folic Acid - 1 mg PO DAILY tablet 07/30/19 Anemia: Yes Asthma: No Cancer: No Cardiac Disorders: Yes (afib) CVA: No COPD: No CHF: No Dementia: No Diabetes: No GI Disorders: No Disorders: No HTN: No Hypercholesterolemia: Yes Liver Disease: No Seizures: No Thyroid Disease: No - Surgical History Abdominal Surgery: No Appendectomy: Yes (1949) Cardiac Surgery: No Cholecystectomy: No Lung Surgery: No Neurologic Surgery: No Orthopedic Surgery: Yes (lft partial hip replacement October 2018) - Immunization History Immunization Up to Date: Yes - Psycho Social/Smoking Cessation Hx Smoking History: Never smoked Have you smoked in the past 12 months: No If you are a former smoker, when did you quit?: 1950 Hx Alcohol Use: No Drug/Substance Use Hx: No Substance Use Type: None Hx Substance Use Treatment: No Review of Systems - Review of Systems Able to Perform ROS?: Yes Is the patient limited Hebrew proficient: No Constitutional: No: Chills, Diaphoresis, Fever, Weakness HEENTM: No: Eye Pain, Ear Pain, Throat Pain, Mouth Pain Respiratory: No: Cough, Shortness of Breath, Hemoptysis Cardiac (ROS): No: Chest Pain, Lightheadedness, Palpitations ABD/GI: No: Constipated, Diarrhea, Nausea, Rectal Bleeding, Vomiting, Tarry Stools : No: Dysuria, Hematuria Musculoskeletal: Yes: Joint Pain (left wrist pain). No: Back Pain, Neck Pain Integumentary: No: Bruising, Erythema, Rash Neurological: No: Headache, Numbness, Tremors Psychiatric: No: Change in Appetite Endocrine: No: Unexplained Weight Gain Hematologic/Lymphatic: Yes: Anemia *Physical Exam - Vital Signs Last Vital Signs Temp Pulse Resp BP Pulse Ox 97.1 F L 75 16 93/51 L 100 07/29/19 12:30 07/29/19 12:30 07/29/19 12:30 07/29/19 12:30 07/29/19 12:30 - Physical Exam General Appearance: Yes: Nourished, Appropriately Dressed. No: Apparent Distress, Intoxicated HEENT: positive: EOMI, PRISCILA, Normal Voice, Symmetrical, Pharynx Normal, Hearing Grossly Normal. negative: Pale Conjunctivae, Scleral Icterus (R), Scleral Icterus (L), Muffled/Hoarse voice, Pharyngeal Erythema, Tonsillar Exudate, Tonsillar Erythema, Nasal Congestion, Rhinorrhea, Excessive drooling Neck: positive: Trachea midline, Supple. negative: Tender, Lymphadenopathy (R) , Lymphadenopathy (L), Tender lateral, Tender midline Respiratory/Chest: positive: Lungs Clear, Normal Breath Sounds. negative: Chest Tender, Respiratory Distress, Accessory Muscle Use, Crackles, Rales, Rhonchi, Stridor, Wheezing Cardiovascular: positive: Regular Rhythm, Regular Rate, S1, S2. negative: Systolic Murmur Gastrointestinal/Abdominal: positive: Normal Bowel Sounds, Flat, Soft. negative : Tender Lymphatic: negative: Adenopathy Musculoskeletal: negative: Normal Inspection (swelling noted in the right wrist. tenderness to palpation in the left and right wrist with intact ROM), CVA Tenderness, Vertebral Tenderness Extremity: positive: Normal Capillary Refill, Swelling (right wrist). negative : Pedal Edema, Calf Tenderness Integumentary: positive: Normal Color, Dry, Warm Neurologic: positive: Fully Oriented, Alert, Normal Mood/Affect ED Treatment Course - LABORATORY CBC & Chemistry Diagram: 07/30/19 07:12 07/30/19 07:12 Medical Decision Making - Medical Decision Making 88 yo F with a hx of atrial fibrillation (not on AC), macrocytic anemia, recent transfusion (Jun 2019), OA, and total left hip replacement presents to the emergency department with weakness and with recent hgb within the last 24 hours as 7.4. Initial vitals: Initial Vital Signs Temp Pulse Resp BP Pulse Ox 97.1 F L 75 16 93/51 L 100 07/29/19 12:30 07/29/19 12:30 07/29/19 12:30 07/29/19 12:30 07/29/19 12:30 Work up: Patient presents to the emergency department with anemia. I spoke to her design eng, Dr. Farooq, who states she wants to transfuse the patient to above 8 hemoglobin due to her co-morbidities. We will obtain a cbc to check hemoglobin levels, pt/inr and type and screen in preparation of transfusion. In addition, the patient had a fall within the past week with residual bilateral wrist pain with overt right wrist swelling. The patient denies deficits in the wrists and denies LOC but did sustain a hit to the head. Will obtain bilateral wrist xrays, head ct, and cervical spine CT. Laboratory Tests 07/29/19 07/29/19 07/29/19 13:30 13:30 13:30 WBC 2.3 L RBC 1.80 L Hgb 7.0 L Hct 20.0 L D MCV 111.3 H D MCH 38.7 H MCHC 34.8 RDW 24.7 H Plt Count 285 D MPV 7.2 L Absolute Neuts (auto) 1.3 L Neutrophils % 55.5 D Lymphocytes % 26.9 D Monocytes % 15.7 H Eosinophils % 1.4 Basophils % 0.5 Nucleated RBC % 0 Hypochromia 0 Platelet Estimate Normal Polychromasia 0 Poikilocytosis 1+ Basophilic Stippling 1+ Anisocytosis 2+ Microcytosis 2+ Macrocytosis 2+ Tear Drop Cells 1+ Chelly Cells 0 Schistocytes 1+ PT with INR 13.70 H INR 1.16 H Sodium 139 Potassium 4.0 Chloride 103 Carbon Dioxide 30 Anion Gap 5 L BUN 15.6 Creatinine 0.5 L Est GFR (CKD-EPI)AfAm 99.45 Est GFR (CKD-EPI)NonAf 85.81 Random Glucose 66 L Calcium 8.5 Total Bilirubin 0.7 AST 33 ALT 26 Alkaline Phosphatase 76 Total Protein 6.1 L Albumin 3.7 Blood Type Antibody Screen Crossmatch 07/29/19 13:30 WBC RBC Hgb Hct MCV MCH MCHC RDW Plt Count MPV Absolute Neuts (auto) Neutrophils % Lymphocytes % Monocytes % Eosinophils % Basophils % Nucleated RBC % Hypochromia Platelet Estimate Polychromasia Poikilocytosis Basophilic Stippling Anisocytosis Microcytosis Macrocytosis Tear Drop Cells Chelly Cells Schistocytes PT with INR INR Sodium Potassium Chloride Carbon Dioxide Anion Gap BUN Creatinine Est GFR (CKD-EPI)AfAm Est GFR (CKD-EPI)NonAf Random Glucose Calcium Total Bilirubin AST ALT Alkaline Phosphatase Total Protein Albumin Blood Type A POSITIVE Antibody Screen Negative Crossmatch See Detail hemoglobin is 7 today. 2 units of PRBCs were ordered; consent was obtained by patient and is in physical chart. I spoke to the admitting team who will admit the patient for transfusion. CXR shows increased medial right lung base markings consistent with atelectasis or infiltrate (no leukocytosis present) xrays of the wrists bilaterally are negative for an acute process head ct and cervical spine CT negative for acute process EKG: atrial fibrillation with a ventricular rate of 82 bpm with incomplete ( 96ms QRS duration) RBBB with TWI in V2, III. No significant difference from previous EKG. Discharge - Discharge Information Problems reviewed: Yes Clinical Impression/Diagnosis: Anemia - Follow up/Referral - Patient Discharge Instructions - Post Discharge Activity
[2019-07-29 14:11] LABS: BASO % 0.5 % (0-2.0); EOS % 1.4 % (0-4.5); LYMPH % 26.9 % (8-40); MCH 38.7 pg (25.7-33.7); MCHC 34.8 g/dl (32.0-36.0); MEAN CELL VOLUME 111.3 fl (80-96); MEAN PLT VOLUME 7.2 fl (7.5-11.1); MONO % 15.7 % (3.8-10.2); NEUT % 55.5 % (42.8-82.8); PLATELET COUNT 285 K/MM3 (134-434); RDW 24.7 % (11.6-15.6); WHITE BLOOD COUNT 2.3 K/mm3 (4.0-10.0)
[2019-07-29 14:29] LABS: INR 1.16 (0.83-1.09); PROTHROMBIN TIME (PATIENT) 13.7 SEC (9.7-13.0)
--- NOTE | 2019-07-29 14:32 | PDOC ---
Attending Attestation - Resident Resident Name: Navin Bae - ED Attending Attestation I have performed the following: I have examined & evaluated the patient, The case was reviewed & discussed with the resident, I agree w/resident's findings & plan, Exceptions are as noted - HPI HPI: 88 yo F history afib, macrocytic anemia, OA, L hip replacement presents with weakness. She had a recent fall with swelling of her right wrist. She denies any pain. No complaints at present. - Physicial Exam PE: GENERAL: Awake, alert, and fully oriented, in no acute distress HEAD: No signs of trauma EYES: PERRLA, EOMI, sclera anicteric, conjunctiva clear ENT: Auricles normal inspection, hearing grossly normal, nares patent, oropharynx clear without exudates. Moist mucosa NECK: Normal ROM, supple, no lymphadenopathy, JVD, or masses LUNGS: Breath sounds equal, clear to auscultation bilaterally. No wheezes, and no crackles HEART: Regular rate and rhythm, normal S1 and S2, no murmurs, rubs or gallops ABDOMEN: Soft, nontender, normoactive bowel sounds. No guarding, no rebound. No masses EXTREMITIES: R wrist with mild nonpitting edema, +crepitus on ROM. No tenderness , no bony deformity. Remainder of extremities with normal range of motion, no edema. No clubbing or cyanosis. No cords, erythema, or tenderness NEUROLOGICAL: Cranial nerves II through XII grossly intact. Normal speech. Motor and sensation intact SKIN: Warm, dry, normal turgor, no rashes or lesions noted. - Medical Decision Making Pt with history of anemia, Hb 7. Request from Dr. Farooq to transfuse, will admit. XR wrist negative for fx.
[2019-07-29 14:45] LABS: ALBUMIN 3.7 g/dl (3.4-5.0); BILIRUBIN,TOTAL 0.7 mg/dL (0.2-1); BLOOD UREA NITROGEN 15.6 mg/dL (7-18); CALCIUM 8.5 mg/dL (8.5-10.1); CREATININE 0.5 mg/dL (0.55-1.3); TOT PROT 6.1 g/dl (6.4-8.2)
[2019-07-29 15:30] LABS: ANISOCYTOSIS 2+; MACROCYTOSIS 2+; PLATELET ESTIMATE NORMAL; TEAR DROP CELLS 1+
--- NOTE | 2019-07-29 16:44 | HP ---
Admitting History and Physical - Primary Care Physician PCP: Maggie Gloria - Admission Chief Complaint: weakness and anemia History of Present Illness: 88 yo F with a hx of atrial fibrillation (not on AC), macrocytic anemia, recent transfusion (Jun 2019), OA, and total left hip replacement presents to the emergency department with weakness and with recent hgb within the last 24 hours as 7.4. Follows with Dr Farooq (hemetology) who would like pt to be admitted for PRBC. History Source: Patient Limitations to Obtaining History: No Limitations - Past Medical History Cardiovascular: Yes: AFIB Heme/Onc: Yes: Anemia Musculoskeletal: Yes: Osteoarthritis - Smoking History Smoking history: Never smoked Have you smoked in the past 12 months: No If you are a former smoker, when did you quit?: 1950 - Alcohol/Substance Use Hx Alcohol Use: No - Social History Usual Living Arrangement: Yes: Custodial ([facility] for re[facility]) ADL: Support Services History of Recent Travel: No Home Medications - Allergies Allergies/Adverse Reactions: Allergies Allergy/AdvReac Type Severity Reaction Status Date / Time warfarin Allergy Mild dizzy Verified 07/29/19 12:47 - Home Medications Home Medications: Ambulatory Orders Multivitamin/Iron/Folic Acid [Centrum Adults Tablet] 1 tab PO DAILY 04/29/17 Furosemide 40 mg PO DAILY 11/07/18 Metoprolol Succinate 25 mg PO BID 04/12/19 Acetaminophen 650 mg PO BID 04/26/19 Oxycodone HCl 5 mg PO Q4H PRN 04/26/19 Pantoprazole Sodium 40 mg PO DAILY 04/26/19 Gabapentin 100 mg PO BID 07/29/19 Family Medical History Family History: Denies Review of Systems - Review of Systems Constitutional: reports: No Symptoms Eyes: reports: No Symptoms HENT: reports: No Symptoms Neck: reports: No Symptoms Cardiovascular: reports: No Symptoms Respiratory: reports: No Symptoms Gastrointestinal: reports: No Symptoms Genitourinary: reports: No Symptoms Breasts: reports: No Symptoms Reported Musculoskeletal: reports: Extremity Pain, Other (left wrist pain) Integumentary: reports: No Symptoms Neurological: reports: No Symptoms Endocrine: reports: No Symptoms Hematology/Lymphatic: reports: No Symptoms Psychiatric: reports: No Symptoms Physical Examination Vital Signs: Vital Signs Temperature 97.1 F L 07/29/19 12:30 Pulse Rate 75 07/29/19 12:30 Respiratory Rate 16 07/29/19 12:30 Blood Pressure 93/51 L 07/29/19 12:30 O2 Sat by Pulse Oximetry (%) 100 07/29/19 12:30 Constitutional: Yes: No Distress, Calm, Thin Eyes: Yes: WNL, Conjunctiva Clear, EOM Intact HENT: Yes: WNL, Atraumatic, Normocephalic Neck: Yes: WNL, Supple, Trachea Midline Cardiovascular: Yes: WNL, Regular Rate and Rhythm Respiratory: Yes: WNL, Regular, CTA Bilaterally Gastrointestinal: Yes: WNL, Normal Bowel Sounds ...Rectal Exam: Yes: Deferred Renal/: Yes: WNL Breast(s): Yes: WNL Musculoskeletal: Yes: Other (bruising to left/right wrists. Swelling to right wrist) Extremities: Yes: WNL Edema: No Peripheral Pulses WNL: Yes Peripheral Pulses: Left Radial: 2+, Right Radial: 2+, Left Doralis Pedis: 2+, Right Dorsalis Pedis: 2+, Left Femoral: 2+, Right Femoral: 2+ Integumentary: Yes: Bruising (BL wrists) Neurological: Yes: WNL, Alert, Oriented, Unsteady Gait (slipped on freshly waxed floor) ...Motor Strength: WNL Psychiatric: Yes: WNL Labs: CBC, BMP 07/29/19 13:30 07/29/19 13:30 Imaging - Results Chest X-ray: Report Reviewed (Mild congestive chaqnges simce CXR with some atelectasis) X-ray: Report Reviewed (no acute pathology) Cat Scan: Report Reviewed (No acute pathology) Problem List - Problems (1) Macrocytic anemia Assessment/Plan: follows with Dr Farooq as outpatient recent admission with 2 u PRBC 2u ordered to be given in ED may need lasix after 2nd unit given congestive changes on CXR strict I'Os Code(s): D53.9 - NUTRITIONAL ANEMIA, UNSPECIFIED (2) Transfusion of blood during current hospitalization Assessment/Plan: 2u of PRBC ordered Code(s): ALS3293 - (3) Prophylactic measure Assessment/Plan: FEN Fluids: no additional IVF-congestive changes on CXR Electrolytes: monitor & replete as needed Nutrition: low sodium DVT scds Dispo admit to med surg full code discharge planning Code(s): Z29.9 - ENCOUNTER FOR PROPHYLACTIC MEASURES, UNSPECIFIED (4) Weakness Assessment/Plan: pt in rehab after hip replacement PT consult requested fall precautions Code(s): R53.1 - WEAKNESS (5) Afib Assessment/Plan: rate controlled c/w toprol Code(s): I48.91 - UNSPECIFIED ATRIAL FIBRILLATION (6) Wrist pain Assessment/Plan: BL xray done \no acute pathology ice pack prn Code(s): M25.539 - PAIN IN UNSPECIFIED WRIST Visit type - Emergency Visit Emergency Visit: Yes ED Registration Date: 07/29/19 Care time: The patient presented to the Emergency Department on the above date and was hospitalized for further evaluation of their emergent condition. - New Patient This patient is new to me today: Yes Date on this admission: 07/29/19 - Critical Care Critical Care patient: No
[2019-07-29] MEDS ORDERED: FOLIC ACID 1 MG TABLET (FP) PO ONE (16:55)
[2019-07-29] MEDS ORDERED: ACETAMINOPHEN 325 MG TABLET (FP) PO PRN (18:58)
[2019-07-29] MEDS: GABAPENTIN 100 MG CAPSULE PO SCH (22:35)
[2019-07-29] MEDS: FERROUS SO4 325 MG TABLET (FP) PO SCH (22:35)
[2019-07-29] MEDS: metoPROLOL SUCCINATE 25 MG TAB.SR.24H (FP) PO SCH (23:50)
[2019-07-30 08:43] LABS: ALBUMIN 3.9 g/dl (3.4-5.0); BILIRUBIN,TOTAL 2.9 mg/dL (0.2-1); BLOOD UREA NITROGEN 16.4 mg/dL (7-18); CALCIUM 8.4 mg/dL (8.5-10.1); CREATININE 0.5 mg/dL (0.55-1.3); MAGNESIUM 1.9 mg/dL (1.8-2.4); TOT PROT 6.3 g/dl (6.4-8.2)
[2019-07-30 08:46] LABS: BASO % 0.4 % (0-2.0); EOS % 0.9 % (0-4.5); HEMATOCRIT 28.4 % (32.4-45.2); LYMPH % 15.4 % (8-40); MCH 36.2 pg (25.7-33.7); MCHC 35.3 g/dl (32.0-36.0); MEAN CELL VOLUME 102.5 fl (80-96); MEAN PLT VOLUME 7.6 fl (7.5-11.1); MONO % 9.8 % (3.8-10.2); NEUT % 73.5 % (42.8-82.8); PLATELET COUNT 307 K/MM3 (134-434); RBC 2.77 M/mm3 (3.60-5.2); RDW 29.1 % (11.6-15.6); WHITE BLOOD COUNT 5.2 K/mm3 (4.0-10.0)
--- NOTE | 2019-07-30 08:50 | PN ---
Progress Note, Physician - Current Medication List Current Medications: Active Medications Acetaminophen (Tylenol -) 650 mg PO Q6H PRN PRN Reason: Fever Or Pain Ferrous Sulfate (Feosol -) 325 mg PO BID [facility] Last Admin: 07/29/19 22:35 Dose: 325 mg Folic Acid (Folic Acid -) 1 mg PO DAILY [facility] Furosemide (Lasix -) 40 mg PO DAILY [facility] Gabapentin (Neurontin -) 100 mg PO BID [facility] Last Admin: 07/29/19 22:35 Dose: 100 mg Metoprolol Succinate (Toprol Xl -) 25 mg PO BID [facility] Last Admin: 07/29/19 23:50 Dose: Not Given Multivitamins/Minerals/Vitamin C (Tab-A-Vit -) 1 tab PO DAILY [facility] - Objective Vital Signs: Vital Signs Temperature 98 F 07/30/19 05:00 Pulse Rate 93 H 07/30/19 05:00 Respiratory Rate 18 07/30/19 05:00 Blood Pressure 127/75 07/30/19 05:00 O2 Sat by Pulse Oximetry (%) 98 07/30/19 05:00 Labs: CBC, BMP 07/30/19 07:12 INR, PTT INR 1.16 (0.83-1.09) H 07/29/19 13:30 Problem List - Problems (1) Macrocytic anemia Code(s): D53.9 - NUTRITIONAL ANEMIA, UNSPECIFIED (2) Transfusion of blood during current hospitalization Code(s): [id number] - (3) Prophylactic measure Code(s): Z29.9 - ENCOUNTER FOR PROPHYLACTIC MEASURES, UNSPECIFIED (4) Weakness Code(s): R53.1 - WEAKNESS (5) Afib Code(s): I48.91 - UNSPECIFIED ATRIAL FIBRILLATION (6) Wrist pain Code(s): M25.539 - PAIN IN UNSPECIFIED WRIST
[2019-07-30] MEDS ORDERED: FUROSEMIDE 40 MG TABLET (FP) PO SCH (10:00)
[2019-07-30] MEDS ORDERED: MULTIVITAMINS (DAILY MVI) TABLET (FP) PO SCH (10:00)
[2019-07-30] MEDS ORDERED: FOLIC ACID 1 MG TABLET (FP) PO SCH (10:00)
[2019-07-30] MEDS ORDERED: PATIENT'S OWN MEDICATION (NON-FORMULARY) (Multivitamin/Iron/Folic Acid [Centrum Adults Tab PO SCH (10:00)
[2019-07-30] MEDS: FERROUS SO4 325 MG TABLET (FP) PO SCH (10:03)
[2019-07-30] MEDS: GABAPENTIN 100 MG CAPSULE PO SCH (10:04)
[2019-07-30] MEDS: metoPROLOL SUCCINATE 25 MG TAB.SR.24H (FP) PO SCH (10:04)
--- NOTE | 2019-07-30 13:16 | EKG ---
Test Reason : Blood Pressure : / mmHG Vent. Rate : 082 BPM Atrial Rate : 087 BPM P-R Int : 000 ms QRS Dur : 096 ms QT Int : 386 ms P-R-T Axes : 000 064 -20 degrees QTc Int : 450 ms ATRIAL FIBRILLATION WITH PREMATURE VENTRICULAR OR ABERRANTLY CONDUCTED COMPLEXES INCOMPLETE RIGHT BUNDLE BRANCH BLOCK ANTERIOR INFARCT , AGE UNDETERMINED ABNORMAL ECG WHEN COMPARED WITH ECG OF 17-JUN-2019 15:47, NO SIGNIFICANT CHANGE WAS FOUND Confirmed by CORNELIO VACA MD ([id number]) on 07/30/2019 1:16:27 PM Referred By: Confirmed By:CORNELIO VACA MD
[2019-07-30 14:29] VITALS: PULSE 82; TEMP 98.2
--- NOTE | 2019-07-30 14:41 | DS ---
Physical Exam: SUBJECTIVE: Patient seen and examined OBJECTIVE: Vital Signs Period Temp Pulse Resp BP Sys/Jay Pulse Ox Last 24 Hr 97.5 F-98.9 F 73-93 16-19 98-128/54-81 95-98 PHYSICAL EXAM Constitutional: Yes: No Distress, Calm, Thin Eyes: Yes: WNL, Conjunctiva Clear, EOM Intact HENT: Yes: WNL, Atraumatic, Normocephalic Neck: Yes: WNL, Supple, Trachea Midline Cardiovascular: Yes: WNL, Regular Rate and Rhythm Respiratory: Yes: WNL, Regular, CTA Bilaterally Gastrointestinal: Yes: WNL, Normal Bowel Sounds ...Rectal Exam: Yes: Deferred Renal/: Yes: WNL Breast(s): Yes: WNL Musculoskeletal: Yes: Other (bruising to left/right wrists. Swelling to right wrist) Extremities: Yes: WNL Edema: No Peripheral Pulses WNL: Yes Peripheral Pulses: Left Radial: 2+, Right Radial: 2+, Left Doralis Pedis: 2+, Right Dorsalis Pedis: 2+, Left Femoral: 2+, Right Femoral: 2+ Integumentary: Yes: Bruising (BL wrists) Neurological: Yes: WNL, Alert, Oriented ...Motor Strength: WNL Psychiatric: Yes: WNL LABS Laboratory Results - last 24 hr 07/29/19 07/29/19 07/29/19 13:30 13:30 13:30 WBC RBC Hgb Hct MCV MCH MCHC RDW Plt Count MPV Absolute Neuts (auto) Neutrophils % Lymphocytes % Monocytes % Eosinophils % Basophils % Nucleated RBC % Hypochromia 0 Platelet Estimate Normal Polychromasia 0 Poikilocytosis 1+ Basophilic Stippling 1+ Anisocytosis 2+ Microcytosis 2+ Macrocytosis 2+ Tear Drop Cells 1+ [place] Cells 0 Schistocytes 1+ Sodium 139 Potassium 4.0 Chloride 103 Carbon Dioxide 30 Anion Gap 5 L BUN 15.6 Creatinine 0.5 L Est GFR (CKD-EPI)AfAm 99.45 Est GFR (CKD-EPI)NonAf 85.81 POC Glucometer Random Glucose 66 L Calcium 8.5 Magnesium Total Bilirubin 0.7 AST 33 ALT 26 Alkaline Phosphatase 76 Total Protein 6.1 L Albumin 3.7 Blood Type A POSITIVE Antibody Screen Negative Crossmatch See Detail 07/29/19 07/30/1920 18:48 07:12 07:12 WBC 5.2 RBC 2.77 L Hgb 10.0 L Hct 28.4 L D MCV 102.5 H MCH 36.2 H MCHC 35.3 RDW 29.1 H Plt Count 307 MPV 7.6 Absolute Neuts (auto) 3.8 Neutrophils % 73.5 D Lymphocytes % 15.4 D Monocytes % 9.8 Eosinophils % 0.9 Basophils % 0.4 Nucleated RBC % 0 Hypochromia Platelet Estimate Polychromasia Poikilocytosis Basophilic Stippling Anisocytosis Microcytosis Macrocytosis Tear Drop Cells [place] Cells Schistocytes Sodium 138 Potassium 4.0 Chloride 104 Carbon Dioxide 26 Anion Gap 8 BUN 16.4 Creatinine 0.5 L Est GFR (CKD-EPI)AfAm 99.45 Est GFR (CKD-EPI)NonAf 85.81 POC Glucometer 85 Random Glucose 88 Calcium 8.4 L Magnesium 1.9 Total Bilirubin 2.9 H D AST 32 ALT 25 Alkaline Phosphatase 79 Total Protein 6.3 L Albumin 3.9 Blood Type Antibody Screen Crossmatch HOSPITAL COURSE: Date of Admission:07/29/19 Date of Discharge: 07/30/19 Imaging - Results Chest X-ray: Report Reviewed (Mild congestive chaqnges simce CXR with some atelectasis) X-ray: Report Reviewed (no acute pathology) Cat Scan: Report Reviewed (No acute pathology) Problem List - Problems (1) Macrocytic anemia Assessment/Plan: follow with Dr Farooq as outpatient recent admission with 2 u PRBC 2u PRBC givenm overmight with rise in hgb to 10 Code(s): D53.9 - NUTRITIONAL ANEMIA, UNSPECIFIED (2) Transfusion of blood during current hospitalization Assessment/Plan: 2u of PRBC Code(s): [id number] - (3) Prophylactic measure Assessment/Plan: FEN Fluids: adequaite PO intake Electrolytes: stable Nutrition:c/w low sodium DVT resume PT program Dispo medcailly stable for dc back to [facility] Code(s): Z29.9 - ENCOUNTER FOR PROPHYLACTIC MEASURES, UNSPECIFIED (4) Weakness Assessment/Plan: pt in rehab after hip replacement c/w PT fall precautions Code(s): R53.1 - WEAKNESS (5) Afib Assessment/Plan: rate controlled c/w toprol Code(s): I48.91 - UNSPECIFIED ATRIAL FIBRILLATION (6) Wrist pain Assessment/Plan: BL xray done \no acute pathology ice pack prn Code(s): M25.539 - PAIN IN UNSPECIFIED WRIST Medically stable for dc back to [facility] Minutes to complete discharge: 35 Discharge Summary Problems reviewed: Yes Reason For Visit: ANEMIA Current Active Problems Anemia (Acute) Macrocytic anemia (Acute) Prophylactic measure (Acute) Transfusion of blood during current hospitalization (Acute) Weakness (Acute) Wrist pain (Acute) Hospital Course: (1) Macrocytic anemia Assessment/Plan: follow with Dr Farooq as outpatient recent admission with 2 u PRBC 2u PRBC givenm overmight with rise in hgb to 10 Code(s): D53.9 - NUTRITIONAL ANEMIA, UNSPECIFIED (2) Transfusion of blood during current hospitalization Assessment/Plan: 2u of PRBC Code(s): [id number] - (3) Prophylactic measure Assessment/Plan: FEN Fluids: adequaite PO intake Electrolytes: stable Nutrition:c/w low sodium DVT resume PT program Dispo medcailly stable for dc back to [facility] Code(s): Z29.9 - ENCOUNTER FOR PROPHYLACTIC MEASURES, UNSPECIFIED (4) Weakness Assessment/Plan: pt in rehab after hip replacement c/w PT fall precautions Code(s): R53.1 - WEAKNESS (5) Afib Assessment/Plan: rate controlled c/w toprol Code(s): I48.91 - UNSPECIFIED ATRIAL FIBRILLATION (6) Wrist pain Assessment/Plan: BL xray done \no acute pathology ice pack prn Code(s): M25.539 - PAIN IN UNSPECIFIED WRIST Medically stable for dc back to [facility] Condition: Improved - Instructions Diet, Activity, Other Instructions: DISCHARGE YOUR VISIT You came to the hospital because your hemoglobin was very low 7.0. You received 2 units of blood and your hemoglobin increased to 10. You can follow with Dr Farooq after discharge. The XRay of your wrists showed no fractures. You can ice both wrists. MEDICATIONS Please continue to take your home medications as prescribed. There was NO changes DIET Continue your home diet ADDITIONAL CARE Please make an appointment to see your primary care provider, Dr Gloria or Dr Farooq 1 week from today. ADDITIONAL INFORMATION Please call 911 or come directly to the emergency department if you experience unusual headache, vision change, shortness of breath, chest pain, numbness, tingling, loss of alertness/awareness, loss of function, unusual bleeding or any alarming symptoms. Thank you for allowing me to care for you. Layo Brennan, LAMBERTP, [facility] [phone] Referrals: Maggie Gloria MD [Primary Care Provider] - [facility] - Home Medications Comprehensive Discharge Medication List: Ambulatory Orders Multivitamin/Iron/Folic Acid [Centrum Adults Tablet] 1 tab PO DAILY 04/29/17 Furosemide 40 mg PO DAILY 11/07/18 Metoprolol Succinate 25 mg PO BID 04/12/19 Acetaminophen 650 mg PO BID 04/26/19 Oxycodone HCl 5 mg PO Q4H PRN 04/26/19 Pantoprazole Sodium 40 mg PO DAILY 04/26/19 Gabapentin 100 mg PO BID 07/29/19 Prescription Drug Monitoring Program (I-STOP) results: I-STOP reviewed and no issues identified Problem List - Problems (1) Macrocytic anemia Code(s): D53.9 - NUTRITIONAL ANEMIA, UNSPECIFIED (2) Transfusion of blood during current hospitalization Code(s): [id number] - (3) Prophylactic measure Code(s): Z29.9 - ENCOUNTER FOR PROPHYLACTIC MEASURES, UNSPECIFIED (4) Weakness Code(s): R53.1 - WEAKNESS (5) Afib Code(s): I48.91 - UNSPECIFIED ATRIAL FIBRILLATION (6) Wrist pain Code(s): M25.539 - PAIN IN UNSPECIFIED WRIST This patient is new to me today: No Emergency Visit: Yes ED Registration Date: 07/29/19 Care time: The patient presented to the Emergency Department on the above date and was hospitalized for further evaluation of their emergent condition. Critical Care patient: No - Discharge Referral Referred to [facility] Med [facility] No
[2019-07-30 19:11] VITALS: BP 126/79
== END 2019-07-30 18:00 ==
LOC: JER 12:21 → JERBED 15:05 → INTOOBSV 15:05
PROVIDERS: ADMIT Internal Medicine; ATTEND Nurse Practitioner Acute Care
PROC: 30233N1 Transfusion of Nonautologous Red Blood Cells into Peripheral Vein, Percutaneous Approach (ICD-10-PCS; principal; 2019-07-29)
DX: D53.9 Nutritional anemia, unspecified (principal); R53.1 Weakness; I48.91 Unspecified atrial fibrillation; M19.90 Unspecified osteoarthritis, unspecified site; E78.00 Pure hypercholesterolemia, unspecified; Z88.3 Allergy status to other anti-infective agents; Z96.642 Presence of left artificial hip joint; Z29.8 Encounter for other specified prophylactic measures; M25.539 Pain in unspecified wrist
CPT/HCPCS: 36415; 36430; 70450-TC; 71045-TC-FY; 72125-TC; 73110-TC-LT-FY; 73110-TC-RT-FY; 80053; 82962; 83735; 85025; 85610; 86850; 86900; 86901; 86922; 93005; 93010; 99285-25; G0378; P9058